=== PATIENT | female | born 1960 | race Caucasian/White ===

== ENCOUNTER 2016-05-12 17:37 | Inpatient (IN) | payer BC ==
--- NOTE | 2016-05-12 17:48 | PDOC ---
Rapid Medical Evaluation Time Seen by Provider: 05/12/16 17:42 Medical Evaluation: Allergies Allergy/AdvReac Type Severity Reaction Status Date / Time No Known Allergies Allergy Verified 05/12/16 17:42 05/12/16 17:43 I have performed a brief in-person evaluation of this patient. Ms. Jarrell is a 55 yo F with a history of HTN, hypothyroidism presents with a chief complaint of Right abdominal pain and right chest pain Pain began 2 weeks ago She was seen in Urgent care, diagnosed with muscle spasm, given pain medications Was then seen by PMD 1 week ago, given pain medications Never got chest xray (+) dizziness (+) sob (-) nausea, vomiting, diarrhea Took Tylenol at 3pm for pain Pertinent physical exam findings: Temp 100.5, HR: 130, O2: 95% Tachycardiac Right upper abdominal pain, Right lower costal pain No rash Decreased breath sounds Right base I have ordered the following: EKG, sepsis order set Pt will be taken immediately to the ER 05/12/16 17:43 05/12/16 17:48 05/12/16 17:49 05/12/16 17:55 EKG: Sinus tachycardia, no ischemic changes 05/12/16 17:57
[2016-05-12] MEDS ORDERED: IBUPROFEN 600 MG TABLET (FP) PO ONE (17:55)
--- NOTE | 2016-05-12 18:44 | PDOC ---
History of Present Illness - General History Source: Patient Exam Limitations: No Limitations - History of Present Illness Initial Comments: 05/12/16 19:32 The patient is a 56 year old female, with significant past medical history of hypothyroidism, HTN, who presents today complaining of 2 weeks of right abdominal pain and right sided chest pain. The patient states that the pain started on her upper right side and has progressively radiated to under the right breast and the back. The pain is constant, but increases in intensity at times. She states that the pain is accompanied by nausea. The last time she vomited was on Tuesday, 2 days ago. She states that she did not eat today because the pain and medication were making her nauseous. She notes that she visited the Urgent Care at [facility] for this pain 2 weeks ago where they treated her for a muscle spasm. She was prescribed Methocarbamol (500mg) for the pain has been taking it intermittently. Denies fever, chills, vomiting. Denies SOB, cough. Allergies: none reported Surgical Hx: cholecystectomy PCP: Dr. Barone ([facility]) <Valeria Blake - Last Filed: 05/12/16 22:37> <Stanley Medina - Last Filed: 05/12/16 22:56> - General Chief Complaint: Pain, Acute Stated Complaint: PAIN, ACUTE Time Seen by Provider: 05/12/16 17:42 Past History <Valeria Blake - Last Filed: 05/12/16 22:37> - Past Medical History HTN: Yes Thyroid Disease: Yes - Surgical History Abdominal Surgery: Yes (laparotomy. HERNIA ERPAIR X 2) Cholecystectomy: Yes - Psycho/Social/Smoking Cessation Hx Anxiety: No Suicidal Ideation: No Smoking History: Never smoked Have you smoked in the past 12 months: No Number of Cigarettes Smoked Daily: 0 Hx Alcohol Use: No Drug/Substance Use Hx: No Substance Use Type: None Hx Substance Use Treatment: No <Stanley Medina - Last Filed: 05/12/16 22:56> - Past Medical History Allergies/Adverse Reactions: Allergies Allergy/AdvReac Type Severity Reaction Status Date / Time No Known Allergies Allergy Verified 05/12/16 17:47 Home Medications: Ambulatory Orders Levothyroxine [Synthroid -] 125 mcg PO DAILY 11/24/13 Amlodipine Besylate [Norvasc -] 10 mg PO DAILY 05/12/16 Losartan/Hydrochlorothiazide [Losartan-Hctz 50-12.5 mg Tab] 1 each PO DAILY Methocarbamol [Robaxin -] 500 mg PO DAILY PRN 05/12/16 Review of Systems - Review of Systems Able to Perform ROS?: Yes Comments:: 05/12/16 19:32 CONSTITUTIONAL: No fever, no chills, no fatigue EYES: No visual changes ENT: No ear pain, no sore throat CARDIOVASCULAR: +right sided chest pain. No palpitations RESPIRATORY: No cough, no SOB GI: +nausea. No abdominal pain, no vomiting, no constipation, no diarrhea GENITOURINARY: No dysuria, no frequency, no hematuria MUSKULOSKELETAL: No backpain, no joint pain, no myalgias SKIN: No rash NEURO: No headache <Valeria Blake - Last Filed: 05/12/16 22:37> *Physical Exam - Vital Signs Last Vital Signs Temp Pulse Resp BP Pulse Ox 100.5 F H 130 H 18 145/68 95 05/12/16 17:43 05/12/16 17:43 05/12/16 17:43 05/12/16 17:43 05/12/16 17:43 - Physical Exam Comments: 05/12/16 19:58 CONSTITUTIONAL: Awake, alert. Morbidly obese. In moderate distress. HEAD: Normocephalic; atraumatic EYES: PERRL; EOM intact. No icterus ENMT: External appears normal; normal oropharynx. Mucous membranes dry. NECK: Supple; non-tender; no cervical lymphadenopathy CARD: Normal S1, S2; no murmurs, rubs, or gallops RESP: Normal chest excursion with respiration; Decreased breast sounds at the right base. no wheezes, rhonchi, or rales CHEST: Severe right chest wall tenderness intercostal spaces 6,7, and 8 along the midclavicular line. ABD: Soft, non-distended; non-tender; no palpable organomegaly, no palpable hernias EXT: Normal ROM in all four extremities; non-tender to palpation; distal pulses intact SKIN: Warm, dry, no rash NEURO: No focal neurological deficiencies. <Valeria Blake - Last Filed: 05/12/16 22:37> - Vital Signs Last Vital Signs Temp Pulse Resp BP Pulse Ox 100.5 F H 130 H 18 145/68 95 05/12/16 17:43 05/12/16 17:43 05/12/16 17:43 05/12/16 17:43 05/12/16 17:43 <Stanley Medina - Last Filed: 05/12/16 22:56> Heart Score/ECG Review #1 05/12/16 19:36 Sinus tachycardia Otherwise normal ECG <Valeria Blake - Last Filed: 05/12/16 22:37> ED Treatment Course - LABORATORY CBC & Chemistry Diagram: 05/12/16 18:02 05/12/16 18:02 - Medications Given in the ED: ED Medications Discontinued Medications Generic Name Dose Route Start Last Admin Trade Name Freq PRN Reason Stop Dose Admin Ibuprofen 600 mg 05/12/16 17:55 05/12/16 19:14 Motrin - PO 05/12/16 17:56 Not Given ONCE ONE <Valeria Blake - Last Filed: 05/12/16 22:37> - LABORATORY CBC & Chemistry Diagram: 05/12/16 18:02 05/12/16 18:02 <Stanley Medina - Last Filed: 05/12/16 22:56> Medical Decision Making - Medical Decision Making 05/12/16 22:54 Patient is a morbidly obese 55-year-old female with history of hypertension and hypothyroidism who presented with increasing right lower chest and right upper abdominal pain for the past 2 weeks. Initial evaluation, patient noted to be febrile and tachycardic with decreased breath sounds at the right base. Initial CBC revealed leukocytosis of 12.3 with predominance of neutrophils. Chest x-ray revealed right lower lobe infiltrate. Blood cultures were obtained and patient received ceftriaxone and Zithromax IV. After administration of IV antibiotics, left EJ peripheral line infiltrated a small amount of fluid extravasated subcutaneously. Ice was applied. A 22-gauge peripheral IV catheter was inserted and left forearm. CT of chest with IV contrast was obtained for the PE protocol. No evidence of pulmonary embolism was noted, however, moderate size right pleural effusion and compressive atelectasis was noted. Also noted was a 5 cm right hepatic lobe mass which may represent a peritoneal implant. Patient will require admission for further evaluation and treatment of right pleural effusion and hepatic lobe infiltrate. Patient may require thoracentesis for evaluation of possible empyema versus malignant effusion. <Stanley Medina - Last Filed: 05/12/16 22:56> *DC/Admit/Observation/Transfer - Attestations Scribe Attestion: 05/12/16 19:32 Documentation prepared by JAZZY Turner, acting as forensic medical examiner for Stanley Medina MD. <Valeria Blake - Last Filed: 05/12/16 22:37> - Discharge Dispostion Admit: Yes - Attestations Physician Attestion: 05/12/16 22:36 The documentation was prepared by the scribe under my direct supervision. I have reviewed the documentation which correctly represents the findings, medical decision-making and critical action taken by me. <Stanley Medina - Last Filed: 05/12/16 22:56> Diagnosis at time of Disposition: Pleural effusion, Liver mass, right lobe
[2016-05-12] MEDS ORDERED: LIDOCAINE 1%/EPI 1:100000 (50 ML MULTI DOSE VIAL) ONE (19:19)
[2016-05-12] MEDS ORDERED: AZITHROMYCIN IVPB 500 MG in DEXTROSE 5%-WATER - 250 ML IVPB ONE (19:32)
[2016-05-12] MEDS ORDERED: CEFTRIAXONE 1 GM in DEXTROSE 5%-WATER - 50 ML IVPB ONE (19:32)
[2016-05-12] MEDS ORDERED: ACETAMINOPHEN 500 MG TABLET (FP) PO ONE (19:34)
[2016-05-12] MEDS ORDERED: SODIUM CHLORIDE 1,000 ML IV STA (19:34)
[2016-05-12] MEDS ORDERED: CEFTRIAXONE 50 ML ONE (19:43)
[2016-05-12] MEDS ORDERED: ACETAMINOPHEN 325 MG TABLET (FP) ONE ×2 (19:43→23:49)
[2016-05-12] MEDS ORDERED: AZITHROMYCIN IVPB 250 ML IVPB ONE (20:13)
[2016-05-12 20:46] LABS: ALBUMIN 3.1 g/dl (3.4-5.0); ANION GAP 9 (8-16); CALCIUM 8.1 mg/dL (8.5-10.1); CO2 26 mmol/L (21-32); CREATININE 0.6 mg/dL (0.55-1.02); GLUCOSE,RANDOM 116 mg/dL (74-106); SGOT/AST 11 U/L (15-37); SGPT/ALT 13 U/L (12-78)
[2016-05-12 20:49] LABS: ALK PHOS 79 U/L (45-117); BILIRUBIN,TOTAL 0.8 mg/dL (0.2-1.0); TOT PROT 7.4 g/dl (6.4-8.2); TROPONIN I < 0.02 ng/ml (0.00-0.05)
[2016-05-12] MEDS ORDERED: ACETAMINOPHEN 325 MG TABLET (FP) PO ONE (22:56)
[2016-05-12 23:02] LABS: BASOPHIL 0.5 % (0-2.0); EOSINOPHIL 0.4 % (0-4.5); MCH 28.8 pg (25.7-33.7); MCHC 34.4 g/dl (32.0-36.0); MEAN CELL VOLUME 83.7 fl (80-96); MEAN PLT VOLUME 7.9 fl (7.5-11.1); NEUTROPHILS 88.3 % (42.8-82.8); RDW 13.7 % (11.6-15.6); WHITE BLOOD COUNT 14.5 K/mm3 (4.0-10.0)
[2016-05-12 23:11] LABS: INR 1.48 (0.82-1.09); PROTHROMBIN TIME (PATIENT) 16.4 SEC (9.98-11.88)
--- NOTE | 2016-05-12 23:14 | PN ---
<Paloma Herrera - Last Filed: 05/12/16 23:14> Teaching Attending Note Name of Resident: Leogalen Austin <Mimi Abbott - Last Filed: 05/13/16 04:04> Teaching Attending Note ATTENDING PHYSICIAN STATEMENT I saw and evaluated the patient. I reviewed the resident's note and discussed the case with the resident. I agree with the resident's findings and plan as documented. SUBJECTIVE: The patient is a 56 year old female, with a significant past medical history of HTN, who presents to the ED with R sided abdominal pain and chest pain that began 2 days ago. The patient reports the chest pain is localized to her R side and radiates under her breast to her back. The patient states the chest pain is constant, varying in intensity and associated with nausea. The patient describes her abdominal pain is associated with vomiting. The patient was seen at [facility] and was diagnosed with muscle spasm for which she was given methocarbamol 500 mg. She denies headache or dizziness. She denies fever, chills or diarrhea. She denies dysuria, frequency, urgency or hematuria. PMHx: hypothyroidism, migraines, gallstones, incarcerated R ventral hernia PSHx- cholecystectomy, hernioplasty. Social Hx: Denies toxic habits Fam hx: Both aunts had liver cancer, Mother: HTN, dementia and Dad: HTN. OBJECTIVE: Last Vital Signs Temp Pulse Resp BP Pulse Ox 98.1 F 102 H 20 107/75 97 05/13/16 00:01 05/13/16 00:01 05/13/16 01:04 05/13/16 00:01 05/13/16 01:04 GENERAL: + Class II Obese. + Pale. Awake, alert, and fully oriented, in no acute distress HEENT: Atraumatic. PERRLA, EOMI. Moist mucosa. No JVD LUNGS: +R lower lung diminished breath sound. No distress, speaks full sentences , clear to auscultation bilaterally HEART: Regular rate and rhythm, normal S1 and S2, no murmurs, rubs or gallops, peripheral pulses normal and equal bilaterally. ABDOMEN: +RUQ tenderness with minimal guarding no rebound. Soft, normoactive bowel sounds. No masses EXTREMITIES: +1 Pitting edema. Normal inspection, Normal range of motion. No clubbing or cyanosis. NEUROLOGICAL: Cranial nerves II through XII grossly intact. Normal speech, normal gait, no focal sensorimotor deficits SKIN: + Surgical scar supraumbilica and infraumbilical area. Warm, Dry, normal turgor, no rashes or lesions noted. CBCD WBC 14.5 K/mm3 (4.0-10.0) H D 05/12/16 22:50 RBC 3.90 M/mm3 (3.60-5.2) 05/12/16 22:50 Hgb 11.2 GM/dL (10.7-15.3) D 05/12/16 22:50 Hct 32.7 % (32.4-45.2) 05/12/16 22:50 MCV 83.7 fl (80-96) 05/12/16 22:50 MCHC 34.4 g/dl (32.0-36.0) 05/12/16 22:50 RDW 13.7 % (11.6-15.6) 05/12/16 22:50 Plt Count 332 K/MM3 (134-434) 05/12/16 22:50 MPV 7.9 fl (7.5-11.1) 05/12/16 22:50 CMP Sodium 134 mmol/L (136-145) L 05/12/16 18:02 Potassium 3.5 mmol/L (3.5-5.1) 05/12/16 18:02 Chloride 99 mmol/L (98-107) 05/12/16 18:02 Carbon Dioxide 26 mmol/L (21-32) 05/12/16 18:02 Anion Gap 9 (8-16) 05/12/16 18:02 BUN 11 mg/dL (7-18) 05/12/16 18:02 Creatinine 0.6 mg/dL (0.55-1.02) 05/12/16 18:02 Creat Clearance w eGFR > 60 (>60) 05/12/16 18:02 Calcium 8.1 mg/dL (8.5-10.1) L 05/12/16 18:02 Total Bilirubin 0.8 mg/dL (0.2-1.0) D 05/12/16 18:02 AST 11 U/L (15-37) L D 05/12/16 18:02 ALT 13 U/L (12-78) D 05/12/16 18:02 Alkaline Phosphatase 79 U/L (45-117) 05/12/16 18:02 Total Protein 7.4 g/dl (6.4-8.2) 05/12/16 18:02 Albumin 3.1 g/dl (3.4-5.0) L 05/12/16 18:02 Imaging: Chest CT w Contrast Impression: There is no CT evidence of pulmonary embolism. A small to moderate right pleural effusion is noted with associated basilar compressive atelectasis. In comparison to an abdomen CT study of 11/24/2013 interval development of a 5 x 3.5 x 2.4 cm mass lesion is noted along the posterior border of the right hepatic lobe which may represent a peritoneal implant. Additional interval findings are noted within the partially imaged upper abdomen as discussed. ASSESSMENT AND PLAN: 1.) Liver mass r/o hepatocellular carcinoma vs metastasis vs benign CT abdomen and pelvis AFP Hepatitis B and C studies D/c usg Coagulation profile Consider GI consult Thoracentesis IR consult Liver US Patient denied any pain medications Patient admitted to Med Surg Documentation prepared by Mimi Abbott, acting as medical certification specialist for Paloma Herrera MD.
[2016-05-13 00:15] LABS: PLATELET COMMENT2 NO CLOTTING DETECTED; PLATELET COUNT 332 K/MM3 (134-434); PLATELET ESTIMATE ADEQUATE (NORMAL)
[2016-05-13 00:17] LABS: PLATELET COMMENT3 FEW LARGE PLTS
[2016-05-13 01:00] VITALS: BMI 39.6
--- NOTE | 2016-05-13 02:51 | HP ---
CHIEF COMPLAINT: R sided chest/abdominal pain PCP: Dr. Barone HISTORY OF PRESENT ILLNESS: 55 y/o F w/PMH of HTN, hypothyroidism presented to ER w/ R sided chest/ abdominal pain x 2 days. Pain has been getting progressively worse, is aggravated by movement, and is constant. Pt has also had subjective fevers and chills for last 2 weeks. Pt went to urgent care 2 weeks ago for this pain and was given muscle relaxants but they did not help. Pt went to PCP one week ago and was given ibuprofen 800 mg q8h and percocet. Percocet helped with pain but overall pain was still progressively worse. Pt felt nauseous this AM from pain. Pt has difficulty w/taking deep breaths due to pain. Pt denies SOB, GIBBS, vomiting. ER course was notable for: (1) CXR, CT chest w/contrast (2) azithromycin, ceftriaxone (3) PAST MEDICAL HISTORY: htn, hypothyroidism PAST SURGICAL HISTORY: hernia repair x2 (2yrs ago and 3yrs ago); cholecystectomy 2015 Social History: Smoking: never Alcohol: denies Drugs: denies Family History: Mother: asthma, htn; 2 aunts of liver ca at ages 50 and 55 Allergies No Known Allergies Allergy (Verified 05/12/16 17:47) HOME MEDICATIONS: Home Medications Medication Instructions Recorded Levothyroxine [Synthroid -] 125 mcg PO DAILY 11/24/13 Amlodipine Besylate [Norvasc -] 10 mg PO DAILY 05/12/16 Losartan/Hydrochlorothiazide 1 each PO DAILY 05/12/16 [Losartan-Hctz 50-12.5 mg Tab] Methocarbamol [Robaxin -] 500 mg PO DAILY PRN 05/12/16 REVIEW OF SYSTEMS CONSTITUTIONAL: fever, chills Absent: diaphoresis, generalized weakness, malaise, loss of appetite, weight change HEENT: Absent: rhinorrhea, nasal congestion, throat pain, throat swelling, difficulty swallowing, mouth swelling, ear pain, eye pain, visual changes CARDIOVASCULAR: r sided chest pain Absent: syncope, palpitations, irregular heart rate, lightheadedness, peripheral edema RESPIRATORY: Absent: cough, shortness of breath, dyspnea with exertion, orthopnea, wheezing, stridor, hemoptysis GASTROINTESTINAL: nausea Absent: abdominal pain, abdominal distension, vomiting, diarrhea, constipation, melena, hematochezia GENITOURINARY: Absent: dysuria, frequency, urgency, hesitancy, hematuria, flank pain, genital pain MUSCULOSKELETAL: Absent: myalgia, arthralgia, joint swelling, back pain, neck pain SKIN: Absent: rash, itching, pallor HEMATOLOGIC/IMMUNOLOGIC: Absent: easy bleeding, easy bruising, lymphadenopathy, frequent infections ENDOCRINE: Absent: unexplained weight gain, unexplained weight loss, heat intolerance, cold intolerance NEUROLOGIC: Absent: headache, focal weakness or paresthesias, dizziness, unsteady gait, seizure, mental status changes, bladder or bowel incontinence PSYCHIATRIC: Absent: anxiety, depression, suicidal or homicidal ideation, hallucinations. PHYSICAL EXAMINATION Vital Signs Temperature 98.1 F 05/13/16 00:01 Pulse Rate 102 H 05/13/16 00:01 Respiratory Rate 20 05/13/16 01:04 Blood Pressure 107/75 05/13/16 00:01 O2 Sat by Pulse Oximetry (%) 97 05/13/16 01:04 GENERAL: Awake, alert, and fully oriented, in no acute distress. HEAD: Normal with no signs of trauma. EYES: extraocular movements intact, sclera anicteric, conjunctiva clear. No lid lag. EARS, NOSE, THROAT: Ears normal, nares patent, Moist mucous membranes. NECK: Normal range of motion LUNGS: Decreased breath sounds at R base. HEART: tachycardic, normal S1 and S2 without murmur, rub or gallop. ABDOMEN: Soft, nontender, not distended, normoactive bowel sounds, no guarding, no rebound, no masses. No hepatomegaly or splenomegaly. LOWER EXTREMITIES: 2+ pulses, warm, well-perfused. No calf tenderness NEUROLOGICAL: Normal speech. Normal gait. PSYCHIATRIC: Cooperative. Good eye contact. Appropriate mood and affect. SKIN: Warm, dry, normal turgor, no rashes or lesions noted. CBCD WBC 14.5 K/mm3 (4.0-10.0) H D 05/12/16 22:50 RBC 3.90 M/mm3 (3.60-5.2) 05/12/16 22:50 Hgb 11.2 GM/dL (10.7-15.3) D 05/12/16 22:50 Hct 32.7 % (32.4-45.2) 05/12/16 22:50 MCV 83.7 fl (80-96) 05/12/16 22:50 MCHC 34.4 g/dl (32.0-36.0) 05/12/16 22:50 RDW 13.7 % (11.6-15.6) 05/12/16 22:50 Plt Count 332 K/MM3 (134-434) 05/12/16 22:50 MPV 7.9 fl (7.5-11.1) 05/12/16 22:50 CMP Sodium 134 mmol/L (136-145) L 05/12/16 18:02 Potassium 3.5 mmol/L (3.5-5.1) 05/12/16 18:02 Chloride 99 mmol/L (98-107) 05/12/16 18:02 Carbon Dioxide 26 mmol/L (21-32) 05/12/16 18:02 Anion Gap 9 (8-16) 05/12/16 18:02 BUN 11 mg/dL (7-18) 05/12/16 18:02 Creatinine 0.6 mg/dL (0.55-1.02) 05/12/16 18:02 Creat Clearance w eGFR > 60 (>60) 05/12/16 18:02 Random Glucose 116 mg/dL (74-106) H D 05/12/16 18:02 Calcium 8.1 mg/dL (8.5-10.1) L 05/12/16 18:02 Total Bilirubin 0.8 mg/dL (0.2-1.0) D 05/12/16 18:02 AST 11 U/L (15-37) L D 05/12/16 18:02 ALT 13 U/L (12-78) D 05/12/16 18:02 Alkaline Phosphatase 79 U/L (45-117) 05/12/16 18:02 Total Protein 7.4 g/dl (6.4-8.2) 05/12/16 18:02 Albumin 3.1 g/dl (3.4-5.0) L 05/12/16 18:02 CARDIAC ENZYMES Creatine Kinase 41 IU/L (26-192) 05/12/16 18:02 Troponin I < 0.02 ng/ml (0.00-0.05) 05/12/16 18:02 CT chest w/contrast 05/12/16: Small to moderate R pleural effusion w/associated basilar compressive atelectasis. In comparison to an abd CT study of 11/24/13 interval development of a 5 x 3.5 x 2.4 cm mass lesion is noted along posterior border of the right hepatic lobe which may represent a peritoneal implant. A stable 1 x 0.5cm subpleural nodule is seen w/in th eR lower chest medially. Active Medications Morphine Sulfate (Morphine Injection -) 2 mg IVPUSH Q6H PRN PRN Reason: PAIN ASSESSMENT/PLAN: 55 y/o F w/PMH of HTN, hypothyroidism presented to ER w/ R sided chest/ abdominal pain x 2 days. Found to have R pleural effusion and new liver mass lesion. -R pleural effusion -as seen on CT chest -npo, thoracentesis by IR -serum LDH ordered for comparison w/pleural fluid LDH -possibly secondary to liver mass lesion -pain control w/morphine 2mg iv q6h prn -Hepatic mass lesion -Abd/pelvis CT; -AFP, Hep B and C panel -Consider GI consult -possible malignancy -Leukocytosis -likely reactive to pleural effusion -lactic acid wnl -no abx at this time -f/u BCx -tylenol 650 mg po q6h prn for fever/pain -HTN -norvasc 10 mg po qd, losartan/hctz 50/12.5 at home -will hold as BP is normotensive currently -Hypothyroidism -c/w synthroid 125 mcg qd -FEN -NS @ 75 ml/hr -Hyponatremia (mild), on fluids, monitor -NPO for now -Dispo: -admit to med/surg Visit type - Emergency Visit Emergency Visit: Yes ED Registration Date: 05/12/16 Care time: The patient presented to the Emergency Department on the above date and was hospitalized for further evaluation of their emergent condition. - New Patient This patient is new to me today: Yes Date on this admission: 05/13/16 - Critical Care Critical Care patient: No
[2016-05-13] MEDS ORDERED: morphine CARPU-JECT 2 MG/1 ML DISP.SYRIN IVPUSH PRN (03:14)
[2016-05-13] MEDS ORDERED: SODIUM CHLORIDE 1,000 ML IV SCH (04:15)
[2016-05-13] MEDS: LEVOTHYROXINE NA 125 MCG TABLET (FP) PO SCH (06:40)
[2016-05-13 08:19] LABS: BASOPHIL 0.7 % (0-2.0); EOSINOPHIL 1.3 % (0-4.5); MCH 28.5 pg (25.7-33.7); MCHC 33.5 g/dl (32.0-36.0); MEAN CELL VOLUME 85.1 fl (80-96); MEAN PLT VOLUME 7.5 fl (7.5-11.1); NEUTROPHILS 84.6 % (42.8-82.8); PLATELET COUNT 333 K/MM3 (134-434); RDW 13.9 % (11.6-15.6); WHITE BLOOD COUNT 9.8 K/mm3 (4.0-10.0)
[2016-05-13 08:37] LABS: INR 1.54 (0.82-1.09)
[2016-05-13 08:40] LABS: ACTIVATED PTT 33.8 SECONDS (26.9-34.4)
[2016-05-13 08:45] LABS: CALCIUM 7.9 mg/dL (8.5-10.1); CREATININE 0.6 mg/dL (0.55-1.02)
[2016-05-13] MEDS: ACETAMINOPHEN 325 MG TABLET (FP) PO PRN ×3 (09:29→22:06)
--- NOTE | 2016-05-13 11:38 | EKG ---
Test Reason : Blood Pressure : / mmHG Vent. Rate : 124 BPM Atrial Rate : 124 BPM P-R Int : 148 ms QRS Dur : 088 ms QT Int : 318 ms P-R-T Axes : 034 076 022 degrees QTc Int : 456 ms SINUS TACHYCARDIA OTHERWISE NORMAL ECG WHEN COMPARED WITH ECG OF 04-NOV-2014 19:09, VENT. RATE HAS INCREASED BY 56 BPM T WAVE INVERSION NOW EVIDENT IN INFERIOR LEADS Confirmed by KEYA WILKINSON, SUSANA ([id number]) on 05/13/2016 11:38:03 AM Referred By: Confirmed By:SUSANA LAURA MD
--- NOTE | 2016-05-13 14:34 | PN ---
Progress Note, Physician Chief Complaint: ID Well until 3 weeks ago when she developed severe right lat musculoskeletal tommy and went to [facility] and given muscle relaxant. Last week seen [facility] and experiencing fever and chills. Pain became so severe she asked to be brought here to ER. Pleuritic type pain without couph nightsweats abd pain JOSHUA weight loss. Lives with her Denies HIV risks exposures hobbies pets. Travel to where she was born. Lives in many years. Has had herniorraphy and gallbladder out but not recent. NKA Nonsmoker No drugs ROS noncontributory No couph or SOB - Current Medication List Current Medications: Active Medications Acetaminophen (Tylenol -) 650 mg PO Q6H PRN PRN Reason: FEVER OR PAIN Last Admin: 05/13/16 09:29 Dose: 650 mg Amlodipine Besylate (Norvasc -) 10 mg PO DAILY [facility] Heparin Sodium (Porcine) (Heparin -) 5,000 unit SQ TID [facility] Hydrochlorothiazide (Hctz -) 12.5 mg PO DAILY [facility] Sodium Chloride (Normal Saline -) 1,000 mls @ 75 mls/hr IV ASDIR [facility] Last Admin: 05/13/16 06:47 Dose: 75 mls/hr Levothyroxine Sodium (Synthroid -) 125 mcg PO DAILY@0700 [facility] Last Admin: 05/13/16 06:40 Dose: 125 mcg Losartan Potassium (Cozaar -) 50 mg PO DAILY [facility] Morphine Sulfate (Morphine Injection -) 2 mg IVPUSH Q6H PRN PRN Reason: PAIN Potassium Chloride (K-Dur -) 40 meq PO BID [facility] Stop: 05/14/16 10:01 - Objective Vital Signs: Vital Signs Temperature 102 F H 05/13/16 09:00 Pulse Rate 117 H 05/13/16 09:00 Respiratory Rate 18 05/13/16 09:00 Blood Pressure 152/64 05/13/16 09:00 O2 Sat by Pulse Oximetry (%) 92 L 05/13/16 09:00 Constitutional: Yes: Obese Eyes: Yes: WNL, Conjunctiva Clear, PERRL HENT: Yes: WNL, Atraumatic Neck: Yes: WNL, Supple. No: Lymphadenopathy Cardiovascular: Yes: Regular Rate and Rhythm, S1, S2. No: Murmur, Rub Respiratory: Yes: WNL, Regular, CTA Bilaterally, Other (Dullness to percussion Diminished BS right lung) Gastrointestinal: Yes: WNL, Normal Bowel Sounds, Soft. No: Tenderness Edema: No Labs: CBC, BMP 05/13/16 07:50 05/13/16 07:50 INR, PTT INR 1.54 (0.82-1.09) H 05/13/16 08:05 Fibrinogen 512.0 mg/dL (238-498) H 05/13/16 08:05 Assessment/Plan Microbiology Laboratory Tests 05/12/16 05/13/16 22:50 07:50 WBC 14.5 H D 9.8 D Hgb 11.2 D 11.8 Plt Count 332 333 Neutrophils % 88.3 H D Lymphocytes % 4.6 L D Monocytes % 6.2 Eosinophils % 0.4 D Basophils % 0.5 Assessment Fever chills severe pleuritic chest pain with moderate right effusion. Fluid aspirated Dr Ordoñez was cloudy but not purulent. We asked for a stat gram stain few polys NOS. Contrast CT no infiltrate Plan Treat for community acquired PNA/parapneumonic effusions Ceftriaxone Azithromycin ESR CRP HIV test Fluid for AFB FUNGUS C/S glucose protein LDH cytology WBC diff protein
[2016-05-13] MEDS: amLODIPine BESYLATE 10 MG TABLET (FP) PO SCH (14:36)
[2016-05-13] MEDS: LOSARTAN POTASSIUM 50 MG TABLET (FP) PO SCH (14:36)
[2016-05-13] MEDS: HYDROCHLOROTHIAZIDE 12.5 MG CAPSULE (FP) PO SCH (14:36)
--- NOTE | 2016-05-13 14:50 | MSN ---
Progress Note (short form) - Note Progress Note: SUBJECTIVE: Pt seen and examined at bedside. OLLIE overnight. Pt complains of R sided lower CP and upper abdominal pain. She says the pain is worse when she takes a deep breath. Describes the pain as a sharp sensation that comes and goes. She also admits to fevers, nausea starting this past Tuesday, and constipation (last BM was Tuesday). Denies SOB, vomiting, weight change, dysuria , or frequency. Pt is NPO for thoracentesis. Active Medications Generic Name Dose Route Start Last Admin Trade Name Freq PRN Reason Stop Dose Admin Acetaminophen 650 mg 05/13/16 03:42 05/13/16 09:29 Tylenol - PO 650 mg Q6H PRN Administration FEVER OR PAIN Amlodipine Besylate 10 mg 05/13/16 10:00 05/13/16 14:36 Norvasc - PO 10 mg DAILY FRANKIE Administration Heparin Sodium (Porcine) 5,000 unit 05/13/16 22:00 Heparin - SQ TID FRANKIE Hydrochlorothiazide 12.5 mg 05/13/16 11:00 05/13/16 14:36 Hctz - PO 12.5 mg DAILY FRANKIE Administration Sodium Chloride 1,000 mls @ 75 mls/hr 05/13/16 04:15 05/13/16 06:47 Normal Saline - IV 75 mls/hr ASDIR FRANKIE Administration Levothyroxine Sodium 125 mcg 05/13/16 07:00 05/13/16 06:40 Synthroid - PO 125 mcg DAILY@0700 FRANKIE Administration Losartan Potassium 50 mg 05/13/16 10:00 05/13/16 14:36 Cozaar - PO 50 mg DAILY FRANKIE Administration Morphine Sulfate 2 mg 05/13/16 03:14 Morphine Injection - IVPUSH Q6H PRN PAIN Potassium Chloride 40 meq 05/13/16 22:00 K-Dur - PO 05/14/16 10:01 BID FRANKIE OBJECTIVE: Vital Signs Period Temp Pulse Resp BP Sys/Bustillos Pulse Ox Last 24 Hr 98.1 F-102 F 102-133 18-22 107-152/64-93 92-99 GENERAL: AAOx3 in physical distress 2/2 to pain HEAD: Normocephalic, atraumatic. PERRLA, EOMI NECK: No JVD HEART: Tachycardic with regular rhythm. +S1/S2. No murmurs/rubs/gallops LUNGS: CTAB with decreased breath sounds at R lung base. No rales/rhonchi/ wheezing ABDOMEN: Obese, soft, nondistended. TTP in R posterior abdomen, RUQ, and R umbilical region with guarding. Normal bowel sounds 4/4 quadrants EXT: BL LE warm with no edema NEURO: Normal speech CBC 05/13/16 07:50 CMP Sodium 136 mmol/L (136-145) 05/13/16 07:50 Potassium 3.3 mmol/L (3.5-5.1) L 05/13/16 07:50 Chloride 97 mmol/L (98-107) L 05/13/16 07:50 Carbon Dioxide 28 mmol/L (21-32) 05/13/16 07:50 Anion Gap 11 (8-16) 05/13/16 07:50 BUN 9 mg/dL (7-18) 05/13/16 07:50 Creatinine 0.6 mg/dL (0.55-1.02) 05/13/16 07:50 Creat Clearance w eGFR > 60 (>60) 05/12/16 18:02 Random Glucose 106 mg/dL (74-106) 05/13/16 07:50 Lactic Acid 1.306 mmol/L (0.4-2.0) 05/12/16 18:02 Calcium 7.9 mg/dL (8.5-10.1) L 05/13/16 07:50 Total Bilirubin 0.8 mg/dL (0.2-1.0) D 05/12/16 18:02 AST 11 U/L (15-37) L D 05/12/16 18:02 ALT 13 U/L (12-78) D 05/12/16 18:02 Alkaline Phosphatase 79 U/L (45-117) 05/12/16 18:02 LD Total 158 U/L (84-246) 05/13/16 07:50 Creatine Kinase 41 IU/L (26-192) 05/12/16 18:02 Troponin I < 0.02 ng/ml (0.00-0.05) 05/12/16 18:02 Total Protein 7.4 g/dl (6.4-8.2) 05/12/16 18:02 Albumin 3.0 g/dl (3.4-5.0) L 05/13/16 07:50 EKG (05/13/16): Sinus tachycardia CXR (05/13/16): R sided pleural effusion CT Chest (05/13/16): small to moderate size R sided pleural effusion. 5x3.5x2.4cm hepatic mass on posterior border of R lobe (not previously seen on CT abdomen in 2014) CT Abd/Pelvis (05/14/16): A/P: Pt is a 55 yo F with a PMHx of HTN, hypothyroidism, and JINA who presented to the ED with worsening R sided chest/abdominal pain x2 days. Pt was found to have a R sided pleural effusion and hepatic mass on CT chest. Admitted for further management and observation. 1. R pleural effusion -? 2/2 to liver mass -Thoracentesis by IR today -Serum LDH ordered -FU with pleural fluid labs 2. Hepatic mass -CT abd/pelvis performed -AFP, Hepatitis panel pending -? GI consult 3. Leukocytosis -Improved (14.5 to 9.8) -? 2/2 to rxn to pleural effusion -Blood Cx pending -Lactic acid negative -Azithromycin 500mg and Rocephin 2gm started (day 1) -ID consult appreciated 4. HTN -Stable -Losartan 50mg PO daily -HCTZ 12.5mg PO daily -Norvasc 10mg PO daily -K+ supplement with 40meq PO BID 5. Hypothyroidism -Synthroid 125mcg PO daily -Consider ordering TSH, free T4 2/2 to tachycardia 6. FEN -IV NS @75mls/hr -BMP WNL today. FU AM BMP -Low Na diet ordered 7. DVT ppx -Heparin 5000U SQ TID 8. Dispo -Pt admitted to Med-Surg for further evaluation Ashkan Monroy, MS3
[2016-05-13 15:18] LABS: GLUCOSE,PLEURAL FLUID 68.324; TOTAL PROTEIN,PLEURAL FLUID 5.1
[2016-05-13 15:19] LABS: CHLORIDE PLEURAL FLUID 99.39
[2016-05-13 15:27] LABS: PLEURAL FLUID APPEARANCE CLOUDY; PLEURAL FLUID COLOR CLOUDY; PLEURAL FLUID SOURCE RIGHT PLEURAL
--- NOTE | 2016-05-13 15:59 | PN ---
Physical Exam: SUBJECTIVE: Patient seen and examined at bedside Feels better after thoracentesis OBJECTIVE: Vital Signs Period Temp Pulse Resp BP Sys/Bustillos Pulse Ox Last 24 Hr 98.1 F-102 F 102-117 18-20 107-152/64-93 92-99 GENERAL: The patient is awake, alert, and fully oriented, in no acute distress. HEAD: Normal with no signs of trauma. NECK: supple. LUNGS: Breath sounds equal, clear to auscultation bilaterally, no wheezes, no crackles, no accessory muscle use. HEART: Regular rate and rhythm, S1, S2 without murmur, rub or gallop. ABDOMEN: right sided abdominal trenderness right flank tenderness right chest tenderness soft non distended NEUROLOGICAL: Cranial nerves II through XII grossly intact. Normal speech PSYCH: Normal mood, normal affect. Laboratory Results - last 24 hr 05/13/16 05/13/16 05/13/16 07:50 07:50 08:05 WBC 9.8 D RBC 4.13 Hgb 11.8 Hct 35.1 MCV 85.1 MCHC 33.5 RDW 13.9 Plt Count 333 MPV 7.5 Neutrophils % 84.6 H Lymphocytes % 5.8 L D Monocytes % 7.6 Eosinophils % 1.3 D Basophils % 0.7 INR 1.54 H PTT (Actin FS) 33.8 Fibrinogen 512.0 H Fibrin Degrad Products >10 & <40 Sodium 136 Potassium 3.3 L Chloride 97 L Carbon Dioxide 28 Anion Gap 11 BUN 9 Creatinine 0.6 Random Glucose 106 Calcium 7.9 L LD Total 158 Albumin 3.0 L Pleural Fluid Source Pleural Color Pleural Appearance Pleural WBC Pleural RBC Pleural Chloride Pleural Total Protein Pleural Albumin Pleural LDH Pleural Glucose Pleural Amylase Pleural Cholesterol Pleural Triglycerides 05/13/16 11:25 WBC RBC Hgb Hct MCV MCHC RDW Plt Count MPV Neutrophils % Lymphocytes % Monocytes % Eosinophils % Basophils % INR PTT (Actin FS) Fibrinogen Fibrin Degrad Products Sodium Potassium Chloride Carbon Dioxide Anion Gap BUN Creatinine Random Glucose Calcium LD Total Albumin Pleural Fluid Source Right pleural Pleural Color Cloudy Pleural Appearance Cloudy Pleural WBC 4280 Pleural RBC 6843 Pleural Chloride 99.39 Pleural Total Protein 5.1 Pleural Albumin 2 Pleural LDH 961.94 Pleural Glucose 68.324 Pleural Amylase 19.762 Pleural Cholesterol 83 Pleural Triglycerides 35 Active Medications Generic Name Dose Route Start Last Admin Trade Name Freq PRN Reason Stop Dose Admin Acetaminophen 650 mg 05/13/16 03:42 05/13/16 09:29 Tylenol - PO 650 mg Q6H PRN Administration FEVER OR PAIN Amlodipine Besylate 10 mg 05/13/16 10:00 05/13/16 14:36 Norvasc - PO 10 mg DAILY FRANKIE Administration Heparin Sodium (Porcine) 5,000 unit 05/13/16 22:00 Heparin - SQ TID FRANKIE Hydrochlorothiazide 12.5 mg 05/13/16 11:00 05/13/16 14:36 Hctz - PO 12.5 mg DAILY FRANKIE Administration Ceftriaxone Sodium 100 mls @ 200 mls/hr 05/13/16 15:00 Rocephin 2gm Ivpb (Pre-Docked) IVPB DAILY FRANKIE Azithromycin 250 mls @ 250 mls/hr 05/13/16 15:00 Zithromax 500mg Ivpb (Pre-Docked) IVPB DAILY [facility] Levothyroxine Sodium 125 mcg 05/13/16 07:00 05/13/16 06:40 Synthroid - PO 125 mcg DAILY@0700 FRANKIE Administration Losartan Potassium 50 mg 05/13/16 10:00 05/13/16 14:36 Cozaar - PO 50 mg DAILY FRANKIE Administration Morphine Sulfate 2 mg 05/13/16 03:14 Morphine Injection - IVPUSH Q6H PRN PAIN Potassium Chloride 40 meq 05/13/16 22:00 K-Dur - PO 05/14/16 10:01 BID [facility] ASSESSMENT/PLAN: 55 y/o F w/PMH of HTN, hypothyroidism presented to ER w/ R sided chest/ abdominal pain x 2 days. Found to have R pleural effusion and thought to have a new liver mass lesion. Right pleural effusion/Community acquired pneumonia/Sepsis (leukocytosis and fever): after evaluation by ID it is thought she has a pneumonia with pleuritic chest pain. s/p thoracentesis ID consult appreciated Azithromycin Ceftriaxone f/u pleural fluid studies Hepatic mass: this was seen on chest CT also read as a mass on abdominal CT after reviewing the scans with radiology they do not feel they have seen a mass LFTs WNL will hold off on GI consult for hepatology evaluation will see if right flank/chest/abdominal pain improves with treatment of pneumonia HTN continue Home emds Norvasc Losartan and HCTZ Hypothyroidism Syntrhoid 125mcg qam -FEN Stop IVF hypokalemia will replete Low sodium diet PPx: HSQ/SCDs No criteria met for GI PPx no PT evaluation needed possible D/C in next 1-2 days Visit type - Emergency Visit Emergency Visit: Yes ED Registration Date: 05/12/16 Care time: The patient presented to the Emergency Department on the above date and was hospitalized for further evaluation of their emergent condition. - New Patient This patient is new to me today: Yes Date on this admission: 05/13/16 - Critical Care Critical Care patient: No
[2016-05-13 17:31] LABS: PLEURAL FLUID LYMPHOCYTES 30 %; PLEURAL FLUID NEUTROPHIL 35 %
[2016-05-13] MEDS: AZITHROMYCIN IVPB 250 ML IVPB SCH (17:48)
[2016-05-13] MEDS: CEFTRIAXONE 100 ML IVPB SCH (17:48)
--- NOTE | 2016-05-13 21:49 | PN ---
Teaching Attending Note Name of Resident: Gustavo Miner ATTENDING PHYSICIAN STATEMENT I saw and evaluated the patient. I reviewed the resident's note and discussed the case with the resident. I agree with the resident's findings and plan as documented. Vital Signs Temperature 102.8 F H 05/13/16 18:00 Pulse Rate 113 H 05/13/16 18:00 Respiratory Rate 20 05/13/16 18:00 Blood Pressure 102/70 05/13/16 18:00 O2 Sat by Pulse Oximetry (%) 95 05/13/16 19:50 CMP Sodium 136 mmol/L (136-145) 05/13/16 07:50 Potassium 3.3 mmol/L (3.5-5.1) L 05/13/16 07:50 Chloride 97 mmol/L (98-107) L 05/13/16 07:50 Carbon Dioxide 28 mmol/L (21-32) 05/13/16 07:50 Anion Gap 11 (8-16) 05/13/16 07:50 BUN 9 mg/dL (7-18) 05/13/16 07:50 Creatinine 0.6 mg/dL (0.55-1.02) 05/13/16 07:50 Creat Clearance w eGFR > 60 (>60) 05/12/16 18:02 Random Glucose 106 mg/dL (74-106) 05/13/16 07:50 Lactic Acid 1.306 mmol/L (0.4-2.0) 05/12/16 18:02 Calcium 7.9 mg/dL (8.5-10.1) L 05/13/16 07:50 Total Bilirubin 0.8 mg/dL (0.2-1.0) D 05/12/16 18:02 AST 11 U/L (15-37) L D 05/12/16 18:02 ALT 13 U/L (12-78) D 05/12/16 18:02 Alkaline Phosphatase 79 U/L (45-117) 05/12/16 18:02 LD Total 158 U/L (84-246) 05/13/16 07:50 Creatine Kinase 41 IU/L (26-192) 05/12/16 18:02 Troponin I < 0.02 ng/ml (0.00-0.05) 05/12/16 18:02 C-Reactive Protein 21.5 MG/DL (0.00-0.3) H 05/13/16 15:30 Total Protein 7.4 g/dl (6.4-8.2) 05/12/16 18:02 Albumin 3.0 g/dl (3.4-5.0) L 05/13/16 07:50 Current Medications Generic Name Dose Route Start Last Admin Trade Name Freq PRN Reason Stop Dose Admin Acetaminophen 650 mg 05/13/16 03:42 05/13/16 17:49 Tylenol - PO 650 mg Q6H PRN Administration FEVER OR PAIN Amlodipine Besylate 10 mg 05/13/16 10:00 05/13/16 14:36 Norvasc - PO 10 mg DAILY FRANKIE Administration Heparin Sodium (Porcine) 5,000 unit 05/13/16 22:00 Heparin - SQ TID FRANKIE Hydrochlorothiazide 12.5 mg 05/13/16 11:00 05/13/16 14:36 Hctz - PO 12.5 mg DAILY FRANKIE Administration Ceftriaxone Sodium 100 mls @ 200 mls/hr 05/13/16 15:00 05/13/16 17:48 Rocephin 2gm Ivpb (Pre-Docked) IVPB 200 mls/hr DAILY FRANKIE Administration Azithromycin 250 mls @ 250 mls/hr 05/13/16 15:00 05/13/16 17:48 Zithromax 500mg Ivpb (Pre-Docked) IVPB 250 mls/hr DAILY FRANKIE Administration Levothyroxine Sodium 125 mcg 05/13/16 07:00 05/13/16 06:40 Synthroid - PO 125 mcg DAILY@0700 FRANKIE Administration Losartan Potassium 50 mg 05/13/16 10:00 05/13/16 14:36 Cozaar - PO 50 mg DAILY FRANKIE Administration Morphine Sulfate 2 mg 05/13/16 03:14 Morphine Injection - IVPUSH Q6H PRN PAIN Potassium Chloride 40 meq 05/13/16 22:00 K-Dur - PO 05/14/16 10:01 BID [facility] Home Medications Medication Instructions Recorded Levothyroxine [Synthroid -] 125 mcg PO DAILY 11/24/13 Amlodipine Besylate [Norvasc -] 10 mg PO DAILY 05/12/16 Losartan/Hydrochlorothiazide 1 each PO DAILY 05/12/16 [Losartan-Hctz 50-12.5 mg Tab] Methocarbamol [Robaxin -] 500 mg PO DAILY PRN 05/12/16 : ASSESSMENT AND PLAN: Patient is a 55 y/o F w/PMH of HTN, hypothyroidism presented to ER w/ R sided chest/abdominal pain x 2 days. Found to have R pleural effusion and thought to have a liver mass. # Acute Right pleural effusion s/p thoracentesis by IR, diagnostic purposes F/u pleural fluid studies CT of abdomen was reviewed and was reported as a liver mass, after reviewing the scans with radiology they do not feel they have seen a mass LFTs WNL #Community acquired pneumonia On Rocephin and Zithromax as per ID # Acute sepsis (leukocytosis and fever): after evaluation by ID it is thought she has a pneumonia with pleuretic chest pain. #HTN continue Home emds Norvasc Losartan and HCTZ #Hypothyroidism Syntrhoid 125mcg qam DVT px; hEPARIN SQ, scd, EARLY AMBULATION
[2016-05-13] MEDS: POTASSIUM CHLORIDE TABS 20 MEQ TABLET.ER (FP) PO SCH (22:05)
[2016-05-13] MEDS: HEPARIN NA (PORCINE) 5,000 UNITS/ML 1ML VIAL SQ SCH (22:06)
[2016-05-14 05:23] LABS: URINE APPEARANCE CLEAR; URINE BILIRUBIN NEGATIVE (NEGATIVE); URINE COLOR STRAW; URINE GLUCOSE (UA) NEGATIVE (NEGATIVE); URINE KETONE NEGATIVE (NEGATIVE); URINE NITRITE NEGATIVE (NEGATIVE); URINE PROTEIN NEGATIVE (NEGATIVE); URINE UROBILINOGEN NEGATIVE E.U./dl (0.2-1.0)
[2016-05-14 05:29] LABS: URINE BLOOD 2+ (NEGATIVE); URINE LEUK ESTERASE 3+ (NEGATIVE)
[2016-05-14 05:33] LABS: URINE BACTERIA RARE /hpf (NONE SEEN); URINE MUCUS RARE; URINE RBC 3 /hpf (0-3); URINE WBC 23 /hpf (3-5)
[2016-05-14] MEDS: ACETAMINOPHEN 325 MG TABLET (FP) PO PRN ×3 (05:47→22:16)
[2016-05-14] MEDS: LEVOTHYROXINE NA 125 MCG TABLET (FP) PO SCH (06:23)
[2016-05-14] MEDS: HEPARIN NA (PORCINE) 5,000 UNITS/ML 1ML VIAL SQ SCH ×3 (06:23→22:16)
--- NOTE | 2016-05-14 07:52 | PN ---
Teaching Attending Note Name of Resident: Gustavo Miner ATTENDING PHYSICIAN STATEMENT I saw and evaluated the patient. I reviewed the resident's note and discussed the case with the resident. I agree with the resident's findings and plan as documented. Patient is feeling better, with no acute distress. Has less pain than before. Vital Signs Temperature 100.2 F H 05/14/16 06:43 Pulse Rate 94 H 05/14/16 02:00 Respiratory Rate 18 05/13/16 22:00 Blood Pressure 122/74 05/13/16 22:00 O2 Sat by Pulse Oximetry (%) 95 05/13/16 19:50 CBCD WBC 9.8 K/mm3 (4.0-10.0) D 05/13/16 07:50 RBC 4.13 M/mm3 (3.60-5.2) 05/13/16 07:50 Hgb 11.8 GM/dL (10.7-15.3) 05/13/16 07:50 Hct 35.1 % (32.4-45.2) 05/13/16 07:50 MCV 85.1 fl (80-96) 05/13/16 07:50 MCHC 33.5 g/dl (32.0-36.0) 05/13/16 07:50 RDW 13.9 % (11.6-15.6) 05/13/16 07:50 Plt Count 333 K/MM3 (134-434) 05/13/16 07:50 MPV 7.5 fl (7.5-11.1) 05/13/16 07:50 CMP Sodium 136 mmol/L (136-145) 05/13/16 07:50 Potassium 3.3 mmol/L (3.5-5.1) L 05/13/16 07:50 Chloride 97 mmol/L (98-107) L 05/13/16 07:50 Carbon Dioxide 28 mmol/L (21-32) 05/13/16 07:50 Anion Gap 11 (8-16) 05/13/16 07:50 BUN 9 mg/dL (7-18) 05/13/16 07:50 Creatinine 0.6 mg/dL (0.55-1.02) 05/13/16 07:50 Creat Clearance w eGFR > 60 (>60) 05/12/16 18:02 Random Glucose 106 mg/dL (74-106) 05/13/16 07:50 Calcium 7.9 mg/dL (8.5-10.1) L 05/13/16 07:50 Total Bilirubin 0.8 mg/dL (0.2-1.0) D 05/12/16 18:02 AST 11 U/L (15-37) L D 05/12/16 18:02 ALT 13 U/L (12-78) D 05/12/16 18:02 Alkaline Phosphatase 79 U/L (45-117) 05/12/16 18:02 Total Protein 7.4 g/dl (6.4-8.2) 05/12/16 18:02 Albumin 3.0 g/dl (3.4-5.0) L 05/13/16 07:50 CARDIAC ENZYMES Creatine Kinase 41 IU/L (26-192) 05/12/16 18:02 Troponin I < 0.02 ng/ml (0.00-0.05) 05/12/16 18:02 Current Medications Generic Name Dose Route Start Last Admin Trade Name Freq PRN Reason Stop Dose Admin Acetaminophen 650 mg 05/13/16 03:42 05/14/16 05:47 Tylenol - PO 650 mg Q6H PRN Administration FEVER OR PAIN Amlodipine Besylate 10 mg 05/13/16 10:00 05/13/16 14:36 Norvasc - PO 10 mg DAILY FRANKIE Administration Heparin Sodium (Porcine) 5,000 unit 05/13/16 22:00 05/14/16 06:23 Heparin - SQ 5,000 unit TID FRANKIE Administration Hydrochlorothiazide 12.5 mg 05/13/16 11:00 05/13/16 14:36 Hctz - PO 12.5 mg DAILY FRANKIE Administration Ceftriaxone Sodium 100 mls @ 200 mls/hr 05/13/16 15:00 05/13/16 17:48 Rocephin 2gm Ivpb (Pre-Docked) IVPB 200 mls/hr DAILY FRANKIE Administration Azithromycin 250 mls @ 250 mls/hr 05/13/16 15:00 05/13/16 17:48 Zithromax 500mg Ivpb (Pre-Docked) IVPB 250 mls/hr DAILY FRANKIE Administration Levothyroxine Sodium 125 mcg 05/13/16 07:00 05/14/16 06:23 Synthroid - PO 125 mcg DAILY@0700 FRANKIE Administration Losartan Potassium 50 mg 05/13/16 10:00 05/13/16 14:36 Cozaar - PO 50 mg DAILY FRANKIE Administration Morphine Sulfate 2 mg 05/13/16 03:14 Morphine Injection - IVPUSH Q6H PRN PAIN Potassium Chloride 40 meq 05/13/16 22:00 05/13/16 22:05 K-Dur - PO 05/14/16 10:01 40 meq BID FRANKIE Administration Home Medications Medication Instructions Recorded Levothyroxine [Synthroid -] 125 mcg PO DAILY 11/24/13 Amlodipine Besylate [Norvasc -] 10 mg PO DAILY 05/12/16 Losartan/Hydrochlorothiazide 1 each PO DAILY 05/12/16 [Losartan-Hctz 50-12.5 mg Tab] Methocarbamol [Robaxin -] 500 mg PO DAILY PRN 05/12/16 Microbiology 05/12/16 18:02 Blood - Peripheral Venous Blood Culture - Preliminary NO GROWTH OBTAINED AFTER 72 HOURS, INCUBATION TO CONTINUE FOR 2 DAYS. 05/12/16 18:02 Blood - Peripheral Venous Blood Culture - Preliminary NO GROWTH OBTAINED AFTER 72 HOURS, INCUBATION TO CONTINUE FOR 2 DAYS. 05/13/16 11:25 Pleural Fluid Gram Stain - Final 05/13/16 11:25 Pleural Fluid Body Fluid Culture - Final NO GROWTH OF AEROBIC ORGANISMS AFTER 48 HOURS INCUBATION 05/13/16 11:25 Pleural Fluid Anaerobic Culture - Final NO ANAEROBES WERE ISOLATED 05/14/16 04:00 Urine - Urine Clean Catch Urine Culture - Final NO GROWTH OBTAINED 05/13/16 15:30 Blood - Peripheral Venous TB Test (QFT) (LAURA) - Preliminary 05/14/16 04:00 Urine - Urine Clean Catch Legionella Antigen - Final 05/14/16 04:00 Urine - Urine Clean Catch Streptococcus pneumoniae Antigen ( M - Final 05/13/16 11:25 Pleural Fluid CLIFF Preparation - Preliminary 05/13/16 11:25 Pleural Fluid Fungal Culture - Preliminary ASSESSMENT AND PLAN: Patient is a 55 y/o F w/PMH of HTN, hypothyroidism presented to ER w/ R sided chest/abdominal pain x 2 days. Found to have R pleural effusion and thought to have a liver mass. # Acute Right pleural effusion s/p thoracocentesis by IR for diagnostic purposes F/u pleural fluid studies CT of abdomen was reviewed and was reported as a liver mass, after reviewing the scans with radiology they do not feel they have seen a mass. LFTs WNL #Community acquired pneumonia On Rocephin and Zithromax as per ID continue # Acute sepsis (leukocytosis and fever): after evaluation by ID it is thought she has a pneumonia with pleuretic chest pain. will continue IV antibiotic #HTN continue Home emds Norvasc Losartan and HCTZ #Hypothyroidism Syntrhoid 125mcg qam DVT px; hEPARIN SQ, scd, EARLY AMBULATION
[2016-05-14 07:58] LABS: BASOPHIL 0.4 % (0-2.0); EOSINOPHIL 1.9 % (0-4.5); MCH 28.9 pg (25.7-33.7); MCHC 34.1 g/dl (32.0-36.0); MEAN CELL VOLUME 84.5 fl (80-96); MEAN PLT VOLUME 7.7 fl (7.5-11.1); NEUTROPHILS 77.2 % (42.8-82.8); PLATELET COUNT 330 K/MM3 (134-434); RDW 13.9 % (11.6-15.6)
--- NOTE | 2016-05-14 08:34 | MSN ---
Progress Note (short form) - Note Progress Note: SUBJECTIVE: Pt seen and examined at bedside. Pt had recorded fevers overnight. Pt states pain has decreased since yesterday. Admits to fevers, chills, diaphoresis, nausea, and headache. Denies dysuria and vomiting. She had +1 BM yesterday. Active Medications Generic Name Dose Route Start Last Admin Trade Name Freq PRN Reason Stop Dose Admin Acetaminophen 650 mg 05/13/16 03:42 05/14/16 05:47 Tylenol - PO 650 mg Q6H PRN Administration FEVER OR PAIN Amlodipine Besylate 10 mg 05/13/16 10:00 05/14/16 10:22 Norvasc - PO 10 mg DAILY FRANKIE Administration Heparin Sodium (Porcine) 5,000 unit 05/13/16 22:00 05/14/16 06:23 Heparin - SQ 5,000 unit TID FRANKIE Administration Hydrochlorothiazide 12.5 mg 05/13/16 11:00 05/14/16 10:22 Hctz - PO 12.5 mg DAILY FRANKIE Administration Ceftriaxone Sodium 100 mls @ 200 mls/hr 05/13/16 15:00 05/14/16 10:21 Rocephin 2gm Ivpb (Pre-Docked) IVPB 200 mls/hr DAILY FRANKIE Administration Azithromycin 250 mls @ 250 mls/hr 05/13/16 15:00 05/14/16 10:21 Zithromax 500mg Ivpb (Pre-Docked) IVPB 250 mls/hr DAILY FRANKIE Administration Levothyroxine Sodium 125 mcg 05/13/16 07:00 05/14/16 06:23 Synthroid - PO 125 mcg DAILY@0700 FRANKIE Administration Losartan Potassium 50 mg 05/13/16 10:00 05/14/16 10:22 Cozaar - PO 50 mg DAILY FRANKIE Administration Morphine Sulfate 2 mg 05/13/16 03:14 Morphine Injection - IVPUSH Q6H PRN PAIN Potassium Chloride 40 meq 05/14/16 10:45 K-Dur - PO 05/14/16 22:01 BID FRANKIE OBJECTIVE: Vital Signs Period Temp Pulse Resp BP Sys/Bustillos Pulse Ox Last 24 Hr 98.6 F-102.8 F 94-113 18-20 102-142/66-74 95 GENERAL: AAOx3 in NAD HEAD: Normocephalic, atraumatic. PERRLA, EOMI NECK: No JVD HEART: Regular rate and rhythm. +S1/S2. No murmurs/rubs/gallops LUNGS: CTAB with decreased breath sounds at R lung base. + crackles at the R base. No rhonchi or wheezing ABDOMEN: Soft, nondistended, and no tenderness to palpation. Normal bowel sounds EXT: BL LE warm with no edema NEURO: Normal speech CBC, BMP 05/14/16 07:00 05/14/16 07:00 CMP Sodium 135 mmol/L (136-145) L 05/14/16 07:00 Potassium 3.5 mmol/L (3.5-5.1) 05/14/16 07:00 Chloride 95 mmol/L (98-107) L 05/14/16 07:00 Carbon Dioxide 27 mmol/L (21-32) 05/14/16 07:00 Anion Gap 13 (8-16) 05/14/16 07:00 BUN 7 mg/dL (7-18) D 05/14/16 07:00 Creatinine 0.5 mg/dL (0.55-1.02) L 05/14/16 07:00 Creat Clearance w eGFR > 60 (>60) 05/14/16 07:00 Random Glucose 116 mg/dL (74-106) H 05/14/16 07:00 Lactic Acid 1.306 mmol/L (0.4-2.0) 05/12/16 18:02 Calcium 7.8 mg/dL (8.5-10.1) L 05/14/16 07:00 Total Bilirubin 0.6 mg/dL (0.2-1.0) D 05/14/16 07:00 AST 12 U/L (15-37) L 05/14/16 07:00 ALT 12 U/L (12-78) 05/14/16 07:00 Alkaline Phosphatase 74 U/L (45-117) 05/14/16 07:00 LD Total 158 U/L (84-246) 05/13/16 07:50 Creatine Kinase 41 IU/L (26-192) 05/12/16 18:02 Troponin I < 0.02 ng/ml (0.00-0.05) 05/12/16 18:02 C-Reactive Protein 21.5 MG/DL (0.00-0.3) H 05/13/16 15:30 Total Protein 6.6 g/dl (6.4-8.2) 05/14/16 07:00 Albumin 2.7 g/dl (3.4-5.0) L 05/14/16 07:00 Tumor Marker AFP 1.5 ng/ml (0.0-8.3) 05/13/16 08:05 CT Abd/Pelvis (05/13/16): Posterior abdominal wall mass with stranding in the posterior and anterior RUQ outside the liver. Mass contains calcification. Mass is not inside the liver body. A/P: Pt is a 55 yo F with a PMHx of HTN, hypothyroidism, and JINA who presented to the ED with worsening R sided chest/abdominal pain x2 days. Pt was found to have a R sided pleural effusion and hepatic mass on initial CT chest. Admitted for further management and observation. 1. Sepsis 2/2 CAP with pleural effusion -Stable. Pt is spiking fevers, but pt is not becoming significantly hypotensive -CRP elevated at 21.5 -Thoracentesis performed yesterday -Pleural fluid is exudative. All 3 Light's criteria met. Consistent with PNA etiology -Pleural fluid Gram stain showed no organisms -Pleural fluid Cx pending -Consider repeat CXR before DC 2. Posterior abdominal wall mass -CT abd/pelvis performed yesterday -Met with Radiology to go over scan: ? inflammatory process in the posterior and anterior RUQ outside the liver body 2/2 to dropped stone from previous cholecystectomy. Not intrahepatic mass -AFP negative -Hep C Ab negative -Hepatitis panel pending -TB pending -Morphine 2mg IV Q6H prn for pain -GI consult not warranted at this time 3. Leukocytosis -Improved (14.5 to 9.0) -2/2 to CAP vs intra abdominal inflammatory process -Blood Cx NGTD -Urine Ag pending -HIV panel negative -Azithromycin 500mg and Rocephin 2gm (day 2) -ID consult appreciated 4. HTN -Stable -Losartan 50mg PO daily -HCTZ 12.5mg PO daily -Norvasc 10mg PO daily -K+ supplement with 40meq PO BID 5. Hypothyroidism -Synthroid 125mcg PO daily 6. FEN -IVF stopped -Low Na diet 7. DVT ppx -Heparin 5000U SQ TID -SCDs 8. Dispo -Pt admitted to [facility]-Surg for further evaluation -Possible DC in after the weekend Ashkan Monroy, MS3
[2016-05-14 08:50] LABS: ALBUMIN 2.7 g/dl (3.4-5.0); ALK PHOS 74 U/L (45-117); ANION GAP 13 (8-16); BILIRUBIN,TOTAL 0.6 mg/dL (0.2-1.0); CALCIUM 7.8 mg/dL (8.5-10.1); CO2 27 mmol/L (21-32); CREATININE 0.5 mg/dL (0.55-1.02); GLUCOSE,RANDOM 116 mg/dL (74-106); SGOT/AST 12 U/L (15-37); SGPT/ALT 12 U/L (12-78); TOT PROT 6.6 g/dl (6.4-8.2)
[2016-05-14 09:06] LABS: HIV 1 & 2 AB NEGATIVE; HIV 1 AGp24 NEGATIVE
[2016-05-14] MEDS: CEFTRIAXONE 100 ML IVPB SCH (10:21)
[2016-05-14] MEDS: AZITHROMYCIN IVPB 250 ML IVPB SCH (10:21)
[2016-05-14] MEDS: LOSARTAN POTASSIUM 50 MG TABLET (FP) PO SCH (10:22)
[2016-05-14] MEDS: POTASSIUM CHLORIDE TABS 20 MEQ TABLET.ER (FP) PO SCH ×3 (10:22→22:17)
[2016-05-14] MEDS: HYDROCHLOROTHIAZIDE 12.5 MG CAPSULE (FP) PO SCH (10:22)
[2016-05-14] MEDS: amLODIPine BESYLATE 10 MG TABLET (FP) PO SCH (10:22)
--- NOTE | 2016-05-14 10:29 | PN ---
Physical Exam: SUBJECTIVE: Patient seen and examined at bedside states she feels better today denies shortness of breath or chest pain still with flank and abdominal pain but much better per patient OBJECTIVE: Vital Signs Period Temp Pulse Resp BP Sys/Bustillos Pulse Ox Last 24 Hr 98.6 F-102.8 F 94-113 18-20 102-142/66-74 95 GENERAL: The patient is awake, alert, and fully oriented, in no acute distress. HEAD: Normal with no signs of trauma. NECK: supple. LUNGS: Breath sounds equal, clear to auscultation bilaterally, no wheezes, no crackles, no accessory muscle use. HEART: Regular rate and rhythm, S1, S2 without murmur, rub or gallop. ABDOMEN: mild right sided abdominal tenderness-improved still significant right flank tenderness- but slightly improved per patient no chest tenderness today. ABD soft non distended NEUROLOGICAL: Cranial nerves II through XII grossly intact. Normal speech SKIN: warm and clammy. diaphoretic PSYCH: Normal mood, normal affect. Laboratory Results - last 24 hr 05/13/16 05/13/16 05/13/16 07:50 08:05 11:25 WBC RBC Hgb Hct MCV MCHC RDW Plt Count MPV Neutrophils % Lymphocytes % Monocytes % Eosinophils % Basophils % ESR Sodium Potassium Chloride Carbon Dioxide Anion Gap BUN Creatinine Creat Clearance w eGFR Random Glucose Calcium Total Bilirubin AST ALT Alkaline Phosphatase C-Reactive Protein Total Protein Albumin Tumor Marker AFP 1.5 Urine Color Urine Appearance Urine pH Ur Specific [place] Urine Protein Urine Glucose (UA) Urine Ketones Urine Blood Urine Nitrite Urine Bilirubin Urine Urobilinogen Ur Leukocyte Esterase Urine RBC Urine WBC Ur Epithelial Cells Urine Bacteria Urine Mucus Pleural Fluid Source Right pleural Pleural Color Cloudy Pleural Appearance Cloudy Pleural pH Pleural WBC 4280 Pleural RBC 6843 Pleural Neutrophils 35 Pleural Lymphocytes 30 Pleural Monocytes 20 Pleural Eosinophils 15 Pleural Chloride 99.39 Pleural Total Protein 5.1 Pleural Albumin 2 Pleural LDH 961.94 Pleural Glucose 68.324 Pleural Amylase 19.762 Pleural Cholesterol 83 Pleural Triglycerides 35 Hepatitis C Antibody 0.3 HIV 1&2 Antibody Screen HIV P24 Antigen 05/13/16 05/13/16 05/13/16 15:15 15:30 18:30 WBC RBC Hgb Hct MCV MCHC RDW Plt Count MPV Neutrophils % Lymphocytes % Monocytes % Eosinophils % Basophils % ESR Sodium Potassium Chloride Carbon Dioxide Anion Gap BUN Creatinine Creat Clearance w eGFR Random Glucose Calcium Total Bilirubin AST ALT Alkaline Phosphatase C-Reactive Protein 21.5 H Total Protein Albumin Tumor Marker AFP Urine Color Urine Appearance Urine pH Ur Specific [place] Urine Protein Urine Glucose (UA) Urine Ketones Urine Blood Urine Nitrite Urine Bilirubin Urine Urobilinogen Ur Leukocyte Esterase Urine RBC Urine WBC Ur Epithelial Cells Urine Bacteria Urine Mucus Pleural Fluid Source Pleural Color Pleural Appearance Pleural pH 7.43 Pleural WBC Pleural RBC Pleural Neutrophils Pleural Lymphocytes Pleural Monocytes Pleural Eosinophils Pleural Chloride Pleural Total Protein Pleural Albumin Pleural LDH Pleural Glucose Pleural Amylase Pleural Cholesterol Pleural Triglycerides Hepatitis C Antibody HIV 1&2 Antibody Screen Negative HIV P24 Antigen Negative 05/14/16 05/14/16 05/14/16 04:00 07:00 07:00 WBC 9.0 RBC 3.82 Hgb 11.0 Hct 32.2 L MCV 84.5 MCHC 34.1 RDW 13.9 Plt Count 330 MPV 7.7 Neutrophils % 77.2 Lymphocytes % 9.5 D Monocytes % 11.0 H Eosinophils % 1.9 Basophils % 0.4 ESR 15 Sodium Potassium Chloride Carbon Dioxide Anion Gap BUN Creatinine Creat Clearance w eGFR Random Glucose Calcium Total Bilirubin AST ALT Alkaline Phosphatase C-Reactive Protein Total Protein Albumin Tumor Marker AFP Urine Color Straw Urine Appearance Clear Urine pH 6.0 Ur Specific [place] 1.004 Urine Protein Negative Urine Glucose (UA) Negative Urine Ketones Negative Urine Blood 2+ H Urine Nitrite Negative Urine Bilirubin Negative Urine Urobilinogen Negative Ur Leukocyte Esterase 3+ H Urine RBC 3 Urine WBC 23 Ur Epithelial Cells Few Urine Bacteria Rare Urine Mucus Rare Pleural Fluid Source Pleural Color Pleural Appearance Pleural pH Pleural WBC Pleural RBC Pleural Neutrophils Pleural Lymphocytes Pleural Monocytes Pleural Eosinophils Pleural Chloride Pleural Total Protein Pleural Albumin Pleural LDH Pleural Glucose Pleural Amylase Pleural Cholesterol Pleural Triglycerides Hepatitis C Antibody HIV 1&2 Antibody Screen HIV P24 Antigen 05/14/16 07:00 WBC RBC Hgb Hct MCV MCHC RDW Plt Count MPV Neutrophils % Lymphocytes % Monocytes % Eosinophils % Basophils % ESR Sodium 135 L Potassium 3.5 Chloride 95 L Carbon Dioxide 27 Anion Gap 13 BUN 7 D Creatinine 0.5 L Creat Clearance w eGFR > 60 Random Glucose 116 H Calcium 7.8 L Total Bilirubin 0.6 D AST 12 L ALT 12 Alkaline Phosphatase 74 C-Reactive Protein Total Protein 6.6 Albumin 2.7 L Tumor Marker AFP Urine Color Urine Appearance Urine pH Ur Specific [place] Urine Protein Urine Glucose (UA) Urine Ketones Urine Blood Urine Nitrite Urine Bilirubin Urine Urobilinogen Ur Leukocyte Esterase Urine RBC Urine WBC Ur Epithelial Cells Urine Bacteria Urine Mucus Pleural Fluid Source Pleural Color Pleural Appearance Pleural pH Pleural WBC Pleural RBC Pleural Neutrophils Pleural Lymphocytes Pleural Monocytes Pleural Eosinophils Pleural Chloride Pleural Total Protein Pleural Albumin Pleural LDH Pleural Glucose Pleural Amylase Pleural Cholesterol Pleural Triglycerides Hepatitis C Antibody HIV 1&2 Antibody Screen HIV P24 Antigen Active Medications Generic Name Dose Route Start Last Admin Trade Name Freq PRN Reason Stop Dose Admin Acetaminophen 650 mg 05/13/16 03:42 05/14/16 05:47 Tylenol - PO 650 mg Q6H PRN Administration FEVER OR PAIN Amlodipine Besylate 10 mg 05/13/16 10:00 05/14/16 10:22 Norvasc - PO 10 mg DAILY [facility] Administration Heparin Sodium (Porcine) 5,000 unit 05/13/16 22:00 05/14/16 06:23 Heparin - SQ 5,000 unit TID FRANKIE Administration Hydrochlorothiazide 12.5 mg 05/13/16 11:00 05/14/16 10:22 Hctz - PO 12.5 mg DAILY [facility]ANKIE Administration Ceftriaxone Sodium 100 mls @ 200 mls/hr 05/13/16 15:00 05/14/16 10:21 Rocephin 2gm Ivpb (Pre-Docked) IVPB 200 mls/hr DAILY [facility]IE Administration Azithromycin 250 mls @ 250 mls/hr 05/13/16 15:00 05/14/16 10:21 Zithromax 500mg Ivpb (Pre-Docked) IVPB 250 mls/hr DAILY [facility] Administration Levothyroxine Sodium 125 mcg 05/13/16 07:00 05/14/16 06:23 Synthroid - PO 125 mcg DAILY@0700 [facility]IE Administration Losartan Potassium 50 mg 05/13/16 10:00 05/14/16 10:22 Cozaar - PO 50 mg DAILY [facility] Administration Morphine Sulfate 2 mg 05/13/16 03:14 Morphine Injection - IVPUSH Q6H PRN PAIN Laboratory Results - last 24 hr 05/13/16 05/13/16 05/13/16 07:50 08:05 11:25 WBC RBC Hgb Hct MCV MCHC RDW Plt Count MPV Neutrophils % Lymphocytes % Monocytes % Eosinophils % Basophils % ESR Sodium Potassium Chloride Carbon Dioxide Anion Gap BUN Creatinine Creat Clearance w eGFR Random Glucose Calcium Total Bilirubin AST ALT Alkaline Phosphatase C-Reactive Protein Total Protein Albumin Tumor Marker AFP 1.5 Urine Color Urine Appearance Urine pH Ur Specific [place] Urine Protein Urine Glucose (UA) Urine Ketones Urine Blood Urine Nitrite Urine Bilirubin Urine Urobilinogen Ur Leukocyte Esterase Urine RBC Urine WBC Ur Epithelial Cells Urine Bacteria Urine Mucus Pleural Fluid Source Right pleural Pleural Color Cloudy Pleural Appearance Cloudy Pleural pH Pleural WBC 4280 Pleural RBC 6843 Pleural Neutrophils 35 Pleural Lymphocytes 30 Pleural Monocytes 20 Pleural Eosinophils 15 Pleural Chloride 99.39 Pleural Total Protein 5.1 Pleural Albumin 2 Pleural LDH 961.94 Pleural Glucose 68.324 Pleural Amylase 19.762 Pleural Cholesterol 83 Pleural Triglycerides 35 Hepatitis C Antibody 0.3 HIV 1&2 Antibody Screen HIV P24 Antigen 05/13/16 05/13/16 05/13/16 15:15 15:30 18:30 WBC RBC Hgb Hct MCV MCHC RDW Plt Count MPV Neutrophils % Lymphocytes % Monocytes % Eosinophils % Basophils % ESR Sodium Potassium Chloride Carbon Dioxide Anion Gap BUN Creatinine Creat Clearance w eGFR Random Glucose Calcium Total Bilirubin AST ALT Alkaline Phosphatase C-Reactive Protein 21.5 H Total Protein Albumin Tumor Marker AFP Urine Color Urine Appearance Urine pH Ur Specific [place] Urine Protein Urine Glucose (UA) Urine Ketones Urine Blood Urine Nitrite Urine Bilirubin Urine Urobilinogen Ur Leukocyte Esterase Urine RBC Urine WBC Ur Epithelial Cells Urine Bacteria Urine Mucus Pleural Fluid Source Pleural Color Pleural Appearance Pleural pH 7.43 Pleural WBC Pleural RBC Pleural Neutrophils Pleural Lymphocytes Pleural Monocytes Pleural Eosinophils Pleural Chloride Pleural Total Protein Pleural Albumin Pleural LDH Pleural Glucose Pleural Amylase Pleural Cholesterol Pleural Triglycerides Hepatitis C Antibody HIV 1&2 Antibody Screen Negative HIV P24 Antigen Negative 05/14/16 05/14/16 05/14/16 04:00 07:00 07:00 WBC 9.0 RBC 3.82 Hgb 11.0 Hct 32.2 L MCV 84.5 MCHC 34.1 RDW 13.9 Plt Count 330 MPV 7.7 Neutrophils % 77.2 Lymphocytes % 9.5 D Monocytes % 11.0 H Eosinophils % 1.9 Basophils % 0.4 ESR 15 Sodium Potassium Chloride Carbon Dioxide Anion Gap BUN Creatinine Creat Clearance w eGFR Random Glucose Calcium Total Bilirubin AST ALT Alkaline Phosphatase C-Reactive Protein Total Protein Albumin Tumor Marker AFP Urine Color Straw Urine Appearance Clear Urine pH 6.0 Ur Specific [place] 1.004 Urine Protein Negative Urine Glucose (UA) Negative Urine Ketones Negative Urine Blood 2+ H Urine Nitrite Negative Urine Bilirubin Negative Urine Urobilinogen Negative Ur Leukocyte Esterase 3+ H Urine RBC 3 Urine WBC 23 Ur Epithelial Cells Few Urine Bacteria Rare Urine Mucus Rare Pleural Fluid Source Pleural Color Pleural Appearance Pleural pH Pleural WBC Pleural RBC Pleural Neutrophils Pleural Lymphocytes Pleural Monocytes Pleural Eosinophils Pleural Chloride Pleural Total Protein Pleural Albumin Pleural LDH Pleural Glucose Pleural Amylase Pleural Cholesterol Pleural Triglycerides Hepatitis C Antibody HIV 1&2 Antibody Screen HIV P24 Antigen 05/14/16 07:00 WBC RBC Hgb Hct MCV MCHC RDW Plt Count MPV Neutrophils % Lymphocytes % Monocytes % Eosinophils % Basophils % ESR Sodium 135 L Potassium 3.5 Chloride 95 L Carbon Dioxide 27 Anion Gap 13 BUN 7 D Creatinine 0.5 L Creat Clearance w eGFR > 60 Random Glucose 116 H Calcium 7.8 L Total Bilirubin 0.6 D AST 12 L ALT 12 Alkaline Phosphatase 74 C-Reactive Protein Total Protein 6.6 Albumin 2.7 L Tumor Marker AFP Urine Color Urine Appearance Urine pH Ur Specific [place] Urine Protein Urine Glucose (UA) Urine Ketones Urine Blood Urine Nitrite Urine Bilirubin Urine Urobilinogen Ur Leukocyte Esterase Urine RBC Urine WBC Ur Epithelial Cells Urine Bacteria Urine Mucus Pleural Fluid Source Pleural Color Pleural Appearance Pleural pH Pleural WBC Pleural RBC Pleural Neutrophils Pleural Lymphocytes Pleural Monocytes Pleural Eosinophils Pleural Chloride Pleural Total Protein Pleural Albumin Pleural LDH Pleural Glucose Pleural Amylase Pleural Cholesterol Pleural Triglycerides Hepatitis C Antibody HIV 1&2 Antibody Screen HIV P24 Antigen ASSESSMENT/PLAN: 55 y/o F w/PMH of HTN, hypothyroidism presented to ER w/ R sided chest/ abdominal pain x 2 days. Found to have R pleural effusion and thought to have a new liver mass lesion. Right pleural effusion/Community acquired pneumonia/Sepsis (leukocytosis and fever): community acquired pneumonia with parapneumonic effusion with pleuritic chest pain. s/p thoracentesis ID consult appreciated Azithromycin and Ceftriaxone day 2 pleural fluid studies-shows it is exudative likely parapneuomonic effusion patient is still febrile and tachycardic f/u pleural fluid microbiology gram stain did not show any organisms pulmonary consulted will follow up Hepatic mass: this was seen on chest CT also read as a mass on abdominal CT after reviewing the scans with radiology they do not feel there is a mass in the liver. it is likely part of the abdominal wall vs a dropped stone from her cholecystectomy LFTs WNL will see if right flank/chest/abdominal pain improves with treatment of pneumonia-so far it is If patient is still having fevers chilsl and does not improve in the next 3 days or so an upper abdominal MRI with gadolinium may be of value per Dr. Linn HTN continue Home meds Norvasc Losartan and HCTZ Hypothyroidism Synthroid 125mcg qam -FEN no IVF hypokalemia will replete 40meg po x2 doses and recheck tomorrow Low sodium diet PPx: HSQ/SCDs No criteria met for GI PPx no PT evaluation needed HLOC Visit type - Emergency Visit Emergency Visit: Yes ED Registration Date: 05/12/16 Care time: The patient presented to the Emergency Department on the above date and was hospitalized for further evaluation of their emergent condition. - New Patient This patient is new to me today: No - Critical Care Critical Care patient: No
--- NOTE | 2016-05-14 11:56 | PN ---
Progress Note, Physician Chief Complaint: ID Ceftriaxone Azithromcyin day 2 Chest pain lat chest better today NSAIA - Current Medication List Current Medications: Active Medications Acetaminophen (Tylenol -) 650 mg PO Q6H PRN PRN Reason: FEVER OR PAIN Last Admin: 05/14/16 05:47 Dose: 650 mg Amlodipine Besylate (Norvasc -) 10 mg PO DAILY [facility] Last Admin: 05/14/16 10:22 Dose: 10 mg Heparin Sodium (Porcine) (Heparin -) 5,000 unit SQ TID [facility] Last Admin: 05/14/16 06:23 Dose: 5,000 unit Hydrochlorothiazide (Hctz -) 12.5 mg PO DAILY [facility] Last Admin: 05/14/16 10:22 Dose: 12.5 mg Ceftriaxone Sodium (Rocephin 2gm Ivpb (Pre-Docked)) 100 mls @ 200 mls/hr IVPB DAILY [facility] Last Admin: 05/14/16 10:21 Dose: 200 mls/hr Azithromycin (Zithromax 500mg Ivpb (Pre-Docked)) 250 mls @ 250 mls/hr IVPB DAILY [facility] Last Admin: 05/14/16 10:21 Dose: 250 mls/hr Levothyroxine Sodium (Synthroid -) 125 mcg PO DAILY@0700 [facility] Last Admin: 05/14/16 06:23 Dose: 125 mcg Losartan Potassium (Cozaar -) 50 mg PO DAILY [facility] Last Admin: 05/14/16 10:22 Dose: 50 mg Morphine Sulfate (Morphine Injection -) 2 mg IVPUSH Q6H PRN PRN Reason: PAIN Potassium Chloride (K-Dur -) 40 meq PO BID [facility] Stop: 05/14/16 22:01 - Objective Vital Signs: Vital Signs Temperature 100.2 F H 05/14/16 06:43 Pulse Rate 100 H 05/14/16 06:40 Respiratory Rate 20 05/14/16 06:40 Blood Pressure 122/74 05/14/16 06:40 O2 Sat by Pulse Oximetry (%) 95 05/13/16 19:50 Constitutional: Yes: Well Nourished, No Distress Neck: Yes: WNL, Supple Cardiovascular: Yes: Regular Rate and Rhythm, S1, S2 Respiratory: Yes: WNL, Regular, CTA Bilaterally, Diminished, Dullness Gastrointestinal: Yes: Soft. No: Tenderness Edema: No Labs: CBC, BMP 03/17/17 07:00 05/14/16 07:00 INR, PTT INR 1.54 (0.82-1.09) H 05/13/16 08:05 Fibrinogen 512.0 mg/dL (238-498) H 05/13/16 08:05 Assessment/Plan Microbiology 05/12/16 18:02 Blood - Peripheral Venous Blood Culture - Preliminary NO GROWTH OBTAINED AFTER 24 HOURS, INCUBATION TO CONTINUE FOR 4 DAYS. 05/12/16 18:02 Blood - Peripheral Venous Blood Culture - Preliminary NO GROWTH OBTAINED AFTER 24 HOURS, INCUBATION TO CONTINUE FOR 4 DAYS. Laboratory Tests 05/13/16 05/13/16 05/13/16 11:25 15:15 18:30 WBC Hgb Hct Plt Count ESR Creatinine Total Bilirubin ALT Ur Leukocyte Esterase Urine WBC Pleural Fluid Source Right pleural Pleural Color Cloudy Pleural Appearance Cloudy Pleural pH 7.43 Pleural WBC 4280 Pleural RBC 6843 Pleural Neutrophils 35 Pleural Lymphocytes 30 Pleural Monocytes 20 Pleural Eosinophils 15 Pleural Chloride 99.39 Pleural Total Protein 5.1 Pleural LDH 961.94 Pleural Glucose 68.324 CODY Screen HIV 1&2 Antibody Screen Negative HIV P24 Antigen Negative 05/14/16 05/14/16 05/14/16 04:00 07:00 07:00 WBC Hgb Hct Plt Count ESR 15 Creatinine Total Bilirubin ALT Ur Leukocyte Esterase 3+ H Urine WBC 23 Pleural Fluid Source Pleural Color Pleural Appearance Pleural pH Pleural WBC Pleural RBC Pleural Neutrophils Pleural Lymphocytes Pleural Monocytes Pleural Eosinophils Pleural Chloride Pleural Total Protein Pleural LDH Pleural Glucose CODY Screen Pending HIV 1&2 Antibody Screen HIV P24 Antigen 05/14/16 05/14/16 07:00 07:00 WBC 9.0 Hgb 11.0 Hct 32.2 L Plt Count 330 ESR Creatinine 0.5 L Total Bilirubin 0.6 D ALT 12 Ur Leukocyte Esterase Urine WBC Pleural Fluid Source Pleural Color Pleural Appearance Pleural pH Pleural WBC Pleural RBC Pleural Neutrophils Pleural Lymphocytes Pleural Monocytes Pleural Eosinophils Pleural Chloride Pleural Total Protein Pleural LDH Pleural Glucose CODY Screen HIV 1&2 Antibody Screen HIV P24 Antigen Assessment Parapneumonic effusion/ Fever better today Fluid likely sterile as often the case CRP 25 Plan Continue current antibiotics Agree pulmonary consult needed Await c/s CODY though collagen disease unlikely Federico WILKINSON
--- NOTE | 2016-05-14 12:26 | PATH ---
Cytology Non-Gynecological Report Patient Name: CICI BARROS [facility]. Rec. #: [id number] /Age/Gender: 1960 (Age: 55) / F Account: [id number] Location: [address] [place] [address] Taken: 05/13/2016 Received: 05/13/2016 Reported: 05/14/2016 Physicians: Paloma Herrera M.D. Specimen(s) Received PLEURAL FLUID RIGHT Clinical History Pleural Final Diagnosis PLEURAL FLUID, RIGHT, THORACENTESIS: SATISFACTORY FOR EVALUATION BENIGN (NO MALIGNANT CELLS IDENTIFIED) ABUNDANT NEUTROPHILS AND SCANT BENIGN MESOTHELIAL CELLS PRESENT Comment: Recommend correlation with clinical findings and follow up as clinically indicated. Electronically Signed Mitul Jones M.D. Gross Description A. Approximately 50 cc of yellow fluid received fixed in 50% alcohol. One cytofunnel and one cellblock prepared. B. Approximately 1000 cc of yellow fluid received fresh. One cytofunnel and one cellblock prepared.
--- NOTE | 2016-05-14 15:11 | CON.PULM ---
Consult Consult Specialty:: PULMONARY Referred by:: BETSY Reason for Consultation:: PLEURAL EFFUSION - History of Present Illness Chief Complaint: SOB/FEVER/RIGHT SIDED CHEST PAIN History of Present Illness: The patient is a 56 year old female, with significant past medical history of hypothyroidism, HTN, who presents today complaining of 2 weeks of right abdominal pain and right sided chest pain. The patient states that the pain started on her upper right side and has progressively radiated to under the right breast and the back. The pain is constant, but increases in intensity at times. She states that the pain is accompanied by nausea. The last time she vomited was on Tuesday, 2 days ago. She states that she did not eat today because the pain and medication were making her nauseous. She notes that she visited the Urgent Care at [facility] for this pain 2 weeks ago where they treated her for a muscle spasm. She was prescribed Methocarbamol (500mg) for the pain has been taking it intermittently. 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 No: AFIB Pulmonary: No: Asthma Gastrointestinal: Yes: Other (h/o abdominal hernia) Endocrine: Yes: Hypothyroidism - Past Surgical History Past Surgical History: Yes: Cholecystectomy, Hernia Repair - Alcohol/Substance Use Hx Alcohol Use: No - Smoking History Smoking history: Never smoked Have you smoked in the past 12 months: No Aproximately how many cigarettes per day: 0 - Social History ADL: Independent History of Recent Travel: No Home Medications - Allergies Allergies/Adverse Reactions: Allergies Allergy/AdvReac Type Severity Reaction Status Date / Time No Known Allergies Allergy Verified 05/12/16 17:47 - Home Medications Home Medications: Ambulatory Orders Levothyroxine [Synthroid -] 125 mcg PO DAILY 11/24/13 Amlodipine Besylate [Norvasc -] 10 mg PO DAILY 05/12/16 Losartan/Hydrochlorothiazide [Losartan-Hctz 50-12.5 mg Tab] 1 each PO DAILY Methocarbamol [Robaxin -] 500 mg PO DAILY PRN 05/12/16 Family Disease History - Family Disease History Family Disease History: Heart Disease: Brother (HTN), Sister Review of Systems - Review of Systems Constitutional: reports: Fever, Lethargy, Loss of Appetite Eyes: denies: Blurred Vision HENT: denies: Difficult Swallowing Neck: denies: Decreased ROM Cardiovascular: reports: Chest Pain (RIGHT LATERAL) Respiratory: reports: Cough, Exercise Intolerance, SOB. denies: Hemoptysis Gastrointestinal: denies: Abdominal Pain Genitourinary: reports: No Symptoms Breasts: reports: No Symptoms Reported Physical Exam Vital Sings: Vital Signs Temperature 102.5 F H 05/14/16 14:00 Pulse Rate 100 H 05/14/16 14:00 Respiratory Rate 22 05/14/16 14:00 Blood Pressure 122/74 05/14/16 06:40 O2 Sat by Pulse Oximetry (%) 95 05/13/16 19:50 Constitutional: Yes: Calm Eyes: Yes: EOM Intact HENT: Yes: Normocephalic Neck: Yes: Trachea Midline Cardiovascular: Yes: Regular Rate and Rhythm, S1, S2 Respiratory: Yes: Diminished, Dullness (RIGHT POSTERIOR BASE UP 1/3 LUNG FIELD) Gastrointestinal: Yes: Normal Bowel Sounds, Abdomen, Obese Extremities: No: Calf Tenderness Edema: No Neurological: Yes: Alert Labs: CBC, BMP 05/14/16 07:00 05/14/16 07:00 REST REVIEWED Imaging - Results Chest X-ray: Image Reviewed Cat Scan: Image Reviewed EKG: Image Reviewed Assessment/Plan COMMUNITY ACQUIRED PNEUMONIA WITH UNCOMPLICATED PARA-PNEUMONIC EFFUSION GRAM STAIN NEGATIVE/GLUCOSE GREATER THAN 60/PH 7.43 AGREE WITH ANTIBIOTICS/IV FLUIDS NEEDED/O2 SUPPLEMENTATION/FEVER REDUCTION NO PLANS FOR DRAINAGE PRESENTLY WILL FOLLOW Lelia SHIPLEY MD
[2016-05-15 00:07] LABS: HEP B SURFACE AB Non Reactive (.)
[2016-05-15] MEDS: LEVOTHYROXINE NA 125 MCG TABLET (FP) PO SCH (06:39)
[2016-05-15] MEDS: HEPARIN NA (PORCINE) 5,000 UNITS/ML 1ML VIAL SQ SCH ×3 (06:39→22:15)
[2016-05-15 08:53] LABS: MCHC 34.5 g/dl (32.0-36.0); MEAN CELL VOLUME 84.2 fl (80-96); MEAN PLT VOLUME 7.4 fl (7.5-11.1); PLATELET COUNT 322 K/MM3 (134-434); RDW 14.2 % (11.6-15.6); WHITE BLOOD COUNT 7.3 K/mm3 (4.0-10.0)
[2016-05-15 09:46] LABS: CALCIUM 7.8 mg/dL (8.5-10.1); CREATININE 0.5 mg/dL (0.55-1.02)
[2016-05-15] MEDS: LOSARTAN POTASSIUM 50 MG TABLET (FP) PO SCH (10:34)
[2016-05-15] MEDS: HYDROCHLOROTHIAZIDE 12.5 MG CAPSULE (FP) PO SCH (10:34)
[2016-05-15] MEDS: amLODIPine BESYLATE 10 MG TABLET (FP) PO SCH (10:34)
[2016-05-15] MEDS: CEFTRIAXONE 100 ML IVPB SCH (10:35)
[2016-05-15] MEDS: AZITHROMYCIN IVPB 250 ML IVPB SCH (10:35)
[2016-05-15] MEDS: ACETAMINOPHEN 325 MG TABLET (FP) PO PRN ×2 (11:24→22:14)
--- NOTE | 2016-05-15 12:22 | PN ---
Progress Note (short form) - Note Progress Note: PULMONARY Feels better, still some right sided pain/discomfort. Fever to 102.6 overnight. Nonproductive cough but no shortness of breath. Last Vital Signs Temp Pulse Resp BP Pulse Ox 99.5 F 91 H 20 119/67 97 05/15/16 10:58 05/15/16 08:00 05/15/16 08:00 05/15/16 08:00 05/15/16 09:00 Gen: NAD at rest Heart: RRR Lung: clear to auscultation Abd: soft, nontender Ext: no edema CBC, BMP 05/15/16 08:25 05/15/16 08:25 Active Medications Acetaminophen (Tylenol -) 650 mg PO Q6H PRN PRN Reason: FEVER OR PAIN Last Admin: 05/15/16 11:24 Dose: 650 mg Amlodipine Besylate (Norvasc -) 10 mg PO DAILY [facility] Last Admin: 05/15/16 10:34 Dose: 10 mg Heparin Sodium (Porcine) (Heparin -) 5,000 unit SQ TID [facility] Last Admin: 05/15/16 06:39 Dose: 5,000 unit Hydrochlorothiazide (Hctz -) 12.5 mg PO DAILY [facility] Last Admin: 05/15/16 10:34 Dose: 12.5 mg Ceftriaxone Sodium (Rocephin 2gm Ivpb (Pre-Docked)) 100 mls @ 200 mls/hr IVPB DAILY [facility] Last Admin: 05/15/16 10:35 Dose: 200 mls/hr Azithromycin (Zithromax 500mg Ivpb (Pre-Docked)) 250 mls @ 250 mls/hr IVPB DAILY [facility] Last Admin: 05/15/16 10:35 Dose: 250 mls/hr Levothyroxine Sodium (Synthroid -) 125 mcg PO DAILY@0700 [facility] Last Admin: 05/15/16 06:39 Dose: 125 mcg Losartan Potassium (Cozaar -) 50 mg PO DAILY [facility] Last Admin: 05/15/16 10:34 Dose: 50 mg Morphine Sulfate (Morphine Injection -) 2 mg IVPUSH Q6H PRN PRN Reason: PAIN A/P Pneumonia Parapneumonic Pleural Effusion Atelectasis HTN Hypothyroidism - continue antibiotics - monitor fever curve, WBC trend - f/u pleural fluid cultures - pain control - DVT prophylaxis
--- NOTE | 2016-05-15 22:10 | HOSP ---
Subjective - Review of Symptoms Events since last encounter: -Paged at approximately 10:00 pm regarding fever of 101.6 -Last blood culture is from 05/12/16 -Blood culture stat ordered. Physical Examination Vital Signs: Vital Signs Temperature 98.7 F 05/15/16 18:13 Pulse Rate 86 05/15/16 18:13 Respiratory Rate 20 05/15/16 18:13 Blood Pressure 110/75 05/15/16 18:13 O2 Sat by Pulse Oximetry (%) 97 05/15/16 09:00 Labs: CBC, BMP 05/15/16 08:25 05/15/16 08:25 Visit type - Emergency Visit Emergency Visit: Yes ED Registration Date: 05/12/16 Care time: The patient presented to the Emergency Department on the above date and was hospitalized for further evaluation of their emergent condition. - New Patient This patient is new to me today: No - Critical Care Critical Care patient: No
[2016-05-16] MEDS: LEVOTHYROXINE NA 125 MCG TABLET (FP) PO SCH (06:15)
[2016-05-16] MEDS: HEPARIN NA (PORCINE) 5,000 UNITS/ML 1ML VIAL SQ SCH ×3 (06:15→23:48)
[2016-05-16 07:23] LABS: BASOPHIL 0.4 % (0-2.0); EOSINOPHIL 5.4 % (0-4.5); MCHC 34.5 g/dl (32.0-36.0); MEAN CELL VOLUME 84.2 fl (80-96); MEAN PLT VOLUME 7.5 fl (7.5-11.1); PLATELET COUNT 351 K/MM3 (134-434); RDW 14.1 % (11.6-15.6); WHITE BLOOD COUNT 6.7 K/mm3 (4.0-10.0)
[2016-05-16 08:17] LABS: CALCIUM 7.9 mg/dL (8.5-10.1); CREATININE 0.4 mg/dL (0.55-1.02)
[2016-05-16] MEDS: amLODIPine BESYLATE 10 MG TABLET (FP) PO SCH (09:45)
[2016-05-16] MEDS: AZITHROMYCIN IVPB 250 ML IVPB SCH (09:45)
[2016-05-16] MEDS: LOSARTAN POTASSIUM 50 MG TABLET (FP) PO SCH (09:45)
[2016-05-16] MEDS: HYDROCHLOROTHIAZIDE 12.5 MG CAPSULE (FP) PO SCH (09:45)
[2016-05-16] MEDS: POTASSIUM CHLORIDE TABS 20 MEQ TABLET.ER (FP) PO SCH ×2 (11:14→23:48)
[2016-05-16] MEDS: CEFTRIAXONE 100 ML IVPB SCH (11:14)
--- NOTE | 2016-05-16 12:13 | PN ---
Physical Exam: SUBJECTIVE: Patient seen and examined at bedside spiked temp to 101.3 last night and was cultured OBJECTIVE: Vital Signs Period Temp Pulse Resp BP Sys/Bustillos Pulse Ox Last 24 Hr 98.1 F-101.3 F 86-100 20-22 108-128/67-75 98-99 GENERAL: The patient is awake, alert, and fully oriented, in no acute distress. HEAD: Normal with no signs of trauma. NECK: supple. LUNGS: clear to auscultation bilaterally diminished breath sounds on the right no wheezes, no crackles, no accessory muscle use. HEART: Regular rate and rhythm, S1, S2 without murmur, rub or gallop. ABDOMEN: mild right sided abdominal tenderness-continues to improve but still with some right flank tenderness- no chest tenderness . ABD soft non distended NEUROLOGICAL: Cranial nerves II through XII grossly intact. Normal speech PSYCH: Normal mood, normal affect. Laboratory Results - last 24 hr 05/14/16 05/16/16 05/16/16 07:00 06:15 06:15 WBC 6.7 RBC 3.74 Hgb 10.9 Hct 31.5 L MCV 84.2 MCHC 34.5 RDW 14.1 Plt Count 351 MPV 7.5 Neutrophils % 66.0 Lymphocytes % 14.8 D Monocytes % 13.4 H Eosinophils % 5.4 H D Basophils % 0.4 Sodium 135 L Potassium 3.6 Chloride 99 Carbon Dioxide 28 Anion Gap 8 BUN 7 Creatinine 0.4 L Random Glucose 96 D Calcium 7.9 L CODY Screen Positive H CODY Homogeneous Pattern 1:160 H CODY Nucleolar Pattern TNP CODY Speckled Pattern 1:160 H CODY Centromere Pattern TNP Active Medications Generic Name Dose Route Start Last Admin Trade Name Freq PRN Reason Stop Dose Admin Acetaminophen 650 mg 05/13/16 03:42 05/15/16 22:14 Tylenol - PO 650 mg Q6H PRN Administration FEVER OR PAIN Amlodipine Besylate 10 mg 05/13/16 10:00 05/16/16 09:45 Norvasc - PO 10 mg DAILY [facility] Administration Heparin Sodium (Porcine) 5,000 unit 05/13/16 22:00 05/16/16 06:15 Heparin - SQ 5,000 unit TID [facility] Administration Hydrochlorothiazide 12.5 mg 05/13/16 11:00 05/16/16 09:45 Hctz - PO 12.5 mg DAILY [facility] Administration Ceftriaxone Sodium 100 mls @ 200 mls/hr 05/13/16 15:00 05/16/16 11:14 Rocephin 2gm Ivpb (Pre-Docked) IVPB 200 mls/hr DAILY [facility] Administration Azithromycin 250 mls @ 250 mls/hr 05/13/16 15:00 05/16/16 09:45 Zithromax 500mg Ivpb (Pre-Docked) IVPB 250 mls/hr DAILY [facility] Administration Levothyroxine Sodium 125 mcg 05/13/16 07:00 05/16/16 06:15 Synthroid - PO 125 mcg DAILY@0700 [facility] Administration Losartan Potassium 50 mg 05/13/16 10:00 05/16/16 09:45 Cozaar - PO 50 mg DAILY [facility] Administration Potassium Chloride 40 meq 05/16/16 11:00 05/16/16 11:14 K-Dur - PO 05/16/16 22:01 40 meq BID FRANKIE Administration ASSESSMENT/PLAN: 55 y/o F w/PMH of HTN, hypothyroidism presented to ER w/ R sided chest/ abdominal pain x 2 days. Found to have R pleural effusion. Right pleural effusion/Community acquired pneumonia/Sepsis (leukocytosis and fever): community acquired pneumonia with parapneumonic effusion with pleuritic chest pain. s/p thoracentesis ID consult appreciated Azithromycin and Ceftriaxone day 4 pleural fluid studies-shows it is exudative likely parapneuomonic effusion patient is still febrile but fever curve is trending downwards. Her spikes are not as high and not as frequent f/u pleural fluid studies is not revealing any infectious source pulmonary consult appreciated abdominal wall mass: this was seen on chest CT also read as a mass on abdominal CT after reviewing the scans with radiology they do not feel there is a mass in the liver. it is likely part of the abdominal wall vs a dropped stone from her cholecystectomy LFTs WNL will see if right flank/chest/abdominal pain improves with treatment of pneumonia-so far it is If patient is still having fevers chills and does not improve in the next 1-2 days or so an upper abdominal MRI with gadolinium may be of value per Dr. Linn HTN continue Home meds Norvasc Losartan and HCTZ Hypothyroidism Synthroid 125mcg qam -FEN no IVF hypokalemia will replete 40meg po x2 doses and recheck tomorrow Low sodium diet PPx: HSQ/SCDs No criteria met for GI PPx no PT evaluation needed HLOC Visit type - Emergency Visit Emergency Visit: Yes ED Registration Date: 05/12/16 Care time: The patient presented to the Emergency Department on the above date and was hospitalized for further evaluation of their emergent condition. - New Patient This patient is new to me today: No - Critical Care Critical Care patient: No
--- NOTE | 2016-05-16 12:14 | PN ---
Progress Note (short form) - Note Progress Note: PULMONARY Overall better but another fever last night. Nonproductive cough but no shortness of breath. Last Vital Signs Temp Pulse Resp BP Pulse Ox 99.3 F 100 H 20 128/67 98 05/16/16 10:00 05/16/16 10:00 05/16/16 10:00 05/16/16 10:00 05/16/16 09:00 Gen: NAD at rest Heart: RRR Lung: clear to auscultation Abd: soft, nontender Ext: no edema CBC, BMP 05/16/16 06:15 05/16/16 06:15 Active Medications Acetaminophen (Tylenol -) 650 mg PO Q6H PRN PRN Reason: FEVER OR PAIN Last Admin: 05/15/16 22:14 Dose: 650 mg Amlodipine Besylate (Norvasc -) 10 mg PO DAILY [facility] Last Admin: 05/16/16 09:45 Dose: 10 mg Heparin Sodium (Porcine) (Heparin -) 5,000 unit SQ TID [facility] Last Admin: 05/16/16 06:15 Dose: 5,000 unit Hydrochlorothiazide (Hctz -) 12.5 mg PO DAILY [facility] Last Admin: 05/16/16 09:45 Dose: 12.5 mg Ceftriaxone Sodium (Rocephin 2gm Ivpb (Pre-Docked)) 100 mls @ 200 mls/hr IVPB DAILY [facility] Last Admin: 05/16/16 11:14 Dose: 200 mls/hr Azithromycin (Zithromax 500mg Ivpb (Pre-Docked)) 250 mls @ 250 mls/hr IVPB DAILY [facility] Last Admin: 05/16/16 09:45 Dose: 250 mls/hr Levothyroxine Sodium (Synthroid -) 125 mcg PO DAILY@0700 [facility] Last Admin: 05/16/16 06:15 Dose: 125 mcg Losartan Potassium (Cozaar -) 50 mg PO DAILY [facility] Last Admin: 05/16/16 09:45 Dose: 50 mg Potassium Chloride (K-Dur -) 40 meq PO BID [facility] Stop: 05/16/16 22:01 Last Admin: 05/16/16 11:14 Dose: 40 meq A/P Pneumonia Parapneumonic Pleural Effusion Atelectasis HTN Hypothyroidism - repeat CXR today - continue antibiotics - monitor fever curve, WBC trend - f/u pleural fluid cultures - pain control - DVT prophylaxis
--- NOTE | 2016-05-16 16:24 | PN ---
Teaching Attending Note Name of Resident: Gustavo Miner ATTENDING PHYSICIAN STATEMENT I saw and evaluated the patient. I reviewed the resident's note and discussed the case with the resident. I agree with the resident's findings and plan as documented. Feeling better with no difficulty breathing, less pleuretic pain. Vital Signs Temperature 99.3 F 05/16/16 10:00 Pulse Rate 100 H 05/16/16 10:00 Respiratory Rate 20 05/16/16 10:00 Blood Pressure 128/67 05/16/16 10:00 O2 Sat by Pulse Oximetry (%) 98 05/16/16 09:00 CBCD WBC 6.7 K/mm3 (4.0-10.0) 05/16/16 06:15 RBC 3.74 M/mm3 (3.60-5.2) 05/16/16 06:15 Hgb 10.9 GM/dL (10.7-15.3) 05/16/16 06:15 Hct 31.5 % (32.4-45.2) L 05/16/16 06:15 MCV 84.2 fl (80-96) 05/16/16 06:15 MCHC 34.5 g/dl (32.0-36.0) 05/16/16 06:15 RDW 14.1 % (11.6-15.6) 05/16/16 06:15 Plt Count 351 K/MM3 (134-434) 05/16/16 06:15 MPV 7.5 fl (7.5-11.1) 05/16/16 06:15 CMP Sodium 135 mmol/L (136-145) L 05/16/16 06:15 Potassium 3.6 mmol/L (3.5-5.1) 05/16/16 06:15 Chloride 99 mmol/L (98-107) 05/16/16 06:15 Carbon Dioxide 28 mmol/L (21-32) 05/16/16 06:15 Anion Gap 8 (8-16) 05/16/16 06:15 BUN 7 mg/dL (7-18) 05/16/16 06:15 Creatinine 0.4 mg/dL (0.55-1.02) L 05/16/16 06:15 Creat Clearance w eGFR > 60 (>60) 05/14/16 07:00 Random Glucose 96 mg/dL (74-106) D 05/16/16 06:15 Calcium 7.9 mg/dL (8.5-10.1) L 05/16/16 06:15 Total Bilirubin 0.6 mg/dL (0.2-1.0) D 05/14/16 07:00 AST 12 U/L (15-37) L 05/14/16 07:00 ALT 12 U/L (12-78) 05/14/16 07:00 Alkaline Phosphatase 74 U/L (45-117) 05/14/16 07:00 Total Protein 6.6 g/dl (6.4-8.2) 05/14/16 07:00 Albumin 2.7 g/dl (3.4-5.0) L 05/14/16 07:00 CARDIAC ENZYMES Creatine Kinase 41 IU/L (26-192) 05/12/16 18:02 Troponin I < 0.02 ng/ml (0.00-0.05) 05/12/16 18:02 Current Medications Generic Name Dose Route Start Last Admin Trade Name Manuela PRN Reason Stop Dose Admin Acetaminophen 650 mg 05/13/16 03:42 05/15/16 22:14 Tylenol - PO 650 mg Q6H PRN Administration FEVER OR PAIN Amlodipine Besylate 10 mg 05/13/16 10:00 05/16/16 09:45 Norvasc - PO 10 mg DAILY [facility]IE Administration Heparin Sodium (Porcine) 5,000 unit 05/13/16 22:00 05/16/16 15:07 Heparin - SQ 5,000 unit TID [facility]IE Administration Hydrochlorothiazide 12.5 mg 05/13/16 11:00 05/16/16 09:45 Hctz - PO 12.5 mg DAILY [facility] Administration Ceftriaxone Sodium 100 mls @ 200 mls/hr 05/13/16 15:00 05/16/16 11:14 Rocephin 2gm Ivpb (Pre-Docked) IVPB 200 mls/hr DAILY [facility] Administration Azithromycin 250 mls @ 250 mls/hr 05/13/16 15:00 05/16/16 09:45 Zithromax 500mg Ivpb (Pre-Docked) IVPB 250 mls/hr DAILY [facility] Administration Levothyroxine Sodium 125 mcg 05/13/16 07:00 05/16/16 06:15 Synthroid - PO 125 mcg DAILY@0700 [facility] Administration Losartan Potassium 50 mg 05/13/16 10:00 05/16/16 09:45 Cozaar - PO 50 mg DAILY [facility]IE Administration Potassium Chloride 40 meq 05/16/16 11:00 05/16/16 11:14 K-Dur - PO 05/16/16 22:01 40 meq BID [facility]IE Administration Home Medications Medication Instructions Recorded Levothyroxine [Synthroid -] 125 mcg PO DAILY 11/24/13 Amlodipine Besylate [Norvasc -] 10 mg PO DAILY 05/12/16 Losartan/Hydrochlorothiazide 1 each PO DAILY 05/12/16 [Losartan-Hctz 50-12.5 mg Tab] Methocarbamol [Robaxin -] 500 mg PO DAILY PRN 05/12/16 ASSESSMENT AND PLAN: Patient is a 55 y/o F w/PMH of HTN, hypothyroidism presented to ER w/ R sided chest/abdominal pain x 2 days. Found to have R pleural effusion and thought to have a liver mass. # Acute Right pleural effusion s/p thoracentesis by IR for diagnostic purposes ; pleural fluid studies-shows it is exudative likely parapneuomonic effusion CT of abdomen was reviewed and was reported as a liver mass, after reviewing the scans with radiology they do not feel they have seen a mass. will repeat LFTs in am. #Community acquired pneumonia On Rocephin and Zithromax as per ID will continue # Acute sepsis (leukocytosis and fever): after evaluation by ID it is thought she has a pneumonia with pleuretic chest pain. will continue IV antibiotic #HTN continue Home emds Norvasc Losartan and HCTZ #Hypothyroidism Syntrhoid 125mcg qam DVT px; hEPARIN SQ, scd, EARLY AMBULATION
--- NOTE | 2016-05-16 16:30 | PN ---
Physical Exam: SUBJECTIVE: Patient seen and examined comfortable, deneis any pain today. OBJECTIVE: Vital Signs Period Temp Pulse Resp BP Sys/Bustillos Pulse Ox Last 24 Hr 98.7 F-101.3 F 86-100 20-22 108-128/67-75 98-99 GENERAL: The patient is awake, alert, and fully oriented, in no acute distress. HEAD: Normal with no signs of trauma. EYES: PERRL, extraocular movements intact, sclera anicteric, conjunctiva clear. No ptosis. ENT: Ears normal, nares patent, oropharynx clear without exudates, moist mucous membranes. NECK: Trachea midline, full range of motion, supple. LUNGS: Breath sounds equal, clear to auscultation bilaterally, no wheezes, no crackles, no accessory muscle use. HEART: Regular rate and rhythm, S1, S2 without murmur, rub or gallop. ABDOMEN: Soft, nontender, nondistended, normoactive bowel sounds, no guarding, no rebound, no hepatosplenomegaly, no masses. EXTREMITIES: 2+ pulses, warm, well-perfused, no edema. NEUROLOGICAL: Cranial nerves II through XII grossly intact. Normal speech, gait is stable PSYCH: Normal mood, normal affect. SKIN: Warm, dry, normal turgor, no rashes or lesions noted ASSESSMENT/PLAN: Microbiology 05/12/16 18:02 Blood - Peripheral Venous Blood Culture - Preliminary NO GROWTH OBTAINED AFTER 72 HOURS, INCUBATION TO CONTINUE FOR 2 DAYS. 05/12/16 18:02 Blood - Peripheral Venous Blood Culture - Preliminary NO GROWTH OBTAINED AFTER 72 HOURS, INCUBATION TO CONTINUE FOR 2 DAYS. 05/13/16 11:25 Pleural Fluid Gram Stain - Final 05/13/16 11:25 Pleural Fluid Body Fluid Culture - Final NO GROWTH OF AEROBIC ORGANISMS AFTER 48 HOURS INCUBATION 05/13/16 11:25 Pleural Fluid Anaerobic Culture - Final NO ANAEROBES WERE ISOLATED 05/14/16 04:00 Urine - Urine Clean Catch Urine Culture - Final NO GROWTH OBTAINED 05/13/16 15:30 Blood - Peripheral Venous TB Test (QFT) ([facility]) - Preliminary 05/14/16 04:00 Urine - Urine Clean Catch Legionella Antigen - Final 05/14/16 04:00 Urine - Urine Clean Catch Streptococcus pneumoniae Antigen ( M - Final 05/13/16 11:25 Pleural Fluid CLIFF Preparation - Preliminary 05/13/16 11:25 Pleural Fluid Fungal Culture - Preliminary Home Medications Medication Instructions Recorded Levothyroxine [Synthroid -] 125 mcg PO DAILY 11/24/13 Amlodipine Besylate [Norvasc -] 10 mg PO DAILY 05/12/16 Losartan/Hydrochlorothiazide 1 each PO DAILY 05/12/16 [Losartan-Hctz 50-12.5 mg Tab] Methocarbamol [Robaxin -] 500 mg PO DAILY PRN 05/12/16 A/P Patient is a 55 y/o F w/PMH of HTN, hypothyroidism presented to ER w/ R sided chest/abdominal pain x 2 days. Found to have R pleural effusion and thought to have a liver mass. # Acute Right pleural effusion s/p thoracentesis by IR for diagnostic purposes ; pleural fluid studies-shows it is exudative likely parapneuomonic effusion will repeat LFTs in am. feels better but not 100% yet. # Parapneumonic effusion On Rocephin and Zithromax as per ID will continue #s/p Acute sepsis (leukocytosis and fever): after evaluation by ID it is thought she has a pneumonia with pleuretic chest pain. will continue IV antibiotic #HTN continue Home emds Norvasc Losartan and HCTZ #Hypothyroidism Syntrhoid 125mcg qam DVT px; hEPARIN SQ, scd, EARLY AMBULATION Visit type - Emergency Visit Emergency Visit: Yes ED Registration Date: 05/12/16 Care time: The patient presented to the Emergency Department on the above date and was hospitalized for further evaluation of their emergent condition. - New Patient This patient is new to me today: No - Critical Care Critical Care patient: No
[2016-05-17] MEDS: LEVOTHYROXINE NA 125 MCG TABLET (FP) PO SCH (06:03)
[2016-05-17] MEDS: HEPARIN NA (PORCINE) 5,000 UNITS/ML 1ML VIAL SQ SCH ×3 (06:03→21:15)
[2016-05-17 07:23] LABS: MCHC 34.4 g/dl (32.0-36.0); MEAN CELL VOLUME 84.4 fl (80-96); MEAN PLT VOLUME 7.5 fl (7.5-11.1); PLATELET COUNT 367 K/MM3 (134-434); RDW 14.1 % (11.6-15.6); WHITE BLOOD COUNT 7.2 K/mm3 (4.0-10.0)
[2016-05-17 07:56] LABS: CALCIUM 7.9 mg/dL (8.5-10.1); CREATININE 0.5 mg/dL (0.55-1.02)
[2016-05-17] MEDS: amLODIPine BESYLATE 10 MG TABLET (FP) PO SCH (09:00)
[2016-05-17] MEDS: HYDROCHLOROTHIAZIDE 12.5 MG CAPSULE (FP) PO SCH (09:00)
[2016-05-17] MEDS: AZITHROMYCIN IVPB 250 ML IVPB SCH (09:00)
[2016-05-17] MEDS: LOSARTAN POTASSIUM 50 MG TABLET (FP) PO SCH (09:00)
[2016-05-17] MEDS: CEFTRIAXONE 100 ML IVPB SCH (09:01)
--- NOTE | 2016-05-17 12:56 | PN ---
Progress Note, Physician History of Present Illness: PULMONARY,-CP FEELING BETTER,LESS DYSPNEIC,LESS CP - Current Medication List Current Medications: Active Medications Acetaminophen (Tylenol -) 650 mg PO Q6H PRN PRN Reason: FEVER OR PAIN Last Admin: 05/15/16 22:14 Dose: 650 mg Amlodipine Besylate (Norvasc -) 10 mg PO DAILY [facility] Last Admin: 05/17/16 09:00 Dose: 10 mg Heparin Sodium (Porcine) (Heparin -) 5,000 unit SQ TID [facility] Last Admin: 05/17/16 06:03 Dose: 5,000 unit Hydrochlorothiazide (Hctz -) 12.5 mg PO DAILY [facility] Last Admin: 05/17/16 09:00 Dose: 12.5 mg Ceftriaxone Sodium (Rocephin 2gm Ivpb (Pre-Docked)) 100 mls @ 200 mls/hr IVPB DAILY [facility] Last Admin: 05/17/16 09:01 Dose: 200 mls/hr Azithromycin (Zithromax 500mg Ivpb (Pre-Docked)) 250 mls @ 250 mls/hr IVPB DAILY [facility] Last Admin: 05/17/16 09:00 Dose: 250 mls/hr Levothyroxine Sodium (Synthroid -) 125 mcg PO DAILY@0700 [facility] Last Admin: 05/17/16 06:03 Dose: 125 mcg Losartan Potassium (Cozaar -) 50 mg PO DAILY [facility] Last Admin: 05/17/16 09:00 Dose: 50 mg - Objective Vital Signs: Vital Signs Temperature 97.9 F 05/17/16 07:53 Pulse Rate 97 H 05/17/16 07:53 Respiratory Rate 18 05/17/16 07:53 Blood Pressure 113/80 05/17/16 07:53 O2 Sat by Pulse Oximetry (%) 96 05/17/16 09:00 Constitutional: Yes: Well Nourished, Calm Eyes: Yes: WNL HENT: Yes: WNL Neck: Yes: WNL Cardiovascular: Yes: Regular Rate and Rhythm, S1, S2 Respiratory: Yes: CTA Bilaterally Gastrointestinal: Yes: WNL Extremities: Yes: WNL Edema: No Labs: CBC, BMP 05/17/16 06:20 05/17/16 06:20 INR, PTT INR 1.54 (0.82-1.09) H 03/16/17 08:05 Fibrinogen 512.0 mg/dL (238-498) H 05/13/16 08:05 - ....Imaging Chest X-ray: Report Reviewed, Image Reviewed Assessment/Plan A/P Pneumonia Parapneumonic Pleural Effusion Atelectasis HTN Hypothyroidism Chest wall mass - continue antibiotics - monitor fever curve, WBC trend - pain control - DVT prophylaxis - repeat thoracentesis today DR CHRISTINE
--- NOTE | 2016-05-17 14:37 | PN ---
Progress Note, Physician Chief Complaint: The patient was alert and oriented, in no acute distress. She complains of constant, sharp pain on her right lower back but definitely better. She rated the pain a 5/10 in intensity, and that it is worse with inspiration or when she coughs. She still has a non-productive cough and some SOB. She has a mild headache. She denies fever, chills, nausea, vomiting, diarrhea, constipation, chest pain, palpitations or abd pain. Remains on antibiotics - Current Medication List Current Medications: Active Medications Acetaminophen (Tylenol -) 650 mg PO Q6H PRN PRN Reason: FEVER OR PAIN Last Admin: 05/15/16 22:14 Dose: 650 mg Amlodipine Besylate (Norvasc -) 10 mg PO DAILY [facility] Last Admin: 05/17/16 09:00 Dose: 10 mg Heparin Sodium (Porcine) (Heparin -) 5,000 unit SQ TID [facility] Last Admin: 05/17/16 13:35 Dose: 5,000 unit Hydrochlorothiazide (Hctz -) 12.5 mg PO DAILY [facility] Last Admin: 05/17/16 09:00 Dose: 12.5 mg Ceftriaxone Sodium (Rocephin 2gm Ivpb (Pre-Docked)) 100 mls @ 200 mls/hr IVPB DAILY [facility] Last Admin: 05/17/16 09:01 Dose: 200 mls/hr Azithromycin (Zithromax 500mg Ivpb (Pre-Docked)) 250 mls @ 250 mls/hr IVPB DAILY [facility] Last Admin: 05/17/16 09:00 Dose: 250 mls/hr Levothyroxine Sodium (Synthroid -) 125 mcg PO DAILY@0700 [facility] Last Admin: 05/17/16 06:03 Dose: 125 mcg Losartan Potassium (Cozaar -) 50 mg PO DAILY [facility] Last Admin: 05/17/16 09:00 Dose: 50 mg - Objective Vital Signs: Vital Signs Temperature 97.9 F 05/17/16 07:53 Pulse Rate 97 H 05/17/16 07:53 Respiratory Rate 18 05/17/16 07:53 Blood Pressure 113/80 05/17/16 07:53 O2 Sat by Pulse Oximetry (%) 96 05/17/16 09:00 Constitutional: Yes: Well Nourished, No Distress, Calm, Obese HENT: Yes: WNL Cardiovascular: Yes: Regular Rate and Rhythm, S1, S2 Respiratory: Yes: WNL, Regular, CTA Bilaterally, Diminished, Dullness Gastrointestinal: Yes: Soft. No: Tenderness Edema: No Labs: CBC, BMP 05/17/16 06:20 05/17/16 06:20 INR, PTT INR 1.54 (0.82-1.09) H 05/13/16 08:05 Fibrinogen 512.0 mg/dL (238-498) H 05/13/16 08:05 Assessment/Plan Microbiology 05/13/16 11:25 Pleural Fluid Gram Stain - Final 05/13/16 11:25 Pleural Fluid Anaerobic Culture - Final NO GROWTH OF AEROBIC ORGANISMS AFTER 48 HOURS INCUBATION NO ANAEROBES WERE ISOLATED 05/15/16 22:37 Blood - Peripheral Venous Blood Culture - Preliminary NO GROWTH OBTAINED AFTER 24 HOURS, INCUBATION TO CONTINUE FOR 4 DAYS. 05/15/16 22:37 Blood - Peripheral Venous Blood Culture - Preliminary NO GROWTH OBTAINED AFTER 24 HOURS, INCUBATION TO CONTINUE FOR 4 DAYS. 05/13/16 15:30 Blood - Peripheral Venous TB Test (QFT) ([facility]) - Preliminary Laboratory Tests 05/13/16 05/13/16 05/14/16 15:15 15:30 07:00 WBC Hgb Hct Plt Count ESR 15 BUN Creatinine C-Reactive Protein 21.5 H HIV 1&2 Antibody Screen Negative HIV P24 Antigen Negative 05/17/16 05/17/16 06:20 06:20 WBC 7.2 Hgb 10.5 L Hct 30.6 L Plt Count 367 ESR BUN 7 Creatinine 0.5 L D C-Reactive Protein HIV 1&2 Antibody Screen HIV P24 Antigen Assessment Parapneumonic effsusion clinical improvement noted No fever anymore pain better No growth on culture Cytology negative Advise IV antibiotic today Obtain a decubitus xray to see if fluid layers out If so it will take time for this to resolve Perhaps oral antibiotics Federico WILKINSON
--- NOTE | 2016-05-17 14:58 | PN ---
Teaching Attending Note Name of Resident: Gustavo Miner ATTENDING PHYSICIAN STATEMENT I saw and evaluated the patient. I reviewed the resident's note and discussed the case with the resident. I agree with the resident's findings and plan as documented. Vital Signs Temperature 97.9 F 05/17/16 07:53 Pulse Rate 97 H 05/17/16 07:53 Respiratory Rate 18 05/17/16 07:53 Blood Pressure 113/80 05/17/16 07:53 O2 Sat by Pulse Oximetry (%) 96 05/17/16 09:00 CBCD WBC 7.2 K/mm3 (4.0-10.0) 05/17/16 06:20 RBC 3.63 M/mm3 (3.60-5.2) 05/17/16 06:20 Hgb 10.5 GM/dL (10.7-15.3) L 05/17/16 06:20 Hct 30.6 % (32.4-45.2) L 05/17/16 06:20 MCV 84.4 fl (80-96) 05/17/16 06:20 MCHC 34.4 g/dl (32.0-36.0) 05/17/16 06:20 RDW 14.1 % (11.6-15.6) 05/17/16 06:20 Plt Count 367 K/MM3 (134-434) 05/17/16 06:20 MPV 7.5 fl (7.5-11.1) 05/17/16 06:20 CMP Sodium 136 mmol/L (136-145) 05/17/16 06:20 Potassium 4.0 mmol/L (3.5-5.1) 05/17/16 06:20 Chloride 99 mmol/L (98-107) 05/17/16 06:20 Carbon Dioxide 31 mmol/L (21-32) 05/17/16 06:20 Anion Gap 6 (8-16) L 05/17/16 06:20 BUN 7 mg/dL (7-18) 05/17/16 06:20 Creatinine 0.5 mg/dL (0.55-1.02) L D 05/17/16 06:20 Creat Clearance w eGFR > 60 (>60) 05/14/16 07:00 Random Glucose 98 mg/dL (74-106) 03/20/17 06:20 Calcium 7.9 mg/dL (8.5-10.1) L 05/17/16 06:20 Total Bilirubin 0.6 mg/dL (0.2-1.0) D 05/14/16 07:00 AST 12 U/L (15-37) L 05/14/16 07:00 ALT 12 U/L (12-78) 05/14/16 07:00 Alkaline Phosphatase 74 U/L (45-117) 05/14/16 07:00 Total Protein 6.6 g/dl (6.4-8.2) 05/14/16 07:00 Albumin 2.7 g/dl (3.4-5.0) L 05/14/16 07:00 CARDIAC ENZYMES Creatine Kinase 41 IU/L (26-192) 05/12/16 18:02 Troponin I < 0.02 ng/ml (0.00-0.05) 05/12/16 18:02 Current Medications Generic Name Dose Route Start Last Admin Trade Name Freq PRN Reason Stop Dose Admin Acetaminophen 650 mg 05/13/16 03:42 05/15/16 22:14 Tylenol - PO 650 mg Q6H PRN Administration FEVER OR PAIN Amlodipine Besylate 10 mg 05/13/16 10:00 05/17/16 09:00 Norvasc - PO 10 mg DAILY [facility] Administration Heparin Sodium (Porcine) 5,000 unit 05/13/16 22:00 05/17/16 13:35 Heparin - SQ 5,000 unit TID [facility] Administration Hydrochlorothiazide 12.5 mg 05/13/16 11:00 05/17/16 09:00 Hctz - PO 12.5 mg DAILY [facility] Administration Ceftriaxone Sodium 100 mls @ 200 mls/hr 05/13/16 15:00 05/17/16 09:01 Rocephin 2gm Ivpb (Pre-Docked) IVPB 200 mls/hr DAILY [facility] Administration Azithromycin 250 mls @ 250 mls/hr 05/13/16 15:00 05/17/16 09:00 Zithromax 500mg Ivpb (Pre-Docked) IVPB 250 mls/hr DAILY [facility] Administration Levothyroxine Sodium 125 mcg 05/13/16 07:00 05/17/16 06:03 Synthroid - PO 125 mcg DAILY@0700 [facility] Administration Losartan Potassium 50 mg 05/13/16 10:00 03/20/17 09:00 Cozaar - PO 50 mg DAILY [facility] Administration Home Medications Medication Instructions Recorded Levothyroxine [Synthroid -] 125 mcg PO DAILY 11/24/13 Amlodipine Besylate [Norvasc -] 10 mg PO DAILY 05/12/16 Losartan/Hydrochlorothiazide 1 each PO DAILY 05/12/16 [Losartan-Hctz 50-12.5 mg Tab] Methocarbamol [Robaxin -] 500 mg PO DAILY PRN 05/12/16 ASSESSMENT AND PLAN: Patient is a 55 y/o F w/PMH of HTN, hypothyroidism presented to ER w/ R sided chest/abdominal pain x 2 days. Found to have R pleural effusion and thought to have a liver mass. # Acute Right pleural effusion s/p thoracentesis by IR for diagnostic purposes ; pleural fluid studies-shows it is exudative likely parapneuomonic effusion. Reaccumulation of fluid pulmonary requesting repeat thoracentesis .ID consult appreciated CT of abdomen was reviewed and was reported as a liver mass, after reviewing the scans with radiology they do not feel they have seen a mass. repeat LFTs are within nl limits #Community acquired pneumonia On Rocephin and Zithromax ,day #5 as per ID will continue, pulmonary consult appreciated # Acute sepsis (leukocytosis and fever): after evaluation by ID it is thought she has a pneumonia with pleuretic chest pain. will continue IV antibiotic #HTN continue Home emds Norvasc Losartan and HCTZ #Hypothyroidism Syntrhoid 125mcg qam DVT px; hEPARIN SQ, scd, EARLY AMBULATION f/u pleural fluid studies is not revealing any infectious source
--- NOTE | 2016-05-17 15:01 | PN ---
Physical Exam: SUBJECTIVE: Patient seen and examined at bedside. States her pain is improved but has moved more superiorly today she states she gets tired faster when ambulating OBJECTIVE: Vital Signs Period Temp Pulse Resp BP Sys/Bustillos Pulse Ox Last 24 Hr 97.9 F-99.3 F 82-97 18-20 113-134/62-80 96-96 GENERAL: The patient is awake, alert, and fully oriented, in no acute distress. HEAD: Normal with no signs of trauma. NECK: supple. LUNGS: diminished breath sounds on the right with crackles left side clear HEART: Regular rate and rhythm, S1, S2 without murmur, rub or gallop. ABDOMEN: mild right sided abdominal tenderness-continues to improve but still with some right flank tenderness- no chest tenderness . ABD soft non distended NEUROLOGICAL: Cranial nerves II through XII grossly intact. Normal speech PSYCH: Normal mood, normal affect. Laboratory Results - last 24 hr 05/17/16 05/17/16 06:20 06:20 WBC 7.2 RBC 3.63 Hgb 10.5 L Hct 30.6 L MCV 84.4 MCHC 34.4 RDW 14.1 Plt Count 367 MPV 7.5 Sodium 136 Potassium 4.0 Chloride 99 Carbon Dioxide 31 Anion Gap 6 L BUN 7 Creatinine 0.5 L D Random Glucose 98 Calcium 7.9 L Active Medications Generic Name Dose Route Start Last Admin Trade Name Freq PRN Reason Stop Dose Admin Acetaminophen 650 mg 05/13/16 03:42 05/15/16 22:14 Tylenol - PO 650 mg Q6H PRN Administration FEVER OR PAIN Amlodipine Besylate 10 mg 05/13/16 10:00 05/17/16 09:00 Norvasc - PO 10 mg DAILY FRANKIE Administration Heparin Sodium (Porcine) 5,000 unit 05/13/16 22:00 05/17/16 13:35 Heparin - SQ 5,000 unit TID FRANKIE Administration Hydrochlorothiazide 12.5 mg 05/13/16 11:00 05/17/16 09:00 Hctz - PO 12.5 mg DAILY FRANKIE Administration Ceftriaxone Sodium 100 mls @ 200 mls/hr 05/13/16 15:00 05/17/16 09:01 Rocephin 2gm Ivpb (Pre-Docked) IVPB 200 mls/hr DAILY [facility] Administration Azithromycin 250 mls @ 250 mls/hr 05/13/16 15:00 05/17/16 09:00 Zithromax 500mg Ivpb (Pre-Docked) IVPB 250 mls/hr DAILY [facility] Administration Levothyroxine Sodium 125 mcg 05/13/16 07:00 05/17/16 06:03 Synthroid - PO 125 mcg DAILY@0700 FR[facility]IE Administration Losartan Potassium 50 mg 05/13/16 10:00 05/17/16 09:00 Cozaar - PO 50 mg DAILY [facility] Administration ASSESSMENT/PLAN: 55 y/o F w/PMH of HTN, hypothyroidism presented to ER w/ R sided chest/ abdominal pain x 2 days. Found to have R pleural effusion. Right pleural effusion/Community acquired pneumonia/Sepsis (leukocytosis and fever): community acquired pneumonia with parapneumonic effusion with pleuritic chest pain. s/p thoracentesis patient now has reaccumulation of fluid pulmonary requesting repeat thoracentesis ID consult appreciated Azithromycin and Ceftriaxone day 5 pleural fluid studies-shows it is exudative likely parapneuomonic effusion Afebrile for 24 hours f/u pleural fluid studies is not revealing any infectious source pulmonary consult appreciated abdominal wall mass: this was seen on chest CT also read as a mass on abdominal CT after reviewing the scans with radiology they do not feel there is a mass in the liver. it is likely part of the abdominal wall vs a dropped stone from her cholecystectomy LFTs WNL will see if right flank/chest/abdominal pain improves with treatment of pneumonia-so far it is If patient is still having fevers chills and does not improve in the next 1-2 days or so an upper abdominal MRI with gadolinium may be of value per Dr. Linn HTN continue Home meds Norvasc Losartan and HCTZ Hypothyroidism Synthroid 125mcg qam -FEN no IVF hypokalemia resolved Low sodium diet PPx: HSQ/SCDs No criteria met for GI PPx no PT evaluation needed HLOC Visit type - Emergency Visit Emergency Visit: Yes ED Registration Date: 05/12/16 Care time: The patient presented to the Emergency Department on the above date and was hospitalized for further evaluation of their emergent condition. - New Patient This patient is new to me today: No - Critical Care Critical Care patient: No
--- NOTE | 2016-05-17 15:12 | PN ---
Progress Note (short form) - Note Progress Note: ID addendum laparoscopic repair of incarcerated ventral hermnia in 2014. Now with pleural effusion increasing in size without any infiltrate seen CT reviewed once again with Dr Ordoñez noting that there may be a tract from the pleura to the subdiaphragmatic space reactive area This raises the question of a below the diaphragm inflammatory process This suggests the coverage may need to be modified for bowel mel Repeat aspiration today. Would have her general surgeon see her in follow up and change to Ertepenem. Federico WILKINSON
[2016-05-17] MEDS ORDERED: ERTAPENEM SODIUM 1 GM/50 ML PRE-DOCKED IVPB SCH (15:15)
[2016-05-17] MEDS: ERTAPENEM SODIUM 1 GM in SODIUM CHLORIDE 50 ML IVPB SCH (16:29)
[2016-05-17] MEDS: ACETAMINOPHEN 325 MG TABLET (FP) PO PRN (22:31)
[2016-05-18] MEDS: HEPARIN NA (PORCINE) 5,000 UNITS/ML 1ML VIAL SQ SCH ×2 (05:20→13:47)
[2016-05-18] MEDS: LEVOTHYROXINE NA 125 MCG TABLET (FP) PO SCH (06:30)
[2016-05-18 08:27] LABS: MCH 29.1 pg (25.7-33.7); MCHC 34.3 g/dl (32.0-36.0); MEAN PLT VOLUME 7.2 fl (7.5-11.1); PLATELET COUNT 393 K/MM3 (134-434); RDW 14.1 % (11.6-15.6); WHITE BLOOD COUNT 7.2 K/mm3 (4.0-10.0)
[2016-05-18] MEDS: ERTAPENEM SODIUM 1 GM in SODIUM CHLORIDE 50 ML IVPB SCH (10:36)
[2016-05-18] MEDS: HYDROCHLOROTHIAZIDE 12.5 MG CAPSULE (FP) PO SCH (11:10)
[2016-05-18] MEDS: LOSARTAN POTASSIUM 50 MG TABLET (FP) PO SCH (11:10)
[2016-05-18] MEDS: amLODIPine BESYLATE 10 MG TABLET (FP) PO SCH (11:10)
--- NOTE | 2016-05-18 11:38 | MSN ---
Progress Note (short form) - Note Progress Note: SUBJECTIVE: Pt seen and examined at bedside. Pt states she did "not have a good night" and appears to be upset. She had ear pain with blurriness of vision and lightheadedness overnight when she was in the bathroom. Denies previous Hx of similar Sx. Also admits to SOB with associated sharp CP over the lower sternum and R side of her chest. Pt says she felt febrile and experienced chills overnight, however, there were no recorded fevers. At bedside this morning, pt states ear pain is still present however less in severity. Denies CP or SOB. Admits to persistence of posterior R flank pain. Active Medications Generic Name Dose Route Start Last Admin Trade Name Freq PRN Reason Stop Dose Admin Acetaminophen 650 mg 05/13/16 03:42 05/17/16 22:31 Tylenol - PO 650 mg Q6H PRN Administration FEVER OR PAIN Amlodipine Besylate 10 mg 05/13/16 10:00 05/18/16 11:10 Norvasc - PO 10 mg DAILY FR[facility]IE Administration Heparin Sodium (Porcine) 5,000 unit 05/13/16 22:00 05/18/16 13:47 Heparin - SQ Not Given TID FRANKIE Hydrochlorothiazide 12.5 mg 05/13/16 11:00 05/18/16 11:10 Hctz - PO 12.5 mg DAILY FR[facility]IE Administration Ertapenem 1 gm/ Sodium 50 mls @ 100 mls/hr 05/17/16 16:00 05/18/16 10:36 Chloride IVPB 100 mls/hr DAILY [facility] Administration Levothyroxine Sodium 125 mcg 05/13/16 07:00 05/18/16 06:30 Synthroid - PO 125 mcg DAILY@0700 FR[facility]IE Administration Losartan Potassium 50 mg 05/13/16 10:00 05/18/16 11:10 Cozaar - PO 50 mg DAILY FRANKIE Administration OBJECTIVE: Vital Signs Period Temp Pulse Resp BP Sys/Bustillos Pulse Ox Last 24 Hr 98.1 F-98.8 F 86-96 18-20 101-122/62-76 96 GENERAL: AAOx3 in no respiratory distress HEAD: Normocephalic, atraumatic. PERRLA, EOMI NECK: No JVD HEART: Regular rate and rhythm. +S1/S2. No murmurs/rubs/gallops LUNGS: CTAB with decreased breath sounds over entire R lobe. No rales/rhonchi/ wheezing ABDOMEN: Soft, nondistended, and no tenderness to palpation over anterior abdomen. TTP over R flank. Dullness to percussion. Normal bowel sounds 4/4 EXT: BL LE warm, +2 DP and +2 radial palpated, no edema in BL LE NEURO: Normal speech, CN2-12 intact, motor 5/5 BL arm abduction/flexion/ extension and 5/5 BL hip flexion, leg extension, PF/DF, sensation grossly intact CBC WBC 7.2 K/mm3 (4.0-10.0) 05/18/16 06:50 Corrected WBC (auto) Cancelled 05/12/16 18:02 RBC 3.59 M/mm3 (3.60-5.2) L 05/18/16 06:50 Hgb 10.4 GM/dL (10.7-15.3) L 05/18/16 06:50 Hct 30.5 % (32.4-45.2) L 05/18/16 06:50 MCV 85.0 fl (80-96) 05/18/16 06:50 MCHC 34.3 g/dl (32.0-36.0) 05/18/16 06:50 RDW 14.1 % (11.6-15.6) 05/18/16 06:50 Plt Count 393 K/MM3 (134-434) 05/18/16 06:50 MPV 7.2 fl (7.5-11.1) L 05/18/16 06:50 Neutrophils % 66.0 % (42.8-82.8) 05/16/16 06:15 Lymphocytes % 14.8 % (8-40) D 05/16/16 06:15 Monocytes % 13.4 % (3.8-10.2) H 05/16/16 06:15 Eosinophils % 5.4 % (0-4.5) H D 05/16/16 06:15 Basophils % 0.4 % (0-2.0) 05/16/16 06:15 Differential Comment Slide scanned 05/12/16 22:50 Smudge Cells Cancelled 05/12/16 18:02 Platelet Estimate Adequate (NORMAL) 05/12/16 22:50 Platelet Comment No clumping noted 05/12/16 22:50 Platelet Comment No clotting detected 05/12/16 22:50 RBC Morphology 05/12/16 22:50 ESR 15 mm/hr (0-30) 05/14/16 07:00 CMP Sodium 136 mmol/L (136-145) 05/17/16 06:20 Potassium 4.0 mmol/L (3.5-5.1) 05/17/16 06:20 Chloride 99 mmol/L (98-107) 05/17/16 06:20 Carbon Dioxide 31 mmol/L (21-32) 05/17/16 06:20 Anion Gap 6 (8-16) L 05/17/16 06:20 BUN 7 mg/dL (7-18) 05/17/16 06:20 Creatinine 0.5 mg/dL (0.55-1.02) L D 05/17/16 06:20 Creat Clearance w eGFR > 60 (>60) 05/14/16 07:00 Random Glucose 98 mg/dL (74-106) 05/17/16 06:20 Lactic Acid 1.306 mmol/L (0.4-2.0) 05/12/16 18:02 Calcium 7.9 mg/dL (8.5-10.1) L 05/17/16 06:20 Total Bilirubin 0.6 mg/dL (0.2-1.0) D 05/14/16 07:00 AST 12 U/L (15-37) L 05/14/16 07:00 ALT 12 U/L (12-78) 05/14/16 07:00 Alkaline Phosphatase 74 U/L (45-117) 05/14/16 07:00 LD Total 158 U/L (84-246) 05/13/16 07:50 Creatine Kinase 41 IU/L (26-192) 05/12/16 18:02 Troponin I < 0.02 ng/ml (0.00-0.05) 05/12/16 18:02 C-Reactive Protein 21.5 MG/DL (0.00-0.3) H 05/13/16 15:30 Total Protein 6.6 g/dl (6.4-8.2) 05/14/16 07:00 Albumin 2.7 g/dl (3.4-5.0) L 05/14/16 07:00 Tumor Marker AFP 1.5 ng/ml (0.0-8.3) 05/13/16 08:05 Microbiology 05/15/16 22:37 Blood Culture - Preliminary Blood - Peripheral Venous NO GROWTH OBTAINED AFTER 48 HOURS, INCUBATION TO CONTINUE FOR 3 DAYS. 05/15/16 22:37 Blood Culture - Preliminary Blood - Peripheral Venous NO GROWTH OBTAINED AFTER 48 HOURS, INCUBATION TO CONTINUE FOR 3 DAYS. 05/12/16 18:02 Blood Culture - Final Blood - Peripheral Venous NO GROWTH AFTER 5 DAYS INCUBATION 05/12/16 18:02 Blood Culture - Final Blood - Peripheral Venous NO GROWTH AFTER 5 DAYS INCUBATION 05/13/16 15:30 TB Test (QFT) (LAURA) - Final (negative) Blood - Peripheral Venous 05/13/16 11:25 AFB Smear Concentration - Final (no AFB seen) Pleural Fluid Mycobacterial Culture - Preliminary CXR (05/18/16): S/P thoracentesis of R pleural effusion, persistence of R pleural effusion with minimal improvement compared to CXR on 05/16/16, cannot rule out underlying RLL parenchymal disease, ? tracking of fluid from below the diaphragm to pleura along the chest wall A/P: Pt is a 55 yo F with a PMHx of HTN, hypothyroidism, and JINA who presented to the ED with worsening R sided chest/abdominal pain x2 days. Pt was found to have a R sided pleural effusion and hepatic mass on initial CT chest. Admitted for further management and observation. 1. Sepsis 2/2 CAP with pleural effusion -Stable. Pt has been afebrile with no WBC count for 48 hrs. No recorded hypotensive episodes -Finished 5 day course of Rocephin and Azithromycin -S/P thoracentesis on 05/13/16 with reaccumulation of parapneumonic pleural effusion -S/P 2nd thoracentesis today. Post procedure CXR reveals persistent R pleural effusion -1st pleural fluid sample was exudative, no organisms on gram stain, and Cx NGTD -2nd pleural fluid sample was exudative. Gram stain/Cx pending -QFT negative -ID started Ertapenem 1gm IV daily yesterday (day 2) to cover for bowel mel for ? below diaphragm inflammatory process -ID consult appreciated -Pulmonary consult appreciated 2. Posterior abdominal wall mass -CT abd/pelvis performed (05/13/16) -Met with Radiology last Tuesday to go over scan: ? inflammatory process in the posterior and anterior RUQ outside the liver body ? 2/2 to infected dropped stone from previous cholecystectomy (October 2014). No intrahepatic mass present -Tylenol 650mg Q6H PRN for pain -FNA of the mass was performed today. FU pathology results -Dr. Ordoñez input appreciated 3. HTN -Stable -Losartan 50mg PO daily -HCTZ 12.5mg PO daily -Norvasc 10mg PO daily 4. Hypothyroidism -Synthroid 125mcg PO daily 5. Leukocytosis -Resolved (14.5 to 7.2) 6. FEN -No IVF -BMP WNL. Will continue to monitor and correct any electrolyte abnormalities on BMP -Low Na diet 7. DVT ppx -Heparin 5000U SQ TID -SCDs 8. Dispo -Discharge status is in question -Pt needs further evaluation and management Ashkan Monroy, MS3
--- NOTE | 2016-05-18 13:56 | PN ---
Progress Note (short form) - Note Progress Note: PULMONARY s/p repeat thoracentesis, reports pain with drainage this time. No fevers recorded. Last Vital Signs Temp Pulse Resp BP Pulse Ox 98.1 F 95 H 18 122/63 96 05/18/16 09:32 05/18/16 11:11 05/18/16 11:11 05/18/16 11:11 05/17/16 22:00 Gen: NAD at rest Heart: RRR Lung: clear to auscultation Abd: soft, nontender Ext: no edema CBC, BMP 05/18/16 06:50 05/17/16 06:20 Active Medications Acetaminophen (Tylenol -) 650 mg PO Q6H PRN PRN Reason: FEVER OR PAIN Last Admin: 05/17/16 22:31 Dose: 650 mg Amlodipine Besylate (Norvasc -) 10 mg PO DAILY [facility] Last Admin: 05/18/16 11:10 Dose: 10 mg Heparin Sodium (Porcine) (Heparin -) 5,000 unit SQ TID [facility] Last Admin: 05/18/16 13:47 Dose: Not Given Hydrochlorothiazide (Hctz -) 12.5 mg PO DAILY [facility] Last Admin: 05/18/16 11:10 Dose: 12.5 mg Ertapenem 1 gm/ Sodium (Chloride) 50 mls @ 100 mls/hr IVPB DAILY [facility] Last Admin: 05/18/16 10:36 Dose: 100 mls/hr Levothyroxine Sodium (Synthroid -) 125 mcg PO DAILY@0700 [facility] Last Admin: 05/18/16 06:30 Dose: 125 mcg Losartan Potassium (Cozaar -) 50 mg PO DAILY [facility] Last Admin: 05/18/16 11:10 Dose: 50 mg A/P Pneumonia Parapneumonic Pleural Effusion Atelectasis HTN Hypothyroidism - f/u pleural fluid chemistries/cultures - repeat CXR in AM - may need thoracic evaluation/VATS if no improvement in exudative effusion - continue antibiotics - monitor fever curve, WBC trend - pain control - DVT prophylaxis
--- NOTE | 2016-05-18 14:12 | PN ---
Physical Exam: SUBJECTIVE: Patient seen and examined at bedside this morning at 845AM patient crying in bed states she did not have a good night sleep she is having right ear pain short of breath when ambulating OBJECTIVE: Vital Signs Period Temp Pulse Resp BP Sys/Bustillos Pulse Ox Last 24 Hr 98.1 F-98.8 F 86-96 18-20 101-122/62-76 96 GENERAL: The patient is awake, alert, and fully oriented, in no acute distress. HEAD: Normal with no signs of trauma. NECK: supple. LUNGS: diminished breath sounds on the right with crackles left side clear HEART: Regular rate and rhythm, S1, S2 without murmur, rub or gallop. ABDOMEN:right sided abdominal tenderness- still with some right flank tenderness - no chest tenderness . ABD soft non distended NEUROLOGICAL: Cranial nerves II through XII grossly intact. Normal speech PSYCH: Normal mood, normal affect. Laboratory Results - last 24 hr 05/18/16 06:50 WBC 7.2 RBC 3.59 L Hgb 10.4 L Hct 30.5 L MCV 85.0 MCHC 34.3 RDW 14.1 Plt Count 393 MPV 7.2 L Active Medications Generic Name Dose Route Start Last Admin Trade Name Freq PRN Reason Stop Dose Admin Acetaminophen 650 mg 05/13/16 03:42 05/17/16 22:31 Tylenol - PO 650 mg Q6H PRN Administration FEVER OR PAIN Amlodipine Besylate 10 mg 05/13/16 10:00 05/18/16 11:10 Norvasc - PO 10 mg DAILY FRANKIE Administration Heparin Sodium (Porcine) 5,000 unit 05/13/16 22:00 05/18/16 13:47 Heparin - SQ Not Given TID FRANKIE Hydrochlorothiazide 12.5 mg 05/13/16 11:00 05/18/16 11:10 Hctz - PO 12.5 mg DAILY FRANKIE Administration Ertapenem 1 gm/ Sodium 50 mls @ 100 mls/hr 05/17/16 16:00 05/18/16 10:36 Chloride IVPB 100 mls/hr DAILY FRANKIE Administration Levothyroxine Sodium 125 mcg 05/13/16 07:00 05/18/16 06:30 Synthroid - PO 125 mcg DAILY@0700 FRANKIE Administration Losartan Potassium 50 mg 05/13/16 10:00 05/18/16 11:10 Cozaar - PO 50 mg DAILY FRANKIE Administration ASSESSMENT/PLAN: 55 y/o F w/PMH of HTN, hypothyroidism presented to ER w/ R sided chest/ abdominal pain x 2 days. Found to have R pleural effusion. Right pleural effusion/Community acquired pneumonia/Sepsis (leukocytosis and fever): community acquired pneumonia with parapneumonic effusion with pleuritic chest pain. s/p thoracentesis patient now has reaccumulation of fluid pulmonary requesting repeat thoracentesis- will repeat thoracentesis today ID consult appreciated Azithromycin and Ceftriaxone stopped on day 5 started on ertapenem day 2 given possible stone dropped in abdomen during cholecystectomy pleural fluid studies-shows inital thoracentesis was exudative likely parapneuomonic effusion Afebrile f/u pleural fluid studies is not revealing any infectious source pulmonary consult appreciated abdominal wall mass: this was seen on chest CT also read as a mass on abdominal CT after reviewing the scans with radiology they do not feel there is a mass in the liver. it is likely part of the abdominal wall vs a dropped stone from her cholecystectomy LFTs WNL will see if right flank/chest/abdominal pain improves with treatment of pneumonia-no significant improvement will discuss with Dr. Linn if she should have the mass seen on CT scan biopsied if not will order upper abdominal MRI with gadalinium HTN continue Home meds Norvasc Losartan and HCTZ Hypothyroidism Synthroid 125mcg qam -FEN no IVF no electrolyte issues Low sodium diet PPx: HSQ/SCDs No criteria met for GI PPx no PT evaluation needed at this time HLOC Visit type - Emergency Visit Emergency Visit: Yes ED Registration Date: 05/12/16 Care time: The patient presented to the Emergency Department on the above date and was hospitalized for further evaluation of their emergent condition. - New Patient This patient is new to me today: No - Critical Care Critical Care patient: No
[2016-05-18 14:18] LABS: PLEURAL FLUID SOURCE RIGHT PLEURAL
[2016-05-18 14:19] LABS: PLEURAL FLUID COLOR RED
[2016-05-18 14:20] LABS: PLEURAL FLUID APPEARANCE HAZY
[2016-05-18 15:07] LABS: GLUCOSE,PLEURAL FLUID 71.845; TOTAL PROTEIN,PLEURAL FLUID 5.244
[2016-05-18 15:09] LABS: CHLORIDE PLEURAL FLUID 100
[2016-05-18 16:03] LABS: PLEURAL FLUID BASOPHIL 1 %; PLEURAL FLUID LYMPHOCYTES 70 %; PLEURAL FLUID MACROPHAGES 17 %; PLEURAL FLUID NEUTROPHIL 8 %
--- NOTE | 2016-05-18 16:23 | PN ---
Progress Note, Physician History of Present Illness: S/P repeat thoracentesis No c/o pain No c/o dyspnea Occasional cough No fever/ chills - Current Medication List Current Medications: Active Medications Acetaminophen (Tylenol -) 650 mg PO Q6H PRN PRN Reason: FEVER OR PAIN Last Admin: 05/17/16 22:31 Dose: 650 mg Amlodipine Besylate (Norvasc -) 10 mg PO DAILY [facility] Last Admin: 05/18/16 11:10 Dose: 10 mg Heparin Sodium (Porcine) (Heparin -) 5,000 unit SQ TID [facility] Last Admin: 05/18/16 13:47 Dose: Not Given Hydrochlorothiazide (Hctz -) 12.5 mg PO DAILY [facility] Last Admin: 05/18/16 11:10 Dose: 12.5 mg Ertapenem 1 gm/ Sodium (Chloride) 50 mls @ 100 mls/hr IVPB DAILY [facility] Last Admin: 05/18/16 10:36 Dose: 100 mls/hr Levothyroxine Sodium (Synthroid -) 125 mcg PO DAILY@0700 [facility] Last Admin: 05/18/16 06:30 Dose: 125 mcg Losartan Potassium (Cozaar -) 50 mg PO DAILY [facility] Last Admin: 05/18/16 11:10 Dose: 50 mg - Objective Vital Signs: Vital Signs Temperature 98.1 F 05/18/16 09:32 Pulse Rate 95 H 05/18/16 11:11 Respiratory Rate 18 05/18/16 11:11 Blood Pressure 122/63 05/18/16 11:11 O2 Sat by Pulse Oximetry (%) 96 05/17/16 22:00 Constitutional: Yes: No Distress Eyes: Yes: Conjunctiva Clear Cardiovascular: Yes: Regular Rate and Rhythm, S1, S2 Respiratory: Yes: Diminished Gastrointestinal: Yes: Normal Bowel Sounds, Soft, Abdomen, Obese. No: Tenderness Labs: CBC, BMP 05/18/16 06:50 05/17/16 06:20 INR, PTT INR 1.54 (0.82-1.09) H 05/13/16 08:05 Fibrinogen 512.0 mg/dL (238-498) H 05/13/16 08:05 Assessment/Plan Pleural effusion S/P thoracentesis Possible subdiaphragmatic communication Await routine, AFB, Fungal c/s Continue ertapenem
--- NOTE | 2016-05-18 18:00 | PN ---
Teaching Attending Note Name of Resident: Gustavo Miner ATTENDING PHYSICIAN STATEMENT I saw and evaluated the patient. I reviewed the resident's note and discussed the case with the resident. I agree with the resident's findings and plan as documented. SUBJECTIVE: felt SOB over night , now better after thoracocentesis this am . no CP , but pain at site of needle OBJECTIVE: NAD CV: RRR Lungs : CTAB , decreased breath sounds at R base Ext : no edema on LE ASSESSMENT AND PLAN: Patient is a 55 y/o F w/PMH of HTN, hypothyroidism presented to ER w/ R sided chest/abdominal pain x 2 days. Found to have R pleural effusion , Treated for CAP 1- Exudative R pleural effusion : possible parapneumonic , but also with the subdiaphramatic mass, there is possibly a communication . cytology neg and cx neg. - cont ertapenem . - follow cx from the mass - Repeat cxray in am . if fluid re- accumulate , then might need a pig tail placement or pleurodesis 2- sub-diaphragmatic mass, of unclear etiology. infectious vs malignancy. - follow bx done today 3- HTN : cont home meds dispo : HLOC
[2016-05-19] MEDS: HEPARIN NA (PORCINE) 5,000 UNITS/ML 1ML VIAL SQ SCH ×3 (06:03→21:27)
[2016-05-19] MEDS: LEVOTHYROXINE NA 125 MCG TABLET (FP) PO SCH (06:03)
[2016-05-19 08:19] LABS: MCH 28.4 pg (25.7-33.7); MCHC 33.3 g/dl (32.0-36.0); MEAN CELL VOLUME 85.2 fl (80-96); MEAN PLT VOLUME 7.1 fl (7.5-11.1); PLATELET COUNT 437 K/MM3 (134-434); RDW 14.3 % (11.6-15.6); WHITE BLOOD COUNT 7.7 K/mm3 (4.0-10.0)
[2016-05-19] MEDS ORDERED: PT OWN MED DRAWER 7, Y5N ONE (09:24)
[2016-05-19] MEDS: amLODIPine BESYLATE 10 MG TABLET (FP) PO SCH (10:31)
[2016-05-19] MEDS: LOSARTAN POTASSIUM 50 MG TABLET (FP) PO SCH (10:31)
[2016-05-19] MEDS: HYDROCHLOROTHIAZIDE 12.5 MG CAPSULE (FP) PO SCH (10:31)
--- NOTE | 2016-05-19 10:44 | PN ---
Physical Exam: SUBJECTIVE: Patient seen and examined at bedside. POD#1 s/p second thoracentesis. 1L of exudative fluid removed. Breathing has improved. Pain well controlled. No fevers or chills. Denies CP, GIBBS, palpitations, N/V. OBJECTIVE: Vital Signs Period Temp Pulse Resp BP Sys/Bustillos Pulse Ox Last 24 Hr 98.1 F-98.4 F 84-95 18-20 110-122/63-69 96 GENERAL: AAO x3 , NAD HEAD: NC/AT EYES: PERRL, EOMI, sclera anicteric, conjunctiva clear. No ptosis. ENT: Moist mucous membranes. NECK: supple and no jvd LUNGS: Left lung CTA, right sided rales. HEART: RRR, S1, S2 without murmur, rub or gallop. ABDOMEN: Soft,obese, nontender, nondistended, normoactive bowel sounds EXTREMITIES: 2+ pulses, warm, well-perfused, no edema. NEUROLOGICAL: Normal speech and fully oriented. PSYCH: Normal mood, normal affect. SKIN: Warm, dry, normal turgor, no rashes or lesions noted Laboratory Results - last 24 hr 05/18/16 05/18/16 05/19/16 13:50 13:50 07:30 WBC 7.7 RBC 3.60 Hgb 10.2 L Hct 30.7 L MCV 85.2 MCHC 33.3 RDW 14.3 Plt Count 437 H MPV 7.1 L Phosphorus 3.7 Pleural Fluid Source Right pleural Pleural Color Red Pleural Appearance Hazy Pleural WBC 1,732 Pleural RBC 21,022 Pleural Neutrophils 8 Pleural Lymphocytes 70 Pleural Monocytes 3 Pleural Eosinophils 1 Pleural Basophils 1 Pleural Macrophages 17 Pleural Chloride 100 Pleural Total Protein 5.244 Pleural Albumin 2 Pleural LDH 873 Pleural Glucose 71.845 Pleural Amylase 23.478 Pleural Cholesterol 84 Active Medications Generic Name Dose Route Start Last Admin Trade Name Freq PRN Reason Stop Dose Admin Acetaminophen 650 mg 05/13/16 03:42 05/17/16 22:31 Tylenol - PO 650 mg Q6H PRN Administration FEVER OR PAIN Amlodipine Besylate 10 mg 05/13/16 10:00 05/19/16 10:31 Norvasc - PO 10 mg DAILY [facility] Administration Heparin Sodium (Porcine) 5,000 unit 05/13/16 22:00 05/19/16 06:03 Heparin - SQ 5,000 unit TID [facility] Administration Hydrochlorothiazide 12.5 mg 05/13/16 11:00 05/19/16 10:31 Hctz - PO 12.5 mg DAILY [facility] Administration Ertapenem 1 gm/ Sodium 50 mls @ 100 mls/hr 05/17/16 16:00 05/18/16 10:36 Chloride IVPB 100 mls/hr DAILY [facility] Administration Levothyroxine Sodium 125 mcg 05/13/16 07:00 05/19/16 06:03 Synthroid - PO 125 mcg DAILY@0700 [facility] Administration Losartan Potassium 50 mg 05/13/16 10:00 05/19/16 10:31 Cozaar - PO 50 mg DAILY [facility] Administration ASSESSMENT/PLAN: 55 y/o F w/PMH of HTN, hypothyroidism presented to ER w/ R sided chest/ abdominal pain x 2 days. Found to have R pleural effusion and CAP . Plan: Pleural Effusion: * Awaiting results of fine needle aspiration of Perihepatic density. * Gram stain pending- if bacteria present will need further drainage. * CT surgery consult Dr. Wang assess for need of VATS Visit type - Emergency Visit Emergency Visit: Yes ED Registration Date: 05/12/16 Care time: The patient presented to the Emergency Department on the above date and was hospitalized for further evaluation of their emergent condition. - New Patient This patient is new to me today: Yes Date on this admission: 05/19/16 - Critical Care Critical Care patient: No
[2016-05-19] MEDS: ERTAPENEM SODIUM 1 GM in SODIUM CHLORIDE 50 ML IVPB SCH (10:57)
--- NOTE | 2016-05-19 13:49 | PN ---
Teaching Attending Note Name of Resident: Gustavo Miner ATTENDING PHYSICIAN STATEMENT I saw and evaluated the patient. I reviewed the resident's note and discussed the case with the resident. I agree with the resident's findings and plan as documented. SUBJECTIVE: no fever or chills , no abd pain OBJECTIVE: NAD CV: RRR Lungs : CTAB , decreased breath sounds at R base , with minimal fine crackles Ext : no edema on LE ASSESSMENT AND PLAN: Patient is a 55 y/o F w/PMH of HTN, hypothyroidism presented to ER w/ R sided chest/abdominal pain x 2 days. Found to have R pleural effusion , Treated for CAP 1- Exudative R pleural effusion : possible parapneumonic . Effusion is loculated and no empyema was detected. effusion re-accumulated fast after initial drainage despite treating possible pNA , which raises concern - Consult thoracic surgery, to evaluate the loculated effusion - follow repeat pathology on yesterday's specimen - follow path on the aspirate from mass/fluid collection adjacent to the liver . possible inflammatory /infectious process - CT of chest with IV contrast 3- Possible ascending colitis on CT scan: - check CT of abd with/woithout contrast , with po contrast - cont ertapenem 3- HTN : cont home meds dispo : HLOC
--- NOTE | 2016-05-19 13:54 | PN ---
Addendum entered and electronically signed by Gustavo Miner RES 05/19/16 13:59: abdominal mass aspirated by IR yesterday will follow up gram stain cultures and cytology Original Note: Physical Exam: SUBJECTIVE: Patient seen and examined at bedside. feels better after second thoacentesis OBJECTIVE: Vital Signs Period Temp Pulse Resp BP Sys/Bustillos Pulse Ox Last 24 Hr 98.1 F-98.4 F 84-94 18-20 109-111/65-75 96 GENERAL: The patient is awake, alert, and fully oriented, in no acute distress. HEAD: Normal with no signs of trauma. NECK: supple. LUNGS: diminished breath sounds on the right left side is clear HEART: Regular rate and rhythm, S1, S2 without murmur, rub or gallop. ABDOMEN:right sided abdominal tenderness- still with some right flank tenderness - no chest tenderness . ABD soft non distended NEUROLOGICAL: Cranial nerves II through XII grossly intact. Normal speech PSYCH: Normal mood, normal affect. Laboratory Results - last 24 hr 05/18/16 05/18/16 05/19/16 13:50 13:50 07:30 WBC 7.7 RBC 3.60 Hgb 10.2 L Hct 30.7 L MCV 85.2 MCHC 33.3 RDW 14.3 Plt Count 437 H MPV 7.1 L Phosphorus 3.7 Pleural Fluid Source Right pleural Pleural Color Red Pleural Appearance Hazy Pleural WBC 1,732 Pleural RBC 21,022 Pleural Neutrophils 8 Pleural Lymphocytes 70 Pleural Monocytes 3 Pleural Eosinophils 1 Pleural Basophils 1 Pleural Macrophages 17 Pleural Chloride 100 Pleural Total Protein 5.244 Pleural Albumin 2 Pleural LDH 873 Pleural Glucose 71.845 Pleural Amylase 23.478 Pleural Cholesterol 84 Active Medications Generic Name Dose Route Start Last Admin Trade Name Freq PRN Reason Stop Dose Admin Acetaminophen 650 mg 05/13/16 03:42 05/17/16 22:31 Tylenol - PO 650 mg Q6H PRN Administration FEVER OR PAIN Amlodipine Besylate 10 mg 05/13/16 10:00 05/19/16 10:31 Norvasc - PO 10 mg DAILY FRANKIE Administration Heparin Sodium (Porcine) 5,000 unit 05/13/16 22:00 05/19/16 06:03 Heparin - SQ 5,000 unit TID FRANKIE Administration Hydrochlorothiazide 12.5 mg 05/13/16 11:00 05/19/16 10:31 Hctz - PO 12.5 mg DAILY FRANKIE Administration Ertapenem 1 gm/ Sodium 50 mls @ 100 mls/hr 05/17/16 16:00 05/19/16 10:57 Chloride IVPB 100 mls/hr DAILY FRANKIE Administration Levothyroxine Sodium 125 mcg 05/13/16 07:00 05/19/16 06:03 Synthroid - PO 125 mcg DAILY@0700 FRANKIE Administration Losartan Potassium 50 mg 05/13/16 10:00 05/19/16 10:31 Cozaar - PO 50 mg DAILY FRANKIE Administration ASSESSMENT/PLAN: 55 y/o F w/PMH of HTN, hypothyroidism presented to ER w/ R sided chest/ abdominal pain x 2 days. Found to have R pleural effusion. Right pleural effusion/Community acquired pneumonia/Sepsis (leukocytosis and fever): community acquired pneumonia with parapneumonic effusion with pleuritic chest pain. s/p thoracentesis patient had reaccumulation of fluid pulmonary requested repeat thoracentesis and second one was done 05/18/16 ID consult appreciated Azithromycin and Ceftriaxone stopped on day 5 continue ertapenem day 3 given possible stone dropped in abdomen during cholecystectomy pleural fluid studies-shows inital thoracentesis was exudative likely parapneuomonic effusion Afebrile f/u pleural fluid studies is not revealing any infectious source pulmonary consult appreciated CT surgery consult obtained and case discussed with Dr. Thornton. Will get CT chest ABD/Pel with IV contrast will prepeare for possible VATS this tuesday Will recheck INR if elevated will give PO vitamin K as this is a contraindication to epidural abdominal wall mass: this was seen on chest CT also read as a mass on abdominal CT after reviewing the scans with radiology they do not feel there is a mass in the liver. it is likely part of the abdominal wall vs a dropped stone from her cholecystectomy LFTs WNL will see if right flank/chest/abdominal pain improves with treatment of pneumonia-no significant improvement will repeat CT scan HTN continue Home meds Norvasc Losartan and HCTZ Hypothyroidism Synthroid 125mcg qam -FEN no IVF no electrolyte issues Low sodium diet PPx: HSQ/SCDs No criteria met for GI PPx no PT evaluation needed at this time HLOC Visit type - Emergency Visit Emergency Visit: Yes ED Registration Date: 05/12/16 Care time: The patient presented to the Emergency Department on the above date and was hospitalized for further evaluation of their emergent condition. - New Patient This patient is new to me today: No - Critical Care Critical Care patient: No
--- NOTE | 2016-05-19 14:00 | MSN ---
Progress Note (short form) - Note Progress Note: SUBJECTIVE: Pt seen and examined at bedside. OLLIE overnight. Pt experienced some pleuritic CP overnight but states it has improved since. Admits to slight diaphoresis overnight as well. Denies fevers, chills, SOB, and dysuria. Pt is tolerating PO diet without nausea and vomiting. Pt appears anxious and states she wants to know what the "plan" is. Active Medications Generic Name Dose Route Start Last Admin Trade Name Freq PRN Reason Stop Dose Admin Acetaminophen 650 mg 05/13/16 03:42 05/17/16 22:31 Tylenol - PO 650 mg Q6H PRN Administration FEVER OR PAIN Amlodipine Besylate 10 mg 05/13/16 10:00 05/19/16 10:31 Norvasc - PO 10 mg DAILY FRANKIE Administration Heparin Sodium (Porcine) 5,000 unit 05/13/16 22:00 05/19/16 06:03 Heparin - SQ 5,000 unit TID FRANKIE Administration Hydrochlorothiazide 12.5 mg 05/13/16 11:00 05/19/16 10:31 Hctz - PO 12.5 mg DAILY FRANKIE Administration Ertapenem 1 gm/ Sodium 50 mls @ 100 mls/hr 05/17/16 16:00 05/19/16 10:57 Chloride IVPB 100 mls/hr DAILY FRANKIE Administration Levothyroxine Sodium 125 mcg 05/13/16 07:00 05/19/16 06:03 Synthroid - PO 125 mcg DAILY@0700 FRANKIE Administration Losartan Potassium 50 mg 05/13/16 10:00 05/19/16 10:31 Cozaar - PO 50 mg DAILY FRANKIE Administration OBJECTIVE: Vital Signs Period Temp Pulse Resp BP Sys/Bustillos Pulse Ox Last 24 Hr 98.1 F-98.4 F 84-94 18-20 109-111/65-75 96 GENERAL: AAOx3 in NAD HEAD: Normocephalic, atraumatic. PERRLA, EOMI NECK: No JVD HEART: Regular rate and rhythm. +S1/S2. No murmurs/rubs/gallops LUNGS: CTA over the L lobe with decreased breath sounds over the RUL/RML and very faint breath sounds over R lung base. No crackles/rhonchi/wheezing heard ABDOMEN: Soft, nondistended, and no tenderness to palpation over anterior abdomen. TTP over R flank and posterior R lower thoracic area. Dullness to percussion. Normal bowel sounds 06/01 EXT: BL LE warm, no edema in BL LE NEURO: Normal speech CBC WBC 7.7 K/mm3 (4.0-10.0) 05/19/16 07:30 Corrected WBC (auto) Cancelled 05/12/16 18:02 RBC 3.60 M/mm3 (3.60-5.2) 05/19/16 07:30 Hgb 10.2 GM/dL (10.7-15.3) L 05/19/16 07:30 Hct 30.7 % (32.4-45.2) L 05/19/16 07:30 MCV 85.2 fl (80-96) 05/19/16 07:30 MCHC 33.3 g/dl (32.0-36.0) 05/19/16 07:30 RDW 14.3 % (11.6-15.6) 05/19/16 07:30 Plt Count 437 K/MM3 (134-434) H 05/19/16 07:30 MPV 7.1 fl (7.5-11.1) L 05/19/16 07:30 Neutrophils % 66.0 % (42.8-82.8) 05/16/16 06:15 Lymphocytes % 14.8 % (8-40) D 05/16/16 06:15 Monocytes % 13.4 % (3.8-10.2) H 05/16/16 06:15 Eosinophils % 5.4 % (0-4.5) H D 05/16/16 06:15 Basophils % 0.4 % (0-2.0) 05/16/16 06:15 Differential Comment Slide scanned 05/12/16 22:50 Smudge Cells Cancelled 05/12/16 18:02 Platelet Estimate Adequate (NORMAL) 05/12/16 22:50 Platelet Comment No clumping noted 05/12/16 22:50 Platelet Comment No clotting detected 05/12/16 22:50 RBC Morphology 05/12/16 22:50 ESR 15 mm/hr (0-30) 05/14/16 07:00 CMP Sodium 136 mmol/L (136-145) 05/17/16 06:20 Potassium 4.0 mmol/L (3.5-5.1) 05/17/16 06:20 Chloride 99 mmol/L (98-107) 05/17/16 06:20 Carbon Dioxide 31 mmol/L (21-32) 05/17/16 06:20 Anion Gap 6 (8-16) L 05/17/16 06:20 BUN 7 mg/dL (7-18) 05/17/16 06:20 Creatinine 0.5 mg/dL (0.55-1.02) L D 05/17/16 06:20 Creat Clearance w eGFR > 60 (>60) 05/14/16 07:00 Random Glucose 98 mg/dL (74-106) 05/17/16 06:20 Lactic Acid 1.306 mmol/L (0.4-2.0) 05/12/16 18:02 Calcium 7.9 mg/dL (8.5-10.1) L 05/17/16 06:20 Phosphorus 3.7 mg/dL (2.5-4.9) 05/18/16 13:50 Total Bilirubin 0.6 mg/dL (0.2-1.0) D 05/14/16 07:00 AST 12 U/L (15-37) L 05/14/16 07:00 ALT 12 U/L (12-78) 05/14/16 07:00 Alkaline Phosphatase 74 U/L (45-117) 05/14/16 07:00 LD Total 158 U/L (84-246) 05/13/16 07:50 Creatine Kinase 41 IU/L (26-192) 05/12/16 18:02 Troponin I < 0.02 ng/ml (0.00-0.05) 05/12/16 18:02 C-Reactive Protein 21.5 MG/DL (0.00-0.3) H 05/13/16 15:30 Total Protein 6.6 g/dl (6.4-8.2) 05/14/16 07:00 Albumin 2.7 g/dl (3.4-5.0) L 05/14/16 07:00 Tumor Marker AFP 1.5 ng/ml (0.0-8.3) 05/13/16 08:05 Microbiology 05/18/16 12:45 AFB Smear Concentration - Preliminary Pleural Fluid Mycobacterial Culture - Preliminary 05/15/16 22:37 Blood Culture - Preliminary Blood - Peripheral Venous NO GROWTH OBTAINED AFTER 72 HOURS, INCUBATION TO CONTINUE FOR 2 DAYS. 05/15/16 22:37 Blood Culture - Preliminary Blood - Peripheral Venous NO GROWTH OBTAINED AFTER 72 HOURS, INCUBATION TO CONTINUE FOR 2 DAYS. 05/18/16 13:50 CLIFF Preparation - Preliminary Pleural Fluid Fungal Culture - Preliminary CXR (05/19/16): Slight decreased in R pleural effusion when compared to CXR on , persistence of questionable fluid tracking from under the diaphragm into the R pleural cavity A/P: Pt is a 55 yo F with a PMHx of HTN, hypothyroidism, and JINA who presented to the ED with worsening R sided chest/abdominal pain x2 days. Pt was found to have a R sided pleural effusion and hepatic mass on initial CT chest. Admitted for further management and observation. 1. Exudative pleural effusion -S/P thoracentesis x2 (05/13, 05/18) with persistence of fluid -? 2/2 CAP vs. empyema vs. subdiaphragmatic communication vs. malignancy -Finished 5 day course of Rocephin and Azithromycin for CAP -Pt remains afebrile x72 hrs, with no WBC since 05/13, and no episodes of hypotension -1st pleural fluid sample was exudative, no organisms on gram stain, and Cx NGTD -2nd pleural fluid sample was exudative. Gram stain revealed no organisms, no PMNs, few mononuclear cells. Cx/Cytology pending -Continue Ertapenem 1gm IV daily (day 3) for bowel mel coverage 2/2 ? below diaphragm inflammatory process -Dr. Wang (CT surgery) consulted to decide whether effusion needs surgical management (? pigtail catheter vs. VATS) -CT chest with contrast today -ID consult appreciated -Pulmonary consult appreciated 2. Abdominal mass/inflammatory process -CT abd/pelvis performed (05/13/16) -Met with Radiology last Tuesday to go over scan: ? inflammatory process in the posterior and anterior RUQ outside the liver body ? 2/2 to infected dropped stone from previous cholecystectomy (October 2014) -FNA of the mass was performed yesterday. Specimen sent for gram stain/Cx/ cytology -Gram stain revealed no organisms and no PMNs -Met with Dr. Freire (pathology) and he will be reviewing the slides -CT abdomen with oral and IV contrast today -Dr. Ordoñez input appreciated 3. HTN -Stable -Losartan 50mg PO daily -HCTZ 12.5mg PO daily -Norvasc 10mg PO daily 4. Hypothyroidism -Synthroid 125mcg PO daily 5. Leukocytosis -Resolved (14.5 to 7.2) 6. FEN -No IVF -BMP WNL. Will continue to monitor and correct any electrolyte abnormalities on BMP -Low Na diet 7. DVT ppx -Heparin 5000U SQ TID -SCDs 8. Dispo -Discharge status is in question -Proof of admission sent to pts employer -Pt needs further evaluation and management Ashkan Monroy, MS3
--- NOTE | 2016-05-19 14:14 | PN ---
Teaching Attending Note Name of Resident: Joshua Jarrell ATTENDING PHYSICIAN STATEMENT I saw and evaluated the patient. I reviewed the resident's note and discussed the case with the resident. I agree with the resident's findings and plan as documented. Lelia SHIPLEY MD
[2016-05-19 14:58] LABS: INR 1.25 (0.82-1.09); PROTHROMBIN TIME (PATIENT) 13.8 SEC (9.98-11.88)
--- NOTE | 2016-05-19 16:27 | PATH ---
Cytology Non-Gynecological Report Patient Name: CICI BARROS [facility]. Rec. #: [id number] /Age/Gender: 1960 (Age: 55) / F Account: [id number] Location: [address] [place] [address] Taken: 05/18/2016 Received: 05/18/2016 Reported: 05/19/2016 Physicians: [place] M.D. Specimen(s) Received A: PLEURAL FLUID IN 50% ALCOHOL B: PLEURAL FLUID FRESH Clinical History Right pleural effusion Final Diagnosis A,B. PLEURAL FLUID, RIGHT, THORACENTESIS: SATISFACTORY FOR EVALUATION. NEGATIVE FOR MALIGNANT CELLS. REACTION IS A SINGLE CELLS, HISTIOCYTES AND MIXED INFLAMMATORY CELLS. Electronically Signed Arnel Freire M.D. Gross Description A. Received is a 50 cc of bloody fluid in 50% alcohol. One cytofunnel slide and one cell block are made. B. Received is 2000 cc of bloody fluid fresh. One cytofunnel slide and one cell block are made.
[2016-05-20] MEDS: HEPARIN NA (PORCINE) 5,000 UNITS/ML 1ML VIAL SQ SCH ×3 (06:15→22:03)
[2016-05-20] MEDS: LEVOTHYROXINE NA 125 MCG TABLET (FP) PO SCH (06:15)
[2016-05-20 07:36] LABS: MCH 28.9 pg (25.7-33.7); MCHC 34.1 g/dl (32.0-36.0); MEAN CELL VOLUME 84.6 fl (80-96); MEAN PLT VOLUME 7.1 fl (7.5-11.1); PLATELET COUNT 473 K/MM3 (134-434); RDW 14.4 % (11.6-15.6); WHITE BLOOD COUNT 8.5 K/mm3 (4.0-10.0)
[2016-05-20 07:51] LABS: INR 1.27 (0.82-1.09)
--- NOTE | 2016-05-20 08:00 | MSN ---
Progress Note (short form) - Note Progress Note: SUBJECTIVE: Pt seen and examined at bedside. OLLIE overnight. Pt experienced some SOB and associated CP with exertion overnight but denies Sx at rest. Admits to new onset watery, foul smelling diarrhea x2 episodes this morning. Denies blood in stool or pain with defecation. Denies fevers, chills, nausea, vomiting, and dysuria. Active Medications Generic Name Dose Route Start Last Admin Trade Name Freq PRN Reason Stop Dose Admin Acetaminophen 650 mg 05/13/16 03:42 05/17/16 22:31 Tylenol - PO 650 mg Q6H PRN Administration FEVER OR PAIN Amlodipine Besylate 10 mg 05/13/16 10:00 05/20/16 09:18 Norvasc - PO 10 mg DAILY FRANKIE Administration Heparin Sodium (Porcine) 5,000 unit 05/13/16 22:00 05/20/16 06:15 Heparin - SQ 5,000 unit TID FRANKIE Administration Hydrochlorothiazide 12.5 mg 05/13/16 11:00 05/20/16 09:18 Hctz - PO 12.5 mg DAILY FRANKIE Administration Ertapenem 1 gm/ Sodium 50 mls @ 100 mls/hr 05/17/16 16:00 05/20/16 09:17 Chloride IVPB 100 mls/hr DAILY FRANKIE Administration Levothyroxine Sodium 125 mcg 05/13/16 07:00 05/20/16 06:15 Synthroid - PO 125 mcg DAILY@0700 FRANKIE Administration Losartan Potassium 50 mg 05/13/16 10:00 05/20/16 09:18 Cozaar - PO 50 mg DAILY FRANKIE Administration OBJECTIVE: Vital Signs Period Temp Pulse Resp BP Sys/Bustillos Pulse Ox Last 24 Hr 97.9 F-98.9 F 85-100 18-20 101-123/66-80 96 GENERAL: AAOx3 in NAD HEAD: Normocephalic, atraumatic. PERRLA, EOMI NECK: No JVD HEART: Tachycardic with regular rhythm, +S1/S2. No murmurs/rubs/gallops LUNGS: CTA over the L lobe with decreased breath sounds over the RUL/RML and very faint breath sounds over R lung base. + crackles at R lung base ABDOMEN: Soft, nondistended, and no tenderness to palpation over anterior abdomen. TTP over R flank and posterior R lower thoracic area. Dullness to percussion. Normal bowel sounds / EXT: BL LE warm, no edema in BL LE, 2+ DP NEURO: Normal speech CBC WBC 8.5 K/mm3 (4.0-10.0) 05/20/16 06:40 Corrected WBC (auto) Cancelled 05/12/16 18:02 RBC 3.65 M/mm3 (3.60-5.2) 05/20/16 06:40 Hgb 10.5 GM/dL (10.7-15.3) L 05/20/16 06:40 Hct 30.9 % (32.4-45.2) L 05/20/16 06:40 MCV 84.6 fl (80-96) 05/20/16 06:40 MCHC 34.1 g/dl (32.0-36.0) 05/20/16 06:40 RDW 14.4 % (11.6-15.6) 05/20/16 06:40 Plt Count 473 K/MM3 (134-434) H 05/20/16 06:40 MPV 7.1 fl (7.5-11.1) L 05/20/16 06:40 Neutrophils % 87.0 % (42.8-82.8) H D 05/20/16 06:40 Lymphocytes % 7.0 % (8-40) L D 05/20/16 06:40 Monocytes % 5.0 % (3.8-10.2) 05/20/16 06:40 Eosinophils % 5.4 % (0-4.5) H D 05/16/16 06:15 Basophils % 1.0 % (0-2.0) 05/20/16 06:40 Differential Comment Manual diff done 05/20/16 06:40 Smudge Cells Cancelled 05/12/16 18:02 Platelet Estimate Slt increased (NORMAL) 05/20/16 06:40 Platelet Comment No clumping noted 05/12/16 22:50 Platelet Comment No clotting detected 05/12/16 22:50 RBC Morphology 05/12/16 22:50 ESR 15 mm/hr (0-30) 05/14/16 07:00 CMP Sodium 137 mmol/L (136-145) 05/20/16 06:40 Potassium 4.2 mmol/L (3.5-5.1) 05/20/16 06:40 Chloride 100 mmol/L (98-107) 05/20/16 06:40 Carbon Dioxide 28 mmol/L (21-32) 05/20/16 06:40 Anion Gap 9 (8-16) 05/20/16 06:40 BUN 7 mg/dL (7-18) 05/20/16 06:40 Creatinine 0.5 mg/dL (0.55-1.02) L 05/20/16 06:40 Creat Clearance w eGFR > 60 (>60) 05/14/16 07:00 Random Glucose 89 mg/dL (74-106) 05/20/16 06:40 Lactic Acid 1.306 mmol/L (0.4-2.0) 05/12/16 18:02 Calcium 8.1 mg/dL (8.5-10.1) L 05/20/16 06:40 Phosphorus 3.7 mg/dL (2.5-4.9) 05/18/16 13:50 Total Bilirubin 0.6 mg/dL (0.2-1.0) D 05/14/16 07:00 AST 12 U/L (15-37) L 05/14/16 07:00 ALT 12 U/L (12-78) 05/14/16 07:00 Alkaline Phosphatase 74 U/L (45-117) 05/14/16 07:00 LD Total 158 U/L (84-246) 05/13/16 07:50 Creatine Kinase 41 IU/L (26-192) 05/12/16 18:02 Troponin I < 0.02 ng/ml (0.00-0.05) 05/12/16 18:02 C-Reactive Protein 21.5 MG/DL (0.00-0.3) H 05/13/16 15:30 Total Protein 6.6 g/dl (6.4-8.2) 05/14/16 07:00 Albumin 2.7 g/dl (3.4-5.0) L 05/14/16 07:00 Tumor Marker AFP 1.5 ng/ml (0.0-8.3) 05/13/16 08:05 Microbiology 05/15/16 22:37 Blood Culture - Preliminary Blood - Peripheral Venous NO GROWTH OBTAINED AFTER 96 HOURS, INCUBATION TO CONTINUE FOR 1 DAYS. 05/15/16 22:37 Blood Culture - Preliminary Blood - Peripheral Venous NO GROWTH OBTAINED AFTER 96 HOURS, INCUBATION TO CONTINUE FOR 1 DAYS. 05/18/16 12:45 Gram Stain - Final Pleural Fluid 05/18/16 12:45 Gram Stain - Final Aspirate 05/18/16 12:45 AFB Smear Concentration - Preliminary Pleural Fluid Mycobacterial Culture - Preliminary Pleural Fluid (05/18/16) Pathology: No malignant cells, + histiocytes with mixed inflammatory cells CT Chest with contrast (05/19/16): Posterior chest wall mass as previously, large R pleural effusion with atelectasis CT Abd/Pelvis with Oral/IV contrast (05/19/16): Abnormal hypodense area posterior to the stomach correlating to pts gastroplasty (1989), colitis in the cecum and ascending colon A/P: Pt is a 55 yo F with a PMHx of HTN, hypothyroidism, and JINA who presented to the ED with worsening R sided chest/abdominal pain x2 days. Pt was found to have a R sided pleural effusion and hepatic mass on initial CT chest. Admitted for further management and observation. 1. Exudative pleural effusion -S/P thoracentesis x2 (05/13, 05/18) with persistence of fluid -? 2/2 CAP vs. empyema vs. subdiaphragmatic communication vs. malignancy -Finished 5 day course of Rocephin and Azithromycin for CAP -Unlikely it is parapneumonic -Pt remains afebrile x96hrs, with no WBC since 05/13, and no episodes of hypotension -1st pleural fluid sample was exudative, no organisms on gram stain, and Cx NGTD -2nd pleural fluid sample was exudative. Gram stain revealed no organisms, no PMNs, few mononuclear cells. Cytology revealed no malignant cells, + mixed inflammatory cells. Cx is NGTD -Continue Ertapenem 1gm IV daily (day 4) for bowel mel coverage 2/2 ? below diaphragm inflammatory process -CT chest with contrast performed -Thoracic surgery to perform VATS with pleural sampling and chest tube placement tomorrow -NPO after midnight, hold Losartan for 24hrs before surgery, last dose Heparin tonight -Thoracic surgery consult appreciated -ID consult appreciated -Pulmonary consult appreciated 2. Abdominal mass -CT abd/pelvis performed (05/13/16, 05/19/16) -Met with Radiology last Tuesday to go over scan: ? inflammatory process in the posterior and anterior RUQ outside the liver body ? 2/2 to infected dropped stone from previous cholecystectomy (October 2014) -FNA cytology pending. Cx is NGTD -Gram stain revealed no organisms and no PMNs -Continue Ertapenem for bowel mel coverage -Dr. Ordoñez input appreciated 3. Ascending colitis -As seen on CT abd/pelvis (05/19/16) -Infectious vs. inflammatory etiology -C diff toxin pending -Stool Cx pending -GI and surgery consult pending 4. HTN -Stable -Losartan 50mg PO daily -HCTZ 12.5mg PO daily -Norvasc 10mg PO daily -Hold Losartan today 5. Hypothyroidism -Synthroid 125mcg PO daily 6. Leukocytosis -Resolved (14.5 to 7.2) 7. FEN -No IVF -BMP WNL. Will continue to monitor and correct any electrolyte abnormalities on BMP -Low Na diet 8. DVT ppx -Heparin 5000U SQ TID. Last dose tonight -SCDs 9. Dispo -Discharge status is in question -Proof of admission sent to pts employer -Pt needs further evaluation and management Ashkan Monroy, MS3
[2016-05-20 08:09] LABS: CALCIUM 8.1 mg/dL (8.5-10.1)
[2016-05-20 08:10] LABS: CREATININE 0.5 mg/dL (0.55-1.02)
[2016-05-20] MEDS: ERTAPENEM SODIUM 1 GM in SODIUM CHLORIDE 50 ML IVPB SCH (09:17)
[2016-05-20] MEDS: LOSARTAN POTASSIUM 50 MG TABLET (FP) PO SCH (09:18)
[2016-05-20] MEDS: amLODIPine BESYLATE 10 MG TABLET (FP) PO SCH (09:18)
[2016-05-20] MEDS: HYDROCHLOROTHIAZIDE 12.5 MG CAPSULE (FP) PO SCH (09:18)
[2016-05-20 09:34] LABS: PLATELET ESTIMATE SLT INCREASED (NORMAL)
--- NOTE | 2016-05-20 10:40 | PN ---
Progress Note (short form) - Note Progress Note: Feels overall better today. No CP or SOB. No abdominal discomfort. For CTS evaluation today. Pleural analysis thus far not revealing. Intake & Output 05/17/16 05/18/16 05/19/16 05/20/16 23:59 23:59 23:59 23:59 Intake Total 111 131 1444 700 Output Total 300 Balance 824 136 9802 700 Weight 219 lb 12.8 oz 219 lb 1 oz 218 lb 3 oz 217 lb 4 oz Last Vital Signs Temp Pulse Resp BP Pulse Ox 98.3 F 100 H 18 123/80 96 05/20/16 09:08 05/20/16 09:08 05/20/16 09:08 05/20/16 09:08 05/19/16 21:00 Active Medications Acetaminophen (Tylenol -) 650 mg PO Q6H PRN PRN Reason: FEVER OR PAIN Last Admin: 05/17/16 22:31 Dose: 650 mg Amlodipine Besylate (Norvasc -) 10 mg PO DAILY [facility] Last Admin: 05/20/16 09:18 Dose: 10 mg Heparin Sodium (Porcine) (Heparin -) 5,000 unit SQ TID [facility] Last Admin: 05/20/16 06:15 Dose: 5,000 unit Hydrochlorothiazide (Hctz -) 12.5 mg PO DAILY [facility] Last Admin: 05/20/16 09:18 Dose: 12.5 mg Ertapenem 1 gm/ Sodium (Chloride) 50 mls @ 100 mls/hr IVPB DAILY [facility] Last Admin: 05/20/16 09:17 Dose: 100 mls/hr Levothyroxine Sodium (Synthroid -) 125 mcg PO DAILY@0700 [facility] Last Admin: 05/20/16 06:15 Dose: 125 mcg Losartan Potassium (Cozaar -) 50 mg PO DAILY [facility] Last Admin: 05/20/16 09:18 Dose: 50 mg Gen: NAD at rest Heart: RRR Lung: clear to auscultation Abd: soft, nontender Ext: no edema Laboratory Results - last 24 hr 05/19/16 05/20/16 05/20/16 14:10 06:40 06:40 WBC 8.5 RBC 3.65 Hgb 10.5 L Hct 30.9 L MCV 84.6 MCHC 34.1 RDW 14.4 Plt Count 473 H MPV 7.1 L Neutrophils % 87.0 H D Lymphocytes % 7.0 L D Monocytes % 5.0 Basophils % 1.0 Differential Comment Manual diff done Platelet Estimate Slt increased INR 1.25 H 1.27 H Sodium Potassium Chloride Carbon Dioxide Anion Gap BUN Creatinine Random Glucose Calcium Blood Type Antibody Screen 05/20/16 05/20/16 06:40 06:40 WBC RBC Hgb Hct MCV MCHC RDW Plt Count MPV Neutrophils % Lymphocytes % Monocytes % Basophils % Differential Comment Platelet Estimate INR Sodium 137 Potassium 4.2 Chloride 100 Carbon Dioxide 28 Anion Gap 9 BUN 7 Creatinine 0.5 L Random Glucose 89 Calcium 8.1 L Blood Type B POSITIVE Antibody Screen Negative IMP: Pneumonia R/O Parapneumonic Pleural Effusion Possible subdiaphragmatic communication (?) Mass Atelectasis HTN Hypothyroidism - Follow up final pleural fluid analysis - CTS evaluation for evaluation for need for further intervention - ABX per ID - pain control - DVT prophylaxis Dr Carvalho
--- NOTE | 2016-05-20 11:44 | PN ---
Teaching Attending Note Name of Resident: Gustavo Miner ATTENDING PHYSICIAN STATEMENT I saw and evaluated the patient. I reviewed the resident's note and discussed the case with the resident. I agree with the resident's findings and plan as documented. SUBJECTIVE: no fever or chills , no SOB , feels a little better today OBJECTIVE: NAD CV: RRR Lungs: CTAB , decreased breath sounds at R base. Ext : no edema on LE ASSESSMENT AND PLAN: Patient is a 55 y/o F w/PMH of HTN, hypothyroidism presented to ER w/ R sided chest/abdominal pain x 2 days. Found to have R pleural effusion , Treated for CAP 1- Exudative R pleural effusion : still not clear of etiology. possibly the inflamation under the diaphragm is contributing ( colitit Effusion re-accumulated fast after initial drainage despite treating possible pNA , which raises concern pathology was neg for malignancy x 2 - VATS for Bx and chest tube placement tomorrow - follow path on the aspirate from mass adjacent to the liver . possible inflammatory /infectious process - CT scan of chest reviewed. 2- Ascending colitis on CT scan: CT of abd and pelvis w contrast confirmed - cont ertapenem - check stool studies and c diff 3- mass adjacent to liver : ? infectious /inflammatory /reactive . given there is calcification in middle after a gall bladder sx , will consult surgery to evaluate. Also sx to evaluate the new fluid collection behind stomach, which was not there on initial CT scan 4-HTN : cont home meds. hold losartan before procedure tomorrow Dispo : HLOC DVT px
--- NOTE | 2016-05-20 13:51 | PN ---
Physical Exam: SUBJECTIVE: Patient seen and examined at bedside this morning had 1 episode of diarrhea which she describes as watery OBJECTIVE: Vital Signs Period Temp Pulse Resp BP Sys/Bustillos Pulse Ox Last 24 Hr 97.9 F-98.9 F 85-100 18-20 101-123/66-80 96-96 GENERAL: The patient is awake, alert, and fully oriented, in no acute distress. HEAD: Normal with no signs of trauma. NECK: supple. LUNGS: diminished breath sounds on the right left side is clear HEART: Regular rate and rhythm, S1, S2 without murmur, rub or gallop. ABDOMEN:right sided abdominal tenderness- still with some right flank tenderness - no chest tenderness . ABD soft non distended NEUROLOGICAL: Cranial nerves II through XII grossly intact. Normal speech PSYCH: Normal mood, normal affect. Laboratory Results - last 24 hr 05/19/16 05/20/16 05/20/16 14:10 06:40 06:40 WBC 8.5 RBC 3.65 Hgb 10.5 L Hct 30.9 L MCV 84.6 MCHC 34.1 RDW 14.4 Plt Count 473 H MPV 7.1 L Neutrophils % 87.0 H D Lymphocytes % 7.0 L D Monocytes % 5.0 Basophils % 1.0 Differential Comment Manual diff done Platelet Estimate Slt increased INR 1.25 H 1.27 H Sodium Potassium Chloride Carbon Dioxide Anion Gap BUN Creatinine Random Glucose Calcium Blood Type Antibody Screen Crossmatch IS Only 05/20/16 05/20/16 06:40 06:40 WBC RBC Hgb Hct MCV MCHC RDW Plt Count MPV Neutrophils % Lymphocytes % Monocytes % Basophils % Differential Comment Platelet Estimate INR Sodium 137 Potassium 4.2 Chloride 100 Carbon Dioxide 28 Anion Gap 9 BUN 7 Creatinine 0.5 L Random Glucose 89 Calcium 8.1 L Blood Type B POSITIVE Antibody Screen Negative Crossmatch IS Only See Detail Active Medications Generic Name Dose Route Start Last Admin Trade Name Freq PRN Reason Stop Dose Admin Acetaminophen 650 mg 05/13/16 03:42 05/17/16 22:31 Tylenol - PO 650 mg Q6H PRN Administration FEVER OR PAIN Amlodipine Besylate 10 mg 05/13/16 10:00 05/20/16 09:18 Norvasc - PO 10 mg DAILY FRANKIE Administration Heparin Sodium (Porcine) 5,000 unit 05/13/16 22:00 05/20/16 06:15 Heparin - SQ 5,000 unit TID FRANKIE Administration Hydrochlorothiazide 12.5 mg 05/13/16 11:00 05/20/16 09:18 Hctz - PO 12.5 mg DAILY FRANKIE Administration Ertapenem 1 gm/ Sodium 50 mls @ 100 mls/hr 05/17/16 16:00 05/20/16 09:17 Chloride IVPB 100 mls/hr DAILY FRANKIE Administration Dextrose/Sodium Chloride 1,000 mls @ 75 mls/hr 05/20/16 20:00 D5-1/2ns - IV ASDIR FRANKIE Levothyroxine Sodium 125 mcg 05/13/16 07:00 05/20/16 06:15 Synthroid - PO 125 mcg DAILY@0700 FRANKIE Administration Losartan Potassium 50 mg 05/13/16 10:00 05/20/16 09:18 Cozaar - PO 50 mg DAILY FRANKIE Administration ASSESSMENT/PLAN: 55 y/o F w/PMH of HTN, hypothyroidism presented to ER w/ R sided chest/ abdominal pain x 2 days. Found to have R pleural effusion. Right pleural effusion/Community acquired pneumonia/Sepsis (leukocytosis and fever): community acquired pneumonia with parapneumonic effusion with pleuritic chest pain. at this point i do not think the patient had a penumonia as her chest reaccumulated with pleural effusions so quickly with antibiotics s/p thoracentesis patient had reaccumulation of fluid pulmonary requested repeat thoracentesis and second one was done 05/18/16 ID consult appreciated Azithromycin and Ceftriaxone stopped on day 5 continue ertapenem day 4 given possible stone dropped in abdomen during cholecystectomy pleural fluid studies-shows inital thoracentesis was exudative likely parapneuomonic effusion-cytology negative-cytology shows inflammatory cells Afebrile f/u pleural fluid studies is not revealing any infectious source pulmonary consult appreciated CT surgery consult obtained and case discussed with Dr. Thornton. for VATS tomorrow with pleural biopsy CT chest results noted abdominal wall mass: this was seen on chest CT also read as a mass on abdominal CT after reviewing the scans with radiology they do not feel there is a mass in the liver. it is likely part of the abdominal wall vs a dropped stone from her cholecystectomy LFTs WNL will see if right flank/chest/abdominal pain improves with treatment of pneumonia-no significant improvement Repeat Abdominal CT noted GI consult aspirated on 05/18/16 by IR- no reprt yet by spoke to pathologist on case and states likely inflammatory as seen by the cells Ascending colitis seen on CT scan: Patient now with diarrhea infectious vs inflammatory GI and surgery consult continue ertapenem Stool studies and C diff Mass posterior to stomach: new mass seen on CT scan that was not there on prior CT on this admission Surgery and GI consult consult HTN continue Home meds Norvasc Losartan and HCTZ-hold losartan tomorrow AM prior to OR Hypothyroidism Synthroid 125mcg qam -FEN no IVF for now start IVF tonight once NPO no electrolyte issues Low sodium diet NPO past midnight PPx: HSQ/SCDs No criteria met for GI PPx no PT evaluation needed at this time HLOC Visit type - Emergency Visit Emergency Visit: Yes ED Registration Date: 05/12/16 Care time: The patient presented to the Emergency Department on the above date and was hospitalized for further evaluation of their emergent condition. - New Patient This patient is new to me today: No - Critical Care Critical Care patient: No - Discharge Referral Referred to [facility] Med P.C.: No
--- NOTE | 2016-05-20 14:04 | CONSULT ---
Consult - text type - Consultation Consultation Note: Thoracic Surgery Attending: CC: recurrent pleural effusion Brief history: 55F with h/o HTN, cholesytectomy, ventral hernia repair who p/w flank pain x ~1month, and then with fevers and pleural effusion. Thoracentesis done and effusion recurred. CT suggests that there is inflammatory process near liver that may be "dropped gallstone" related to her surgery in the past. She is currently hd stable and afebrile with normal wbc, and recurrent effusion. Cytology benign from effusion. PE: VSS, pleasant obese female Cor: RRR Chest: clear. slight decrease breath sounds right side Abd scars present CT: as above Imp/Plan: Recurrent effusion, likely inflammatory and related to abdominal presence --Needs repeat drainage--will do VATS tomorrow AM and pleural biopsies and culture to r/o sources/pathologies including malignancy --Risks (bleeding, infection, recurrence of effusion), benefits (needs drainage/ tube/dx), and alternatives (no tube, continued abx, IR drain) discussed and patient's questions answered and she agreed to procedure. --I have spent 45 minutes with over 50% on counseling and coordination of care including the history, physical, chart review, review of images and discussions with the patient's doctors (including Dr. Carvalho) in this consulation.
--- NOTE | 2016-05-20 15:44 | CON.GI ---
Consult Consult Specialty:: GI Referred by:: Hospitalist Reason for Consultation:: Right flank pain - History of Present Illness Chief Complaint: I was having pain on my right side for a month History of Present Illness: 55F admitted for evaluation of right sided flank pain. She was experiencing this for about a month, went to urgent care, was prescribed a muscle relaxant and when the pain persisted, she went to her PMD 2 weeks later who changed the medication. Her pain continued so she came to the ER 05/13/16. She was noted to have a WBC count of 14K and Initial CT scan revealed ? thickening of the cecum / ascending colon. She also had a right sided pleural effusion and ? right flank wall mass that was biopsied. she had a repeat CT scan yesterday revealing a newly developed fluid collection posterior to the stomach, right pleural effusion and thickening of the right colon and cecum / ? infiltrative process. She underwent thoracentesis and the fluid reaccumulated. It appears exudative. She is scheduled for VATS tomorrow by CTS. She was having fevers earlier on admission but none at home. She denies nausea, vomiting, dysphagia,odynophagia, rectal bleeding, change in bowel habits , diarrhea (except for 1 episode today), night sweats, unintentional weight loss. There is no family history of colorectal cancer or other GI malignancy. She had a colonoscopy about 2 weeks ago, performed by Dr. Mendez. She says that it was described as normal and a 10 year follow-up was advised. That was the 2nd colonoscopy in her lifetime. - History Source History Provided By: Patient Limitations to Obtaining History: No Limitations - Past Medical History PROMOTIONS INTERN: No: Alzheimer's Cardio/Vascular: Yes: HTN. No: AFIB Pulmonary: No: Asthma Endocrine: Yes: Hypothyroidism - Past Surgical History Past Surgical History: Yes: Cholecystectomy (laparoscopic), Hernia Repair ( ventral hernia) Additional Surgical History: gastroplasty in 1989 as a weight reduction measure. 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 (year[place] age 15 History of Recent Travel: No Home Medications - Allergies Allergies/Adverse Reactions: Allergies Allergy/AdvReac Type Severity Reaction Status Date / Time No Known Allergies Allergy Verified 05/12/16 17:47 - Home Medications Home Medications: Ambulatory Orders Levothyroxine [Synthroid -] 125 mcg PO DAILY 11/24/13 Amlodipine Besylate [Norvasc -] 10 mg PO DAILY 05/12/16 Losartan/Hydrochlorothiazide [Losartan-Hctz 50-12.5 mg Tab] 1 each PO DAILY Methocarbamol [Robaxin -] 500 mg PO DAILY PRN 05/12/16 Family Disease History - Family Disease History Family Disease History: Heart Disease: Brother (HTN), Sister, Other: Father ( 75: dementia complications), Mother (96: alive, healthy) Other Family History: 1 sister, 4 brothers: healthy, 1 brother with HTN. 4 children: healthy Review of Systems - Review of Systems Constitutional: reports: Chills, Fever (while admitted initially). denies: Unintentional Wgt. Loss Cardiovascular: denies: Chest Pain Respiratory: denies: SOB Gastrointestinal: reports: Abdominal Pain (right flank pain), Constipation ( chronic. No change. no recent increase in laxative therapy) Physical Exam-GI Vital Signs: Vital Signs Temperature 98.2 F 05/20/16 14:04 Pulse Rate 89 05/20/16 14:04 Respiratory Rate 18 05/20/16 09:08 Blood Pressure 147/63 05/20/16 14:04 O2 Sat by Pulse Oximetry (%) 96 05/20/16 09:00 Constitutional: Yes: Well Nourished, Calm Eyes: No: Sclera Icterus Cardiovascular: Yes: Regular Rate and Rhythm Respiratory: Yes: Diminished (right lung base) Gastrointestinal Inspection: Yes: Scars (long midline vertical surg. scar, + healed trochar scars). No: Distention ...Auscultate: Yes: Normoactive Bowel Sounds ...Palpate: No: Hepatomegaly, Splenomegaly, Tenderness ...Percussion: No: Tympanitic ...Rectal Exam: Yes: Guaiac Negative (light brown formed stool) Edema: No Neurological: Yes: Alert, Oriented Labs: CBC, BMP 05/20/16 06:40 05/20/16 06:40 INR, PTT INR 1.27 (0.82-1.09) H 05/20/16 06:40 Fibrinogen 512.0 mg/dL (238-498) H 05/13/16 08:05 Hepatic Panel Total Bilirubin 0.6 mg/dL (0.2-1.0) D 05/14/16 07:00 AST 12 U/L (15-37) L 05/14/16 07:00 ALT 12 U/L (12-78) 05/14/16 07:00 Alkaline Phosphatase 74 U/L (45-117) 05/14/16 07:00 Albumin 2.7 g/dl (3.4-5.0) L 05/14/16 07:00 CBC, BMP 05/20/16 06:40 05/20/16 06:40 Imaging - Results Cat Scan: Report Reviewed (of note, appendix described as grossly normal), Image Reviewed Assessment/Plan Abnormal abdominal CT scan: ? if primary colon pathology or secondary to a right sided inflammatory process leading to thickened appearing right colon. benign abdominal exam, guaiac negative without colitis symptoms. cannot explain new perigastric fluid collection despite her being on anitbiotics since admission Advise: Surgical consultation for evaluation of right flank mass / perigastric fluid collection Patient having VATs tomorrow with CTS When optimized, can proceed with colonoscopy to evaluate colon findings if no surgical interventions are planned Discussed plan with Ms. Jarrell
--- NOTE | 2016-05-20 16:00 | PN ---
Progress Note (short form) - Note Progress Note: more comfortable today diarrhea one time today no diarrhea before Vital Signs Period Temp Pulse Resp BP Sys/Bustillos Pulse Ox Last 24 Hr 97.9 F-98.3 F 85-100 18-20 101-147/63-80 96-96 cor-rrr lungs decreased bs at bases abd soft,nt ext no edema CBC, BMP 05/20/16 06:40 05/20/16 06:40 Microbiology 05/18/16 12:45 Pleural Fluid Gram Stain - Final 05/18/16 12:45 Pleural Fluid Body Fluid Culture - Preliminary NO AEROBIC GROWTH, 24 HRS 05/18/16 12:45 Aspirate Gram Stain - Final 05/18/16 12:45 Aspirate Body Fluid Culture - Preliminary NO AEROBIC GROWTH, 24 HRS 05/18/16 12:45 Pleural Fluid AFB Smear Concentration - Preliminary 05/18/16 12:45 Pleural Fluid Mycobacterial Culture - Preliminary 05/15/16 22:37 Blood - Peripheral Venous Blood Culture - Preliminary NO GROWTH OBTAINED AFTER 96 HOURS, INCUBATION TO CONTINUE FOR 1 DAYS. 05/15/16 22:37 Blood - Peripheral Venous Blood Culture - Preliminary NO GROWTH OBTAINED AFTER 96 HOURS, INCUBATION TO CONTINUE FOR 1 DAYS. 05/18/16 13:50 Pleural Fluid CLIFF Preparation - Preliminary 05/18/16 13:50 Pleural Fluid Fungal Culture - Preliminary 05/12/16 18:02 Blood - Peripheral Venous Blood Culture - Final NO GROWTH AFTER 5 DAYS INCUBATION 05/12/16 18:02 Blood - Peripheral Venous Blood Culture - Final NO GROWTH AFTER 5 DAYS INCUBATION 05/13/16 15:30 Blood - Peripheral Venous TB Test (QFT) (LAURA) - Final 05/13/16 11:25 Pleural Fluid AFB Smear Concentration - Final 05/13/16 11:25 Pleural Fluid Mycobacterial Culture - Preliminary 05/13/16 11:25 Pleural Fluid Gram Stain - Final 05/13/16 11:25 Pleural Fluid Body Fluid Culture - Final NO GROWTH OF AEROBIC ORGANISMS AFTER 48 HOURS INCUBATION 05/13/16 11:25 Pleural Fluid Anaerobic Culture - Final NO ANAEROBES WERE ISOLATED 05/14/16 04:00 Urine - Urine Clean Catch Urine Culture - Final NO GROWTH OBTAINED 05/14/16 04:00 Urine - Urine Clean Catch Legionella Antigen - Final 05/14/16 04:00 Urine - Urine Clean Catch Streptococcus pneumoniae Antigen ( M - Final 05/13/16 11:25 Pleural Fluid CLIFF Preparation - Preliminary 05/13/16 11:25 Pleural Fluid Fungal Culture - Preliminary Active Medications Acetaminophen (Tylenol -) 650 mg PO Q6H PRN PRN Reason: FEVER OR PAIN Last Admin: 05/17/16 22:31 Dose: 650 mg Amlodipine Besylate (Norvasc -) 10 mg PO DAILY [facility] Last Admin: 05/20/16 09:18 Dose: 10 mg Heparin Sodium (Porcine) (Heparin -) 5,000 unit SQ TID [facility] Last Admin: 05/20/16 14:04 Dose: 5,000 unit Hydrochlorothiazide (Hctz -) 12.5 mg PO DAILY [facility] Last Admin: 05/20/16 09:18 Dose: 12.5 mg Ertapenem 1 gm/ Sodium (Chloride) 50 mls @ 100 mls/hr IVPB DAILY [facility] Last Admin: 05/20/16 09:17 Dose: 100 mls/hr Dextrose/Sodium Chloride (D5-1/2ns -) 1,000 mls @ 75 mls/hr IV ASDIR [facility] Levothyroxine Sodium (Synthroid -) 125 mcg PO DAILY@0700 [facility] Last Admin: 05/20/16 06:15 Dose: 125 mcg Losartan Potassium (Cozaar -) 50 mg PO DAILY [facility] Last Admin: 05/20/16 09:18 Dose: 50 mg a/p continue ertapenem - fevers have resolved agree with general surgery evaluation for VATS in am GI to comment on colonic inflammation cdiff ordered
--- NOTE | 2016-05-20 17:14 | PATH ---
Cytology Non-Gynecological Report Patient Name: CICI BARROS [facility]. Rec. #: [id number] /Age/Gender: 1960 (Age: 55) / F Account: [id number] Location: [address] [place] [address]/[facility] Taken: 05/18/2016 Received: 05/18/2016 Reported: 05/20/2016 Physicians: Francis Aguilar M.D. Santa Hardin M.D. Garine Kalaydjian, M.D. Specimen(s) Received PERIHEPATIC LESION ASPIRATE Clinical History Perihepatic mass Final Diagnosis PERIHEPATIC LESION, ASPIRATION: SATISFACTORY FOR EVALUATION. ACUTE AND CHRONIC INFLAMMATION AND SCANT FRAGMENTS OF VASCULAR TISSUE SUGGESTIVE OF GRANULATION TISSUE (SEE COMMENT). NO MALIGNANT CELLS IDENTIFIED IN THE EXAMINED MATERIAL. Comment: The aspirate material shows acute and chronic inflammation admixed with small fragment of vascular tissue most consistent with granulation tissue. Ae1/Ae3 and S100 immunostains performed and interpreted at [facility] cell block and negative, supporting the interpretation above. Clinical and imaging correlations are suggested. The case was discussed with Dr. Aguilar and Dr. Dumas on 05/20/16. Electronically Signed Arnel Freire M.D. Gross Description Received is 50 cc of yellow fluid in 50% alcohol. One cytofunnel slide and one cell block are made.
[2016-05-20] MEDS: DEXTROSE 5%-0.45% SALINE 1,000 ML IV SCH (22:02)
[2016-05-21] MEDS: HEPARIN NA (PORCINE) 5,000 UNITS/ML 1ML VIAL SQ SCH ×2 (05:45→21:40)
[2016-05-21] MEDS ORDERED: PT OWN MED DRAWER 7, Y5N ONE (05:51)
[2016-05-21] MEDS: LEVOTHYROXINE NA 125 MCG TABLET (FP) PO SCH (06:06)
[2016-05-21 07:43] LABS: MCH 28.8 pg (25.7-33.7); MCHC 34.2 g/dl (32.0-36.0); MEAN CELL VOLUME 84.2 fl (80-96); MEAN PLT VOLUME 7.2 fl (7.5-11.1); PLATELET COUNT 514 K/MM3 (134-434); RDW 14.1 % (11.6-15.6); WHITE BLOOD COUNT 7.4 K/mm3 (4.0-10.0)
[2016-05-21 07:48] LABS: CALCIUM 8.2 mg/dL (8.5-10.1)
[2016-05-21 07:49] LABS: CREATININE 0.4 mg/dL (0.55-1.02)
[2016-05-21] MEDS ORDERED: MIDAZOLAM HCL 2 MG/2 ML SINGLE DOSE VIAL ONE ×2 (07:49)
[2016-05-21] MEDS ORDERED: SUCCINYLCHOLINE CHLORIDE 200 MG/10 ML VIAL ONE (07:49)
[2016-05-21] MEDS ORDERED: PROPOFOL 20 ML ONE ×4 (07:49)
[2016-05-21] MEDS ORDERED: ROCURONIUM BROMIDE 50 MG/5 ML VIAL ONE (07:49)
[2016-05-21] MEDS ORDERED: DEXAMETHASONE SOD PHOSPHATE/PF 10 MG/ML SDV ONE (07:51)
[2016-05-21] MEDS ORDERED: EPINEPHrine/PF 1 MG/1 ML (1:1,000) AMPULE ONE (07:51)
[2016-05-21] MEDS ORDERED: BUPIVACAINE HCL/PF 0.5% (5MG/ML) 10 ML VIAL ONE (07:51)
[2016-05-21] MEDS ORDERED: LIDOCAINE HCL/PF 1% SDV 5ML VIAL ONE (07:51)
[2016-05-21] MEDS ORDERED: HEPARIN NA (PORCINE) 5,000 UNITS/ML 1ML VIAL ONE (08:38)
[2016-05-21] MEDS ORDERED: LIDOCAINE 1%/EPI 1:100000 (50 ML MULTI DOSE VIAL) ONE (08:38)
[2016-05-21] MEDS ORDERED: HEPARIN NA (PORCINE) 5,000 UNITS/ML 1ML VIAL SQ ONE (08:45)
[2016-05-21] MEDS ORDERED: ceFAZolin SODIUM 1 GM VIAL IVPB ONE (09:00)
[2016-05-21] MEDS: ERTAPENEM SODIUM 1 GM in SODIUM CHLORIDE 50 ML IVPB SCH (09:17)
[2016-05-21] MEDS ORDERED: ceFAZolin SODIUM 1 GM VIAL ONE (09:17)
[2016-05-21] MEDS: HYDROCHLOROTHIAZIDE 12.5 MG CAPSULE (FP) PO SCH (09:17)
[2016-05-21] MEDS: amLODIPine BESYLATE 10 MG TABLET (FP) PO SCH (09:18)
[2016-05-21] MEDS ORDERED: HYDROmorphone HCL/PF 1 MG/ML VIAL (FOR PYXIS CHARGING ONLY) ONE (09:23)
[2016-05-21] MEDS ORDERED: LIDOCAINE 1%/EPI 1:100000 (20 ML MULTI DOSE VIAL) INF ONE (09:26)
[2016-05-21] MEDS ORDERED: ACETAMINOPHEN 1000 MG/100 ML VIAL (NON FORMULARY) IVPB ONE (09:39)
[2016-05-21] MEDS ORDERED: ONDANSETRON 4 MG/2 ML VIAL ONE (09:59)
[2016-05-21] MEDS ORDERED: NEOSTIGMINE METHYLSULFATE 0.5 MG/ML - 10 ML MDV ONE (10:01)
[2016-05-21] MEDS ORDERED: GLYCOPYRROLATE 0.2 MG/1 ML VIAL ONE (10:01)
[2016-05-21] MEDS ORDERED: ACETAMINOPHEN INJECTION 100 ML IVPB ONE (10:17)
--- NOTE | 2016-05-21 10:56 | OP ---
Operative Note - Note: Operative Date: 05/21/16 Pre-Operative Diagnosis: recurrent pleural effusion Operation: bronchoscopy, Right VATS, pneumolysis, pleural biopsy, drainage of pleural effusion, insertion of chest tubex2 Post-Operative Diagnosis: Same as Pre-op Surgeon: Scar Wang Staff Consultant: Zaira Dias Anesthesiologist/FORESTRY HUNTER: Yessy Laird Anesthesia: General Estimated Blood Loss (mls): 100 Drains & Tubes with Location: chest tube x2 right chest Fluid Volume Replaced (mls): 1,000 Operative Report Dictated: Yes
--- NOTE | 2016-05-21 11:02 | SURG ---
Surgery Electromechanical Technician Note Electromechanical Technician: Zaira Dias PA-C Date of Service: 05/21/16 Diagnosis: recurrent pleural effusion Procedure: bronchoscopy, Right VATS, pneumolysis, pleural biopsy, drainage of pleural effusion, insertion of chest tubex2 I was present for the entirety of the operative procedure. For further detail, please refer to operative report. Visit type - Case Type Case Type: ED Admission
[2016-05-21] MEDS ORDERED: HYDROmorphone HCL CARPU-JECT 2 MG/1 ML DISP.SYRIN ONE (11:08)
[2016-05-21] MEDS ORDERED: ONDANSETRON 4 MG/2 ML VIAL IVPUSH PRN (11:08)
[2016-05-21] MEDS ORDERED: HYDROmorphone HCL CARPU-JECT 2 MG/1 ML DISP.SYRIN IVPUSH ONE ×4 (11:10→11:20)
[2016-05-21] MEDS ORDERED: oxyCODONE HCL 5 MG TABLET PO PRN (11:11)
[2016-05-21] MEDS ORDERED: HYDROmorphone HCL CARPU-JECT 1 MG/1 ML DISP.SYRIN IVPUSH ONE (11:12)
[2016-05-21] MEDS ORDERED: LACTATED RINGERS SOLUTION 1,000 ML IV SCH (11:15)
[2016-05-21] MEDS ORDERED: ERTAPENEM SODIUM 1 GM/50 ML PRE-DOCKED IVPB ONE (12:47)
[2016-05-21] MEDS ORDERED: traMADol HCL 50 MG TABLET PO ONE (12:50)
[2016-05-21] MEDS: ACETAMINOPHEN 1000 MG/100 ML VIAL (NON FORMULARY) IVPB SCH ×3 (12:53→23:30)
[2016-05-21] MEDS ORDERED: traMADol HCL 50 MG TABLET ONE (12:54)
[2016-05-21] MEDS: traMADol HCL 50 MG TABLET PO SCH ×2 (13:24→17:16)
[2016-05-21] MEDS: DEXTROSE 5%-0.45% SALINE 1,000 ML IV SCH (13:28)
--- NOTE | 2016-05-21 14:05 | CONSULT ---
Consultation: REQUESTING PROVIDER: Dr. Barton CONSULT REQUEST: We have been asked to medically evaluate this patient for Post- Op Critical Care HISTORY OF PRESENT ILLNESS: 55 yo F w/ h/o HTN and hypothyroidism on synthroid initially admitted to the hospital through ER for R chest pain x 2 days and abdominal pain x 1 month. Upon work-up, she's found to have R recurrent pleural effusion with unknown etiology s/p multiple thoracentesis. Moreover, CT abd showed ascending colitis and R flank mass which was biopsied and her last colonoscopy 2 years ago was within normal limits. She denies fever, chills, shortness of breath, pain on defecation, dark stool, urinary symptoms, or acute weight loss. Active Medications Generic Name Dose Route Start Last Admin Trade Name Freq PRN Reason Stop Dose Admin Acetaminophen 1,000 mg 05/21/16 11:15 05/21/16 12:53 Ofirmev Injection - IVPB 05/22/16 05:16 Not Given Q6H FRANKIE Acetaminophen 650 mg 05/21/16 13:37 Tylenol - PO Q6H PRN FEVER OR PAIN Amlodipine Besylate 10 mg 05/22/16 10:00 Norvasc - PO DAILY [facility] Fentanyl 50 mcg 05/21/16 11:08 Sublimaze Injection - IVPUSH 05/24/16 11:09 [id number] PRN PAIN Heparin Sodium (Porcine) 5,000 unit 05/21/16 22:00 Heparin - SQ TID [facility] Hydrochlorothiazide 12.5 mg 05/22/16 10:00 Hctz - PO DAILY [facility] Ertapenem 1 gm/ Sodium 50 mls @ 100 mls/hr 05/22/16 10:00 Chloride IVPB DAILY [facility] Ipratropium [place] 1 amp 05/21/16 13:37 Atrovent 0.02% Nebulizer - NEB Q6HPO [facility] Levothyroxine Sodium 125 mcg 05/22/16 07:00 Synthroid - PO DAILY@0700 [facility] Losartan Potassium 50 mg 05/22/16 10:00 Cozaar - PO DAILY [facility] Ondansetron HCl 4 mg 05/21/16 11:08 Zofran Injection IVPUSH 05/21/16 17:09 Q6H PRN NAUSEA AND/OR VOMITING Oxycodone HCl 5 mg 05/21/16 11:11 Roxicodone - PO Q4H PRN PAIN Oxycodone HCl 10 mg 05/21/16 11:11 Roxicodone - PO Q4H PRN PAIN Tramadol HCl 50 mg 05/21/16 12:00 05/21/16 13:24 Ultram - PO Not Given Q6H [facility] REVIEW OF SYSTEMS: CONSTITUTIONAL: loss of appetite Absent: fever, chills, diaphoresis, generalized weakness, malaise, weight change HEENT: Absent: rhinorrhea, nasal congestion, throat pain, throat swelling, difficulty swallowing, mouth swelling, ear pain, eye pain, visual changes CARDIOVASCULAR: chest pain Absent: , syncope, palpitations, irregular heart rate, lightheadedness, peripheral edema RESPIRATORY: Absent: cough, shortness of breath, dyspnea with exertion, orthopnea, wheezing, stridor, hemoptysis GASTROINTESTINAL: abdominal pain Absent: abdominal distension, nausea, vomiting, diarrhea, constipation, melena, hematochezia GENITOURINARY: Absent: dysuria, frequency, urgency, hesitancy, hematuria, flank pain, genital pain MUSCULOSKELETAL: Absent: myalgia, arthralgia, joint swelling, back pain, neck pain SKIN: Absent: rash, itching, pallor HEMATOLOGIC/IMMUNOLOGIC: Absent: easy bleeding, easy bruising, lymphadenopathy, frequent infections ENDOCRINE: Absent: unexplained weight gain, unexplained weight loss, heat intolerance, cold intolerance NEUROLOGIC: Absent: headache, focal weakness or paresthesias, dizziness, unsteady gait, seizure, mental status changes, bladder or bowel incontinence PSYCHIATRIC: Absent: anxiety, depression, suicidal or homicidal ideation, hallucinations. PHYSICAL EXAMINATION Vital Signs Temperature 98.1 F 05/21/16 13:47 Pulse Rate 84 05/21/16 13:47 Respiratory Rate 16 05/21/16 13:47 Blood Pressure 113/69 05/21/16 13:47 O2 Sat by Pulse Oximetry (%) 96 05/21/16 13:47 GENERAL: AAOx3, not in cardiopulmonary distress EYES: sclera anicteric, conjunctiva clear. EARS, NOSE, THROAT: dry mucous membranes, no exudate LUNGS: CTAB HEART: RRR, normal S1 and S2 without murmur, rub or gallop. ABDOMEN: soft, hypoactive bs, non-tender, no rebound or guarding, vertical surgical scar, chest tubes in place with clean dressing, 55 cc sanguineous drainage in 1st pulm. vac, 130 cc sanguineous drainage in 2nd pulm. vac EXTREMITIES: SCDs. No peripheral edema. SKIN: bruises on b/l forearms due to needle sticks in ED CBCD WBC 7.4 K/mm3 (4.0-10.0) 05/21/16 06:10 RBC 3.78 M/mm3 (3.60-5.2) 05/21/16 06:10 Hgb 10.9 GM/dL (10.7-15.3) 05/21/16 06:10 Hct 31.8 % (32.4-45.2) L 05/21/16 06:10 MCV 84.2 fl (80-96) 05/21/16 06:10 MCHC 34.2 g/dl (32.0-36.0) 05/21/16 06:10 RDW 14.1 % (11.6-15.6) 05/21/16 06:10 Plt Count 514 K/MM3 (134-434) H 05/21/16 06:10 MPV 7.2 fl (7.5-11.1) L 05/21/16 06:10 CMP Sodium 138 mmol/L (136-145) 05/21/16 06:10 Potassium 3.8 mmol/L (3.5-5.1) 05/21/16 06:10 Chloride 99 mmol/L (98-107) 05/21/16 06:10 Carbon Dioxide 29 mmol/L (21-32) 05/21/16 06:10 Anion Gap 10 (8-16) 05/21/16 06:10 BUN 8 mg/dL (7-18) 05/21/16 06:10 Creatinine 0.4 mg/dL (0.55-1.02) L 05/21/16 06:10 Creat Clearance w eGFR > 60 (>60) 05/14/16 07:00 Calcium 8.2 mg/dL (8.5-10.1) L 05/21/16 06:10 Total Bilirubin 0.6 mg/dL (0.2-1.0) D 05/14/16 07:00 AST 12 U/L (15-37) L 05/14/16 07:00 ALT 12 U/L (12-78) 05/14/16 07:00 Alkaline Phosphatase 74 U/L (45-117) 05/14/16 07:00 Total Protein 6.6 g/dl (6.4-8.2) 05/14/16 07:00 Albumin 2.7 g/dl (3.4-5.0) L 05/14/16 07:00 Intake & Output 05/18/16 05/19/16 05/20/16 05/21/16 23:59 23:59 23:59 23:59 Intake Total 550 1200 1550 1200 Output Total 450 Balance 550 1200 1550 750 Weight 99.365 kg 98.968 kg 98.543 kg 98.883 kg INR, PTT INR 1.27 (0.82-1.09) H 05/20/16 06:40 Fibrinogen 512.0 mg/dL (238-498) H 05/13/16 08:05 Microbiology 05/21/16 Pleural fluid analysis - PENDING 05/18/16 Pleural fluid gram stain, culture and aspirate - NEGATIVE 05/18/16 Pleural Fluid AFB Smear Concentration - Preliminary 05/18/16 Pleural Fluid Mycobacterial Culture - Preliminary 05/15/16 Blood Culture - NEGATIVE Imaging CXR on 05/21: right chest tube in place Chest, Abd and Pelvis CT on 05/19: Posterior chest wall mass. Right effusion and compressive atelectasis. Abnormal hypodense area posterior to the postoperative stomach. Colitis with diffuse infiltrating lesion. ASSESSMENT/PLAN: 55 yo F w/ h/o HTN, cholecystectomy and hypothyroidism on synthroid initially admitted to the hospital through ER for R chest x 2 days and abdominal painx 1 month. Patient was found to have refractory pleural effusion with unknown etiology and now s/p thoracentesis on observation in ICU. Pulm: Refractory malignant vs. nonmalignant pleural effusion - s/p R VATS, pleural biopsy, 3rd thoracentesis, and chest tube insertion * prior pleural studies show parapneuomonic exudative, negative cytology, positive inflammatory cells - F/u pleural fluid analysis - F/u serum LDH and protein - Fentanyl for pain control - Incentive spirometer GI: R flank mass; perigastric fluid collection - Mass likely to be metastatic malignancy * possible mass on liver - Newly developed perigastric fluid collection * Stomach stapling in 1989 at [facility] * recanulated in 1990 * surgical evaluation ID: Infectious vs. inflammatory colitis; CAP; h/o Hep A - Afrebile with normal WBC - Colitis likely 2/2 stool impaction * Colonoscopy when stable * Trial of Miralax for decompaction - F/U c. diff toxin - Treated for CAP with azithro and ceftriaxone * now on ertapenem day 5 only Cardiac: HTN - Cont. Cozaar, HCTZ and norvasc Endo: Hypothyroidism - On synthroid 125 mcg FEN - D5+1/2NS at 75ml/hr - Normal lytes, cont. to monitor - NPO, Meds OK Prophylaxis - DVT: heparin TID SQ - GI: Not indicated Disposition - Cont. to monitor in ICU Code status - Full code Visit type - Emergency Visit Emergency Visit: No - New Patient This patient is new to me today: Yes Date on this admission: 05/21/16 - Critical Care Critical Care patient: Yes Total Critical Care Time (in minutes): 45 Critical Care Statement: The care of this patient involved high complexity decision making to prevent further life threatening deterioration of the patient 's condition and/or to evalute & treat vital organ system(s) failure or risk of failure.
[2016-05-21] MEDS: IPRATROPIUM BR 0.02% 0.5 MG/2.5 ML VIAL.NEB. NEB SCH ×2 (14:30→18:55)
--- NOTE | 2016-05-21 15:21 | PN ---
Progress Note (short form) - Note Progress Note: doing well, feels better no diarrhea s/p VATS today Vital Signs Period Temp Pulse Resp BP Sys/Bustillos Pulse Ox Last 24 Hr 97.5 F-99 F 80-95 16-20 97-126/60-74 95-96 cor-rrr lungs decreased bs at bases +chest tube abd soft,nt ext no edema CBC, BMP 05/21/16 06:10 05/21/16 06:10 Microbiology 05/18/16 12:45 Gram Stain - Final Pleural Fluid Body Fluid Culture - Final NO GROWTH OF AEROBIC ORGANISMS AFTER 48 HOURS INCUBATION Anaerobic Culture - Final NO ANAEROBES WERE ISOLATED 05/18/16 12:45 Gram Stain - Final Aspirate Body Fluid Culture - Final NO GROWTH OF AEROBIC ORGANISMS AFTER 48 HOURS INCUBATION Anaerobic Culture - Final NO ANAEROBES WERE ISOLATED 05/15/16 22:37 Blood Culture - Final Blood - Peripheral Venous NO GROWTH AFTER 5 DAYS INCUBATION 05/15/16 22:37 Blood Culture - Final Blood - Peripheral Venous NO GROWTH AFTER 5 DAYS INCUBATION operative cultures pending a/p s/p VATS-for recurrent exudative effusion continue ertapenem for now surgery to comment on intraabdominal mass possible endoscopy when stable to evaluate abnl colon noted on ct scan
--- NOTE | 2016-05-21 15:24 | PN ---
Physical Exam: SUBJECTIVE: Patient seen and examined at bedside in the ICU post-op s/p VATS denies pain feels well OBJECTIVE: Vital Signs Period Temp Pulse Resp BP Sys/Bustillos Pulse Ox Last 24 Hr 97.5 F-99 F 80-95 16-20 97-126/60-74 95-96 GENERAL: The patient is awake, alert, and fully oriented, in no acute distress. HEAD: Normal with no signs of trauma. NECK: supple. LUNGS: diminished breath sounds on the right with crackles. left side is clear. 2 chest tubes in places with serosangenous drainage no air leak HEART: Regular rate and rhythm, S1, S2 without murmur, rub or gallop. ABDOMEN: ABD soft non tender non distended NEUROLOGICAL: Cranial nerves II through XII grossly intact. Normal speech PSYCH: Normal mood, normal affect. Laboratory Results - last 24 hr 05/21/16 05/21/16 05/21/16 06:10 06:10 06:10 WBC 7.4 RBC 3.78 Hgb 10.9 Hct 31.8 L MCV 84.2 MCHC 34.2 RDW 14.1 Plt Count 514 H MPV 7.2 L Sodium 138 Potassium 3.8 Chloride 99 Carbon Dioxide 29 Anion Gap 10 BUN 8 Creatinine 0.4 L Random Glucose 100 Calcium 8.2 L Ferritin 139.158 C-Reactive Protein 05/21/16 06:10 WBC RBC Hgb Hct MCV MCHC RDW Plt Count MPV Sodium Potassium Chloride Carbon Dioxide Anion Gap BUN Creatinine Random Glucose Calcium Ferritin C-Reactive Protein 7.8 H D Active Medications Generic Name Dose Route Start Last Admin Trade Name Freq PRN Reason Stop Dose Admin Acetaminophen 1,000 mg 05/21/16 11:15 05/21/16 12:53 Ofirmev Injection - IVPB 05/22/16 05:16 Not Given Q6H FRANKIE Acetaminophen 650 mg 05/21/16 13:37 Tylenol - PO Q6H PRN FEVER OR PAIN Amlodipine Besylate 10 mg 05/22/16 10:00 Norvasc - PO DAILY [facility] Fentanyl 50 mcg 05/21/16 11:08 Sublimaze Injection - IVPUSH 05/24/16 11:09 [id number] PRN PAIN Heparin Sodium (Porcine) 5,000 unit 05/21/16 22:00 Heparin - SQ TID [facility] Hydrochlorothiazide 12.5 mg 05/22/16 10:00 Hctz - PO DAILY [facility] Ertapenem 1 gm/ Sodium 50 mls @ 100 mls/hr 05/22/16 10:00 Chloride IVPB DAILY [facility] Ipratropium [place] 1 amp 05/21/16 13:37 05/21/16 14:30 Atrovent 0.02% Nebulizer - NEB 1 amp QIDR [facility] Administration Levothyroxine Sodium 125 mcg 05/22/16 07:00 Synthroid - PO DAILY@0700 [facility] Losartan Potassium 50 mg 05/22/16 10:00 Cozaar - PO DAILY [facility] Ondansetron HCl 4 mg 05/21/16 11:08 Zofran Injection IVPUSH 05/21/16 17:09 Q6H PRN NAUSEA AND/OR VOMITING Oxycodone HCl 5 mg 05/21/16 11:11 Roxicodone - PO Q4H PRN PAIN Oxycodone HCl 10 mg 05/21/16 11:11 Roxicodone - PO Q4H PRN PAIN Tramadol HCl 50 mg 05/21/16 12:00 05/21/16 13:24 Ultram - PO Not Given Q6H [facility] ASSESSMENT/PLAN: 55 y/o F w/PMH of HTN, hypothyroidism presented to ER w/ R sided chest/ abdominal pain x 2 days. Found to have R pleural effusion. she is now POD#0 s/p bronchoscopy, Right VATS, pneumolysis, pleural biopsy, drainage of pleural effusion, insertion of chest tubex2 Right pleural effusion/Community acquired pneumonia/Sepsis (leukocytosis and fever): community acquired pneumonia with parapneumonic effusion with pleuritic chest pain. at this point i do not think the patient had a pneumonia as her chest reaccumulated with pleural effusions so quickly with antibiotics s/p thoracentesis x2 patient had reaccumulation of fluid pulmonary requested repeat thoracentesis and second one was done 05/18/16 ID consult appreciated Azithromycin and Ceftriaxone stopped on day 5 continue ertapenem day 5 given possible stone dropped in abdomen during cholecystectomy pleural fluid studies-shows inital thoracentesis was exudative likely parapneuomonic effusion-cytology negative-cytology shows inflammatory cells Afebrile f/u pleural fluid studies is not revealing any infectious source pulmonary consult appreciated CT chest results noted Continue chest tube to suction per CT surgery pain control is very important for this patient so she could take deep breaths and does not splint. as well as incentive spirometry. this was explained to the patient in detail. abdominal wall mass: this was seen on chest CT also read as a mass on abdominal CT after reviewing the scans with radiology they do not feel there is a mass in the liver. it is likely part of the abdominal wall vs a dropped stone from her cholecystectomy LFTs WNL will see if right flank/chest/abdominal pain improves with treatment of pneumonia-no significant improvement Repeat Abdominal CT noted GI consult aspirated on 05/18/16 by IR- pathology report inflammatory cells Ascending colitis seen on CT scan: Patient now with diarrhea infectious vs inflammatory GI and surgery consult continue ertapenem Stool studies and C diff-pending f/u iron studies-pending Mass posterior to stomach: new mass seen on CT scan that was not there on prior CT on this admission Surgery consult pending GI consult appreciated possible colonoscopy on this admission next week HTN continue Home meds Norvasc Losartan and HCTZ Hypothyroidism Synthroid 125mcg qam -FEN no IVF no electrolyte issues CLD advance as tolerated PPx: HSQ/SCDs No criteria met for GI PPx PT consult to avoid deconditioning as she had a major surgery ICU care Visit type - Emergency Visit Emergency Visit: Yes ED Registration Date: 05/12/16 Care time: The patient presented to the Emergency Department on the above date and was hospitalized for further evaluation of their emergent condition. - New Patient This patient is new to me today: No - Critical Care Critical Care patient: Yes Total Critical Care Time (in minutes): 45 Critical Care Statement: The care of this patient involved high complexity decision making to prevent further life threatening deterioration of the patient 's condition and/or to evalute & treat vital organ system(s) failure or risk of failure.
[2016-05-21] MEDS: oxyCODONE HCL 5 MG TABLET PO PRN ×2 (15:44→20:44)
--- NOTE | 2016-05-21 15:53 | OP ---
- Note: Patient Name: Orquidea Jarrell MR#: [id number] Procedure Date: 05/21/2016 Preoperative Diagnosis: Right pleural effusion Postoperative Diagnosis: Empyema Procedure: Flexible bronchoscopy, right thoracoscopy, pneumolysis, pleural biopsy, drainage of effusion Indication: as above Surgeon(s): Dr. Scar Wang Manager Rfid: Victoria Peñaloza Anesthesia: General Endotracheal with miguel Wound Classification: Contaminated Antibiotic Prophylaxis: Cefazolin Findings: 1. Bronchoscopy: Normal airway; 2. Thoracoscopy: significant fibrinous exudate throughout; lower lobe minimally consolidated; >750cc serous fluid in chest; adhesions of right lower lobe to diaphragm, phlegmonous changes posteromedial diaphragm. Specimens Sent: BAL cultures; pleural fluid cultures; pleural tissue for culture and pathology. Complications: none Drains / Tubes / Catheters: 2 chest tube Hardware / Implants: n/a Blood / Fluid Losses: 100cc Blood / Fluids Administered: per anesthesia Post-Operative Condition: stable, extubated to PACU Indications: This patient is a 55 year-old female s/p cholecystectomy who presented with fevers and flank pain. She was found to have a recurrent effusion after a thoracentesis. She was then referred from Dr. Graham for VATS. She was explained the risks, benefits, and alternatives of a bronchoscopy , vats, and thoracoscopy, and she agreed and understood. Details of Procedure: The patient was taken into the operating room and placed supine on the table. She was monitored with pulse oximetry and blood pressure monitoring, including an arterial line. Sequential compression devices were placed. Subcutaneous heparin was given on the floor, and a engle catheter was placed. She was given sedation and intubated with an endotracheal tube and miguel. She was then positioned in the left lateral decubitus postion and the position was reconfirmed. Her chest was prepared and draped in sterile fashion. We made 2 ports after giving local anesthesia. We performed pneumolysis and drained over 750cc of fluid. There were adhesions from the lower lobe to the diaphragm and posteriorly there were phlegmonous changes. A biopsy of the parietal pleura was done. Fibrinous exudate and fluid were sent for culture as well. Most of these adhesions were taken down. We then placed 2 chest tubes and expanded the lung after ensuring good hemostasis. The lower lobe expanded well. The chest tubes were secured and the ports were closed with absorbable sutures. Sterile dressings were placed. The patient was transferred to the PACU after extubation in hemodynamically stable condition.
[2016-05-21] MEDS: ONDANSETRON 4 MG/2 ML VIAL IVPUSH PRN (15:54)
--- NOTE | 2016-05-21 15:59 | MSN ---
Progress Note (short form) - Note Progress Note: SUBJECTIVE: Pt seen and examined at bedside. OLLIE overnight. Pt experienced some SOB and associated CP with exertion overnight but denies Sx at rest. Admits to new onset watery, foul smelling diarrhea x2 episodes this morning. Denies blood in stool or pain with defecation. Denies fevers, chills, nausea, vomiting, and dysuria. Active Medications Generic Name Dose Route Start Last Admin Trade Name Freq PRN Reason Stop Dose Admin Acetaminophen 1,000 mg 05/21/16 11:15 05/21/16 12:53 Ofirmev Injection - IVPB 05/22/16 05:16 Not Given Q6H [facility] Acetaminophen 650 mg 05/21/16 13:37 Tylenol - PO Q6H PRN FEVER OR PAIN Amlodipine Besylate 10 mg 05/22/16 10:00 Norvasc - PO DAILY [facility] Fentanyl 50 mcg 05/21/16 11:08 Sublimaze Injection - IVPUSH 05/24/16 11:09 [id number] PRN PAIN Heparin Sodium (Porcine) 5,000 unit 05/21/16 22:00 Heparin - SQ TID [facility] Hydrochlorothiazide 12.5 mg 05/22/16 10:00 Hctz - PO DAILY [facility] Ertapenem 1 gm/ Sodium 50 mls @ 100 mls/hr 05/22/16 10:00 Chloride IVPB DAILY [facility] Ipratropium [place] 1 amp 05/21/16 13:37 05/21/16 14:30 Atrovent 0.02% Nebulizer - NEB 1 amp QIDR [facility] Administration Levothyroxine Sodium 125 mcg 05/22/16 07:00 Synthroid - PO DAILY@0700 [facility] Losartan Potassium 50 mg 05/22/16 10:00 Cozaar - PO DAILY [facility] Ondansetron HCl 4 mg 05/21/16 11:08 Zofran Injection IVPUSH 05/21/16 17:09 Q6H PRN NAUSEA AND/OR VOMITING Ondansetron HCl 4 mg 05/21/16 15:39 Zofran Injection IVPUSH Q6H PRN NAUSEA AND/OR VOMITING Oxycodone HCl 5 mg 05/21/16 11:11 Roxicodone - PO Q4H PRN PAIN Oxycodone HCl 10 mg 05/21/16 11:11 05/21/16 15:44 Roxicodone - PO 10 mg Q4H PRN Administration PAIN Tramadol HCl 50 mg 05/21/16 12:00 05/21/16 13:24 Ultram - PO Not Given Q6H [facility] OBJECTIVE: Vital Signs Period Temp Pulse Resp BP Sys/Bustillos Pulse Ox Last 24 Hr 97.5 F-99 F 80-95 16-20 97-126/60-74 95-96 GENERAL: AAOx3 in physical distress HEAD: Normocephalic, atraumatic. PERRLA, EOMI NECK: No JVD HEART: RRR, +S1/S2. No murmurs/rubs/gallops LUNGS: CTA over the L lobe with decreased breath sounds over the RUL/RML and very faint breath sounds over R lung base. + crackles at R lung base ABDOMEN: Soft, nondistended, and no tenderness to palpation over anterior abdomen. TTP over R flank and posterior R lower thoracic area. Dullness to percussion. Normal bowel sounds 4/4 EXT: BL LE warm, no edema in BL LE, 2+ DP NEURO: Normal speech CBC WBC 7.4 K/mm3 (4.0-10.0) 05/21/16 06:10 Corrected WBC (auto) Cancelled 05/12/16 18:02 RBC 3.78 M/mm3 (3.60-5.2) 05/21/16 06:10 Hgb 10.9 GM/dL (10.7-15.3) 05/21/16 06:10 Hct 31.8 % (32.4-45.2) L 05/21/16 06:10 MCV 84.2 fl (80-96) 05/21/16 06:10 MCHC 34.2 g/dl (32.0-36.0) 05/21/16 06:10 RDW 14.1 % (11.6-15.6) 05/21/16 06:10 Plt Count 514 K/MM3 (134-434) H 05/21/16 06:10 MPV 7.2 fl (7.5-11.1) L 05/21/16 06:10 Neutrophils % 87.0 % (42.8-82.8) H D 05/20/16 06:40 Lymphocytes % 7.0 % (8-40) L D 05/20/16 06:40 Monocytes % 5.0 % (3.8-10.2) 05/20/16 06:40 Eosinophils % 5.4 % (0-4.5) H D 05/16/16 06:15 Basophils % 1.0 % (0-2.0) 05/20/16 06:40 Differential Comment Manual diff done 05/20/16 06:40 Smudge Cells Cancelled 05/12/16 18:02 Platelet Estimate Slt increased (NORMAL) 05/20/16 06:40 Platelet Comment No clumping noted 05/12/16 22:50 Platelet Comment No clotting detected 05/12/16 22:50 RBC Morphology 05/12/16 22:50 ESR 15 mm/hr (0-30) 05/14/16 07:00 CMP Sodium 138 mmol/L (136-145) 05/21/16 06:10 Potassium 3.8 mmol/L (3.5-5.1) 05/21/16 06:10 Chloride 99 mmol/L (98-107) 05/21/16 06:10 Carbon Dioxide 29 mmol/L (21-32) 05/21/16 06:10 Anion Gap 10 (8-16) 05/21/16 06:10 BUN 8 mg/dL (7-18) 05/21/16 06:10 Creatinine 0.4 mg/dL (0.55-1.02) L 05/21/16 06:10 Creat Clearance w eGFR > 60 (>60) 05/14/16 07:00 Random Glucose 100 mg/dL (74-106) 05/21/16 06:10 Lactic Acid 1.306 mmol/L (0.4-2.0) 05/12/16 18:02 Calcium 8.2 mg/dL (8.5-10.1) L 05/21/16 06:10 Phosphorus 3.7 mg/dL (2.5-4.9) 05/18/16 13:50 Ferritin 139.158 ng/ml (6.9-282.5) 05/21/16 06:10 Total Bilirubin 0.6 mg/dL (0.2-1.0) D 05/14/16 07:00 AST 12 U/L (15-37) L 05/14/16 07:00 ALT 12 U/L (12-78) 05/14/16 07:00 Alkaline Phosphatase 74 U/L (45-117) 05/14/16 07:00 LD Total 158 U/L (84-246) 05/13/16 07:50 Creatine Kinase 41 IU/L (26-192) 05/12/16 18:02 Troponin I < 0.02 ng/ml (0.00-0.05) 05/12/16 18:02 C-Reactive Protein 7.8 MG/DL (0.00-0.3) H D 05/21/16 06:10 Total Protein 6.6 g/dl (6.4-8.2) 05/14/16 07:00 Albumin 2.7 g/dl (3.4-5.0) L 05/14/16 07:00 Tumor Marker AFP 1.5 ng/ml (0.0-8.3) 05/13/16 08:05 Microbiology 05/21/16 09:49 CLIFF Preparation - Preliminary Pleural Fluid Fungal Culture - Preliminary 05/21/16 09:59 CLIFF Preparation - Preliminary Bronchial Washings - Right Lower Lobe Fungal Culture - Preliminary 05/18/16 12:45 Gram Stain - Final Pleural Fluid Body Fluid Culture - Final NO GROWTH OF AEROBIC ORGANISMS AFTER 48 HOURS INCUBATION Anaerobic Culture - Final NO ANAEROBES WERE ISOLATED 05/18/16 12:45 Gram Stain - Final Aspirate Body Fluid Culture - Final NO GROWTH OF AEROBIC ORGANISMS AFTER 48 HOURS INCUBATION Anaerobic Culture - Final NO ANAEROBES WERE ISOLATED 05/15/16 22:37 Blood Culture - Final Blood - Peripheral Venous NO GROWTH AFTER 5 DAYS INCUBATION 05/15/16 22:37 Blood Culture - Final Blood - Peripheral Venous NO GROWTH AFTER 5 DAYS INCUBATION CXR (05/21/16): S/P VATS with chest tube placement x2, no PTX A/P: Pt is a 55 yo F with a PMHx of HTN, hypothyroidism, and JINA who presented to the ED with worsening R sided chest/abdominal pain x2 days. Pt was found to have a R sided pleural effusion and hepatic mass on initial CT chest. Admitted for further management and observation. 1. Exudative pleural effusion -S/P thoracentesis x2 (05/13, 05/18), VATS with chest tube placement x2 (05/21/16) -? 2/2 CAP vs. empyema vs. subdiaphragmatic communication vs. malignancy -Finished 5 day course of Rocephin and Azithromycin for CAP -Unlikely it is parapneumonic -Pt remains afebrile, with no WBC since 05/13, and no episodes of hypotension -1st pleural fluid sample was exudative, no organisms on gram stain, and Cx NGTD -2nd pleural fluid sample was exudative. Gram stain revealed no organisms, no PMNs, few mononuclear cells. Cytology revealed no malignant cells, + mixed inflammatory cells. Cx is NGTD -Specimens from VATS send to lab. Pending results -Continue Ertapenem 1gm IV daily (day 5) for bowel mel coverage 2/2 ? below diaphragm inflammatory process -Monitor chest tube drainage -Oxycodone, Fentanyl PRN for pain -Thoracic surgery consult appreciated -ID consult appreciated -Pulmonary consult appreciated 2. Ascending colitis -As seen on CT abd/pelvis (05/19/16) -Infectious vs. inflammatory etiology -C diff toxin pending -Stool Cx pending -GI consult appreciated. ? colonoscopy next week -Surgery consult pending 3. Abdominal mass -CT abd/pelvis performed (05/13/16, 05/19/16) -Met with Radiology last Tuesday to go over scan: ? inflammatory process in the posterior and anterior RUQ outside the liver body ? 2/2 to infected dropped stone from previous cholecystectomy (October 2014) -FNA cytology pending. Cx is NGTD -Gram stain revealed no organisms and no PMNs -Continue Ertapenem for bowel mel coverage -Dr. Ordoñez input appreciated 4. HTN -Stable -Losartan 50mg PO daily -HCTZ 12.5mg PO daily -Norvasc 10mg PO daily 5. Hypothyroidism -Synthroid 125mcg PO daily 6. Leukocytosis -Resolved (14.5 to 7.2) 7. FEN - -BMP WNL. Will continue to monitor and correct any electrolyte abnormalities on BMP -Low Na diet 8. DVT ppx -Heparin 5000U SQ TID -SCDs 9. Dispo -Discharge status is in question -Pt needs further evaluation and management Ashkan Monroy, MS3
--- NOTE | 2016-05-21 16:09 | PN ---
Teaching Attending Note Name of Resident: Mahesh Chin ATTENDING PHYSICIAN STATEMENT I saw and evaluated the patient. I reviewed the resident's note and discussed the case with the resident. I agree with the resident's findings and plan as documented. SUBJECTIVE: Patient and seen and examined in the ICU. S/P bronchoscopy and VATS with CT placement x 2. Appeared infectious. Intake & Output 05/18/16 05/19/16 05/20/16 05/21/16 23:59 23:59 23:59 23:59 Intake Total 550 1200 1550 1200 Output Total 450 Balance 550 1200 1550 750 Weight 219 lb 1 oz 218 lb 3 oz 217 lb 4 oz 218 lb Last Vital Signs Temp Pulse Resp BP Pulse Ox 98.1 F 84 16 113/69 96 05/21/16 13:47 05/21/16 13:47 05/21/16 13:47 05/21/16 13:47 05/21/16 13:47 Active Medications Acetaminophen (Ofirmev Injection -) 1,000 mg IVPB Q6H [facility] Stop: 05/22/16 05:16 Last Admin: 05/21/16 12:53 Dose: Not Given Acetaminophen (Tylenol -) 650 mg PO Q6H PRN PRN Reason: FEVER OR PAIN Amlodipine Besylate (Norvasc -) 10 mg PO DAILY [facility] Fentanyl (Sublimaze Injection -) 50 mcg IVPUSH [id number] PRN PRN Reason: PAIN Stop: 05/24/16 11:09 Heparin Sodium (Porcine) (Heparin -) 5,000 unit SQ TID [facility] Hydrochlorothiazide (Hctz -) 12.5 mg PO DAILY [facility] Ertapenem 1 gm/ Sodium (Chloride) 50 mls @ 100 mls/hr IVPB DAILY [facility] Ipratropium [place] (Atrovent 0.02% Nebulizer -) 1 amp NEB QIDR [facility] Last Admin: 05/21/16 14:30 Dose: 1 amp Levothyroxine Sodium (Synthroid -) 125 mcg PO DAILY@0700 [facility] Losartan Potassium (Cozaar -) 50 mg PO DAILY [facility] Ondansetron HCl (Zofran Injection) 4 mg IVPUSH Q6H PRN PRN Reason: NAUSEA AND/OR VOMITING Stop: 05/21/16 17:09 Ondansetron HCl (Zofran Injection) 4 mg IVPUSH Q6H PRN PRN Reason: NAUSEA AND/OR VOMITING Last Admin: 05/21/16 15:54 Dose: 4 mg Oxycodone HCl (Roxicodone -) 5 mg PO Q4H PRN PRN Reason: PAIN Oxycodone HCl (Roxicodone -) 10 mg PO Q4H PRN PRN Reason: PAIN Last Admin: 05/21/16 15:44 Dose: 10 mg Tramadol HCl (Ultram -) 50 mg PO Q6H [facility] Last Admin: 05/21/16 13:24 Dose: Not Given Gen: NAD at rest Heart: RRR Lung: CT x 2, few rhonchi Abd: soft, nontender Ext: no edema Laboratory Results - last 24 hr 05/21/16 05/21/16 05/21/16 06:10 06:10 06:10 WBC 7.4 RBC 3.78 Hgb 10.9 Hct 31.8 L MCV 84.2 MCHC 34.2 RDW 14.1 Plt Count 514 H MPV 7.2 L Sodium 138 Potassium 3.8 Chloride 99 Carbon Dioxide 29 Anion Gap 10 BUN 8 Creatinine 0.4 L Random Glucose 100 Calcium 8.2 L Ferritin 139.158 C-Reactive Protein 05/21/16 06:10 WBC RBC Hgb Hct MCV MCHC RDW Plt Count MPV Sodium Potassium Chloride Carbon Dioxide Anion Gap BUN Creatinine Random Glucose Calcium Ferritin C-Reactive Protein 7.8 H D IMP: Pneumonia R/O Parapneumonic Pleural Effusion Possible subdiaphragmatic communication (?) Mass Atelectasis HTN Hypothyroidism Follow up pleural fluid analysis ABX coverage O2 as needed Incentive Spirometry VTE prophylaxis Will need repeat abdominal imaging Daily CXR Dr Carvalho CCTime 35"
--- NOTE | 2016-05-21 17:06 | PN ---
GI Progress Note Subjective: GI NOte: Orquidea has no abdominal pain to correspond with her cecal and ascending colon thickening and perigastric collections. She denies being told of diverticulosis or any abnormalities during an EGD and colonoscopy done by Dr Mendez 2 years ago. I reviewed the CT scans with Dr Hoang. No perforations are seen. The thickening may reflect stool. Orquidea is chronically constipated. - Objective Vital Signs: Vital Signs Temperature 98.1 F 05/21/16 13:47 Pulse Rate 84 05/21/16 13:47 Respiratory Rate 16 05/21/16 13:47 Blood Pressure 113/69 05/21/16 13:47 O2 Sat by Pulse Oximetry (%) 96 05/21/16 13:47 CBC,CMP WBC 7.4 K/mm3 (4.0-10.0) 05/21/16 06:10 Corrected WBC (auto) Cancelled 05/12/16 18:02 RBC 3.78 M/mm3 (3.60-5.2) 05/21/16 06:10 Hgb 10.9 GM/dL (10.7-15.3) 05/21/16 06:10 Hct 31.8 % (32.4-45.2) L 05/21/16 06:10 MCV 84.2 fl (80-96) 05/21/16 06:10 MCHC 34.2 g/dl (32.0-36.0) 05/21/16 06:10 RDW 14.1 % (11.6-15.6) 05/21/16 06:10 Plt Count 514 K/MM3 (134-434) H 05/21/16 06:10 MPV 7.2 fl (7.5-11.1) L 05/21/16 06:10 Neutrophils % 87.0 % (42.8-82.8) H D 05/20/16 06:40 Lymphocytes % 7.0 % (8-40) L D 05/20/16 06:40 Monocytes % 5.0 % (3.8-10.2) 05/20/16 06:40 Eosinophils % 5.4 % (0-4.5) H D 05/16/16 06:15 Basophils % 1.0 % (0-2.0) 05/20/16 06:40 Differential Comment Manual diff done 05/20/16 06:40 Smudge Cells Cancelled 05/12/16 18:02 Platelet Estimate Slt increased (NORMAL) 05/20/16 06:40 Platelet Comment No clumping noted 05/12/16 22:50 Platelet Comment No clotting detected 05/12/16 22:50 RBC Morphology 05/12/16 22:50 ESR 15 mm/hr (0-30) 05/14/16 07:00 Sodium 138 mmol/L (136-145) 05/21/16 06:10 Potassium 3.8 mmol/L (3.5-5.1) 05/21/16 06:10 Chloride 99 mmol/L (98-107) 05/21/16 06:10 Carbon Dioxide 29 mmol/L (21-32) 05/21/16 06:10 Anion Gap 10 (8-16) 05/21/16 06:10 BUN 8 mg/dL (7-18) 05/21/16 06:10 Creatinine 0.4 mg/dL (0.55-1.02) L 05/21/16 06:10 Creat Clearance w eGFR > 60 (>60) 05/14/16 07:00 Random Glucose 100 mg/dL (74-106) 05/21/16 06:10 Lactic Acid 1.306 mmol/L (0.4-2.0) 05/12/16 18:02 Calcium 8.2 mg/dL (8.5-10.1) L 05/21/16 06:10 Phosphorus 3.7 mg/dL (2.5-4.9) 05/18/16 13:50 Ferritin 139.158 ng/ml (6.9-282.5) 05/21/16 06:10 Total Bilirubin 0.6 mg/dL (0.2-1.0) D 05/14/16 07:00 AST 12 U/L (15-37) L 05/14/16 07:00 ALT 12 U/L (12-78) 05/14/16 07:00 Alkaline Phosphatase 74 U/L (45-117) 05/14/16 07:00 LD Total 158 U/L (84-246) 05/13/16 07:50 Creatine Kinase 41 IU/L (26-192) 05/12/16 18:02 Troponin I < 0.02 ng/ml (0.00-0.05) 05/12/16 18:02 C-Reactive Protein 7.8 MG/DL (0.00-0.3) H D 05/21/16 06:10 Total Protein 6.6 g/dl (6.4-8.2) 05/14/16 07:00 Albumin 2.7 g/dl (3.4-5.0) L 05/14/16 07:00 Tumor Marker AFP 1.5 ng/ml (0.0-8.3) 05/13/16 08:05 Constitutional: No Distress Gastrointestinal Inspection: Yes: Scars (healed incisions,) ...Auscultate: Yes: Hypoactive Bowel Sounds ...Palpate: Yes: Soft, Other (nontender) Labs: CBC, BMP 05/21/16 06:10 05/21/16 06:10 INR, PTT INR 1.27 (0.82-1.09) H 05/20/16 06:40 Fibrinogen 512.0 mg/dL (238-498) H 05/13/16 08:05 Assessment/Plan Right colon CT abnormalities may reflect impacted feces. I will try clear liquids and Miralax TID. I explained to Orquidea that she ultimately will need a colonoscopy and possibly an EGD as well.
--- NOTE | 2016-05-21 17:49 | PN ---
Teaching Attending Note Name of Resident: Gustavo Miner ATTENDING PHYSICIAN STATEMENT I saw and evaluated the patient. I reviewed the resident's note and discussed the case with the resident. I agree with the resident's findings and plan as documented. SUBJECTIVE: no fever or chills, seen just after she came from recovery. no cp or SOB OBJECTIVE: NAD CV: RRR Lungs: CTAB , decreased breath sounds at R base. Ext : no edema on LE ASSESSMENT AND PLAN: Patient is a 55 y/o F w PMH of HTN, hypothyroidism presented to ER w/ R sided chest/abdominal pain x 2 days. Found to have R pleural effusion , Treated for CAP 1- Exudative R pleural effusion : still not clear etiology. - VATS , bx and pneumolysis, and CT done today - aspirate form mass is neg for maliganancy . Inflammatory granulomatous tissue - monitor for pneumothorax 2- Ascending colitis on CT scan: - cont ertapenem - stool studies - colo and EGD early next week 3- Mass adjacent to liver : reactive with granuloma , likely around a dropped stone appreciate Sx input on this and on fluid collection behind stomach 4-HTN : cont home meds. resume losartan tomorrow Dispo : [facility]
[2016-05-21] MEDS: POLYETHYLENE GLYCOL 3350 119 GM BTL PO SCH (21:40)
[2016-05-22] MEDS: IPRATROPIUM BR 0.02% 0.5 MG/2.5 ML VIAL.NEB. NEB SCH ×4 (00:05→18:06)
[2016-05-22] MEDS: traMADol HCL 50 MG TABLET PO SCH ×5 (00:15→18:50)
[2016-05-22] MEDS: ONDANSETRON 4 MG/2 ML VIAL IVPUSH PRN (01:00)
[2016-05-22] MEDS: ACETAMINOPHEN 1000 MG/100 ML VIAL (NON FORMULARY) IVPB SCH (05:42)
[2016-05-22] MEDS: HEPARIN NA (PORCINE) 5,000 UNITS/ML 1ML VIAL SQ SCH ×3 (05:43→21:30)
[2016-05-22] MEDS: POLYETHYLENE GLYCOL 3350 119 GM BTL PO SCH ×3 (05:43→21:30)
[2016-05-22 06:06] LABS: SERUM IRON 36 ug/dL (27-159); TOTAL IRON BINDING CAPACITY 198 ug/dL (250-450); UIBC 162 ug/dL (131-425)
[2016-05-22 06:15] LABS: BASOPHIL 0.4 % (0-2.0); EOSINOPHIL 0.1 % (0-4.5); MCH 28.5 pg (25.7-33.7); MCHC 33.7 g/dl (32.0-36.0); MEAN CELL VOLUME 84.4 fl (80-96); MEAN PLT VOLUME 7.2 fl (7.5-11.1); NEUTROPHILS 81.5 % (42.8-82.8); PLATELET COUNT 474 K/MM3 (134-434); RDW 14.3 % (11.6-15.6); WHITE BLOOD COUNT 10.9 K/mm3 (4.0-10.0)
[2016-05-22 06:22] LABS: ALBUMIN 2.3 g/dl (3.4-5.0); ANION GAP 6 (8-16); BILIRUBIN,TOTAL 0.2 mg/dL (0.2-1.0); CO2 30 mmol/L (21-32); CREATININE 0.4 mg/dL (0.55-1.02); GLUCOSE,RANDOM 102 mg/dL (74-106); LDH 150 U/L (84-246); SGOT/AST 60 U/L (15-37); SGPT/ALT 83 U/L (12-78)
[2016-05-22 06:23] LABS: ALBUMIN 2.2 g/dl (3.4-5.0); ALK PHOS 100 U/L (45-117); BILIRUBIN,DIRECT 0.1 mg/dL (0.0-0.2); C-REACTIVE PROTEIN 6.5 MG/DL (0.00-0.3)
[2016-05-22 06:26] LABS: BILIRUBIN,TOTAL 0.3 mg/dL (0.2-1.0); FERRITIN 143.379 ng/ml (6.9-282.5)
[2016-05-22 06:30] LABS: INR 1.26 (0.82-1.09); PROTHROMBIN TIME (PATIENT) 13.9 SEC (9.98-11.88)
[2016-05-22 06:33] LABS: ACTIVATED PTT 33.1 SECONDS (26.9-34.4)
[2016-05-22] MEDS: LEVOTHYROXINE NA 125 MCG TABLET (FP) PO SCH (07:29)
--- NOTE | 2016-05-22 07:37 | PN ---
Progress Note, Physician Chief Complaint: ID Patient post op day 1 Unsure of operative findings at this time but she appears to be doing well post op Denies any abd complaints. Getting empiric Ertepenem though all cultures have been no growth. " Inflammatory mass" mentioned but unsure what this is. Pathology sent - Current Medication List Current Medications: Active Medications Acetaminophen (Tylenol -) 650 mg PO Q6H PRN PRN Reason: FEVER OR PAIN Amlodipine Besylate (Norvasc -) 10 mg PO DAILY [facility] Fentanyl (Sublimaze Injection -) 50 mcg IVPUSH [id number] PRN PRN Reason: PAIN Stop: 05/24/16 11:09 Heparin Sodium (Porcine) (Heparin -) 5,000 unit SQ TID [facility] Last Admin: 05/22/16 05:43 Dose: 5,000 unit Hydrochlorothiazide (Hctz -) 12.5 mg PO DAILY [facility] Ertapenem 1 gm/ Sodium (Chloride) 50 mls @ 100 mls/hr IVPB DAILY [facility] Ipratropium [place] (Atrovent 0.02% Nebulizer -) 1 amp NEB QIDR [facility] Last Admin: 05/22/16 07:08 Dose: 1 amp Levothyroxine Sodium (Synthroid -) 125 mcg PO DAILY@0700 [facility] Last Admin: 05/22/16 07:29 Dose: 125 mcg Losartan Potassium (Cozaar -) 50 mg PO DAILY [facility] Ondansetron HCl (Zofran Injection) 4 mg IVPUSH Q6H PRN PRN Reason: NAUSEA AND/OR VOMITING Last Admin: 05/22/16 01:00 Dose: 4 mg Oxycodone HCl (Roxicodone -) 5 mg PO Q4H PRN PRN Reason: PAIN Oxycodone HCl (Roxicodone -) 10 mg PO Q4H PRN PRN Reason: PAIN Last Admin: 05/21/16 20:44 Dose: 10 mg Polyethylene Glycol (Miralax (For Daily Use) -) 17 gm PO TID [facility] Last Admin: 05/22/16 05:43 Dose: 17 gm Tramadol HCl (Ultram -) 50 mg PO Q6H [facility] Last Admin: 05/22/16 05:44 Dose: 50 mg - Objective Vital Signs: Vital Signs Temperature 97.6 F 05/22/16 06:00 Pulse Rate 75 05/22/16 06:00 Respiratory Rate 20 05/22/16 06:00 Blood Pressure 116/64 05/22/16 06:00 O2 Sat by Pulse Oximetry (%) 100 05/21/16 22:00 Constitutional: Yes: Well Nourished, No Distress HENT: Yes: WNL, Atraumatic Neck: Yes: WNL, Supple Cardiovascular: Yes: Regular Rate and Rhythm, S1, S2. No: Murmur, Rub Respiratory: Yes: WNL, Regular, CTA Bilaterally. No: Rales, Rhonchi Gastrointestinal: Yes: WNL, Normal Bowel Sounds, Soft. No: Tenderness, Tenderness, Rebound Edema: No Labs: CBC, BMP 05/22/16 05:10 05/22/16 05:10 INR, PTT INR 1.26 (0.82-1.09) H 05/22/16 05:10 Fibrinogen 512.0 mg/dL (238-498) H 05/13/16 08:05 Assessment/Plan Microbiology 05/18/16 12:45 Aspirate Gram Stain - Final 05/18/16 12:45 Aspirate Anaerobic Culture - Final NO GROWTH OF AEROBIC ORGANISMS AFTER 48 HOURS INCUBATION NO ANAEROBES WERE ISOLATED 05/21/16 09:49 Pleural Fluid CLIFF Preparation - Preliminary 05/21/16 09:49 Pleural Fluid Fungal Culture - Preliminary 05/18/16 13:50 Pleural Fluid CLIFF Preparation - Preliminary 05/18/16 13:50 Pleural Fluid Fungal Culture - Preliminary Laboratory Tests 05/13/16 05/18/16 05/22/16 15:15 13:50 05:10 WBC Hgb Plt Count INR BUN 5 L D Creatinine 0.4 L Creat Clearance w eGFR > 60 AST ALT Alkaline Phosphatase Total Protein Albumin Pleural Appearance Hazy Pleural WBC 1,732 Pleural Lymphocytes 70 Pleural Chloride 100 Pleural Total Protein 5.244 Pleural LDH 873 HIV 1&2 Antibody Screen Negative HIV P24 Antigen Negative 05/22/16 05/22/16 05/22/16 05:10 05:10 05:10 WBC 10.9 H D Hgb 9.3 L D Plt Count 474 H INR 1.26 H BUN Creatinine Creat Clearance w eGFR AST 58 H ALT 79 H Alkaline Phosphatase 101 Total Protein 6.0 L Albumin 2.2 L Pleural Appearance Pleural WBC Pleural Lymphocytes Pleural Chloride Pleural Total Protein Pleural LDH HIV 1&2 Antibody Screen HIV P24 Antigen Assessment Right exudative pleural effusion sterile now S/P VAT Initiallly febrile ? now are whether any communication with the abd abd etiology of "inflammation"CRP has come down Plan Await biopsies Discussed with primary care Would consider stopping antibiotics soon as afebrile negative cultures and uncertain as to source of initial fever Quant betsey and Histo JASON Caballero MD
--- NOTE | 2016-05-22 08:16 | PN ---
Progress Note (short form) - Note Progress Note: Subjective: has cp at site of tube insertion . no SOB . no cough , has no abd pain . Objective: Vital Signs: Last Vital Signs Temp Pulse Resp BP Pulse Ox 97.6 F 75 20 116/64 98 05/22/16 06:00 05/22/16 06:00 05/22/16 06:00 05/22/16 06:00 05/22/16 08:05 I&O: Intake & Output 05/19/16 05/20/16 05/21/16 05/22/16 23:59 23:59 23:59 23:59 Intake Total 1200 1550 3050 925 Output Total 1609 1275 Balance 1200 1550 1441 -350 Weight 218 lb 3 oz 217 lb 4 oz 218 lb 222 lb 14.4 oz Physical Exam: NAD CV: RRR Lungs: CTAB , decreased breath sounds at R base. Ext : no edema on LE Abd : soft, ND , mild TTP in RUQ and RLQ , no rebound tenderness or guarding Laboratory Results - last 24 hr 05/21/16 05/21/16 05/22/16 06:10 06:10 05:10 WBC RBC Hgb Hct MCV MCHC RDW Plt Count MPV Neutrophils % Lymphocytes % Monocytes % Eosinophils % Basophils % INR PTT (Actin FS) Sodium 138 Potassium 4.2 Chloride 102 Carbon Dioxide 30 Anion Gap 6 L BUN 5 L D Creatinine 0.4 L Creat Clearance w eGFR > 60 Random Glucose 102 Calcium 8.0 L Iron 36 TIBC 198 L Iron Saturation 18 Ferritin 139.158 Total Bilirubin 0.2 D Direct Bilirubin AST 60 H D ALT 83 H D Alkaline Phosphatase 100 D LD Total 150 C-Reactive Protein Total Protein 6.0 L Albumin 2.3 L 05/22/16 05/22/16 05/22/16 05:10 05:10 05:10 WBC 10.9 H D RBC 3.28 L Hgb 9.3 L D Hct 27.7 L MCV 84.4 MCHC 33.7 RDW 14.3 Plt Count 474 H MPV 7.2 L Neutrophils % 81.5 Lymphocytes % 9.5 D Monocytes % 8.5 Eosinophils % 0.1 D Basophils % 0.4 INR 1.26 H PTT (Actin FS) 33.1 Sodium Potassium Chloride Carbon Dioxide Anion Gap BUN Creatinine Creat Clearance w eGFR Random Glucose Calcium Iron TIBC Iron Saturation Ferritin 143.379 Total Bilirubin 0.3 D Direct Bilirubin 0.1 AST 58 H ALT 79 H Alkaline Phosphatase 101 LD Total C-Reactive Protein 6.5 H D Total Protein 6.0 L Albumin 2.2 L ASSESSMENT AND PLAN: Patient is a 55 y/o F w PMH of HTN, hypothyroidism presented to ER w/ R sided chest/abdominal pain x 2 days. Found to have R pleural effusion , Treated for CAP 1- Exudative R pleural effusion : still not clear etiology. - VATS , bx and pneumolysis, and CT placement yesterday . - repeat cxray today , to evaluate any pneumothorax. ( air sounds present, no suspicion ) 2- Ascending colitis on CT scan: - cont ertapenem, until colonoscopy is done - stool studies pending if she has BM - colo and EGD early next week 3- Mass adjacent to liver : reactive with granuloma , likely around a dropped stone appreciate Sx input on this and on fluid collection behind stomach 4-HTN : cont home meds. Dispo : [facility] Visit type - Emergency Visit Emergency Visit: Yes ED Registration Date: 05/12/16 Care time: The patient presented to the Emergency Department on the above date and was hospitalized for further evaluation of their emergent condition. - New Patient This patient is new to me today: No - Critical Care Critical Care patient: No
--- NOTE | 2016-05-22 08:27 | PN ---
Progress Note (short form) - Note Progress Note: Anesthesia post op Pt seen and examined S;Alert and awake. Mild discomfort O: Vital Signs Temperature 97.6 F 05/22/16 06:00 Pulse Rate 75 05/22/16 06:00 Respiratory Rate 20 05/22/16 06:00 Blood Pressure 116/64 05/22/16 06:00 O2 Sat by Pulse Oximetry (%) 98 05/22/16 08:05 CBC, BMP 05/22/16 05:10 05/22/16 05:10 A/P; Current Active Problems Liver mass, right lobe (Acute) Pleural effusion (Acute) s/p right VATS Doing well post op Continue current care Yuval Chirinos MD
--- NOTE | 2016-05-22 08:56 | PN ---
Progress Note (short form) - Note Progress Note: Thoracic Surgery- Dr. Wang Patient seen and examined. Patient states she is doing well. She had some pain this morning, but it has improved after receiving pain medication. She has not been OOB yet. She still has her [place] in place. She has been working to take deep breaths. She states she is now feeling hungry. She denies fever/ chills/nausea/vomiting/SOB. Last Vital Signs Temp Pulse Resp BP Pulse Ox 97.6 F 68 22 104/59 94 L 05/22/16 06:00 05/22/16 08:39 05/22/16 08:33 05/22/16 08:33 05/22/16 08:39 CBC, BMP 05/22/16 05:10 05/22/16 05:10 CXR pending Exam: Gen: NAD, pleasant and cooperative Cardio: RRR Resp: CTA, slightly decreased right base, dressings clean/dry/intact, chest tubes stripped, serosanguineous drainage, no air leak CT output: 80 and 95 ml overnight a/P POD#1 s/p bronchoscopy, Right VATS, pneumolysis, pleural biopsy, drainage of pleural effusion, insertion of chest tubex2 Patient discussed with Dr. Wang Pain control- will add Toradol Continue CTx2 to suction, strip/milk tubes q4-6h F/up CXR Remove engle Adv diet as tolerated Patient may be downgraded to floor
[2016-05-22] MEDS ORDERED: KETOROLAC TROMETHAMINE 15 MG/ML VIAL IVPUSH SCH (09:00)
[2016-05-22] MEDS: KETOROLAC TROMETHAMINE 30 MG/1 ML VIAL IVPUSH SCH ×3 (10:03→23:00)
[2016-05-22] MEDS ORDERED: PT OWN MED DRAWER 7, Y5N ONE ×3 (10:21→21:26)
[2016-05-22] MEDS: ERTAPENEM SODIUM 1 GM in SODIUM CHLORIDE 50 ML IVPB SCH (10:22)
[2016-05-22] MEDS: LOSARTAN POTASSIUM 50 MG TABLET (FP) PO SCH (10:22)
[2016-05-22] MEDS: amLODIPine BESYLATE 10 MG TABLET (FP) PO SCH (10:22)
[2016-05-22] MEDS: HYDROCHLOROTHIAZIDE 12.5 MG CAPSULE (FP) PO SCH (10:22)
--- NOTE | 2016-05-22 10:45 | PN ---
GI Progress Note Subjective: s/p vats with pleural biopsy pain at site of chest tubes no abdominal pain - Objective Vital Signs: Vital Signs Temperature 97.6 F 05/22/16 06:00 Pulse Rate 68 05/22/16 08:39 Respiratory Rate 22 05/22/16 08:33 Blood Pressure 104/59 05/22/16 08:33 O2 Sat by Pulse Oximetry (%) 94 L 05/22/16 08:39 Constitutional: Calm Eyes: No: Sclera Icterus Cardiovascular: Yes: Regular Rate and Rhythm Respiratory: Yes: Diminished (at right base) Gastrointestinal Inspection: No: Distention ...Auscultate: Yes: Normoactive Bowel Sounds ...Palpate: No: Tenderness Edema: No Neurological: Yes: Alert, Oriented Labs: CBC, BMP 05/22/16 05:10 05/22/16 05:10 INR, PTT INR 1.26 (0.82-1.09) H 05/22/16 05:10 Fibrinogen 512.0 mg/dL (238-498) H 05/13/16 08:05 Assessment/Plan Awaiting w/u re: pulmonary findings Continue MiraLAX Obtain EGD/Colonoscopy reports from Ms. Jarrell' stem cleaning machine feeder Dr. Mendez
--- NOTE | 2016-05-22 12:27 | PN ---
Progress Note (short form) - Note Progress Note: Pulm/CCM Patient and seen and examined in the ICU. 24Hr: Doing well post Vats, awaiting results from pleural biopsy decreasing output from CT but to remain today OOB Vital Signs Temp 97.6 F 05/22/16 06:00 Pulse 68 05/22/16 08:39 Resp 22 05/22/16 08:33 BP 104/59 05/22/16 08:33 Pulse Ox 94 L 05/22/16 08:39 Intake & Output 05/21/16 05/22/16 05/22/16 23:59 11:59 23:59 Intake Total 1850 925 Output Total 1384 1275 Balance 466 -350 Weight 101.106 kg Intake: IV 600 525 D5-1/2Ns - 1,000 ml @ 75 300 525 mls/hr IV ASDIR [facility] Rx#: [id number] Lactated Ringers Solution 300 1,000 ml @ 75 mls/hr IV ASDIR [facility] Rx#:[id number] IVPB 150 100 Oral 1100 300 Output: Chest Tube Drainage 134 175 Right Anterior Chest 54 80 Right Lateral Chest 55 95 Urine 1250 1100 Hines 1050 1100 Other: Voiding Method Indwelling Catheter Indwelling Catheter Bowel Movement No Weight Measurement Method Built in [facility] CBC, BMP 05/22/16 05:10 05/22/16 05:10 Active Medications Acetaminophen (Tylenol -) 650 mg PO Q6H PRN PRN Reason: FEVER OR PAIN Amlodipine Besylate (Norvasc -) 10 mg PO DAILY [facility] Last Admin: 05/22/16 10:22 Dose: 10 mg Fentanyl (Sublimaze Injection -) 50 mcg IVPUSH [id number] PRN PRN Reason: PAIN Stop: 05/24/16 11:09 Heparin Sodium (Porcine) (Heparin -) 5,000 unit SQ TID [facility] Last Admin: 05/22/16 05:43 Dose: 5,000 unit Hydrochlorothiazide (Hctz -) 12.5 mg PO DAILY [facility] Last Admin: 05/22/16 10:22 Dose: 12.5 mg Ertapenem 1 gm/ Sodium (Chloride) 50 mls @ 100 mls/hr IVPB DAILY [facility] Last Admin: 05/22/16 10:22 Dose: 100 mls/hr Ipratropium [place] (Atrovent 0.02% Nebulizer -) 1 amp NEB QIDR [facility] Last Admin: 05/22/16 11:33 Dose: 1 amp Ketorolac Tromethamine (Toradol Injection -) 15 mg IVPUSH Q6H [facility] Stop: 05/24/16 08:59 Last Admin: 05/22/16 10:03 Dose: 15 mg Levothyroxine Sodium (Synthroid -) 125 mcg PO DAILY@0700 [facility] Last Admin: 05/22/16 07:29 Dose: 125 mcg Losartan Potassium (Cozaar -) 50 mg PO DAILY [facility] Last Admin: 05/22/16 10:22 Dose: 50 mg Ondansetron HCl (Zofran Injection) 4 mg IVPUSH Q6H PRN PRN Reason: NAUSEA AND/OR VOMITING Last Admin: 05/22/16 01:00 Dose: 4 mg Oxycodone HCl (Roxicodone -) 5 mg PO Q4H PRN PRN Reason: PAIN Oxycodone HCl (Roxicodone -) 10 mg PO Q4H PRN PRN Reason: PAIN Last Admin: 05/21/16 20:44 Dose: 10 mg Polyethylene Glycol (Miralax (For Daily Use) -) 17 gm PO TID [facility] Last Admin: 05/22/16 05:43 Dose: 17 gm Tramadol HCl (Ultram -) 50 mg PO Q6H [facility] Last Admin: 05/22/16 10:43 Dose: 50 mg Gen: NAD at rest Heart: RRR Lung: CT x 2, serosang drainage, few rhonchi on R, no wheezes Abd: soft, nontender Ext: no edema Neuro: Intact CXR: small residual R effusion, no pneumothorax IMP: Pneumonia R/O Parapneumonic Pleural Effusion Possible subdiaphragmatic communication (?) Mass Atelectasis HTN Hypothyroidism Follow up pleural fluid analysis/path resultes ABX coverage as per ID, Sent Quant Gold O2 as needed Incentive Spirometry VTE prophylaxis Will need repeat abdominal imaging Daily CXR, ICU today, if stable can leave to Med/Surg tonight or tomorrow Griffin Ramirez ACNP [id number]
[2016-05-22] MEDS: oxyCODONE HCL 5 MG TABLET PO PRN ×2 (16:34→21:31)
[2016-05-22] MEDS: ACETAMINOPHEN 325 MG TABLET (FP) PO PRN ×2 (16:35→21:32)
[2016-05-23] MEDS: traMADol HCL 50 MG TABLET PO SCH ×4 (00:09→18:27)
[2016-05-23] MEDS: IPRATROPIUM BR 0.02% 0.5 MG/2.5 ML VIAL.NEB. NEB SCH ×5 (00:10→23:06)
[2016-05-23] MEDS: KETOROLAC TROMETHAMINE 30 MG/1 ML VIAL IVPUSH SCH ×4 (05:15→23:00)
[2016-05-23] MEDS: HEPARIN NA (PORCINE) 5,000 UNITS/ML 1ML VIAL SQ SCH ×3 (05:45→22:00)
[2016-05-23] MEDS: POLYETHYLENE GLYCOL 3350 119 GM BTL PO SCH ×3 (05:46→22:00)
[2016-05-23] MEDS: LEVOTHYROXINE NA 125 MCG TABLET (FP) PO SCH (06:03)
[2016-05-23 06:13] LABS: MCH 29.2 pg (25.7-33.7); MEAN CELL VOLUME 85.7 fl (80-96); MEAN PLT VOLUME 7.1 fl (7.5-11.1); PLATELET COUNT 483 K/MM3 (134-434); RDW 14.5 % (11.6-15.6)
[2016-05-23 06:46] LABS: ALBUMIN 2.3 g/dl (3.4-5.0); ANION GAP 7 (8-16); BILIRUBIN,TOTAL 0.4 mg/dL (0.2-1.0); CALCIUM 8.1 mg/dL (8.5-10.1); CO2 33 mmol/L (21-32); CREATININE 0.5 mg/dL (0.55-1.02); GLUCOSE,RANDOM 83 mg/dL (74-106); MAGNESIUM 2.3 mg/dL (1.8-2.4); PHOSPHOROUS 3.9 mg/dL (2.5-4.9); SGOT/AST 42 U/L (15-37); SGPT/ALT 60 U/L (12-78)
[2016-05-23 06:47] LABS: ALK PHOS 98 U/L (45-117)
--- NOTE | 2016-05-23 07:41 | PN ---
Progress Note, Physician Chief Complaint: ID Sitting in chair more comfortable from the standpoint of post op pain No fever Has been constitipated Fever initially 24 hours but this gone now for 7 days All cultures bacterial no growth - Current Medication List Current Medications: Active Medications Acetaminophen (Tylenol -) 650 mg PO Q6H PRN PRN Reason: FEVER OR PAIN Last Admin: 05/22/16 21:32 Dose: 650 mg Amlodipine Besylate (Norvasc -) 10 mg PO DAILY [facility] Last Admin: 05/22/16 10:22 Dose: 10 mg Fentanyl (Sublimaze Injection -) 50 mcg IVPUSH [id number] PRN PRN Reason: PAIN Stop: 05/24/16 11:09 Heparin Sodium (Porcine) (Heparin -) 5,000 unit SQ TID [facility] Last Admin: 05/23/16 05:45 Dose: 5,000 unit Hydrochlorothiazide (Hctz -) 12.5 mg PO DAILY [facility] Last Admin: 05/22/16 10:22 Dose: 12.5 mg Ertapenem 1 gm/ Sodium (Chloride) 50 mls @ 100 mls/hr IVPB DAILY [facility] Last Admin: 05/22/16 10:22 Dose: 100 mls/hr Ipratropium [place] (Atrovent 0.02% Nebulizer -) 1 amp NEB QIDR [facility] Last Admin: 05/23/16 06:52 Dose: 1 amp Ketorolac Tromethamine (Toradol Injection -) 15 mg IVPUSH Q6H [facility] Stop: 05/24/16 08:59 Last Admin: 05/23/16 05:15 Dose: 15 mg Levothyroxine Sodium (Synthroid -) 125 mcg PO DAILY@0700 [facility] Last Admin: 05/23/16 06:03 Dose: 125 mcg Losartan Potassium (Cozaar -) 50 mg PO DAILY [facility] Last Admin: 05/22/16 10:22 Dose: 50 mg Ondansetron HCl (Zofran Injection) 4 mg IVPUSH Q6H PRN PRN Reason: NAUSEA AND/OR VOMITING Last Admin: 05/22/16 01:00 Dose: 4 mg Oxycodone HCl (Roxicodone -) 5 mg PO Q4H PRN PRN Reason: PAIN Oxycodone HCl (Roxicodone -) 10 mg PO Q4H PRN PRN Reason: PAIN Last Admin: 05/22/16 21:31 Dose: 10 mg Polyethylene Glycol (Miralax (For Daily Use) -) 17 gm PO TID [facility] Last Admin: 05/23/16 05:46 Dose: 17 gm Tramadol HCl (Ultram -) 50 mg PO Q6H [facility] Last Admin: 05/23/16 05:49 Dose: 50 mg - Objective Vital Signs: Vital Signs Temperature 97.8 F 05/23/16 06:00 Pulse Rate 69 05/23/16 06:00 Respiratory Rate 18 05/23/16 06:00 Blood Pressure 98/62 05/23/16 06:00 O2 Sat by Pulse Oximetry (%) 93 L 05/22/16 22:00 Constitutional: Yes: Well Nourished, No Distress HENT: Yes: WNL, Atraumatic Neck: Yes: WNL, Supple Cardiovascular: Yes: Regular Rate and Rhythm, S2. No: Murmur Respiratory: Yes: WNL, Regular, CTA Bilaterally, Other (2 chest tubes). No: Rales, Rhonchi Gastrointestinal: Yes: WNL, Normal Bowel Sounds, Soft. No: Palpable Mass, Splenomegaly, Tenderness, Rebound Extremities: No: Cold, Cool, Cyanosis Edema: No Labs: CBC, BMP 05/23/16 05:20 05/23/16 05:20 INR, PTT INR 1.26 (0.82-1.09) H 05/22/16 05:10 Fibrinogen 512.0 mg/dL (238-498) H 05/13/16 08:05 Assessment/Plan Microbiology 05/21/16 10:02 Biopsy Tissue Gram Stain - Final 05/21/16 09:57 Tissue-Other Gram Stain - Final 05/21/16 10:02 Biopsy Tissue Tissue Culture - Preliminary NO AEROBIC GROWTH, 24 HRS 05/21/16 09:57 Tissue-Other Tissue Culture - Preliminary NO AEROBIC GROWTH, 24 HRS Laboratory Tests 05/23/16 05:20 WBC 7.0 D Hgb 9.7 L Plt Count 483 H Assessment Post op day 2 VAT "fibrinous changes with adhesions" seen on thoracoscopy Original and op cultures all no growth Fluid was not grossly purulent though was cloudy looking. Gram stain negative Plan Puzzling case in which patient has what appears to be parapneumonic effusion without obvious pneumonia Suggestion of possible communication or relationship to inflammatory process "mass near liver" again unclear whats causing this. Initially febrile for 24 hours but afebrile for a week with normal WBC count( initially 14K) No clinical evidence for colitis pain diarrhea fever WBC. ( CT colon thickening). Continue antibiotic for now while awaiting Pathology results. Quant gold and Histo AG sent though this seems unlikely too given absence of symptoms fever ect Critical care time spent reviewing above exam Federico WILKINSON
--- NOTE | 2016-05-23 08:51 | PN ---
Progress Note (short form) - Note Progress Note: Seen and examined in the ICU afebrile C/o: chest pain at tube sites Still no BM x 48hrs Denies: nausea, GIBBS Current Medications Acetaminophen (Tylenol -) 650 mg PO Q6H PRN PRN Reason: FEVER OR PAIN Last Admin: 05/22/16 21:32 Dose: 650 mg Amlodipine Besylate (Norvasc -) 10 mg PO DAILY [facility] Last Admin: 05/22/16 10:22 Dose: 10 mg Fentanyl (Sublimaze Injection -) 50 mcg IVPUSH [id number] PRN PRN Reason: PAIN Stop: 05/24/16 11:09 Heparin Sodium (Porcine) (Heparin -) 5,000 unit SQ TID [facility] Last Admin: 05/23/16 05:45 Dose: 5,000 unit Hydrochlorothiazide (Hctz -) 12.5 mg PO DAILY [facility] Last Admin: 05/22/16 10:22 Dose: 12.5 mg Ertapenem 1 gm/ Sodium (Chloride) 50 mls @ 100 mls/hr IVPB DAILY [facility] Last Admin: 05/22/16 10:22 Dose: 100 mls/hr Ipratropium [place] (Atrovent 0.02% Nebulizer -) 1 amp NEB QIDR [facility] Last Admin: 05/23/16 06:52 Dose: 1 amp Ketorolac Tromethamine (Toradol Injection -) 15 mg IVPUSH Q6H [facility] Stop: 05/24/16 08:59 Last Admin: 05/23/16 05:15 Dose: 15 mg Levothyroxine Sodium (Synthroid -) 125 mcg PO DAILY@0700 [facility] Last Admin: 05/23/16 06:03 Dose: 125 mcg Losartan Potassium (Cozaar -) 50 mg PO DAILY [facility] Last Admin: 05/22/16 10:22 Dose: 50 mg Ondansetron HCl (Zofran Injection) 4 mg IVPUSH Q6H PRN PRN Reason: NAUSEA AND/OR VOMITING Last Admin: 05/22/16 01:00 Dose: 4 mg Oxycodone HCl (Roxicodone -) 5 mg PO Q4H PRN PRN Reason: PAIN Oxycodone HCl (Roxicodone -) 10 mg PO Q4H PRN PRN Reason: PAIN Last Admin: 05/22/16 21:31 Dose: 10 mg Polyethylene Glycol (Miralax (For Daily Use) -) 17 gm PO TID [facility] Last Admin: 05/23/16 05:46 Dose: 17 gm Tramadol HCl (Ultram -) 50 mg PO Q6H [facility] Last Admin: 05/23/16 05:49 Dose: 50 mg Vital Signs Period Temp Pulse Resp BP Sys/[place]ustillos Pulse Ox Last 24 Hr 97.8 F-99 F 62-80 14-22 87-118/53-85 93-93 Exam: General: awake, alert and cooperative CV: S1, S2 no m/r/g Pulm: CTA, chest tube right x2 serosang drainage no airleak Abd: SNTND Ext: WWP, trace edema Neuro: CN grossly intact CBCD WBC 7.0 K/mm3 (4.0-10.0) D 05/23/16 05:20 RBC 3.31 M/mm3 (3.60-5.2) L 05/23/16 05:20 Hgb 9.7 GM/dL (10.7-15.3) L 05/23/16 05:20 Hct 28.4 % (32.4-45.2) L 05/23/16 05:20 MCV 85.7 fl (80-96) 05/23/16 05:20 MCHC 34.0 g/dl (32.0-36.0) 05/23/16 05:20 RDW 14.5 % (11.6-15.6) 05/23/16 05:20 Plt Count 483 K/MM3 (134-434) H 05/23/16 05:20 MPV 7.1 fl (7.5-11.1) L 05/23/16 05:20 CMP Sodium 139 mmol/L (136-145) 05/23/16 05:20 Potassium 4.0 mmol/L (3.5-5.1) 05/23/16 05:20 Chloride 99 mmol/L (98-107) 05/23/16 05:20 Carbon Dioxide 33 mmol/L (21-32) H 05/23/16 05:20 Anion Gap 7 (8-16) L 05/23/16 05:20 BUN 7 mg/dL (7-18) D 05/23/16 05:20 Creatinine 0.5 mg/dL (0.55-1.02) L D 05/23/16 05:20 Creat Clearance w eGFR > 60 (>60) 05/23/16 05:20 Random Glucose 83 mg/dL (74-106) 05/23/16 05:20 Calcium 8.1 mg/dL (8.5-10.1) L 05/23/16 05:20 Total Bilirubin 0.4 mg/dL (0.2-1.0) D 05/23/16 05:20 AST 42 U/L (15-37) H D 05/23/16 05:20 ALT 60 U/L (12-78) D 05/23/16 05:20 Alkaline Phosphatase 98 U/L (45-117) 05/23/16 05:20 Total Protein 6.0 g/dl (6.4-8.2) L 05/23/16 05:20 Albumin 2.3 g/dl (3.4-5.0) L 05/23/16 05:20 CARDIAC ENZYMES Creatine Kinase 41 IU/L (26-192) 05/12/16 18:02 Troponin I < 0.02 ng/ml (0.00-0.05) 05/12/16 18:02 Microbiology 05/21/16 09:59 Bronchial Washings - Right Lower Lobe Gram Stain - Final 05/21/16 09:59 Bronchial Washings - Right Lower Lobe Bronchoalveolar Lavage Culture - Preliminary 05/21/16 09:49 Pleural Fluid Gram Stain - Final 05/21/16 09:49 Pleural Fluid Body Fluid Culture - Preliminary NO AEROBIC GROWTH, 24 HRS 05/21/16 10:02 Biopsy Tissue Gram Stain - Final 05/21/16 10:02 Biopsy Tissue Tissue Culture - Preliminary NO AEROBIC GROWTH, 24 HRS 05/21/16 09:57 Tissue-Other Gram Stain - Final 05/21/16 09:57 Tissue-Other Tissue Culture - Preliminary NO AEROBIC GROWTH, 24 HRS 05/21/16 09:53 Tissue-Other Gram Stain - Final 05/21/16 09:53 Tissue-Other Tissue Culture - Preliminary 05/18/16 12:45 Pleural Fluid AFB Smear Concentration - Final 05/18/16 12:45 Pleural Fluid Mycobacterial Culture - Preliminary 05/21/16 09:49 Pleural Fluid CLIFF Preparation - Preliminary 05/21/16 09:49 Pleural Fluid Fungal Culture - Preliminary 05/21/16 09:59 Bronchial Washings - Right Lower Lobe CLIFF Preparation - Preliminary 05/21/16 09:59 Bronchial Washings - Right Lower Lobe Fungal Culture - Preliminary 05/18/16 12:45 Pleural Fluid Gram Stain - Final 05/18/16 12:45 Pleural Fluid Body Fluid Culture - Final NO GROWTH OF AEROBIC ORGANISMS AFTER 48 HOURS INCUBATION 05/18/16 12:45 Pleural Fluid Anaerobic Culture - Final NO ANAEROBES WERE ISOLATED 05/18/16 12:45 Aspirate Gram Stain - Final 05/18/16 12:45 Aspirate Body Fluid Culture - Final NO GROWTH OF AEROBIC ORGANISMS AFTER 48 HOURS INCUBATION 05/18/16 12:45 Aspirate Anaerobic Culture - Final NO ANAEROBES WERE ISOLATED 05/15/16 22:37 Blood - Peripheral Venous Blood Culture - Final NO GROWTH AFTER 5 DAYS INCUBATION 05/15/16 22:37 Blood - Peripheral Venous Blood Culture - Final NO GROWTH AFTER 5 DAYS INCUBATION 05/18/16 13:50 Pleural Fluid CLIFF Preparation - Preliminary 05/18/16 13:50 Pleural Fluid Fungal Culture - Preliminary 05/12/16 18:02 Blood - Peripheral Venous Blood Culture - Final NO GROWTH AFTER 5 DAYS INCUBATION 05/12/16 18:02 Blood - Peripheral Venous Blood Culture - Final NO GROWTH AFTER 5 DAYS INCUBATION 05/13/16 15:30 Blood - Peripheral Venous TB Test (QFT) (LAURA) - Final 05/13/16 11:25 Pleural Fluid AFB Smear Concentration - Final 05/13/16 11:25 Pleural Fluid Mycobacterial Culture - Preliminary 05/13/16 11:25 Pleural Fluid Gram Stain - Final 05/13/16 11:25 Pleural Fluid Body Fluid Culture - Final NO GROWTH OF AEROBIC ORGANISMS AFTER 48 HOURS INCUBATION 05/13/16 11:25 Pleural Fluid Anaerobic Culture - Final NO ANAEROBES WERE ISOLATED 05/14/16 04:00 Urine - Urine Clean Catch Urine Culture - Final NO GROWTH OBTAINED 05/14/16 04:00 Urine - Urine Clean Catch Legionella Antigen - Final 05/14/16 04:00 Urine - Urine Clean Catch Streptococcus pneumoniae Antigen ( M - Final 05/13/16 11:25 Pleural Fluid CLIFF Preparation - Preliminary 05/13/16 11:25 Pleural Fluid Fungal Culture - Preliminary CXR: chest tubes on right side, overall unchanged IMP: Pneumonia R/O Parapneumonic Pleural Effusion Possible subdiaphragmatic communication (?) Mass Atelectasis HTN Hypothyroidism Follow up pleural fluid analysis/path results ABX coverage as per ID Currently on RA, 02 if needed to keep Sat >92% Incentive Spirometry Early PT, OOB to chair as tolerated VTE prophylaxis Pain management, will add lidoderm patch to right chest wall Chest tube managment per CT surgery, will likely remove apical CT tomorrow Cont bowel regimen Cont diet Daily CXR stable for floor transfer Angela ACNP Pulm/CCM CCT: 35m
--- NOTE | 2016-05-23 09:30 | PN ---
Progress Note (short form) - Note Progress Note: Subjective: has cp at site of tube insertion . no SOB . no cough , has no abd pain . Objective: Vital Signs: Last Vital Signs Temp Pulse Resp BP Pulse Ox 97.8 F 69 18 98/62 93 L 05/23/16 06:00 05/23/16 06:00 05/23/16 06:00 05/23/16 06:00 05/22/16 22:00 I&O: Intake & Output 05/20/16 05/21/16 05/22/16 05/23/16 23:59 23:59 23:59 23:59 Intake Total 1550 3050 2175 300 Output Total 1609 1970 20 Balance 1550 1441 205 280 Weight 217 lb 4 oz 218 lb 222 lb 14.4 oz 219 lb 12.8 oz Physical Exam: NAD CV: RRR Lungs: CTAB , decreased breath sounds at R base. Ext : no edema on LE Abd : soft, ND ,NT , NL BS Laboratory Results - last 24 hr 05/20/16 05/22/16 05/23/16 06:40 05:10 05:20 WBC 7.0 D RBC 3.31 L Hgb 9.7 L Hct 28.4 L MCV 85.7 MCHC 34.0 RDW 14.5 Plt Count 483 H MPV 7.1 L Sodium Potassium Chloride Carbon Dioxide Anion Gap BUN Creatinine Creat Clearance w eGFR Random Glucose Calcium Phosphorus Magnesium Total Bilirubin AST ALT Alkaline Phosphatase C-Reactive Protein Total Protein Albumin Tumor Marker AFP 1.9 Carcinoembryonic Ag 1.0 Crossmatch IS Only See Detail 05/23/16 05/23/16 05:20 05:20 WBC RBC Hgb Hct MCV MCHC RDW Plt Count MPV Sodium 139 Potassium 4.0 Chloride 99 Carbon Dioxide 33 H Anion Gap 7 L BUN 7 D Creatinine 0.5 L D Creat Clearance w eGFR > 60 Random Glucose 83 Calcium 8.1 L Phosphorus 3.9 Magnesium 2.3 Total Bilirubin 0.4 D AST 42 H D ALT 60 D Alkaline Phosphatase 98 C-Reactive Protein Cancelled Total Protein 6.0 L Albumin 2.3 L Tumor Marker AFP Carcinoembryonic Ag Crossmatch IS Only ASSESSMENT AND PLAN: Patient is a 55 y/o F w PMH of HTN, hypothyroidism presented to ER w/ R sided chest/abdominal pain x 2 days. Found to have R pleural effusion , Treated for CAP 1- Exudative R pleural effusion : still not clear etiology. - VATS , bx and pneumolysis, and CT placement 05/21. - no evidence of pneumothorax - cont oxycodone , dc tramadol . cont toradol 2- Ascending colitis on CT scan: - cont ertapenem, until colonoscopy is done - cont miralax - colo and EGD early next week 3- Mass adjacent to liver : reactive with granuloma , likely around a dropped stone still not seen by surgery service for input on this and on fluid collection behind stomach . will recontact sx today 4-HTN : cont home meds. Dispo : HLOC Visit type - Emergency Visit Emergency Visit: Yes ED Registration Date: 05/12/16 Care time: The patient presented to the Emergency Department on the above date and was hospitalized for further evaluation of their emergent condition. - New Patient This patient is new to me today: No - Critical Care Critical Care patient: Yes Total Critical Care Time (in minutes): 20
[2016-05-23] MEDS ORDERED: PT OWN MED DRAWER 7, Y5N ONE ×4 (09:33→20:04)
[2016-05-23] MEDS: LOSARTAN POTASSIUM 50 MG TABLET (FP) PO SCH (09:36)
[2016-05-23] MEDS: amLODIPine BESYLATE 10 MG TABLET (FP) PO SCH (09:36)
[2016-05-23] MEDS: HYDROCHLOROTHIAZIDE 12.5 MG CAPSULE (FP) PO SCH (09:36)
[2016-05-23] MEDS: ERTAPENEM SODIUM 1 GM in SODIUM CHLORIDE 50 ML IVPB SCH (09:37)
--- NOTE | 2016-05-23 09:56 | PN ---
Progress Note (short form) - Note Progress Note: Thoracic Surgery- Dr. Wang Patient seen and examined, discussed with nursing. Patient was having some pain this morning, pain medication helped. She has been OOB, able to cough and breath deeply. She denies fever, chills, sob, N/V. Last Vital Signs Temp Pulse Resp BP Pulse Ox 97.8 F 69 18 98/62 93 L 05/23/16 06:00 05/23/16 06:00 05/23/16 06:00 05/23/16 06:00 05/22/16 22:00 CBC, BMP 05/23/16 05:20 05/23/16 05:20 Exam: Gen: NAD, resting in bed Cardio: RRR Resp: CTA, chest tubes in place with serosanguineous draiange, output 10ml and 10 ml overnight, no air leak A/P POD#2 s/p bronchoscopy, Right VATS, pneumolysis, pleural biopsy, drainage of pleural effusion, insertion of chest tubex2 Patient discussed with Dr. Webber Continue CTx2 to suction, strip/milk tubes q4-6h OOB Pain control Patient may be downgraded to floor
[2016-05-23] MEDS ORDERED: LIDOCAINE 5% TOPICAL PATCH TP SCH (10:00)
[2016-05-23 10:19] LABS: C-REACTIVE PROTEIN 5.4 MG/DL (0.00-0.3)
--- NOTE | 2016-05-23 11:16 | PN ---
Progress Note (short form) - Note Progress Note: Thoracic Surgery Note: POD #2. Doing well. No fever. No WBC. CT without air-leak and drainage serosanguineous. CXR with expanded lung. Recommend: to floor, continue ct's on suction until tomorrow, oob tid, would repeat CT to see abdominal findings for comparison on Tuesday. Continue to f/u cultures.
--- NOTE | 2016-05-23 14:34 | PN ---
Progress Note (short form) - Note Progress Note: Patient examined , chart reviewed. Results of scans and recent VATS noted. EGD and colonoscopy would be helpful. Will continue to follow.
[2016-05-23] MEDS ORDERED: ACETAMINOPHEN 325 MG TABLET (FP) PO PRN (17:35)
[2016-05-23] MEDS ORDERED: ONDANSETRON 4 MG/2 ML VIAL IVPUSH PRN (17:35)
[2016-05-23] MEDS: oxyCODONE HCL 5 MG TABLET PO PRN (20:45)
[2016-05-23] MEDS ORDERED: HEPARIN NA (PORCINE) 5,000 UNITS/ML 1ML VIAL ONE (20:50)
[2016-05-24] MEDS: KETOROLAC TROMETHAMINE 30 MG/1 ML VIAL IVPUSH SCH (04:59)
[2016-05-24] MEDS: traMADol HCL 50 MG TABLET PO SCH ×5 (05:05→23:21)
[2016-05-24] MEDS: POLYETHYLENE GLYCOL 3350 119 GM BTL PO SCH ×3 (05:06→21:55)
[2016-05-24] MEDS: HEPARIN NA (PORCINE) 5,000 UNITS/ML 1ML VIAL SQ SCH ×3 (05:06→21:55)
[2016-05-24 06:00] LABS: MCH 28.9 pg (25.7-33.7); MCHC 34.3 g/dl (32.0-36.0); MEAN CELL VOLUME 84.4 fl (80-96); PLATELET COUNT 411 K/MM3 (134-434); RDW 14.3 % (11.6-15.6); WHITE BLOOD COUNT 7.2 K/mm3 (4.0-10.0)
[2016-05-24] MEDS: LEVOTHYROXINE NA 125 MCG TABLET (FP) PO SCH (06:10)
[2016-05-24] MEDS: IPRATROPIUM BR 0.02% 0.5 MG/2.5 ML VIAL.NEB. NEB SCH ×4 (06:52→23:01)
[2016-05-24 07:04] LABS: CALCIUM 8.1 mg/dL (8.5-10.1); MAGNESIUM 2.5 mg/dL (1.8-2.4)
[2016-05-24 07:07] LABS: CREATININE 0.5 mg/dL (0.55-1.02); PHOSPHOROUS 4.6 mg/dL (2.5-4.9)
--- NOTE | 2016-05-24 07:40 | PN ---
Progress Note, Physician Chief Complaint: ID Day 4 post op Remains stable NAD Ertepenem continues - Current Medication List Current Medications: Active Medications Acetaminophen (Tylenol -) 650 mg PO Q6H PRN PRN Reason: FEVER OR PAIN Last Admin: 05/23/16 20:46 Dose: 650 mg Amlodipine Besylate (Norvasc -) 10 mg PO DAILY [facility] Fentanyl (Sublimaze Injection -) 50 mcg IVPUSH [id number] PRN PRN Reason: PAIN Stop: 05/24/16 11:09 Heparin Sodium (Porcine) (Heparin -) 5,000 unit SQ TID [facility] Last Admin: 05/24/16 05:06 Dose: 5,000 unit Hydrochlorothiazide (Hctz -) 12.5 mg PO DAILY [facility] Ertapenem 1 gm/ Sodium (Chloride) 50 mls @ 100 mls/hr IVPB DAILY [facility] Ipratropium [place] (Atrovent 0.02% Nebulizer -) 1 amp NEB QIDR [facility] Last Admin: 05/24/16 06:52 Dose: 1 amp Ketorolac Tromethamine (Toradol Injection -) 15 mg IVPUSH Q6H [facility] Stop: 05/24/16 08:59 Last Admin: 05/24/16 04:59 Dose: 15 mg Levothyroxine Sodium (Synthroid -) 125 mcg PO DAILY@0700 [facility] Last Admin: 05/24/16 06:10 Dose: 125 mcg Lidocaine (Lidoderm Patch -) 1 patch TP DAILY [facility] Losartan Potassium (Cozaar -) 50 mg PO DAILY [facility] Ondansetron HCl (Zofran Injection) 4 mg IVPUSH Q6H PRN PRN Reason: NAUSEA AND/OR VOMITING Oxycodone HCl (Roxicodone -) 5 mg PO Q4H PRN PRN Reason: PAIN Oxycodone HCl (Roxicodone -) 10 mg PO Q4H PRN PRN Reason: PAIN Last Admin: 05/23/16 20:45 Dose: 10 mg Polyethylene Glycol (Miralax (For Daily Use) -) 17 gm PO TID [facility] Last Admin: 05/24/16 05:06 Dose: 17 grams Tramadol HCl (Ultram -) 50 mg PO Q6H [facility] Last Admin: 05/24/16 05:05 Dose: 50 mg - Objective Vital Signs: Vital Signs Temperature 99 F 05/24/16 06:00 Pulse Rate 79 05/24/16 06:00 Respiratory Rate 16 05/24/16 06:00 Blood Pressure 94/59 05/24/16 06:00 O2 Sat by Pulse Oximetry (%) 93 L 05/23/16 21:00 Constitutional: Yes: Well Nourished, No Distress Neck: Yes: WNL, Supple Cardiovascular: Yes: Regular Rate and Rhythm, S1, S2 Respiratory: Yes: WNL, Regular, CTA Bilaterally, Wheezes Gastrointestinal: Yes: WNL, Normal Bowel Sounds, Soft. No: Tenderness, Tenderness, Rebound Edema: No Labs: CBC, BMP 05/24/16 05:05 05/24/16 05:05 INR, PTT INR 1.26 (0.82-1.09) H 05/22/16 05:10 Fibrinogen 512.0 mg/dL (238-498) H 05/13/16 08:05 Assessment/Plan Microbiology 05/21/16 10:02 Biopsy Tissue Gram Stain - Final 05/21/16 10:02 Biopsy Tissue Anaerobic Culture - Final NO GROWTH OF AEROBIC ORGANISMS AFTER 48 HOURS INCUBATION NO ANAEROBES WERE ISOLATED 05/21/16 09:57 Tissue-Other Gram Stain - Final 05/21/16 09:57 Tissue-Other Anaerobic Culture - Final NO GROWTH OF AEROBIC ORGANISMS AFTER 48 HOURS INCUBATION NO ANAEROBES WERE ISOLATED 05/21/16 09:53 Tissue-Other Gram Stain - Final 05/21/16 09:53 Tissue-Other Anaerobic Culture - Final NO ANAEROBES WERE ISOLATED 05/22/16 08:10 Blood - Peripheral Venous TB Test (QFT) ([facility]) - Preliminary 05/21/16 09:59 Bronchial Washings - Right Lower Lobe CLIFF Preparation - Preliminary 05/21/16 09:59 Bronchial Washings - Right Lower Lobe Fungal Culture - Preliminary Laboratory Tests 05/18/16 05/23/16 05/23/16 13:50 05:20 05:20 WBC Hgb Hct Plt Count C-Reactive Protein 5.4 H D Pleural Fluid Source Right pleural Pleural Color Red Pleural Appearance Hazy Pleural WBC 1,732 Pleural RBC 21,022 Pleural Neutrophils 8 Pleural Lymphocytes 70 Pleural Monocytes 3 Pleural Eosinophils 1 Pleural Basophils 1 Pleural Macrophages 17 Pleural Total Protein 5.244 Pleural Glucose 71.845 Histoplasma Antigen Pending Urine Histoplasma Ag 05/23/16 05/24/16 06:45 05:05 WBC 7.2 Hgb 9.7 L Hct 28.2 L Plt Count 411 C-Reactive Protein Pleural Fluid Source Pleural Color Pleural Appearance Pleural WBC Pleural RBC Pleural Neutrophils Pleural Lymphocytes Pleural Monocytes Pleural Eosinophils Pleural Basophils Pleural Macrophages Pleural Total Protein Pleural Glucose Histoplasma Antigen Urine Histoplasma Ag Pending Assessment Post VAT exudative pleural effusion negative cutures to date Abnormal thickening of colon noted CT ? impacted Plan Check pathology today Federico WILKINSON
[2016-05-24] MEDS: oxyCODONE HCL 5 MG TABLET PO PRN ×3 (08:30→21:55)
[2016-05-24] MEDS: ERTAPENEM SODIUM 1 GM in SODIUM CHLORIDE 50 ML IVPB SCH (09:41)
[2016-05-24] MEDS ORDERED: amLODIPine BESYLATE 10 MG TABLET (FP) PO SCH (10:00)
[2016-05-24] MEDS ORDERED: HYDROCHLOROTHIAZIDE 12.5 MG CAPSULE (FP) PO SCH (10:00)
[2016-05-24] MEDS ORDERED: LOSARTAN POTASSIUM 50 MG TABLET (FP) PO SCH (10:00)
[2016-05-24] MEDS: HYDROCHLOROTHIAZIDE 12.5 MG CAPSULE (FP) PO SCH (10:01)
[2016-05-24] MEDS: LOSARTAN POTASSIUM 50 MG TABLET (FP) PO SCH (10:01)
[2016-05-24] MEDS: LIDOCAINE 5% TOPICAL PATCH TP SCH (10:02)
--- NOTE | 2016-05-24 11:21 | PATH ---
Cytology Non-Gynecological Report Patient Name: CICI BARROS Med. Rec. 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 Peter B. Berkey, M.D. Specimen(s) Received PLEURAL FLUID Clinical History Pleural effusion, empyema Final Diagnosis PLEURAL FLUID: SATISFACTORY FOR EVALUATION. NO MALIGNANT CELLS IDENTIFIED. REACTIVE MESOTHELIAL CELLS, HISTIOCYTES AND MIXED INFLAMMATORY CELLS INCLUDING NEUTROPHILS. Comment: Also refer to [id number] for the pleural biopsy results. Electronically Signed Arnel Freire M.D. Gross Description Received is 50 cc of yellow fluid fresh. Two cytofunnel slide and one cell block are made.
--- NOTE | 2016-05-24 11:27 | PATH ---
Surgical Pathology Report Patient Name: CICI BARROS [facility]. Rec. #: [id number] /Age/Gender: 1960 (Age: 55) / F Account: [id number] Location: ICU HOT [place] MAN Taken: 05/21/2016 Received: 05/21/2016 Reported: 05/24/2016 Physicians: Santa Joe M.D. Specimen(s) Received RIGHT PLEURAL BIOPSY Clinical History Pleural effusion Empyema Final Diagnosis PLEURA, RIGHT, BIOPSY: BENIGN FIBROCONNECTIVE FIBROFATTY TISSUE WITH MARKED ACTIVE AND CHRONIC INFLAMMATION AND INFLAMED GRANULATION TISSUE CONSISTENT WITH ORGANIZING EMPYEMA. NO DEFINITIVE GRANULOMATA IDENTIFIED. NO MALIGNANCY IDENTIFIED IN THE EXAMINED MATERIAL. Comment: Also refer to [id number] for the cytology results. Electronically Signed Arnel Freire M.D. Gross Description Received in formalin labeled "right pleural biopsy" are 2 noel-brown, irregular portions of soft tissue measuring 0.3 x 0.2 x 0.2 cm and 1.2 x 0.6 x 0.2 cm. The larger portion is bisected and the specimen is entirely submitted in one cassette. 05/21/201605/21/2016
--- NOTE | 2016-05-24 12:11 | PROC ---
Procedure Note Procedure: POD#3 Pt without any CP/SOB. Vital Signs Period Temp Pulse Resp BP Sys/Bustillos Pulse Ox Last 24 Hr 97.6 F-99 F 68-94 14-86 86-126/50-82 93-95 CT-anterior, 35 ml, serous lateral, 90ml serous PE: GEN:appears comfortable CV: RRR Lungs: CTA b/l anteriorly ABd: soft, non-distended, non-tender CBC, BMP 03// 05:05 03// 05:05 CXR-? right apical/lateral pntx 3/ A/P:55 yo female s/p right VATS, pneumolysis with pleural bx, POD#[address] to suction oob/incentive spirometer pain managment as needed
--- NOTE | 2016-05-24 12:34 | PN ---
Progress Note (short form) - Note Progress Note: POD#3 Pt without complaints. Vital Signs Period Temp Pulse Resp BP Sys/Bustillos Pulse Ox Last 24 Hr 97.6 F-99 F 68-94 14-86 86-126/50-82 93-95 CT-anterior 35ml, serous lateral 90ml, serous PE; GEN: appears comfortable CV:RRR Lungs: Cta b/l anteriorly, No air leak in wither CT ABD: soft, non-distended, non-tend CBC, BMP 03//17 05:05 03//17 05:05 CXR-?apical pntx A/P: 55 yo female, POD#3 s/p Right VATS, pneumolysis, peural bx and drainage of effusion S/w Dr. Wang and CT to water seal cont oob to chair and incentive spirometer pain management
--- NOTE | 2016-05-24 13:28 | PN ---
Teaching Attending Note Name of Resident: Mahesh Chin ATTENDING PHYSICIAN STATEMENT I saw and evaluated the patient. I reviewed the resident's note and discussed the case with the resident. I agree with the resident's findings and plan as documented. SUBJECTIVE: Patient seen and examined in the ICU. Awake and alert. Minimal discomfort from the CT sites. No abdominal pain. Intake & Output 05/21/16 05/22/16 05/23/16 05/24/16 23:59 23:59 23:59 23:59 Intake Total 3050 2175 1520 300 Output Total 1609 1970 80 45 Balance 7011 007 3738 255 Weight 218 lb 222 lb 14.4 oz 219 lb 12.8 oz 222 lb 12.8 oz Last Vital Signs Temp Pulse Resp BP Pulse Ox 98.4 F 74 18 107/65 95 05/24/16 10:00 05/24/16 11:19 05/24/16 10:00 05/24/16 10:00 05/24/16 11:19 Active Medications Acetaminophen (Tylenol -) 650 mg PO Q6H PRN PRN Reason: FEVER OR PAIN Last Admin: 05/23/16 20:46 Dose: 650 mg Heparin Sodium (Porcine) (Heparin -) 5,000 unit SQ TID [facility] Last Admin: 05/24/16 05:06 Dose: 5,000 unit Hydrochlorothiazide (Hctz -) 12.5 mg PO DAILY [facility] Last Admin: 05/24/16 10:01 Dose: Not Given Ertapenem 1 gm/ Sodium (Chloride) 50 mls @ 100 mls/hr IVPB DAILY [facility] Last Admin: 05/24/16 09:41 Dose: 100 mls/hr Ipratropium [place] (Atrovent 0.02% Nebulizer -) 1 amp NEB QIDR [facility] Last Admin: 05/24/16 11:19 Dose: 1 amp Levothyroxine Sodium (Synthroid -) 125 mcg PO DAILY@0700 [facility] Last Admin: 05/24/16 06:10 Dose: 125 mcg Lidocaine (Lidoderm Patch -) 1 patch TP DAILY [facility] Last Admin: 05/24/16 10:02 Dose: 1 patch Losartan Potassium (Cozaar -) 50 mg PO DAILY [facility] Last Admin: 05/24/16 10:01 Dose: Not Given Ondansetron HCl (Zofran Injection) 4 mg IVPUSH Q6H PRN PRN Reason: NAUSEA AND/OR VOMITING Oxycodone HCl (Roxicodone -) 5 mg PO Q4H PRN PRN Reason: PAIN Oxycodone HCl (Roxicodone -) 10 mg PO Q4H PRN PRN Reason: PAIN Last Admin: 05/24/16 08:30 Dose: 10 mg Polyethylene Glycol (Miralax (For Daily Use) -) 17 gm PO TID [facility] Last Admin: 05/24/16 05:06 Dose: 17 grams Tramadol HCl (Ultram -) 50 mg PO Q6H [facility] Last Admin: 05/24/16 05:05 Dose: 50 mg Exam: General: awake, alert and cooperative CV: S1, S2 no m/r/g Pulm: CTA, chest tube right x2 serosang drainage no airleak Abd: SNTND Ext: WWP, trace edema Neuro: CN grossly intact Laboratory Results - last 24 hr 05/24/16 05/24/16 05:05 05:05 WBC 7.2 RBC 3.35 L Hgb 9.7 L Hct 28.2 L MCV 84.4 MCHC 34.3 RDW 14.3 Plt Count 411 MPV 7.0 L Sodium 137 Potassium 3.7 Chloride 96 L Carbon Dioxide 32 Anion Gap 9 BUN 7 Creatinine 0.5 L Random Glucose 98 Calcium 8.1 L Phosphorus 4.6 Magnesium 2.5 H CXR: chest tubes on right side, overall unchanged IMP: Pneumonia R/O Parapneumonic Pleural Effusion Possible subdiaphragmatic communication (?) Mass Atelectasis HTN Hypothyroidism Follow up pleural fluid analysis/path results ABX coverage as per ID Incentive Spirometry PT, OOB to chair as tolerated VTE prophylaxis Pain control Chest tube management per CTS PO as tolerated Repeat CT to evaluate intra-abdominal process Daily CXR Dr Carvalho CCTime 35"
--- NOTE | 2016-05-24 13:49 | PN ---
Teaching Attending Note Name of Resident: Gustavo Miner ATTENDING PHYSICIAN STATEMENT I saw and evaluated the patient. I reviewed the resident's note and discussed the case with the resident. I agree with the resident's findings and plan as documented. SUBJECTIVE: R sided chest pain at site of CT insertion . no fever ro chills. Over night BP was low but pt wasnot symptomatic OBJECTIVE: NAD CV: RRR Lungs: CTAB , decreased breath sounds at R base. Ext : no edema on LE Abd : soft, ND ,NT , NL BS ASSESSMENT AND PLAN: Patient is a 55 y/o F w PMH of HTN, hypothyroidism presented to ER w/ R sided chest/abdominal pain x 2 days. Found to have R pleural effusion , Treated for CAP 1- Exudative R pleural effusion: PAthology of pleural bx results noted ...? organized empyema . these findings were d/w Dr. Freire , those findings could be due to infection or inflammation. ALso, spoke to Dr. Wang, who strongly suspect the phlegmon under the diaphragm is contributing to the pleural effusion . and Recs were made for repeat CT scan of C/A/P - will repeat scan C/A/P - depending on findings , might ask sx to drain the R orion-hepatic phlegmon - cont abx for now - cont pain control - plan fro removing one CT tomorrow , then another one on Tuesday 2- Ascending colitis on CT scan: - cont ertapenem for now - cont miralax - colo and EGD , hopefully when CT are removed 3- Mass adjacent to liver : reactive with granuloma , likely around a dropped stone will d/w sx after scan results 4-HTN : hold norvasc and place holding parameters on HCTZ/losartan. Dispo : HLOC Critical Care Total Critical Care Time (in minutes): 35 Critical Care Statement: The care of this patient involved high complexity decision making to prevent further life threatening deterioration of the patient 's condition and/or to evalute & treat vital organ system(s) failure or risk of failure.
--- NOTE | 2016-05-24 14:31 | PN ---
Physical Exam: SUBJECTIVE: Patient seen and examined at bedside in the ICU complains of pain at chest tube insertion site feels well overall OBJECTIVE: Vital Signs Period Temp Pulse Resp BP Sys/Bustillos Pulse Ox Last 24 Hr 98 F-99 F 68-94 16-86 86-126/50-79 93-95 GENERAL: The patient is awake, alert, and fully oriented, in no acute distress. HEAD: Normal with no signs of trauma. NECK: supple. LUNGS: diminished breath sounds on the right with crackles. left side is clear. 2 chest tubes in places with serous drainage no air leak HEART: Regular rate and rhythm, S1, S2 without murmur, rub or gallop. ABDOMEN: ABD soft non tender non distended NEUROLOGICAL: Cranial nerves II through XII grossly intact. Normal speech PSYCH: Normal mood, normal affect. Laboratory Results - last 24 hr 05/22/16 05/24/16 05/24/16 05:10 05:05 05:05 WBC 7.2 RBC 3.35 L Hgb 9.7 L Hct 28.2 L MCV 84.4 MCHC 34.3 RDW 14.3 Plt Count 411 MPV 7.0 L Sodium 137 Potassium 3.7 Chloride 96 L Carbon Dioxide 32 Anion Gap 9 BUN 7 Creatinine 0.5 L Random Glucose 98 Calcium 8.1 L Phosphorus 4.6 Magnesium 2.5 H Hepatitis C Antibody 0.2 Active Medications Generic Name Dose Route Start Last Admin Trade Name Freq PRN Reason Stop Dose Admin Acetaminophen 650 mg 05/23/16 17:35 05/23/16 20:46 Tylenol - PO 650 mg Q6H PRN Administration FEVER OR PAIN Heparin Sodium (Porcine) 5,000 unit 05/23/16 22:00 05/24/16 14:11 Heparin - SQ 5,000 unit TID [facility] Administration Hydrochlorothiazide 12.5 mg 05/24/16 10:00 05/24/16 10:01 Hctz - PO Not Given DAILY [facility] Ertapenem 1 gm/ Sodium 50 mls @ 100 mls/hr 05/24/16 10:00 05/24/16 09:41 Chloride IVPB 100 mls/hr DAILY [facility] Administration Ipratropium [place] 1 amp 05/23/16 18:00 05/24/16 11:19 Atrovent 0.02% Nebulizer - NEB 1 amp QIDR [facility] Administration Levothyroxine Sodium 125 mcg 05/24/16 07:00 05/24/16 06:10 Synthroid - PO 125 mcg DAILY@0700 [facility] Administration Lidocaine 1 patch 05/24/16 10:00 05/24/16 10:02 Lidoderm Patch - TP 1 patch DAILY [facility] Administration Losartan Potassium 50 mg 05/24/16 10:00 05/24/16 10:01 Cozaar - PO Not Given DAILY [facility] Ondansetron HCl 4 mg 05/23/16 17:35 Zofran Injection IVPUSH Q6H PRN NAUSEA AND/OR VOMITING Oxycodone HCl 5 mg 05/23/16 17:35 Roxicodone - PO Q4H PRN PAIN Oxycodone HCl 10 mg 05/23/16 17:35 05/24/16 08:30 Roxicodone - PO 10 mg Q4H PRN Administration PAIN Polyethylene Glycol 17 gm 05/23/16 22:00 05/24/16 05:06 Miralax (For Daily Use) - PO 17 grams TID [facility] Administration Tramadol HCl 50 mg 05/23/16 18:00 05/24/16 14:10 Ultram - PO 50 mg Q6H [facility] Administration ASSESSMENT/PLAN: 55 y/o F w/PMH of HTN, hypothyroidism presented to ER w/ R sided chest/ abdominal pain x 2 days. Found to have R pleural effusion. she is now POD#3 s/p bronchoscopy, Right VATS, pneumolysis, pleural biopsy, drainage of pleural effusion, insertion of chest tubex2 Right pleural effusion/Community acquired pneumonia/Sepsis (leukocytosis and fever): community acquired pneumonia with parapneumonic effusion with pleuritic chest pain. at this point i do not think the patient had a pneumonia as her chest reaccumulated with pleural effusions so quickly with antibiotics s/p thoracentesis x2 patient had reaccumulation of fluid pulmonary requested repeat thoracentesis and second one was done 05/18/16 ID consult appreciated Azithromycin and Ceftriaxone stopped on day 5 continue ertapenem day 8 given possible stone dropped in abdomen during cholecystectomy pleural fluid studies-shows inital thoracentesis was exudative likely parapneuomonic effusion-cytology negative-cytology shows inflammatory cells Afebrile f/u pleural fluid studies is not revealing any infectious source pulmonary consult appreciated CT chest results noted Chest tube to waterseal per CT surgery for possible removal of one chest tube today or tomorrow pain control is very important for this patient so she could take deep breaths and does not splint. as well as incentive spirometry. this was explained to the patient in detail. WIll send complement Anti SS and Anti DS DNA Will repeat CT Chest ABD/Pelv today Pleural fluid exudative-per pathology report possible organizing empyema abdominal wall mass: this was seen on chest CT also read as a mass on abdominal CT after reviewing the scans with radiology they do not feel there is a mass in the liver. it is likely part of the abdominal wall vs a dropped stone from her cholecystectomy LFTs WNL will see if right flank/chest/abdominal pain improves with treatment of pneumonia-no significant improvement Repeat Abdominal CT noted GI consult aspirated on 05/18/16 by IR- pathology report inflammatory cells Surgery consult appreciated-may need surgical drainage Ascending colitis seen on CT scan: Patient now with diarrhea infectious vs inflammatory GI consult appreciated-possible Colonoscopy and EGD on this admission Surgery consult appreciated-agrees with GI plan Continue ertapenem Stool studies and C diff-pending Mass posterior to stomach: new mass seen on CT scan that was not there on prior CT on this admission GI consult appreciated possible colonoscopy on this admission next week HTN-patient is currently borderline hypotensive Hold Norvasc for now continue Losartan and HCTZ with hold parameters Hypothyroidism Synthroid 125mcg qam -FEN no IVF no electrolyte issues CLD advance as tolerated PPx: HSQ/SCDs No criteria met for GI PPx PT consult to avoid deconditioning as she had a major surgery Visit type - Emergency Visit Emergency Visit: Yes ED Registration Date: 05/12/16 Care time: The patient presented to the Emergency Department on the above date and was hospitalized for further evaluation of their emergent condition. - New Patient This patient is new to me today: No - Critical Care Critical Care patient: Yes Total Critical Care Time (in minutes): 45 Critical Care Statement: The care of this patient involved high complexity decision making to prevent further life threatening deterioration of the patient 's condition and/or to evalute & treat vital organ system(s) failure or risk of failure.
--- NOTE | 2016-05-24 16:27 | PN ---
Physical Exam: SUBJECTIVE: Patient seen and examined at bedside in ICU. She reported feeling better, slight pain at chest tube site but under control, still no bowel movement. Further denies fever, chills, chest pain, sob, urinary sx. OBJECTIVE: Vital Signs Period Temp Pulse Resp BP Sys/Bustillos Pulse Ox Last 24 Hr 98 F-99 F 68-99 16-18 86-137/50-82 93-95 GENERAL: AAOx3, not in cardiopulmonary distress EYES: sclera anicteric, conjunctiva clear. EARS, NOSE, THROAT: moist mucous membranes, no exudate LUNGS: CTAB HEART: RRR, normal S1 and S2 without murmur, rub or gallop. ABDOMEN: soft, hypoactive bs, non-tender, no rebound or guarding, vertical surgical scar, chest tubes in place with clean dressing EXTREMITIES: SCDs. No peripheral edema. SKIN: bruises on b/l forearms due to needle sticks in ED CBCD WBC 7.2 K/mm3 (4.0-10.0) 05/24/16 05:05 RBC 3.35 M/mm3 (3.60-5.2) L 05/24/16 05:05 Hgb 9.7 GM/dL (10.7-15.3) L 05/24/16 05:05 Hct 28.2 % (32.4-45.2) L 05/24/16 05:05 MCV 84.4 fl (80-96) 05/24/16 05:05 MCHC 34.3 g/dl (32.0-36.0) 05/24/16 05:05 RDW 14.3 % (11.6-15.6) 05/24/16 05:05 Plt Count 411 K/MM3 (134-434) 05/24/16 05:05 MPV 7.0 fl (7.5-11.1) L 05/24/16 05:05 CMP Sodium 137 mmol/L (136-145) 05/24/16 05:05 Potassium 3.7 mmol/L (3.5-5.1) 05/24/16 05:05 Chloride 96 mmol/L (98-107) L 05/24/16 05:05 Carbon Dioxide 32 mmol/L (21-32) 05/24/16 05:05 Anion Gap 9 (8-16) 05/24/16 05:05 BUN 7 mg/dL (7-18) 05/24/16 05:05 Creatinine 0.5 mg/dL (0.55-1.02) L 05/24/16 05:05 Creat Clearance w eGFR > 60 (>60) 05/23/16 05:20 Calcium 8.1 mg/dL (8.5-10.1) L 05/24/16 05:05 Total Bilirubin 0.4 mg/dL (0.2-1.0) D 05/23/16 05:20 AST 42 U/L (15-37) H D 05/23/16 05:20 ALT 60 U/L (12-78) D 05/23/16 05:20 Alkaline Phosphatase 98 U/L (45-117) 05/23/16 05:20 Total Protein 6.0 g/dl (6.4-8.2) L 05/23/16 05:20 Albumin 2.3 g/dl (3.4-5.0) L 05/23/16 05:20 Intake & Output 05/21/16 05/22/16 05/23/16 05/24/16 23:59 23:59 23:59 23:59 Intake Total 3050 2175 1520 300 Output Total 1609 1970 80 45 Balance 8180 888 0406 255 Weight 98.883 kg 101.106 kg 99.7 kg 101.06 kg Active Medications Generic Name Dose Route Start Last Admin Trade Name Freq PRN Reason Stop Dose Admin Acetaminophen 650 mg 05/23/16 17:35 05/23/16 20:46 Tylenol - PO 650 mg Q6H PRN Administration FEVER OR PAIN Heparin Sodium (Porcine) 5,000 unit 05/23/16 22:00 05/24/16 14:11 Heparin - SQ 5,000 unit TID FRANKIE Administration Hydrochlorothiazide 12.5 mg 05/24/16 10:00 05/24/16 10:01 Hctz - PO Not Given DAILY FRANKIE Ertapenem 1 gm/ Sodium 50 mls @ 100 mls/hr 05/24/16 10:00 05/24/16 09:41 Chloride IVPB 100 mls/hr DAILY FRANKIE Administration Ipratropium [place] 1 amp 05/23/16 18:00 05/24/16 11:19 Atrovent 0.02% Nebulizer - NEB 1 amp QIDR FRANKIE Administration Levothyroxine Sodium 125 mcg 05/24/16 07:00 05/24/16 06:10 Synthroid - PO 125 mcg DAILY@0700 FRANKIE Administration Lidocaine 1 patch 05/24/16 10:00 05/24/16 10:02 Lidoderm Patch - TP 1 patch DAILY FRANKIE Administration Losartan Potassium 50 mg 05/24/16 10:00 05/24/16 10:01 Cozaar - PO Not Given DAILY FRANKIE Ondansetron HCl 4 mg 05/23/16 17:35 Zofran Injection IVPUSH Q6H PRN NAUSEA AND/OR VOMITING Oxycodone HCl 5 mg 05/23/16 17:35 Roxicodone - PO Q4H PRN PAIN Oxycodone HCl 10 mg 05/23/16 17:35 05/24/16 16:02 Roxicodone - PO 10 mg Q4H PRN Administration PAIN Polyethylene Glycol 17 gm 05/23/16 22:00 05/24/16 14:35 Miralax (For Daily Use) - PO 17 grams TID FRANKIE Administration Senna 1 tab 05/24/16 22:00 Senna - PO BID FRANKIE Tramadol HCl 50 mg 05/23/16 18:00 05/24/16 14:10 Ultram - PO 50 mg Q6H FRANKIE Administration Microbiology Pleural biopsy: no malignant cell R flank mass: no malignant cell. Granulation tissue. 05/21/16 Pleural fluid analysis - PENDING 05/18/16 Pleural fluid gram stain, culture and aspirate - NEGATIVE 05/18/16 Pleural Fluid AFB Smear Concentration - Preliminary 05/18/16 Pleural Fluid Mycobacterial Culture - Preliminary 05/15/16 Blood Culture - NEGATIVE Imaging CXR on 05/21: right chest tube in place Chest, Abd and Pelvis CT on 05/19: Posterior chest wall mass. Right effusion and compressive atelectasis. Abnormal hypodense area posterior to the postoperative stomach. Colitis with diffuse infiltrating lesion. ASSESSMENT/PLAN: 55 yo F w/ h/o HTN, cholecystectomy and hypothyroidism on synthroid initially admitted to the hospital through ER for R chest x 2 days and abdominal painx 1 month. Patient was found to have refractory pleural effusion with unknown etiology and now s/p thoracentesis on observation in ICU. Pulm: Refractory malignant vs. nonmalignant pleural effusion - s/p R VATS, pleural biopsy, 3rd thoracentesis, and chest tube insertion * exudative, negative cytology, positive inflammatory cells - CT removal planned tomorrow and tuesday - Fentanyl for pain control - Incentive spirometer GI: R flank mass; perigastric fluid collection - Mass likely to be reactive inflammatory process around dropped stone * No malignancy per pathology; granulation tissue * F/U repeat CT - Newly developed perigastric fluid collection * Stomach stapling in 1989 at [facility] * Recanulated in 1990 * F/U repeat CT ID: Infectious vs. inflammatory colitis; CAP; h/o Hep A - Afrebile with normal WBC - Colitis likely 2/2 stool impaction * persistent constipation on pain meds * trial of Miralax for decompaction * added senna - Cont. ertapenem Cardiac: HTN - Cont. Cozaar, HCTZ and norvasc Endo: Hypothyroidism - On synthroid 125 mcg FEN - Not on IVF - Normal lytes, cont. to monitor - Sodium controlled diet Prophylaxis - DVT: heparin TID SQ - GI: Not indicated Disposition - Transfer to [facility] [place]-surg Code status - Full code Visit type - Emergency Visit Emergency Visit: No - New Patient This patient is new to me today: No - Critical Care Critical Care patient: Yes Total Critical Care Time (in minutes): 45 Critical Care Statement: The care of this patient involved high complexity decision making to prevent further life threatening deterioration of the patient 's condition and/or to evalute & treat vital organ system(s) failure or risk of failure. - Discharge Referral Referred to [facility] Med P.C.: No
[2016-05-24] MEDS: SENNOSIDES 8.6MG TABLET (FP) PO SCH (21:55)
[2016-05-25 00:11] LABS: HEP B SURFACE AB Non Reactive (.)
[2016-05-25] MEDS: oxyCODONE HCL 5 MG TABLET PO PRN ×2 (03:00→21:59)
[2016-05-25] MEDS: IPRATROPIUM BR 0.02% 0.5 MG/2.5 ML VIAL.NEB. NEB SCH ×2 (06:06→11:07)
[2016-05-25] MEDS: traMADol HCL 50 MG TABLET PO SCH ×4 (06:23→23:41)
[2016-05-25] MEDS: HEPARIN NA (PORCINE) 5,000 UNITS/ML 1ML VIAL SQ SCH ×3 (06:23→21:49)
[2016-05-25] MEDS: LEVOTHYROXINE NA 125 MCG TABLET (FP) PO SCH (06:24)
[2016-05-25] MEDS: POLYETHYLENE GLYCOL 3350 119 GM BTL PO SCH ×3 (06:26→21:52)
[2016-05-25 08:36] LABS: MCH 28.9 pg (25.7-33.7); MCHC 33.9 g/dl (32.0-36.0); MEAN CELL VOLUME 85.3 fl (80-96); PLATELET COUNT 413 K/MM3 (134-434); RDW 14.6 % (11.6-15.6); WHITE BLOOD COUNT 6.8 K/mm3 (4.0-10.0)
[2016-05-25] MEDS ORDERED: PT OWN MED DRAWER 7, Y5N ONE (09:12)
[2016-05-25] MEDS: LIDOCAINE 5% TOPICAL PATCH TP SCH (09:39)
[2016-05-25] MEDS: SENNOSIDES 8.6MG TABLET (FP) PO SCH ×2 (09:39→21:49)
[2016-05-25] MEDS: HYDROCHLOROTHIAZIDE 12.5 MG CAPSULE (FP) PO SCH (09:39)
[2016-05-25] MEDS: LOSARTAN POTASSIUM 50 MG TABLET (FP) PO SCH (09:40)
[2016-05-25] MEDS: ERTAPENEM SODIUM 1 GM in SODIUM CHLORIDE 50 ML IVPB SCH (09:41)
[2016-05-25 10:01] LABS: CALCIUM 8.4 mg/dL (8.5-10.1); CREATININE 0.5 mg/dL (0.55-1.02)
--- NOTE | 2016-05-25 12:35 | PN ---
Progress Note (short form) - Note Progress Note: 1 chest tube removed today, the 2nd to be removed tomorrow Repeat CT scan revealed enlarged perigastric fluid collection, phelgmonous process right flank and right colon appears normal with retained stool On miralax TID. No BM x 3 days and receiving frequent PO opiate analgesia Ms. Jarrell confirmed that she did not have a gastric bypass but rather was told of a gastroplasty Ordered Soap Suds Enema Continue miralax 17g TID Possible EGD/Colonoscopy 05/27 Advised resident Isidra to obtain previous endoscopic records from Dr. Mendez
--- NOTE | 2016-05-25 12:36 | PN ---
Progress Note (short form) - Note Progress Note: PULMONARY Still some right sided discomfort. One chest tube removed today. No fevers or chills. Last Vital Signs Temp Pulse Resp BP Pulse Ox 97.9 F 59 L 18 100/59 95 05/25/16 10:00 05/25/16 10:00 05/25/16 10:00 05/25/16 10:00 05/24/16 20:09 Gen: NAD at rest Heart: RRR Lung: decreased breath sounds at the bases Abd: soft, nontender Ext: no edema Chest tube: serosanguinous drainage, no air leak CBC, BMP 05/25/16 07:00 05/25/16 07:00 Active Medications Acetaminophen (Tylenol -) 650 mg PO Q6H PRN PRN Reason: FEVER OR PAIN Last Admin: 05/23/16 20:46 Dose: 650 mg Heparin Sodium (Porcine) (Heparin -) 5,000 unit SQ TID [facility] Last Admin: 05/25/16 06:23 Dose: 5,000 unit Hydrochlorothiazide (Hctz -) 12.5 mg PO DAILY [facility] Last Admin: 05/25/16 09:39 Dose: 12.5 mg Ertapenem 1 gm/ Sodium (Chloride) 50 mls @ 100 mls/hr IVPB DAILY [facility] Last Admin: 05/25/16 09:41 Dose: 100 mls/hr Ipratropium [place] (Atrovent 0.02% Nebulizer -) 1 amp NEB QIDR [facility] Last Admin: 05/25/16 11:07 Dose: 1 amp Levothyroxine Sodium (Synthroid -) 125 mcg PO DAILY@0700 [facility] Last Admin: 05/25/16 06:24 Dose: 125 mcg Lidocaine (Lidoderm Patch -) 1 patch TP DAILY [facility] Last Admin: 05/25/16 09:39 Dose: 1 patch Losartan Potassium (Cozaar -) 50 mg PO DAILY [facility] Last Admin: 05/25/16 09:40 Dose: 50 mg Ondansetron HCl (Zofran Injection) 4 mg IVPUSH Q6H PRN PRN Reason: NAUSEA AND/OR VOMITING Oxycodone HCl (Roxicodone -) 5 mg PO Q4H PRN PRN Reason: PAIN Last Admin: 05/25/16 03:00 Dose: 5 mg Oxycodone HCl (Roxicodone -) 10 mg PO Q4H PRN PRN Reason: PAIN Last Admin: 05/24/16 16:02 Dose: 10 mg Polyethylene Glycol (Miralax (For Daily Use) -) 17 gm PO TID [facility] Last Admin: 05/25/16 06:26 Dose: 17 grams Senna (Senna -) 1 tab PO BID [facility] Last Admin: 05/25/16 09:39 Dose: 1 tab Tramadol HCl (Ultram -) 50 mg PO Q6H [facility] Last Admin: 05/25/16 11:43 Dose: 50 mg A/P Intra-abdominal fluid collection Exudative Pleural Effusion likely reactive Atelectasis HTN Hypothyroidism - monitor CT output - continue antibiotics - monitor fever curve, WBC trend - GI work up in progress - pain control - DVT prophylaxis
[2016-05-25] MEDS ORDERED: IPRATROPIUM BR 0.02% 0.5 MG/2.5 ML VIAL.NEB. NEB PRN (12:37)
--- NOTE | 2016-05-25 15:23 | PN ---
Physical Exam: SUBJECTIVE: Patient seen and examined at bedside upset and tearful she is still hospitalized and still not sure as to the whole picture of what is going on moral support offered OBJECTIVE: Vital Signs Period Temp Pulse Resp BP Sys/Bustillos Pulse Ox Last 24 Hr 97.9 F-99.2 F 59-99 18-18 100-137/59-82 95-96 GENERAL: The patient is awake, alert, and fully oriented, in no acute distress. HEAD: Normal with no signs of trauma. NECK: supple. LUNGS: diminished breath sounds on the right with crackles. left side is clear. 2 chest tubes in places with serous drainage no air leak HEART: Regular rate and rhythm, S1, S2 without murmur, rub or gallop. ABDOMEN: ABD soft non tender non distended NEUROLOGICAL: Cranial nerves II through XII grossly intact. Normal speech PSYCH: tearful Laboratory Results - last 24 hr 05/22/16 05/25/16 05/25/16 05:10 07:00 07:00 WBC 6.8 RBC 3.23 L Hgb 9.4 L Hct 27.6 L MCV 85.3 MCHC 33.9 RDW 14.6 Plt Count 413 MPV 7.0 L Sodium 139 Potassium 4.0 Chloride 97 L Carbon Dioxide 31 Anion Gap 11 BUN 5 L D Creatinine 0.5 L Random Glucose 91 Calcium 8.4 L CODY Screen Positive H CODY Homogeneous Pattern 1:160 H CODY Nucleolar Pattern TNP CODY Speckled Pattern TNP CODY Centromere Pattern TNP Hep A IgM Ab Confirm Negative Hepatitis A Ab Total Positive H Hep Bs Antigen Negative Hep Bs Antibody Non reactive Hep B Core Total Ab Negative Active Medications Generic Name Dose Route Start Last Admin Trade Name Manuela PRN Reason Stop Dose Admin Acetaminophen 650 mg 05/23/16 17:35 05/23/16 20:46 Tylenol - PO 650 mg Q6H PRN Administration FEVER OR PAIN Heparin Sodium (Porcine) 5,000 unit 05/23/16 22:00 05/25/16 14:49 Heparin - SQ 5,000 unit TID FRANKIE Administration Hydrochlorothiazide 12.5 mg 05/24/16 10:00 05/25/16 09:39 Hctz - PO 12.5 mg DAILY FRANKIE Administration Ertapenem 1 gm/ Sodium 50 mls @ 100 mls/hr 05/24/16 10:00 05/25/16 09:41 Chloride IVPB 100 mls/hr DAILY FRANKIE Administration Ipratropium [place] 1 amp 05/25/16 12:37 Atrovent 0.02% Nebulizer - NEB QIDR PRN SHORT OF BREATH/WHEEZING Levothyroxine Sodium 125 mcg 05/24/16 07:00 05/25/16 06:24 Synthroid - PO 125 mcg DAILY@0700 FRANKIE Administration Lidocaine 1 patch 05/24/16 10:00 05/25/16 09:39 Lidoderm Patch - TP 1 patch DAILY FRANKIE Administration Losartan Potassium 50 mg 05/24/16 10:00 05/25/16 09:40 Cozaar - PO 50 mg DAILY FRANKIE Administration Ondansetron HCl 4 mg 05/23/16 17:35 Zofran Injection IVPUSH Q6H PRN NAUSEA AND/OR VOMITING Oxycodone HCl 5 mg 05/23/16 17:35 05/25/16 03:00 Roxicodone - PO 5 mg Q4H PRN Administration PAIN Oxycodone HCl 10 mg 05/23/16 17:35 05/24/16 16:02 Roxicodone - PO 10 mg Q4H PRN Administration PAIN Polyethylene Glycol 17 gm 05/23/16 22:00 05/25/16 14:58 Miralax (For Daily Use) - PO 17 grams TID FRANKIE Administration Senna 1 tab 05/24/16 22:00 05/25/16 09:39 Senna - PO 1 tab BID FRANKIE Administration Tramadol HCl 50 mg 05/23/16 18:00 05/25/16 11:43 Ultram - PO 50 mg Q6H FRANKIE Administration ASSESSMENT/PLAN: 55 y/o F w/PMH of HTN, hypothyroidism presented to ER w/ R sided chest/ abdominal pain x 2 days. Found to have R pleural effusion. she is now POD#4 s/p bronchoscopy, Right VATS, pneumolysis, pleural biopsy, drainage of pleural effusion, insertion of chest tubex2 Right pleural effusion/Community acquired pneumonia/Sepsis (leukocytosis and fever): community acquired pneumonia with parapneumonic effusion with pleuritic chest pain. at this point i do not think the patient had a pneumonia as her chest reaccumulated with pleural effusions so quickly with antibiotics. pleureal effusions likely reactive to mass that is extra thoracic close to the liver possibly a dropped stone s/p thoracentesis x2 patient had reaccumulation of fluid pulmonary requested repeat thoracentesis and second one was done 05/18/16 ID consult appreciated Azithromycin and Ceftriaxone stopped on day 5 continue ertapenem day 9 given possible stone dropped in abdomen during cholecystectomy pleural fluid studies-shows inital thoracentesis was exudative likely parapneuomonic effusion-cytology negative-cytology shows inflammatory cells Afebrile f/u pleural fluid studies is not revealing any infectious source pulmonary consult appreciated CT chest results noted Chest tube to waterseal per CT surgeryto remove one chest tube today another one tomorrow pain control is very important for this patient so she could take deep breaths and does not splint. as well as incentive spirometry. this was explained to the patient in detail. WIll send complement Anti SS and Anti DS DNA-pending Will repeat CT Chest ABD/Pelv today Pleural fluid exudative-per pathology report possible organizing empyema abdominal wall mass: this was seen on chest CT also read as a mass on abdominal CT after reviewing the scans with radiology they do not feel there is a mass in the liver. it is likely part of the abdominal wall vs a dropped stone from her cholecystectomy LFTs WNL will see if right flank/chest/abdominal pain improves with treatment of pneumonia-no significant improvement Repeat Abdominal CT noted GI consult aspirated on 05/18/16 by IR- pathology report inflammatory cells Surgery consult appreciated-may need surgical drainage Ascending colitis seen on CT scan: Patient now with diarrhea infectious vs inflammatory GI consult appreciated-possible Colonoscopy and EGD on this admission possible this or tuesday Surgery consult appreciated-agrees with GI plan Continue ertapenem Stool studies and C diff-pending Mass posterior to stomach: new mass seen on CT scan that was not there on prior CT on this admission GI consult appreciated possible colonoscopy/EGD on this admission next week on repeat CT scan of the abdomen it appears this mass has increased in size- being read as possible contained leak. Dr. Navarrete contacted will see patient tonight-requesting EGD/colonoscopy be done first HTN-patient is currently well controlled Hold Norvasc for now continue Losartan and HCTZ with hold parameters Hypothyroidism Synthroid 125mcg qam -FEN no IVF no electrolyte issues low sodium diet PPx: HSQ/SCDs No criteria met for GI PPx PT consult to avoid deconditioning as she had a major surgery Lab holiday tomorrow AM Visit type - Emergency Visit Emergency Visit: Yes ED Registration Date: 05/12/16 Care time: The patient presented to the Emergency Department on the above date and was hospitalized for further evaluation of their emergent condition. - New Patient This patient is new to me today: No - Critical Care Critical Care patient: No
--- NOTE | 2016-05-25 16:38 | PN ---
Teaching Attending Note Name of Resident: Gustavo Miner ATTENDING PHYSICIAN STATEMENT I saw and evaluated the patient. I reviewed the resident's note and discussed the case with the resident. I agree with the resident's findings and plan as documented. SUBJECTIVE: no fever ro chills, no abd apin , has pain in R chest wall at site of CT . OBJECTIVE: NAD CV: RRR Lungs: decreased breath sounds at R base with minimal crackles Ext : no edema on LE Abd : soft, ND ,NT , NL BS ASSESSMENT AND PLAN: Patient is a 55 y/o F w PMH of HTN, hypothyroidism presented to ER w/ R sided chest/abdominal pain x 2 days. Found to have R pleural effusion , Treated for CAP 1- Exudative R pleural effusion: pleural bx with organized empyema . supected etiology is connection through the diaphragm due to R orion-hepatic phlegmon . - C/A/P from yesterday reviewed. Still with orion-hepatic changes and air / contrast filled structure in retro-gastric area - one CT was removed today, plan to remove 2nd tomorrow - cont abx for now. case d/w Dr. Wang, recs fro ABx x 1 more week fro the perihepatic lesion - cont pain control 2- Ascending colitis on CT scan: repeat scan showed resolution of thickened wall - cont ertapenem for now - cont miralax . given enema - colo and EGD , on 3- Retro- gastric fluid collection including contrast and air : Dr. Aguilar was called by Dr. Miner. Pt will be re-evaluated. 4-HTN : hold norvasc and place holding parameters on HCTZ/losartan. Dispo : HLOC
[2016-05-26] MEDS ORDERED: ACETAMINOPHEN 325 MG TABLET (FP) PO PRN (02:33)
[2016-05-26] MEDS ORDERED: oxyCODONE HCL 5 MG TABLET PO PRN ×2 (02:33)
[2016-05-26] MEDS ORDERED: ONDANSETRON 4 MG/2 ML VIAL IVPUSH PRN (02:33)
[2016-05-26] MEDS: HEPARIN NA (PORCINE) 5,000 UNITS/ML 1ML VIAL SQ SCH ×2 (06:43→14:25)
[2016-05-26] MEDS: POLYETHYLENE GLYCOL 3350 119 GM BTL PO SCH ×3 (06:43→21:49)
[2016-05-26] MEDS: traMADol HCL 50 MG TABLET PO SCH ×4 (06:45→23:29)
[2016-05-26] MEDS: LEVOTHYROXINE NA 125 MCG TABLET (FP) PO SCH (06:45)
[2016-05-26] MEDS: SENNOSIDES 8.6MG TABLET (FP) PO SCH ×2 (10:10→21:50)
[2016-05-26] MEDS: HYDROCHLOROTHIAZIDE 12.5 MG CAPSULE (FP) PO SCH (10:10)
[2016-05-26] MEDS: ERTAPENEM SODIUM 1 GM in SODIUM CHLORIDE 50 ML IVPB SCH (10:10)
[2016-05-26] MEDS: LOSARTAN POTASSIUM 50 MG TABLET (FP) PO SCH (10:11)
[2016-05-26] MEDS: LIDOCAINE 5% TOPICAL PATCH TP SCH (10:12)
--- NOTE | 2016-05-26 10:50 | PN ---
GI Progress Note Subjective: GI NOte; Finally had 2 BMs yesterday. Denies abdominal pain. Anticipating removal of remaining CT today. Biopsies and aspirations are nondiagnostic so I have advised proceeding with EGD and colonoscopy tomorrow. I have informed Orquidea of the need for a bowel prep. I informed her of the potential for perforation and hemorrhage among other complications and the potential need for surgery or transfusions if complications arise. She has signed informed consents for both. - Objective Vital Signs: Vital Signs Temperature 98.9 F 05/26/16 06:00 Pulse Rate 92 H 05/26/16 06:00 Respiratory Rate 18 05/26/16 06:00 Blood Pressure 121/65 05/26/16 06:00 O2 Sat by Pulse Oximetry (%) 92 L 05/25/16 21:00 CBC,CMP WBC 6.8 K/mm3 (4.0-10.0) 05/25/16 07:00 Corrected WBC (auto) Cancelled 05/12/16 18:02 RBC 3.23 M/mm3 (3.60-5.2) L 05/25/16 07:00 Hgb 9.4 GM/dL (10.7-15.3) L 05/25/16 07:00 Hct 27.6 % (32.4-45.2) L 05/25/16 07:00 MCV 85.3 fl (80-96) 05/25/16 07:00 MCHC 33.9 g/dl (32.0-36.0) 05/25/16 07:00 RDW 14.6 % (11.6-15.6) 05/25/16 07:00 Plt Count 413 K/MM3 (134-434) 05/25/16 07:00 MPV 7.0 fl (7.5-11.1) L 05/25/16 07:00 Neutrophils % 81.5 % (42.8-82.8) 05/22/16 05:10 Lymphocytes % 9.5 % (8-40) D 05/22/16 05:10 Monocytes % 8.5 % (3.8-10.2) 05/22/16 05:10 Eosinophils % 0.1 % (0-4.5) D 05/22/16 05:10 Basophils % 0.4 % (0-2.0) 05/22/16 05:10 Differential Comment Manual diff done 05/20/16 06:40 Smudge Cells Cancelled 05/12/16 18:02 Platelet Estimate Slt increased (NORMAL) 05/20/16 06:40 Platelet Comment No clumping noted 05/12/16 22:50 Platelet Comment No clotting detected 05/12/16 22:50 RBC Morphology 05/12/16 22:50 ESR 15 mm/hr (0-30) 05/14/16 07:00 Sodium 139 mmol/L (136-145) 05/25/16 07:00 Potassium 4.0 mmol/L (3.5-5.1) 05/25/16 07:00 Chloride 97 mmol/L (98-107) L 05/25/16 07:00 Carbon Dioxide 31 mmol/L (21-32) 05/25/16 07:00 Anion Gap 11 (8-16) 05/25/16 07:00 BUN 5 mg/dL (7-18) L D 05/25/16 07:00 Creatinine 0.5 mg/dL (0.55-1.02) L 05/25/16 07:00 Creat Clearance w eGFR > 60 (>60) 05/23/16 05:20 Random Glucose 91 mg/dL (74-106) 05/25/16 07:00 Lactic Acid 1.306 mmol/L (0.4-2.0) 05/12/16 18:02 Calcium 8.4 mg/dL (8.5-10.1) L 05/25/16 07:00 Phosphorus 4.6 mg/dL (2.5-4.9) 05/24/16 05:05 Magnesium 2.5 mg/dL (1.8-2.4) H 05/24/16 05:05 Iron 36 ug/dL (27-159) 05/21/16 06:10 TIBC 198 ug/dL (250-450) L 05/21/16 06:10 Iron Saturation 18 % (15-55) 05/21/16 06:10 Ferritin 143.379 ng/ml (6.9-282.5) 05/22/16 05:10 Total Bilirubin 0.4 mg/dL (0.2-1.0) D 05/23/16 05:20 Direct Bilirubin 0.1 mg/dL (0.0-0.2) 05/22/16 05:10 AST 42 U/L (15-37) H D 05/23/16 05:20 ALT 60 U/L (12-78) D 05/23/16 05:20 Alkaline Phosphatase 98 U/L (45-117) 05/23/16 05:20 LD Total 150 U/L (84-246) 05/22/16 05:10 Creatine Kinase 41 IU/L (26-192) 05/12/16 18:02 Troponin I < 0.02 ng/ml (0.00-0.05) 05/12/16 18:02 C-Reactive Protein 5.4 MG/DL (0.00-0.3) H D 05/23/16 05:20 Total Protein 6.0 g/dl (6.4-8.2) L 05/23/16 05:20 Albumin 2.3 g/dl (3.4-5.0) L 05/23/16 05:20 Tumor Marker AFP 1.9 ng/ml (0.0-8.3) 05/22/16 05:10 Carcinoembryonic Ag 1.0 ng/mL (0.0-4.7) 05/22/16 05:10 Constitutional: Calm ...Auscultate: Yes: Normoactive Bowel Sounds ...Palpate: Yes: Soft, Other (nontender) Labs: CBC, BMP 05/25/16 07:00 05/25/16 07:00 INR, PTT INR 1.26 (0.82-1.09) H 05/22/16 05:10 Fibrinogen 512.0 mg/dL (238-498) H 05/13/16 08:05 Assessment/Plan Perihepatic and postgastric inflammatory vs malignant processes with penetration into right pleural space. Doubt a primary GI process but need to exclude. A residual dropped gallstone does fit. Will proceed with prep for EGD and colonoscopy tomorrow. Need to start the prep process even if procedures need to be postponed to Tuesday.
[2016-05-26] MEDS ORDERED: PEG3350/SOD SULF,BICARB,CL/KCL 4,000 ML SOLN.RECON PO ONE (13:00)
--- NOTE | 2016-05-26 14:06 | PN ---
Progress Note, Physician History of Present Illness: PULMONARY ALERT,OOB-CHAIR,-SOB.MINIMAL CHEST TUBE DRAINAGE - Current Medication List Current Medications: Active Medications Acetaminophen (Tylenol -) 650 mg PO Q6H PRN PRN Reason: FEVER OR PAIN Bisacodyl (Dulcolax -) 20 mg PO ONCE ONE Stop: 05/26/16 20:01 Heparin Sodium (Porcine) (Heparin -) 5,000 unit SQ TID [facility] Last Admin: 05/26/16 06:43 Dose: 5,000 unit Hydrochlorothiazide (Hctz -) 12.5 mg PO DAILY [facility] Last Admin: 05/26/16 10:10 Dose: 12.5 mg Ertapenem 1 gm/ Sodium (Chloride) 50 mls @ 100 mls/hr IVPB DAILY [facility] Last Admin: 05/26/16 10:10 Dose: 100 mls/hr Ipratropium [place] (Atrovent 0.02% Nebulizer -) 1 amp NEB QIDR PRN PRN Reason: SHORT OF BREATH/WHEEZING Levothyroxine Sodium (Synthroid -) 125 mcg PO DAILY@0700 [facility] Last Admin: 05/26/16 06:45 Dose: 125 mcg Lidocaine (Lidoderm Patch -) 1 patch TP DAILY [facility] Last Admin: 05/26/16 10:12 Dose: 1 patch Losartan Potassium (Cozaar -) 50 mg PO DAILY [facility] Last Admin: 05/26/16 10:11 Dose: 50 mg Ondansetron HCl (Zofran Injection) 4 mg IVPUSH Q6H PRN PRN Reason: NAUSEA AND/OR VOMITING Oxycodone HCl (Roxicodone -) 5 mg PO Q4H PRN PRN Reason: PAIN Oxycodone HCl (Roxicodone -) 10 mg PO Q4H PRN PRN Reason: PAIN Polyethylene Glycol (Miralax (For Daily Use) -) 17 gm PO TID [facility] Last Admin: 05/26/16 06:43 Dose: 17 grams Senna (Senna -) 1 tab PO BID [facility] Last Admin: 05/26/16 10:10 Dose: 1 tab Tramadol HCl (Ultram -) 50 mg PO Q6HPO [facility] Last Admin: 05/26/16 11:45 Dose: 50 mg - Objective Vital Signs: Vital Signs Temperature 98.2 F 05/26/16 13:29 Pulse Rate 100 H 05/26/16 13:29 Respiratory Rate 16 05/26/16 13:29 Blood Pressure 105/72 05/26/16 13:29 O2 Sat by Pulse Oximetry (%) 92 L 05/25/16 21:00 Constitutional: Yes: Well Nourished, Calm Eyes: Yes: WNL HENT: Yes: WNL Neck: Yes: WNL Cardiovascular: Yes: Regular Rate and Rhythm, S1, S2 Respiratory: Yes: Diminished (R BASE) Gastrointestinal: Yes: WNL Extremities: Yes: WNL Edema: No Labs: CBC, BMP 05/25/16 07:00 05/25/16 07:00 INR, PTT INR 1.26 (0.82-1.09) H 05/22/16 05:10 Fibrinogen 512.0 mg/dL (238-498) H 05/13/16 08:05 Assessment/Plan A/P S/P R Vat Intra-abdominal fluid collection Exudative Pleural Effusion likely reactive Atelectasis HTN Hypothyroidism - monitor CT output - continue antibiotics - GI work up in progress - pain control - DVT prophylaxis - check path - chest tube as per thoracic surgery - egd and colonoscopy in am DR CHRISTINE
--- NOTE | 2016-05-26 14:59 | PN ---
Physical Exam: SUBJECTIVE: Patient seen and examined at bedside not as down and depressed today but still frustrated that she is still in the hospital and feels as if things are not moving along fast enough OBJECTIVE: Vital Signs Period Temp Pulse Resp BP Sys/Bustillos Pulse Ox Last 24 Hr 97.9 F-99.8 F 81-100 16-18 105-124/51-72 92 GENERAL: The patient is awake, alert, and fully oriented, in no acute distress. HEAD: Normal with no signs of trauma. NECK: supple. LUNGS: diminished breath sounds on the right with crackles. left side is clear. [address] with serous drainage no air leak HEART: Regular rate and rhythm, S1, S2 without murmur, rub or gallop. ABDOMEN: ABD soft non tender non distended NEUROLOGICAL: Cranial nerves II through XII grossly intact. Normal speech PSYCH: tearful Laboratory Results - last 24 hr 05/20/16 05/23/16 05/25/16 06:40 06:45 07:00 Double Strand DNA Ab 1 Tot Complement (CH50) 52 Urine Histoplasma Ag 0.11 Crossmatch IS Only See Detail Active Medications Generic Name Dose Route Start Last Admin Trade Name Freq PRN Reason Stop Dose Admin Acetaminophen 650 mg 05/26/16 02:33 Tylenol - PO Q6H PRN FEVER OR PAIN Bisacodyl 20 mg 05/26/16 20:00 Dulcolax - PO 05/26/16 20:01 ONCE ONE Heparin Sodium (Porcine) 5,000 unit 05/26/16 06:00 05/26/16 14:25 Heparin - SQ 5,000 unit TID FRANKIE Administration Hydrochlorothiazide 12.5 mg 05/26/16 10:00 05/26/16 10:10 Hctz - PO 12.5 mg DAILY FRANKIE Administration Ertapenem 1 gm/ Sodium 50 mls @ 100 mls/hr 05/26/16 10:00 05/26/16 10:10 Chloride IVPB 100 mls/hr DAILY FRANKIE Administration Ipratropium [place] 1 amp 05/25/16 12:37 Atrovent 0.02% Nebulizer - NEB QIDR PRN SHORT OF BREATH/WHEEZING Levothyroxine Sodium 125 mcg 05/26/16 07:00 05/26/16 06:45 Synthroid - PO 125 mcg DAILY@0700 FRANKIE Administration Lidocaine 1 patch 05/26/16 10:00 05/26/16 10:12 Lidoderm Patch - TP 1 patch DAILY FRANKIE Administration Losartan Potassium 50 mg 05/26/16 10:00 05/26/16 10:11 Cozaar - PO 50 mg DAILY FRANKIE Administration Ondansetron HCl 4 mg 05/26/16 02:33 Zofran Injection IVPUSH Q6H PRN NAUSEA AND/OR VOMITING Oxycodone HCl 5 mg 05/26/16 02:33 Roxicodone - PO Q4H PRN PAIN Oxycodone HCl 10 mg 05/26/16 02:33 Roxicodone - PO Q4H PRN PAIN Polyethylene Glycol 17 gm 05/26/16 06:00 05/26/16 14:26 Miralax (For Daily Use) - PO 17 grams TID FRANKIE Administration Senna 1 tab 05/26/16 10:00 05/26/16 10:10 Senna - PO 1 tab BID FRANKIE Administration Tramadol HCl 50 mg 05/26/16 06:00 05/26/16 11:45 Ultram - PO 50 mg Q6HPO FRANKIE Administration ASSESSMENT/PLAN: 55 y/o F w/PMH of HTN, hypothyroidism presented to ER w/ R sided chest/ abdominal pain x 2 days. Found to have R pleural effusion. she is now POD#5 s/p bronchoscopy, Right VATS, pneumolysis, pleural biopsy, drainage of pleural effusion, insertion of chest tubex2 Right pleural effusion/Community acquired pneumonia/Sepsis (leukocytosis and fever): community acquired pneumonia with parapneumonic effusion with pleuritic chest pain. at this point i do not think the patient had a pneumonia as her chest reaccumulated with pleural effusions so quickly with antibiotics. pleureal effusions likely reactive to mass that is extra thoracic close to the liver possibly a dropped stone s/p thoracentesis x2 patient had reaccumulation of fluid pulmonary requested repeat thoracentesis and second one was done 05/18/16 ID consult appreciated Azithromycin and Ceftriaxone stopped on day 5 continue ertapenem day 10 given possible stone dropped in abdomen during cholecystectomy-Per ID pleural fluid studies-shows initial thoracentesis was exudative likely parapneuomonic effusion-cytology negative-cytology shows inflammatory cells Afebrile f/u pleural fluid studies is not revealing any infectious source pulmonary consult appreciated CT chest results noted Chest tube to waterseal per CT surgery to remove chest tube today pain control is very important for this patient so she could take deep breaths and does not splint. as well as incentive spirometry. this was explained to the patient in detail. complement Anti SS and Anti DS DNA-pending Will repeat CT Chest ABD/Pelv today Pleural fluid exudative-per pathology report possible organizing empyema abdominal wall mass: this was seen on chest CT also read as a mass on abdominal CT after reviewing the scans with radiology they do not feel there is a mass in the liver. it is likely part of the abdominal wall vs a dropped stone from her cholecystectomy LFTs WNL will see if right flank/chest/abdominal pain improves with treatment of pneumonia-no significant improvement Repeat Abdominal CT noted GI consult aspirated on 05/18/16 by IR- pathology report inflammatory cells Surgery consult appreciated-may need surgical drainage Ascending colitis seen on CT scan: Patient now with diarrhea infectious vs inflammatory GI consult appreciated-possible Colonoscopy and EGD on this admission possible this or tuesday Continue ertapenem Stool studies and C diff-pending Mass posterior to stomach: new mass seen on CT scan that was not there on prior CT on this admission GI consult appreciated colonoscopy/EGD tomorrow on repeat CT scan of the abdomen it appears this mass has increased in size- being read as possible contained leak. Dr. Navarrete contacted did not see patient yesterday will consult Dr. Esvin Jaffe still did not see the patient since this weekend and has not given us a plan for this fluid accumulation behind stomach will consult Dr. Mcallister HTN-patient is currently well controlled Hold Norvasc for now continue Losartan and HCTZ with hold parameters Hypothyroidism Synthroid 125mcg qam -FEN no IVF no electrolyte issues CLD PPx: HSQ/SCDs No criteria met for GI PPx PT consult to avoid deconditioning as she had a major surgery Lab holiday tomorrow AM Visit type - Emergency Visit Emergency Visit: Yes ED Registration Date: 05/12/16 Care time: The patient presented to the Emergency Department on the above date and was hospitalized for further evaluation of their emergent condition. - New Patient This patient is new to me today: No - Critical Care Critical Care patient: No
--- NOTE | 2016-05-26 16:14 | PN ---
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 She is currently in 3rd week of hospitalization for inflammatory effusion, s/p VATS and findings on Ct scan concerning for a retrogastric collection, parahepatic process and possible ascending colon mass. She is shceduled for Upper and lower endoscopies tomorrow. Patient examined and chart reviewed including most recent Ct scan. The retrogastric collection containing air and contrast appears to be a diverticulum with disruption of staple line and EGD will be most helpful It is unclear to me whether this has anything to do with current illness. However endoscopies will be most helpful. Will follow up tomorrow and consider an upper GI series tuesday to further elucidate anatomy
--- NOTE | 2016-05-26 17:29 | PN ---
Progress Note (short form) - Note Progress Note: POD#5 Pt without complaints of CP/SOB. Taking golytely for colonoscopy tomorrow. Vital Signs Period Temp Pulse Resp BP Sys/Bustillos Pulse Ox Last 24 Hr 97.9 F-98.9 F 81-100 16-18 105-124/51-72 92-99 PE: GEN: appears comfortable CV: RRR Lungs: CTA b/l, CT drainage 50ml, no airleak. CT removed without difficulty and dry sterile dressing applied. ABD: soft, non-distended, non-tender CBC, BMP 05/25/16 07:00 05/25/16 07:00 CXR- atlectasis at right base, CT in place 05/26 A/P: s/p Right Vats with pneumolysis, pleural bx, and drainage of pleural effusion spoke with Dr. Wang and chest tube was removed, cxr ordered for post CT removal Continue golytely for colonscopy
--- NOTE | 2016-05-26 19:58 | PN ---
Teaching Attending Note Name of Resident: Gustavo Miner ATTENDING PHYSICIAN STATEMENT I saw and evaluated the patient. I reviewed the resident's note and discussed the case with the resident. I agree with the resident's findings and plan as documented. Patient is feeling better, with no fever or chills. Vital Signs Temperature 98.8 F 05/26/16 18:39 Pulse Rate 84 05/26/16 18:39 Respiratory Rate 18 05/26/16 18:39 Blood Pressure 107/64 05/26/16 18:39 O2 Sat by Pulse Oximetry (%) 99 05/26/16 09:00 CBCD WBC 6.8 K/mm3 (4.0-10.0) 05/25/16 07:00 RBC 3.23 M/mm3 (3.60-5.2) L 05/25/16 07:00 Hgb 9.4 GM/dL (10.7-15.3) L 05/25/16 07:00 Hct 27.6 % (32.4-45.2) L 05/25/16 07:00 MCV 85.3 fl (80-96) 05/25/16 07:00 MCHC 33.9 g/dl (32.0-36.0) 05/25/16 07:00 RDW 14.6 % (11.6-15.6) 05/25/16 07:00 Plt Count 413 K/MM3 (134-434) 05/25/16 07:00 MPV 7.0 fl (7.5-11.1) L 05/25/16 07:00 CMP Sodium 139 mmol/L (136-145) 05/25/16 07:00 Potassium 4.0 mmol/L (3.5-5.1) 05/25/16 07:00 Chloride 97 mmol/L (98-107) L 05/25/16 07:00 Carbon Dioxide 31 mmol/L (21-32) 05/25/16 07:00 Anion Gap 11 (8-16) 05/25/16 07:00 BUN 5 mg/dL (7-18) L D 05/25/16 07:00 Creatinine 0.5 mg/dL (0.55-1.02) L 05/25/16 07:00 Creat Clearance w eGFR > 60 (>60) 05/23/16 05:20 Random Glucose 91 mg/dL (74-106) 05/25/16 07:00 Calcium 8.4 mg/dL (8.5-10.1) L 05/25/16 07:00 Total Bilirubin 0.4 mg/dL (0.2-1.0) D 05/23/16 05:20 AST 42 U/L (15-37) H D 05/23/16 05:20 ALT 60 U/L (12-78) D 05/23/16 05:20 Alkaline Phosphatase 98 U/L (45-117) 05/23/16 05:20 Total Protein 6.0 g/dl (6.4-8.2) L 05/23/16 05:20 Albumin 2.3 g/dl (3.4-5.0) L 05/23/16 05:20 CARDIAC ENZYMES Creatine Kinase 41 IU/L (26-192) 05/12/16 18:02 Troponin I < 0.02 ng/ml (0.00-0.05) 05/12/16 18:02 Current Medications Generic Name Dose Route Start Last Admin Trade Name Freq PRN Reason Stop Dose Admin Acetaminophen 650 mg 05/26/16 02:33 Tylenol - PO Q6H PRN FEVER OR PAIN Bisacodyl 20 mg 05/26/16 20:00 Dulcolax - PO 05/26/16 20:01 ONCE ONE Heparin Sodium (Porcine) 5,000 unit 05/26/16 06:00 05/26/16 14:25 Heparin - SQ 5,000 unit TID FRANKIE Administration Hydrochlorothiazide 12.5 mg 05/26/16 10:00 05/26/16 10:10 Hctz - PO 12.5 mg DAILY FRANKIE Administration Ertapenem 1 gm/ Sodium 50 mls @ 100 mls/hr 05/26/16 10:00 05/26/16 10:10 Chloride IVPB 100 mls/hr DAILY FRANKIE Administration Ipratropium [place] 1 amp 05/25/16 12:37 Atrovent 0.02% Nebulizer - NEB QIDR PRN SHORT OF BREATH/WHEEZING Levothyroxine Sodium 125 mcg 05/26/16 07:00 05/26/16 06:45 Synthroid - PO 125 mcg DAILY@0700 FRANKIE Administration Lidocaine 1 patch 05/26/16 10:00 05/26/16 10:12 Lidoderm Patch - TP 1 patch DAILY FRANKIE Administration Losartan Potassium 50 mg 05/26/16 10:00 05/26/16 10:11 Cozaar - PO 50 mg DAILY FRANKIE Administration Ondansetron HCl 4 mg 05/26/16 02:33 Zofran Injection IVPUSH Q6H PRN NAUSEA AND/OR VOMITING Oxycodone HCl 5 mg 05/26/16 02:33 Roxicodone - PO Q4H PRN PAIN Oxycodone HCl 10 mg 05/26/16 02:33 Roxicodone - PO Q4H PRN PAIN Polyethylene Glycol 17 gm 05/26/16 06:00 05/26/16 14:26 Miralax (For Daily Use) - PO 17 grams TID FRANKIE Administration Senna 1 tab 05/26/16 10:00 05/26/16 10:10 Senna - PO 1 tab BID FRANKIE Administration Tramadol HCl 50 mg 05/26/16 06:00 05/26/16 17:16 Ultram - PO 50 mg Q6HPO FRANKIE Administration ASSESSMENT AND PLAN: Patient is a 55 y/o F w PMH of HTN, hypothyroidism presented to ER w/ R sided chest/abdominal pain x 2 days. Found to have R pleural effusion , Treated for CAP. # Exudative R pleural effusion: s/p pleural bx with organized empyema . possible due to connection through the diaphragm due to R orion-hepatic phlegmon . s/p Right Vats, pleural bx, and drainage of pleural effusion , s/p chest tube removal. # Patient is going for colonoscopy in am and EGD ,continue golytely in am # Ascending colitis on CT scan: repeat scan showed resolution of thickened wall on ertapenem continue , on miralax . # Retro- gastric fluid collection including contrast and air : Dr. Aguilar was called by Dr. Miner. Pt will be re-evaluated. #HTN : hold norvasc and on Cozaar instead of losartan.
[2016-05-26] MEDS ORDERED: BISACODYL 5 MG TABLET.DR (FP) PO ONE (20:00)
[2016-05-27] MEDS: traMADol HCL 50 MG TABLET PO SCH ×3 (06:18→17:22)
[2016-05-27] MEDS: POLYETHYLENE GLYCOL 3350 119 GM BTL PO SCH ×3 (06:18→21:34)
[2016-05-27] MEDS: LEVOTHYROXINE NA 125 MCG TABLET (FP) PO SCH (06:19)
[2016-05-27 07:39] LABS: BASOPHIL 0.5 % (0-2.0); EOSINOPHIL 4.1 % (0-4.5); MCH 29.1 pg (25.7-33.7); MCHC 34.2 g/dl (32.0-36.0); MEAN PLT VOLUME 6.8 fl (7.5-11.1); NEUTROPHILS 61.7 % (42.8-82.8); PLATELET COUNT 428 K/MM3 (134-434); RDW 14.6 % (11.6-15.6); WHITE BLOOD COUNT 5.7 K/mm3 (4.0-10.0)
[2016-05-27 07:43] LABS: INR 1.29 (0.82-1.09); PROTHROMBIN TIME (PATIENT) 14.3 SEC (9.98-11.88)
[2016-05-27 08:09] LABS: CALCIUM 8.2 mg/dL (8.5-10.1); CREATININE 0.4 mg/dL (0.55-1.02)
[2016-05-27] MEDS: ERTAPENEM SODIUM 1 GM in SODIUM CHLORIDE 50 ML IVPB SCH (09:47)
[2016-05-27] MEDS: LIDOCAINE 5% TOPICAL PATCH TP SCH (09:48)
[2016-05-27] MEDS: LOSARTAN POTASSIUM 50 MG TABLET (FP) PO SCH (10:20)
[2016-05-27] MEDS: SENNOSIDES 8.6MG TABLET (FP) PO SCH ×2 (10:20→21:34)
[2016-05-27] MEDS: HYDROCHLOROTHIAZIDE 12.5 MG CAPSULE (FP) PO SCH (10:20)
--- NOTE | 2016-05-27 12:23 | PN ---
Progress Note (short form) - Note Progress Note: PULMONARY Still some right sided discomfort but less. No fevers or chills. Last Vital Signs Temp Pulse Resp BP Pulse Ox 98.1 F 75 18 100/61 92 L 05/27/16 09:00 05/27/16 09:00 05/27/16 09:00 05/27/16 09:00 05/27/16 09:00 Gen: NAD at rest Heart: RRR Lung: decreased breath sounds at the bases Abd: soft, nontender Ext: no edema CBC, BMP 05/27/16 06:40 05/27/16 06:40 Active Medications Acetaminophen (Tylenol -) 650 mg PO Q6H PRN PRN Reason: FEVER OR PAIN Heparin Sodium (Porcine) (Heparin -) 5,000 unit SQ TID [facility] Last Admin: 05/26/16 14:25 Dose: 5,000 unit Hydrochlorothiazide (Hctz -) 12.5 mg PO DAILY [facility] Last Admin: 05/27/16 10:20 Dose: Not Given Ertapenem 1 gm/ Sodium (Chloride) 50 mls @ 100 mls/hr IVPB DAILY [facility] Last Admin: 05/27/16 09:47 Dose: 100 mls/hr Ipratropium [place] (Atrovent 0.02% Nebulizer -) 1 amp NEB QIDR PRN PRN Reason: SHORT OF BREATH/WHEEZING Levothyroxine Sodium (Synthroid -) 125 mcg PO DAILY@0700 [facility] Last Admin: 05/27/16 06:19 Dose: Not Given Lidocaine (Lidoderm Patch -) 1 patch TP DAILY [facility] Last Admin: 05/27/16 09:48 Dose: 1 patch Losartan Potassium (Cozaar -) 50 mg PO DAILY [facility] Last Admin: 05/27/16 10:20 Dose: Not Given Ondansetron HCl (Zofran Injection) 4 mg IVPUSH Q6H PRN PRN Reason: NAUSEA AND/OR VOMITING Oxycodone HCl (Roxicodone -) 5 mg PO Q4H PRN PRN Reason: PAIN Oxycodone HCl (Roxicodone -) 10 mg PO Q4H PRN PRN Reason: PAIN Polyethylene Glycol (Miralax (For Daily Use) -) 17 gm PO TID [facility] Last Admin: 05/27/16 06:18 Dose: Not Given Senna (Senna -) 1 tab PO BID [facility] Last Admin: 05/27/16 10:20 Dose: Not Given Tramadol HCl (Ultram -) 50 mg PO Q6HPO [facility] Last Admin: 05/27/16 11:21 Dose: Not Given A/P Intra-abdominal fluid collection Exudative Pleural Effusion likely reactive Atelectasis HTN Hypothyroidism - for EGD/colonoscopy - continue antibiotics - monitor fever curve, WBC trend - pain control - DVT prophylaxis
[2016-05-27] MEDS ORDERED: PROPOFOL 40 ML ONE (13:51)
[2016-05-27] MEDS ORDERED: LIDOCAINE HCL/PF 2% SDV 5ML VIAL ONE (13:51)
--- NOTE | 2016-05-27 15:30 | PN ---
Progress Note (short form) - Note Progress Note: EGD / Colon reports placed in procedural section of physical chart and to be scanned into [facility]
--- NOTE | 2016-05-27 16:50 | PN ---
Physical Exam: SUBJECTIVE: Patient seen and examined at bedside in good spirits today sister at [facility] s/p colonoscopy and EGD OBJECTIVE: Vital Signs Period Temp Pulse Resp BP Sys/Bustillos Pulse Ox Last 24 Hr 98.1 F-98.8 F 75-90 15-19 90-121/44-73 92-100 GENERAL: The patient is awake, alert, and fully oriented, in no acute distress. HEAD: Normal with no signs of trauma. NECK: supple. LUNGS: diminished breath sounds on the right with fine basilar crackles. left side is clear. dressings is some serous discharge HEART: Regular rate and rhythm, S1, S2 without murmur, rub or gallop. ABDOMEN: ABD soft non tender non distended NEUROLOGICAL: Cranial nerves II through XII grossly intact. Normal speech PSYCH: tearful Laboratory Results - last 24 hr 05/23/16 05/25/16 05/27/16 05:20 07:00 06:40 WBC 5.7 RBC 3.12 L Hgb 9.1 L Hct 26.5 L MCV 85.0 MCHC 34.2 RDW 14.6 Plt Count 428 MPV 6.8 L Neutrophils % 61.7 D Lymphocytes % 20.9 D Monocytes % 12.8 H Eosinophils % 4.1 D Basophils % 0.5 INR Sodium Potassium Chloride Carbon Dioxide Anion Gap BUN Creatinine Random Glucose Calcium Histoplasma Antigen 0.15 Anti-DNase B (Strep) 106 05/27/16 05/27/16 06:40 06:40 WBC RBC Hgb Hct MCV MCHC RDW Plt Count MPV Neutrophils % Lymphocytes % Monocytes % Eosinophils % Basophils % INR 1.29 H Sodium 139 Potassium 3.5 Chloride 97 L Carbon Dioxide 32 Anion Gap 10 BUN 3 L D Creatinine 0.4 L Random Glucose 90 Calcium 8.2 L Histoplasma Antigen Anti-DNase B (Strep) Active Medications Generic Name Dose Route Start Last Admin Trade Name Freq PRN Reason Stop Dose Admin Acetaminophen 650 mg 05/26/16 02:33 Tylenol - PO Q6H PRN FEVER OR PAIN Heparin Sodium (Porcine) 5,000 unit 05/26/16 06:00 05/26/16 14:25 Heparin - SQ 5,000 unit TID FRANKIE Administration Hydrochlorothiazide 12.5 mg 05/26/16 10:00 05/27/16 10:20 Hctz - PO Not Given DAILY FRANKIE Ertapenem 1 gm/ Sodium 50 mls @ 100 mls/hr 05/26/16 10:00 05/27/16 09:47 Chloride IVPB 100 mls/hr DAILY FRANKIE Administration Ipratropium [place] 1 amp 05/25/16 12:37 Atrovent 0.02% Nebulizer - NEB QIDR PRN SHORT OF BREATH/WHEEZING Levothyroxine Sodium 125 mcg 05/26/16 07:00 05/27/16 06:19 Synthroid - PO Not Given DAILY@0700 FRANKIE Lidocaine 1 patch 05/26/16 10:00 05/27/16 09:48 Lidoderm Patch - TP 1 patch DAILY FRANKIE Administration Losartan Potassium 50 mg 05/26/16 10:00 05/27/16 10:20 Cozaar - PO Not Given DAILY FRANKIE Ondansetron HCl 4 mg 05/26/16 02:33 Zofran Injection IVPUSH Q6H PRN NAUSEA AND/OR VOMITING Oxycodone HCl 5 mg 05/26/16 02:33 Roxicodone - PO Q4H PRN PAIN Oxycodone HCl 10 mg 05/26/16 02:33 Roxicodone - PO Q4H PRN PAIN Polyethylene Glycol 17 gm 05/26/16 06:00 05/27/16 13:28 Miralax (For Daily Use) - PO Not Given TID FRANKIE Senna 1 tab 05/26/16 10:00 05/27/16 10:20 Senna - PO Not Given BID FRANKIE Tramadol HCl 50 mg 05/26/16 06:00 05/27/16 11:21 Ultram - PO Not Given Q6HPO [facility] ASSESSMENT/PLAN: 55 y/o F w/PMH of HTN, hypothyroidism presented to ER w/ R sided chest/ abdominal pain x 2 days. Found to have R pleural effusion. she is now POD#5 s/p bronchoscopy, Right VATS, pneumolysis, pleural biopsy, drainage of pleural effusion, insertion of chest tubex2 Right pleural effusion/Community acquired pneumonia/Sepsis (leukocytosis and fever): community acquired pneumonia with parapneumonic effusion with pleuritic chest pain. at this point i do not think the patient had a pneumonia as her chest reaccumulated with pleural effusions so quickly with antibiotics. pleural effusions likely reactive to mass that is extra thoracic close to the liver possibly a dropped stone s/p thoracentesis x2 patient had reaccumulation of fluid pulmonary requested repeat thoracentesis and second one was done 05/18/16 ID consult appreciated Azithromycin and Ceftriaxone stopped on day 5 continue ertapenem day 10 given possible stone dropped in abdomen during cholecystectomy-Per ID pleural fluid studies-shows initial thoracentesis was exudative likely parapneuomonic effusion-cytology negative-cytology shows inflammatory cells Afebrile f/u pleural fluid studies is not revealing any infectious source pulmonary consult appreciated CT chest results noted Chest tube to waterseal per CT surgery to remove chest tube today pain control is very important for this patient so she could take deep breaths and does not splint. as well as incentive spirometry. this was explained to the patient in detail. total complement-WNL Anti SS-pending CODY screen-positive x2 histoplasmosis antigen-negative histoplamosis urinary antigen-negative HIV-negative AntiDNAse-WNL Anti DS DNA-WNL Pleural fluid exudative-per pathology report possible organizing empyema abdominal wall mass: this was seen on chest CT also read as a mass on abdominal CT after reviewing the scans with radiology they do not feel there is a mass in the liver. it is likely part of the abdominal wall vs a dropped stone from her cholecystectomy LFTs WNL will see if right flank/chest/abdominal pain improves with treatment of pneumonia-no significant improvement Repeat Abdominal CT noted GI consult aspirated on 05/18/16 by IR- pathology report inflammatory cells Surgery consult appreciated-may need surgical drainage Ascending colitis seen on CT scan: Patient now with diarrhea infectious vs inflammatory GI consult appreciated s/p EGD and colonoscopy-results noted-small 1cm nodule in right colon which was biopsied EGD-showed multiple excluded areas of the stomach diverticular in nature which is possible related to her gastroplasty. Will follow up UGI series Continue ertapenem Stool studies-pending C diff-negative Mass posterior to stomach: new mass seen on CT scan that was not there on prior CT on this admission GI consult appreciated colonoscopy/EGD tomorrow on repeat CT scan of the abdomen it appears this mass has increased in size- being read as possible contained leak. but this is likely the excluded part of the stomach as stated in the EGD report will follow up UGI series tomorrow HTN-patient is currently well controlled Hold Norvasc for now continue Losartan and HCTZ with hold parameters Hypothyroidism Synthroid 125mcg qam -FEN no IVF no electrolyte issues regular diet PPx: HSQ/SCDs No criteria met for GI PPx PT consult to avoid deconditioning as she had a major surgery Lab holiday tomorrow AM Visit type - Emergency Visit Emergency Visit: Yes ED Registration Date: 05/12/16 Care time: The patient presented to the Emergency Department on the above date and was hospitalized for further evaluation of their emergent condition. - New Patient This patient is new to me today: No - Critical Care Critical Care patient: No
--- NOTE | 2016-05-27 19:08 | PN ---
Teaching Attending Note Name of Resident: Gustavo Miner ATTENDING PHYSICIAN STATEMENT I saw and evaluated the patient. I reviewed the resident's note and discussed the case with the resident. I agree with the resident's findings and plan as documented. Patient is feeling better with no acute distress, wants to go home. NO fever or chills, no shortness of breath. Vital Signs Temperature 98.1 F 05/27/16 18:00 Pulse Rate 80 05/27/16 18:00 Respiratory Rate 18 05/27/16 18:00 Blood Pressure 110/59 05/27/16 18:00 O2 Sat by Pulse Oximetry (%) 94 L 05/27/16 15:16 CBCD WBC 5.7 K/mm3 (4.0-10.0) 05/27/16 06:40 RBC 3.12 M/mm3 (3.60-5.2) L 05/27/16 06:40 Hgb 9.1 GM/dL (10.7-15.3) L 05/27/16 06:40 Hct 26.5 % (32.4-45.2) L 05/27/16 06:40 MCV 85.0 fl (80-96) 05/27/16 06:40 MCHC 34.2 g/dl (32.0-36.0) 05/27/16 06:40 RDW 14.6 % (11.6-15.6) 05/27/16 06:40 Plt Count 428 K/MM3 (134-434) 05/27/16 06:40 MPV 6.8 fl (7.5-11.1) L 05/27/16 06:40 CMP Sodium 139 mmol/L (136-145) 05/27/16 06:40 Potassium 3.5 mmol/L (3.5-5.1) 05/27/16 06:40 Chloride 97 mmol/L (98-107) L 05/27/16 06:40 Carbon Dioxide 32 mmol/L (21-32) 05/27/16 06:40 Anion Gap 10 (8-16) 05/27/16 06:40 BUN 3 mg/dL (7-18) L D 05/27/16 06:40 Creatinine 0.4 mg/dL (0.55-1.02) L 05/27/16 06:40 Creat Clearance w eGFR > 60 (>60) 05/23/16 05:20 Random Glucose 90 mg/dL (74-106) 05/27/16 06:40 Calcium 8.2 mg/dL (8.5-10.1) L 05/27/16 06:40 Total Bilirubin 0.4 mg/dL (0.2-1.0) D 05/23/16 05:20 AST 42 U/L (15-37) H D 05/23/16 05:20 ALT 60 U/L (12-78) D 05/23/16 05:20 Alkaline Phosphatase 98 U/L (45-117) 05/23/16 05:20 Total Protein 6.0 g/dl (6.4-8.2) L 05/23/16 05:20 Albumin 2.3 g/dl (3.4-5.0) L 05/23/16 05:20 CARDIAC ENZYMES Creatine Kinase 41 IU/L (26-192) 05/12/16 18:02 Troponin I < 0.02 ng/ml (0.00-0.05) 05/12/16 18:02 Current Medications Generic Name Dose Route Start Last Admin Trade Name Freq PRN Reason Stop Dose Admin Acetaminophen 650 mg 05/26/16 02:33 Tylenol - PO Q6H PRN FEVER OR PAIN Heparin Sodium (Porcine) 5,000 unit 05/26/16 06:00 05/26/16 14:25 Heparin - SQ 5,000 unit TID FRANKIE Administration Hydrochlorothiazide 12.5 mg 05/26/16 10:00 05/27/16 10:20 Hctz - PO Not Given DAILY FRANKIE Ertapenem 1 gm/ Sodium 50 mls @ 100 mls/hr 05/26/16 10:00 05/27/16 09:47 Chloride IVPB 100 mls/hr DAILY FRANKIE Administration Ipratropium Wheeler 1 amp 05/25/16 12:37 Atrovent 0.02% Nebulizer - NEB QIDR PRN SHORT OF BREATH/WHEEZING Levothyroxine Sodium 125 mcg 05/26/16 07:00 05/27/16 06:19 Synthroid - PO Not Given DAILY@0700 FRANKIE Lidocaine 1 patch 05/26/16 10:00 05/27/16 09:48 Lidoderm Patch - TP 1 patch DAILY FRANKIE Administration Losartan Potassium 50 mg 05/26/16 10:00 05/27/16 10:20 Cozaar - PO Not Given DAILY FRANKIE Ondansetron HCl 4 mg 05/26/16 02:33 Zofran Injection IVPUSH Q6H PRN NAUSEA AND/OR VOMITING Oxycodone HCl 5 mg 05/26/16 02:33 Roxicodone - PO Q4H PRN PAIN Oxycodone HCl 10 mg 05/26/16 02:33 Roxicodone - PO Q4H PRN PAIN Polyethylene Glycol 17 gm 05/26/16 06:00 05/27/16 13:28 Miralax (For Daily Use) - PO Not Given TID FRANKIE Senna 1 tab 05/26/16 10:00 05/27/16 10:20 Senna - PO Not Given BID FRANKIE Tramadol HCl 50 mg 05/26/16 06:00 05/27/16 17:22 Ultram - PO 50 mg Q6HPO FRANKIE Administration Home Medications Medication Instructions Recorded Levothyroxine [Synthroid -] 125 mcg PO DAILY 11/24/13 Amlodipine Besylate [Norvasc -] 10 mg PO DAILY 05/12/16 Losartan/Hydrochlorothiazide 1 each PO DAILY 05/12/16 [Losartan-Hctz 50-12.5 mg Tab] Methocarbamol [Robaxin -] 500 mg PO DAILY PRN 05/12/16 ASSESSMENT AND PLAN: Patient is a 55 y/o F w PMHx of HTN, hypothyroidism presented to ER w/ R sided chest/abdominal pain x 2 days. Found to have R pleural effusion , Treated for CAP. # Patient is s/p colonoscopy and EGD result was reviewed , No NSAIDS for 3 days. Ordered GI series waiting for result. # Exudative R pleural effusion: s/p pleural bx . s/p Right Vats, pleural bx, and drainage of pleural effusion , s/p chest tube removal. # Ascending colitis on CT scan: repeat scan showed resolution of thickened wall . continue ertapenem as per ID . #HTN : continue BP meds. DVT Px: Heparin
[2016-05-28] MEDS: traMADol HCL 50 MG TABLET PO SCH ×2 (05:55→11:04)
[2016-05-28] MEDS: POLYETHYLENE GLYCOL 3350 119 GM BTL PO SCH (05:55)
[2016-05-28] MEDS: LEVOTHYROXINE NA 125 MCG TABLET (FP) PO SCH (06:13)
[2016-05-28] MEDS: LOSARTAN POTASSIUM 50 MG TABLET (FP) PO SCH (10:02)
[2016-05-28] MEDS: HYDROCHLOROTHIAZIDE 12.5 MG CAPSULE (FP) PO SCH (10:02)
[2016-05-28] MEDS: ERTAPENEM SODIUM 1 GM in SODIUM CHLORIDE 50 ML IVPB SCH (10:07)
[2016-05-28] MEDS: LIDOCAINE 5% TOPICAL PATCH TP SCH (10:07)
[2016-05-28] MEDS: SENNOSIDES 8.6MG TABLET (FP) PO SCH (10:08)
--- NOTE | 2016-05-28 13:34 | PN ---
Teaching Attending Note Name of Resident: Gustavo Miner ATTENDING PHYSICIAN STATEMENT I saw and evaluated the patient. I reviewed the resident's note and discussed the case with the resident. I agree with the resident's findings and plan as documented. Patient is feeling better wants to go home. Vital Signs Temperature 98.7 F 05/28/16 06:34 Pulse Rate 78 05/28/16 11:35 Respiratory Rate 18 05/28/16 06:34 Blood Pressure 117/74 05/28/16 06:34 O2 Sat by Pulse Oximetry (%) 93 L 05/28/16 11:35 CBCD WBC 5.7 K/mm3 (4.0-10.0) 05/27/16 06:40 RBC 3.12 M/mm3 (3.60-5.2) L 05/27/16 06:40 Hgb 9.1 GM/dL (10.7-15.3) L 05/27/16 06:40 Hct 26.5 % (32.4-45.2) L 05/27/16 06:40 MCV 85.0 fl (80-96) 05/27/16 06:40 MCHC 34.2 g/dl (32.0-36.0) 05/27/16 06:40 RDW 14.6 % (11.6-15.6) 05/27/16 06:40 Plt Count 428 K/MM3 (134-434) 05/27/16 06:40 MPV 6.8 fl (7.5-11.1) L 05/27/16 06:40 CMP Sodium 139 mmol/L (136-145) 05/27/16 06:40 Potassium 3.5 mmol/L (3.5-5.1) 05/27/16 06:40 Chloride 97 mmol/L (98-107) L 05/27/16 06:40 Carbon Dioxide 32 mmol/L (21-32) 05/27/16 06:40 Anion Gap 10 (8-16) 05/27/16 06:40 BUN 3 mg/dL (7-18) L D 05/27/16 06:40 Creatinine 0.4 mg/dL (0.55-1.02) L 05/27/16 06:40 Creat Clearance w eGFR > 60 (>60) 05/23/16 05:20 Random Glucose 90 mg/dL (74-106) 05/27/16 06:40 Calcium 8.2 mg/dL (8.5-10.1) L 05/27/16 06:40 Total Bilirubin 0.4 mg/dL (0.2-1.0) D 05/23/16 05:20 AST 42 U/L (15-37) H D 05/23/16 05:20 ALT 60 U/L (12-78) D 05/23/16 05:20 Alkaline Phosphatase 98 U/L (45-117) 05/23/16 05:20 Total Protein 6.0 g/dl (6.4-8.2) L 05/23/16 05:20 Albumin 2.3 g/dl (3.4-5.0) L 05/23/16 05:20 CARDIAC ENZYMES Creatine Kinase 41 IU/L (26-192) 05/12/16 18:02 Troponin I < 0.02 ng/ml (0.00-0.05) 05/12/16 18:02 Current Medications Generic Name Dose Route Start Last Admin Trade Name Freq PRN Reason Stop Dose Admin Acetaminophen 650 mg 05/26/16 02:33 Tylenol - PO Q6H PRN FEVER OR PAIN Heparin Sodium (Porcine) 5,000 unit 05/26/16 06:00 05/26/16 14:25 Heparin - SQ 5,000 unit TID FRANKIE Administration Hydrochlorothiazide 12.5 mg 05/26/16 10:00 05/28/16 10:02 Hctz - PO Not Given DAILY FRANKIE Ertapenem 1 gm/ Sodium 50 mls @ 100 mls/hr 05/26/16 10:00 05/28/16 10:07 Chloride IVPB 100 mls/hr DAILY FRANKIE Administration Ipratropium Bryan 1 amp 05/25/16 12:37 Atrovent 0.02% Nebulizer - NEB QIDR PRN SHORT OF BREATH/WHEEZING Levothyroxine Sodium 125 mcg 05/26/16 07:00 05/28/16 06:13 Synthroid - PO Not Given DAILY@0700 FRANKIE Lidocaine 1 patch 05/26/16 10:00 05/28/16 10:07 Lidoderm Patch - TP 1 patch DAILY FRANKIE Administration Losartan Potassium 50 mg 05/26/16 10:00 05/28/16 10:02 Cozaar - PO Not Given DAILY FRANKIE Ondansetron HCl 4 mg 05/26/16 02:33 Zofran Injection IVPUSH Q6H PRN NAUSEA AND/OR VOMITING Oxycodone HCl 5 mg 05/26/16 02:33 Roxicodone - PO Q4H PRN PAIN Oxycodone HCl 10 mg 05/26/16 02:33 Roxicodone - PO Q4H PRN PAIN Polyethylene Glycol 17 gm 05/26/16 06:00 05/28/16 05:55 Miralax (For Daily Use) - PO Not Given TID FRANKIE Senna 1 tab 05/26/16 10:00 05/28/16 10:08 Senna - PO 1 tab BID FRANKIE Administration Tramadol HCl 50 mg 05/26/16 06:00 05/28/16 11:04 Ultram - PO Not Given Q6HPO [facility] Home Medications Medication Instructions Recorded Levothyroxine [Synthroid -] 125 mcg PO DAILY 11/24/13 Amlodipine Besylate [Norvasc -] 10 mg PO DAILY 05/12/16 Losartan/Hydrochlorothiazide 1 each PO DAILY 05/12/16 [Losartan-Hctz 50-12.5 mg Tab] Methocarbamol [Robaxin -] 500 mg PO DAILY PRN 05/12/16 History of gastroplasty, evaluate for fistulous tract. Under fluoroscopic observation, patient swallowed water-soluble contrast. No abnormality seen of the distal thoracic esophagus. No evidence of hiatal hernia. Surgical changes are noted in the region of the fundus of the stomach with surgical clips No evidence of extravasation of contrast material. No fistulous tract is seen. Within the limitation of examination, no gastric or duodenal bulb ulcer is seen. Normal mucosal pattern of duodenal sweep proximal loops of small bowel. The duodenal sweep is not widened. The late KUB shows normal mucosal pattern of opacified small bowel. Nonspecific gas pattern of colon is seen. Impression. Surgical changes are noted in the region of the fundus of the stomach. No evidence of extravasation of contrast, opacified fistulous tract. ASSESSMENT AND PLAN: Patient is a 55 y/o F w PMHx of HTN, hypothyroidism presented to ER w/ R sided chest/abdominal pain x 2 days. Found to have R pleural effusion , Treated for CAP. Patient can be discharged home for 5 more days of po antibiotic as per ID recommendations will discharge with Augmentin 875mg po bid x 5 days. 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 # Patient is s/p colonoscopy and EGD result was reviewed , No NSAIDS for 3 days. s/p GI series , the result is as above . # Exudative R pleural effusion: s/p pleural bx . s/p Right Vats, pleural bx, and drainage of pleural effusion , s/p chest tube removal. Follow with # Ascending colitis on CT scan: repeat scan showed resolution of thickened wall .completed ertapenem , 5 more days of po antibiotic . #HTN : On cozaar now will continue
[2016-05-28 14:57] VITALS: BP 109/72; PULSE 84; TEMP 98.5
--- NOTE | 2016-05-28 15:46 | DS ---
Addendum entered and electronically signed by Gustavo Miner, RES 05/28/16 16:04: this is the last assessment and plan 55 y/o F w/PMH of HTN, hypothyroidism presented to ER w/ R sided chest/ abdominal pain x 2 days. Found to have R pleural effusion. she is now POD#6 s/p bronchoscopy, Right VATS, pneumolysis, pleural biopsy, drainage of pleural effusion, insertion of chest tubex2 Right pleural effusion/Community acquired pneumonia/Sepsis (leukocytosis and fever): community acquired pneumonia with parapneumonic effusion with pleuritic chest pain. at this point i do not think the patient had a pneumonia as her chest reaccumulated with pleural effusions so quickly with antibiotics. pleural effusions likely reactive to mass that is extra thoracic close to the liver possibly a dropped stone s/p thoracentesis x2 patient had reaccumulation of fluid pulmonary requested repeat thoracentesis and second one was done 05/18/16 ID consult appreciated Azithromycin and Ceftriaxone stopped on day 5 continue ertapenem day 11 given possible stone dropped in abdomen during cholecystectomy-Per ID pleural fluid studies-shows initial thoracentesis was exudative likely parapneuomonic effusion-cytology negative-cytology shows inflammatory cells Afebrile f/u pleural fluid studies is not revealing any infectious source pulmonary consult appreciated CT chest results noted Chest tube to waterseal per CT surgery to remove chest tube today pain control is very important for this patient so she could take deep breaths and does not splint. as well as incentive spirometry. this was explained to the patient in detail. total complement-WNL Anti SS-positive CODY screen-positive x2 histoplasmosis antigen-negative histoplamosis urinary antigen-negative HIV-negative AntiDNAse-WNL Anti DS DNA-WNL Pleural fluid exudative-per pathology report possible organizing empyema abdominal wall mass: this was seen on chest CT also read as a mass on abdominal CT after reviewing the scans with radiology they do not feel there is a mass in the liver. it is likely part of the abdominal wall vs a dropped stone from her cholecystectomy LFTs WNL will see if right flank/chest/abdominal pain improves with treatment of pneumonia-no significant improvement Repeat Abdominal CT noted GI consult aspirated on 05/18/16 by IR- pathology report inflammatory cells Surgery consult appreciated-may need surgical drainage Ascending colitis seen on CT scan: Patient now with diarrhea infectious vs inflammatory GI consult appreciated s/p EGD and colonoscopy-results noted-small 1cm nodule in right colon which was biopsied EGD-showed multiple excluded areas of the stomach diverticular in nature which is possible related to her gastroplasty. Will follow up UGI series Continue ertapenem Stool studies-pending C diff-negative Mass posterior to stomach: new mass seen on CT scan that was not there on prior CT on this admission GI consult appreciated colonoscopy/EGD tomorrow on repeat CT scan of the abdomen it appears this mass has increased in size- being read as possible contained leak. but this is likely the excluded part of the stomach as stated in the EGD report will follow up UGI series - WNL HTN-patient is currently well controlled Hold Norvasc for now continue Losartan and HCTZ with hold parameters Hypothyroidism Synthroid 125mcg qam -FEN no IVF no electrolyte issues regular diet PPx: HSQ/SCDs No criteria met for GI PPx PT consult to avoid deconditioning as she had a major surgery Original Note: Physical Exam: SUBJECTIVE: Patient seen and examined at bedside wants to go home stable for discharge OBJECTIVE: Vital Signs Period Temp Pulse Resp BP Sys/Bustillos Pulse Ox Last 24 Hr 98.1 F-98.7 F 76-84 18-20 107-117/59-74 91-93 PHYSICAL EXAM GENERAL: The patient is awake, alert, and fully oriented, in no acute distress. HEAD: Normal with no signs of trauma. NECK: supple. LUNGS: diminished breath sounds on the right . left side is clear. HEART: Regular rate and rhythm, S1, S2 without murmur, rub or gallop. ABDOMEN: ABD soft non tender non distended NEUROLOGICAL: Cranial nerves II through XII grossly intact. Normal speech PSYCH: in good spirits today LABS Laboratory Results - last 24 hr 05/25/16 07:00 Anti-ss DNA IgG Ab 99 H HOSPITAL COURSE: Date of Admission:05/12/16 Date of Discharge: 05/28/16 55 y/o F w/ PMH of HTN, hypothyroidism intially presented to ER w/ R sided chest /abdominal pain x 2 days. Pain has been getting progressively worse, and was aggravated by movement, and was constant. Pt has also had subjective fevers and chills for last 2 weeks. Pt went to urgent care 2 weeks prior to presentation for this pain and was given muscle relaxants but they did not help. Pt went to PCP one week later and was given ibuprofen 800 mg q8h and percocet. Percocet helped with pain but overall pain was still progressively worse. Patient was admitted to the hospital and had a CXR and Chest CT which showed a large right pleural effusion. patient also found to have an extrathoracic mass abutting the right lobe of the liver but was not part of the liver. She had thoracentesis done twice which showed an exudative effusion. She also had the mass in the abdominal cavity abutting the liver biopsied which showed inflammatory cells. for the first couple of days she was spiking fevers to about 102-103 and ID consulted and initially she was treated for a complicated community acquired pneumonia with a parapneuomonic effusion with rocephin and azithromycin. She had 4 CT scan of the chest abd/pelv to evaluate this mass and pleural effusions. after speaking with radiology it seemed this mass had some calcification in it and it was thought this could have been a dropped stone from her previous cholecystectomy and this may have been causing a reactive right pleural effusion. antibiotics then changed to ertapenem. CT surgery was consulted and the patient had a VATS with pleurolysis and pleural biopsy and drainage of pleural effusion and was left with 2 chest tubes which were eventually removed once drainage significantly slowed down. All pathology and cytology was negative for malignancy and was consistent with inflammatory changes. She also had GI consult and surgery consult as on the second CT scan of the abdomen there was a fluid collection that accumulated posterior to the body of the stomach and she also had some colitis. stool studies negative and she had an EGD and colonoscopy. Colonoscopy showed a 1cm nodule in the right colon which was biopsied results pending. EGD was WNL except some outpouchings of the stomach which may represent this fluid collection whcih was seen on CT scan from a previous gastroplasty she had. She then had an Upper GI series which was WNL. rheumatological studies done which shows positive CODY screen and positive anti SS DNA Ab. given follow up with rheumatology. Patient is now stable for discharge. Minutes to complete discharge: 65 <Gustavo Miner - Last Filed: 05/28/16 15:46> Physical Exam: SUBJECTIVE: Patient seen and examined OBJECTIVE: PHYSICAL EXAM GENERAL: The patient is awake, alert, and fully oriented, in no acute distress. HEAD: Normal with no signs of trauma. EYES: PERRL, extraocular movements intact, sclera anicteric, conjunctiva clear. ENT: Ears normal, nares patent, oropharynx clear without exudates, moist mucous membranes. NECK: Trachea midline, full range of motion, supple. LUNGS: Breath sounds equal, clear to auscultation bilaterally, no wheezes, no crackles, no accessory muscle use. HEART: Regular rate and rhythm, S1, S2 without murmur, rub or gallop. ABDOMEN: Soft, nontender, nondistended, normoactive bowel sounds, no guarding, no rebound, no hepatosplenomegaly, no masses. EXTREMITIES: 2+ pulses, warm, well-perfused, no edema. NEUROLOGICAL: Cranial nerves II through XII grossly intact. Normal speech, gait not observed. PSYCH: Normal mood, normal affect. SKIN: Warm, dry, normal turgor, no rashes or lesions noted. LABS HOSPITAL COURSE: Date of Admission:05/12/16 Date of Discharge: 06/21/16 Patient is going to follow up as an outpatient with Immanuel Rodriguez ,will follow with the surgeon thoracic surgeon and the general surgeon. all the information will be send to 's office for further follow up closely. Patient was suggested to come back if develops further fever or any discomfort. <Venkat Rubalcava - Last Filed: 06/21/16 04:12> Discharge Summary Reason For Visit: PLEURAL EFFUSION Current Active Problems Dehydration (Acute) Epigastric pain (Acute) Hypokalemia (Acute) Pleural effusion (Acute) Pleuritic chest pain (Acute) Post-op pain (Acute) Status post thoracotomy (Acute) Hypertension (Chronic) Hypothyroidism (Chronic) Obesity (BMI 30-39.9) (Chronic) - Home Medications Comprehensive Discharge Medication List: Ambulatory Orders Levothyroxine [Synthroid -] 125 mcg PO DAILY 11/24/13 Losartan/Hydrochlorothiazide [Losartan-Hctz 50-12.5 mg Tab] 1 each PO DAILY Acetaminophen [Tylenol .Regular Strength -] 650 mg PO Q6H PRN #0 tablet Amox-Tr/K Cl [Augmentin - 875Mg Tablet] 1 tab PO BID #10 tablet 05/28/16 Lidocaine 5% Patch [Lidoderm -] 1 patch TP DAILY #10 patch 05/28/16 <Gustavo Miner - Last Filed: 05/28/16 15:46> - Home Medications Comprehensive Discharge Medication List: Ambulatory Orders Levothyroxine [Synthroid -] 125 mcg PO DAILY 11/24/13 Losartan/Hydrochlorothiazide [Losartan-Hctz 50-12.5 mg Tab] 1 each PO DAILY Acetaminophen [Tylenol .Regular Strength -] 650 mg PO Q6H PRN #0 tablet Amox-Tr/K Cl [Augmentin - 875Mg Tablet] 1 tab PO BID #10 tablet 05/28/16 Lidocaine 5% Patch [Lidoderm -] 1 patch TP DAILY #10 patch 05/28/16 <Venkat Rubalcava - Last Filed: 06/21/16 04:12> Condition: Improved - Instructions Diet, Activity, Other Instructions: follow up with your primary care doctor you expressed do not want to follow with that office anymore you can follow up with me Dr. Miner at [address] [place] [address] i am there every from - please call for appointment follow up with all doctors for results of your biopsies continue your medications as prescribed hold your norvasc until your blood pressure is checked in the office take the antibiotics for 5 more days you need to follow up with a rheumotologist eat a low sodium diet Referrals: Tres Coats DO [Staff Physician] - 2 Weeks Bubba Staley MD [Staff Physician] - 1 Week (positive CODY Screen Positive single stranded DNA AB ) Scar Wang MD [Staff Physician] - 2 Weeks Immanuel Dumas MD [Staff Physician] - 1 Week (this is the office i work at follow up with me here ) Grant Todd [Staff Physician] - 2 Weeks Disposition: HOME This patient is new to me today: No Emergency Visit: Yes ED Registration Date: 05/12/16 Care time: The patient presented to the Emergency Department on the above date and was hospitalized for further evaluation of their emergent condition. Critical Care patient: No - Discharge Referral Referred to [facility] No <Gustavo Miner - Last Filed: 05/28/16 15:46>
--- NOTE | 2016-05-31 10:48 | PATH ---
Surgical Pathology Report Patient Name: CICI BARROS [facility]. Rec. #: [id number] /Age/Gender: 1960 (Age: 55) / F Account: [id number] Location: [address] [place] [address] Taken: 05/27/2016 Received: 05/28/2016 Reported: 05/31/2016 Physicians: Madhav Coats D.O. Specimen(s) Received A: BX DUODENAL BULB B: POLYP RIGHT COLON Clinical History Abnormal CT scan Hiatal hernia, altered gastric anatomy, submucosal nodule, hemorrhoids Final Diagnosis A. DUODENUM, BULB, BIOPSY: MILD NON--SPECIFIC CHRONIC DUODENITIS. JOSE RAMON'S GLAND HYPERPLASIA IS PRESENT. NO HISTOLOGIC EVIDENCE OF GLUTEN SENSITIVE ENTEROPATHY (CELIAC SPRUE) IDENTIFIED. NO LYMPHOMA OR EPITHELIAL NEOPLASM IDENTIFIED. B. COLON, RIGHT, BIOPSY: COLONIC MUCOSA WITH NO PATHOLOGIC CHANGES. NO ADENOMATOUS OR HYPERPLASTIC CHANGES IDENTIFIED. EXTREMELY SCANT SUBMUCOSAL TISSUE PRESENT, WITH NO NEOPLASM IDENTIFIED. Comment: Recommend correlation with clinical and radiologic findings and follow up as clinically indicated. Electronically Signed Mitul Jones M.D. Gross Description A. Received in formalin, labeled "biopsy duodenal bulb" are 3 noel, irregular portions of soft tissue ranging from 0.1-0.3 cm. in greatest dimension. The specimens are submitted in toto in one cassette. B. Received in formalin, labeled "polyp right colon" are 6 noel, irregular portions of soft tissue ranging from 0.1-0.3 cm. in greatest dimension. The specimens are submitted in toto in one cassette. 05/28/201605/28/2016
== END 2016-05-28 16:48 | disposition home or self-care (01) | DRG 853 ==
LOC: JER 17:37 → JERBED 22:54 → UNDOADMIN 23:23 → J6S 05-13 00:43 → JSAMEDAYSX 05-21 11:30 → JICU 05-21 13:09 → J5S 05-24 18:40
PROVIDERS: ADMIT Internal Medicine; ATTEND Internal Medicine
PROC: 0W993ZX Drainage of Right Pleural Cavity, Percutaneous Approach, Diagnostic (ICD-10-PCS; principal; 2016-05-13)
PROC: [UNRECOGNIZED PROCEDURE] (2016-05-18)
PROC: 0W993ZX Drainage of Right Pleural Cavity, Percutaneous Approach, Diagnostic (ICD-10-PCS; 2016-05-18)
PROC: 0W9940Z Drainage of Right Pleural Cavity with Drainage Device, Percutaneous Endoscopic Approach (ICD-10-PCS; 2016-05-21)
PROC: 0BNF4ZZ Release Right Lower Lung Lobe, Percutaneous Endoscopic Approach (ICD-10-PCS; 2016-05-21)
PROC: 0BBN4ZZ Excision of Right Pleura, Percutaneous Endoscopic Approach (ICD-10-PCS; 2016-05-21 08:00)
PROC: 0DBF8ZX Excision of Right Large Intestine, Via Natural or Artificial Opening Endoscopic, Diagnostic (ICD-10-PCS; 2016-05-27)
PROC: 0DB98ZX Excision of Duodenum, Via Natural or Artificial Opening Endoscopic, Diagnostic (ICD-10-PCS; 2016-05-27)
DX: A41.9 Sepsis, unspecified organism (principal); K75.0 Abscess of liver; J18.9 Pneumonia, unspecified organism; J90 Pleural effusion, not elsewhere classified; J98.11 Atelectasis; R18.8 Other ascites; I10 Essential (primary) hypertension; E03.9 Hypothyroidism, unspecified; E66.01 Morbid (severe) obesity due to excess calories; Z68.37 Body mass index [BMI] 37.0-37.9, adult; Z71.3 Dietary counseling and surveillance; D72.829 Elevated white blood cell count, unspecified; R00.0 Tachycardia, unspecified; E87.6 Hypokalemia; J98.4 Other disorders of lung; H92.01 Otalgia, right ear; K52.9 Noninfective gastroenteritis and colitis, unspecified; K59.00 Constipation, unspecified; K63.89 Other specified diseases of intestine; K44.9 Diaphragmatic hernia without obstruction or gangrene; Z98.84 Bariatric surgery status; K31.4 Gastric diverticulum
CPT/HCPCS: 36415; 71010-TC; 71020-TC; 71260-TC; 74176-TC; 74177-TC; 74247-TC; 76942; 80048; 80053; 80076; 81003; 81015; 82040; 82042; 82105; 82150; 82378; 82438; 82550; 82728; 82945; 83540; 83550; 83605; 83615; 83735; 83986; 84100; 84157; 84311; 84478; 84484; 85025; 85027; 85362; 85384; 85610; 85651; 85730; 86038; 86140; 86141; 86160; 86162; 86215; 86225; 86226; 86480; 86704; 86706; 86708; 86850; 86900; 86901; 86922; 87040; 87045; 87046; 87070; 87075; 87086; 87102; 87116; 87177; 87205; 87206; 87207; 87209; 87210; 87324; 87328; 87329; 87340; 87385; 87389; 87449; 87899; 88108; 88305-TC; 88341-TC; 89051; 93005; 93010; 94010; 94640; 94760; 99285-25; J1644; Q9967

== ENCOUNTER 2020-06-16 17:05 | Emergency (ER) | payer SELFPAY ==
[2020-06-16 17:23] VITALS: BP 129/75; PULSE 85; TEMP 98.3; BMI 40.8
== END 2020-06-16 20:47 | disposition home or self-care (01) ==
LOC: JER 17:05
DX: L02.212 Cutaneous abscess of back [any part, except buttock and flank] (principal)
CPT/HCPCS: 76604; 99284-25